=== PATIENT | male | born 1940 | race African-American/Black ===

== ENCOUNTER 2016-05-22 19:59 | Inpatient (IN) | payer BC, OTHER ==
[2016-05-22 20:40] VITALS: BMI 31.8
--- NOTE | 2016-05-22 20:48 | PDOC ---
History of Present Illness - General History Source: Patient <Beck Baum - Last Filed: 05/22/16 22:59> - General History Source: Patient Exam Limitations: No Limitations - History of Present Illness Initial Comments: 05/22/16 21:18 The patient is a 75 year old male with significant past medical history of COPD , hypertension, BPH, CKD/glomerulonephropathy previously requiring short term HD and now with stable renal function, s/p inguinal and umbilical hernia repairs who presents to the ED with copd exacerbation and bilateral lower extremities edema. Patient reports he was recently started on prednisone about 1 week ago and subsequently noted his legs to be swollen. He also reports SOB, but denies diaphoresis, lightheadedness, chest pain, jaw pain, shoulder pain, nausea, or vomiting. Patient states he is scheduled for a biopsy on his kidneys tomorrow morning, but is unsure of which kidney. The patient denies fever, chills, cough, abdominal pain, and diarrhea. The patient denies dysuria, hematuria, urgency, and frequency. Allergies: NKDA Social History: No alcohol, tobacco, or drug use reported. Past Surgical History: s/p inguinal and umbilical hernia repairs PCP: Dr. 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 Kg Bowman Urologist: Dr. Armen Hathaway <Jesus AlbertoJuwan fallTheresa - Last Filed: 05/22/16 23:45> - General Chief Complaint: Edema Stated Complaint: PCP SENT/KIDNEY PAIN Time Seen by Provider: 05/22/16 20:45 Past History - Past Medical History Anemia: No Asthma: No Cancer: No Cardiac Disorders: Yes (ENLARGED HEART) CVA: No COPD: Yes CHF: No Dementia: No Diabetes: No Dialysis: Yes (HX OF) GI Disorders: No Disorders: No HTN: Yes Hypercholesterolemia: No Kidney Stones: Yes Liver Disease: No Seizures: No Thyroid Disease: No Other medical history: englarged prostate, acute kidney failure - Surgical History Abdominal Surgery: Yes (HERNIA) Appendectomy: No Cardiac Surgery: No Cholecystectomy: No Lung Surgery: No Neurologic Surgery: No Orthopedic Surgery: Yes (SPINAL SX MANY YEARS AGO) - Psycho/Social/Smoking Cessation Hx Anxiety: No Suicidal Ideation: No Smoking History: Former smoker Have you smoked in the past 12 months: No If you are a former smoker, when did you quit?: 35 years ago Information on smoking cessation initiated: No Hx Alcohol Use: No Drug/Substance Use Hx: No Substance Use Type: None Hx Substance Use Treatment: No <Beck Baum - Last Filed: 05/22/16 22:59> <Jesus AlbertoJusto fallta - Last Filed: 05/22/16 23:45> - Past Medical History Allergies/Adverse Reactions: Allergies Allergy/AdvReac Type Severity Reaction Status Date / Time No Known Allergies Allergy Verified 05/22/16 20:40 Home Medications: Ambulatory Orders Budesonide/Formeterol Fumarate [SYMBICORT 160/4.5mcg -] 2 inh IH BID inhaler Tamsulosin HCl [Flomax -] 0.4 mg PO DAILY@0830 cap.er.24h 07/08/14 Albuterol 0.083% Nebulizer Dianne [Ventolin 0.083% Nebulizer Soln -] 1 neb NEB QID PRN 01/19/15 [place]-3 Fatty Acids [Fish Oil] 900 mg PO DAILY 01/19/15 Doxazosin Mesylate [Cardura -] 4 mg PO DAILY #60 tablet 12/26/15 Ranolazine [Ranexa -] 500 mg PO DAILY tab 12/26/15 Calcium Citrate/Vitamin D3 [Calcium Citrate - Vit D Caplet] 1 each PO DAILY Furosemide [Lasix] 20 mg PO BID 05/22/16 Metoprolol Succinate [Toprol Xl -] mg PO DAILY 05/22/16 Prednisone 20 mg PO DAILY 05/22/16 Silodosin [Rapaflo] 8 mg PO ASDIR 05/22/16 Review of Systems - Review of Systems Able to Perform ROS?: Yes Comments:: 05/22/16 21:18 CONSTITUTIONAL: Absent: fever, chills, diaphoresis, generalized weakness, malaise, loss of appetite HEENT: Absent: rhinorrhea, nasal congestion, throat pain, throat swelling, difficulty swallowing, mouth swelling, ear pain, eye pain, visual Changes CARDIOVASCULAR: +bilateral leg swelling Absent: chest pain, syncope, palpitations, irregular heart rate, lightheadedness RESPIRATORY: +SOB Absent: cough, dyspnea with exertion, orthopnea, wheezing, stridor, hemoptysis GASTROINTESTINAL: Absent: abdominal pain, abdominal distension, nausea, vomiting, diarrhea, constipation, melena, hematochezia GENITOURINARY: Absent: dysuria, frequency, urgency, hesitancy, hematuria, flank pain, genital pain MUSCULOSKELETAL: Absent: myalgia, arthralgia, joint swelling SKIN: Absent: rash, itching, pallor NEUROLOGIC: Absent: headache, focal weakness or paresthesias, dizziness, unsteady gait, seizure, mental status changes, bladder or bowel incontinence <IanTheresa - Last Filed: 05/22/16 23:45> *Physical Exam - Vital Signs Last Vital Signs Temp Pulse Resp BP Pulse Ox 98.6 F 82 18 143/83 98 05/22/16 20:36 05/22/16 20:36 05/22/16 20:36 05/22/16 20:36 05/22/16 20:36 <GregoryBeck coughlin - Last Filed: 05/22/16 22:59> - Vital Signs Last Vital Signs Temp Pulse Resp BP Pulse Ox 98.6 F 82 18 143/83 98 05/22/16 20:36 05/22/16 20:36 05/22/16 20:36 05/22/16 20:36 05/22/16 20:36 - Physical Exam Comments: 05/22/16 21:18 GENERAL: Well developed, well nourished. Awake and alert. No acute distress. HEENT: Normocephalic, atraumatic. PERRLA, EOMI. No conjunctival pallor. Sclera are non- icteric. Moist mucous membranes. Oropharynx is clear. NECK: Supple. Full ROM. No JVD. Carotid pulses 2+ and symmetric, without bruits. No thyromegaly. No lymphadenopathy. CARDIOVASCULAR: Regular rate and rhythm. No murmurs, rubs, or gallops. Distal pulses are 2+ and symmetric. PULMONARY: No evidence of respiratory distress. Mild conversational dyspnea. No retractions. Lungs clear to auscultation bilaterally. No wheezing, rales or rhonchi. ABDOMINAL: Soft. Non-tender. Non-distended. No rebound or guarding. No organomegaly. Normoactive bowel sounds. MUSCULOSKELETAL Normal range of motion at all joints. No bony deformities or tenderness. No CVA tenderness. EXTREMITIES: No cyanosis. No clubbing. 2+ pitting edema bilateral lower extremities. No calf tenderness. SKIN: Warm and dry. Normal capillary refill. No rashes. No jaundice. NEUROLOGICAL: Alert, awake, appropriate. Cranial nerves 2-12 intact. Moving all extremities. No gross focal neurological deficits. <Theresa Sosa - Last Filed: 05/22/16 23:45> Heart Score/ECG Review - ECG Impressions Comment:: 05/22/16 22:00 Sinus tachycardia with frequent premature ventricular complexes in pattern of bigeminy @147bpm Possible left atrial enlargement Nonspecific intraventricular block Abnormal ECG <Theresa Sosa - Last Filed: 05/22/16 23:45> ED Treatment Course - LABORATORY CBC & Chemistry Diagram: 05/22/16 21:40 05/22/16 21:50 <Beck Baum - Last Filed: 05/22/16 22:59> - LABORATORY CBC & Chemistry Diagram: 05/22/16 21:40 05/22/16 21:50 <Theresa Sosa - Last Filed: 05/22/16 23:45> Medical Decision Making - Medical Decision Making 05/22/16 22:59 Dr. Baum: The scribe's documentation has been prepared under my direction and personally reviewed by me in its entirery. I confirm that the note above accurately reflects all work, treatment, procedures, and medical decision making performed by me. Patient to be admitted for shortness of breath. patient presents with worsening renal function. 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 Patient will be admitted to [facility] for renal biopsy performed by interventional radiology in the morning. <Beck Baum - Last Filed: 05/22/16 22:59> - Medical Decision Making 05/22/16 20:[address] Alvaro Landry covering for Dr. Chidi Solis (via answering service) at 20:52 Awaiting call back 05/22/16 21:12 Patient's case discussed with Dr. Landry at 21:12 05/22/16 23:[address] Marie, pt was sent from his office because during examination patient was moderately short of breath and he noted his symptoms progressively gotten worse within the last several weeks. Renal function was within normal limits after being treated with oral steroids due to worsening renal functioning. However, pt renal function has returned to a abnormal level and pt also had lower extremity edema. Dr. Marie will make arrangements for renal biopsy with IR department. <Theresa Sosa - Last Filed: 05/22/16 23:45> *DC/Admit/Observation/Transfer - Discharge Dispostion Admit: Yes <Beck Baum - Last Filed: 05/22/16 22:59> - Attestations Scribe Attestion: 05/22/16 21:19 Documentation prepared by Theresa Sosa, acting as medical advisor for Beck Baum MD <Theresa Sosa - Last Filed: 05/22/16 23:45> Diagnosis at time of Disposition: COPD exacerbation CKD (chronic kidney disease) Qualifiers: Chronic kidney disease stage: unspecified stage Qualified Code(s): N18.9 - Chronic kidney disease, unspecified - Referrals Referrals: Chidi Solis MD [Primary Care Provider] -
[2016-05-22] MEDS ORDERED: ALBUTEROL SO4 2.5/IPRATROPIUM 0.5 INH SOL 3 ML VIAL.NEB. NEB STA (20:53)
[2016-05-22 21:54] LABS: BASOPHIL 0.1 % (0-2.0); MCH 22.9 pg (25.7-33.7); MCHC 32.7 g/dl (32.0-35.9); MEAN CELL VOLUME 70.1 fl (80-96); MEAN PLT VOLUME 9.1 fl (7.5-11.1); NEUTROPHILS 84.8 % (42.8-82.8); PLATELET COUNT 281 K/MM3 (134-434); RDW 16.9 % (11.9-15.9); WHITE BLOOD COUNT 8.5 K/mm3 (4.0-10.0)
[2016-05-22] MEDS ORDERED: FUROSEMIDE 40 MG/4 ML INJECTABLE VIAL IVPUSH ONE (22:28)
[2016-05-22] MEDS ORDERED: predniSONE 20 MG TABLET (UD) PO ONE (22:29)
[2016-05-22 22:36] LABS: INR 0.92 (0.82-1.09); PROTHROMBIN TIME (PATIENT) 10.1 SEC (9.98-11.88)
[2016-05-22] MEDS ORDERED: FUROSEMIDE 40 MG/4 ML INJECTABLE VIAL ONE (22:44)
[2016-05-22] MEDS ORDERED: predniSONE 20 MG TABLET (UD) ONE (22:44)
[2016-05-22 22:46] LABS: ALBUMIN 1.3 g/dl (3.4-5.0); BILIRUBIN,TOTAL 0.1 mg/dL (0.2-1.0); CALCIUM 8.6 mg/dL (8.5-10.1); CREATININE 1.8 mg/dL (0.7-1.3); TOT PROT 5.1 g/dl (6.4-8.2)
[2016-05-22] MEDS ORDERED: ALBUTEROL SO4 0.042% IH SOL 1.25 MG/3 ML VIAL.NEB NEB ONE (23:00)
[2016-05-22] MEDS ORDERED: ALBUTEROL SO4 0.083% IH SOL 2.5 MG/3 ML VIAL.NEB. NEB PRN (23:42)
[2016-05-22] MEDS ORDERED: ACETAMINOPHEN 325 MG TABLET (FP) PO PRN (23:44)
[2016-05-22] MEDS ORDERED: PATIENT'S OWN MEDICATION (NON-FORMULARY) (Silodosin [Rapaflo] 8 MG) PO SCH (23:45)
[2016-05-23] MEDS: BUDESONIDE/FORMETEROL FUMARATE 160/4.5 mcg INHALER IH SCH ×3 (00:27→21:24)
[2016-05-23 02:02] LABS: URINE APPEARANCE CLEAR; URINE BILIRUBIN NEGATIVE (NEGATIVE); URINE BLOOD NEGATIVE (NEGATIVE); URINE COLOR COLORLESS; URINE GLUCOSE (UA) 1+ (NEGATIVE); URINE KETONE NEGATIVE (NEGATIVE); URINE LEUK ESTERASE NEGATIVE (NEGATIVE); URINE NITRITE NEGATIVE (NEGATIVE); URINE UROBILINOGEN NEGATIVE E.U./dl (0.2-1.0)
[2016-05-23 02:13] LABS: URINE PROTEIN 1+ (NEGATIVE)
[2016-05-23 02:14] LABS: URINE BACTERIA RARE /hpf (NONE SEEN); URINE HYALINE CAST 1 /lpf; URINE MUCUS RARE; URINE RBC 1 /hpf (0-3); URINE WBC <1 /hpf (3-5)
[2016-05-23 07:56] LABS: BASOPHIL 0.1 % (0-2.0); MCH 22.5 pg (25.7-33.7); MCHC 31.5 g/dl (32.0-35.9); MEAN CELL VOLUME 71.4 fl (80-96); MEAN PLT VOLUME 9.3 fl (7.5-11.1); NEUTROPHILS 83.9 % (42.8-82.8); PLATELET COUNT 201 K/MM3 (134-434); RDW 16.9 % (11.9-15.9); WHITE BLOOD COUNT 8.5 K/mm3 (4.0-10.0)
[2016-05-23 08:07] LABS: PHOSPHOROUS 3.4 mg/dL (2.5-4.9)
[2016-05-23 08:09] LABS: TROPONIN I < 0.02 ng/ml (0.00-0.05)
[2016-05-23 08:29] LABS: MAGNESIUM 1.8 mg/dL (1.8-2.4)
[2016-05-23] MEDS: HEPARIN NA (PORCINE) 5,000 UNITS/ML 1ML VIAL SQ SCH ×2 (10:00→21:24)
[2016-05-23] MEDS ORDERED: predniSONE 20 MG TABLET (UD) PO SCH (10:00)
[2016-05-23] MEDS ORDERED: DOXAZOSIN MESYLATE 2 MG TABLET (FP) PO SCH (10:00)
[2016-05-23] MEDS ORDERED: FUROSEMIDE 40 MG/4 ML INJECTABLE VIAL IVPB SCH (10:00)
--- NOTE | 2016-05-23 10:52 | HP ---
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 esolved with steroids,) Heme/Onc: Yes: Other (intermittent eosinophilia) Psych: Yes: Addictions (previous smoker quit 35 years ago ) Musculoskeletal: Yes: Other (No active joints.) - Past Surgical History Past Surgical History: Yes: Hernia Repair - Smoking History Smoking history: Former smoker Have you smoked in the past 12 months: No If you are a former smoker, when did you quit?: 35 years ago - Alcohol/Substance Use Hx Alcohol Use: No History of Substance Use: reports: None - Social History ADL: Independent History of Recent Travel: No Home Medications - Allergies Allergies/Adverse Reactions: Allergies Allergy/AdvReac Type Severity Reaction Status Date / Time No Known Allergies Allergy Verified 05/22/16 20:40 - Home Medications Home Medications: Ambulatory Orders Budesonide/Formeterol Fumarate [SYMBICORT 160/4.5mcg -] 2 inh IH BID inhaler Tamsulosin HCl [Flomax -] 0.4 mg PO DAILY@0830 cap.er.24h 07/08/14 Albuterol 0.083% Nebulizer Dianne [Ventolin 0.083% Nebulizer Soln -] 1 neb NEB QID PRN 01/19/15 [place]-3 Fatty Acids [Fish Oil] 900 mg PO DAILY 01/19/15 Doxazosin Mesylate [Cardura -] 4 mg PO DAILY #60 tablet 12/26/15 Ranolazine [Ranexa -] 500 mg PO DAILY tab 12/26/15 Calcium Citrate/Vitamin D3 [Calcium Citrate - Vit D Caplet] 1 each PO DAILY Furosemide [Lasix] 20 mg PO BID 05/22/16 Metoprolol Succinate [Toprol Xl -] mg PO DAILY 05/22/16 Prednisone 20 mg PO DAILY 05/22/16 Silodosin [Rapaflo] 8 mg PO ASDIR 05/22/16 Family Disease History - Family Disease History Family Disease History: Diabetes: Sister ( in late 50s/early 60s), Heart Disease: Mother Review of Systems - Review of Systems Constitutional: reports: Weakness Eyes: reports: No Symptoms HENT: reports: No Symptoms Neck: reports: No Symptoms Cardiovascular: reports: Shortness of Breath Respiratory: reports: Exercise Intolerance, SOB, SOB on Exertion, Wheezing Gastrointestinal: reports: No Symptoms Genitourinary: reports: No Symptoms Musculoskeletal: reports: Back Pain, Muscle Weakness Integumentary: denies: No Symptoms Neurological: reports: No Symptoms Endocrine: reports: No Symptoms Physical Examination Vital Signs: Vital Signs Temperature 97.8 F 05/23/16 06:00 Pulse Rate 77 05/23/16 06:00 Respiratory Rate 18 05/23/16 06:00 Blood Pressure 137/97 05/23/16 06:00 O2 Sat by Pulse Oximetry (%) 100 05/23/16 03:40 Constitutional: Yes: Mild Distress, Moderate Distress Eyes: Yes: WNL HENT: Yes: WNL Neck: Yes: WNL Cardiovascular: Yes: WNL Respiratory: Yes: SOB, Wheezes Gastrointestinal: Yes: WNL Renal/: Yes: WNL Musculoskeletal: Yes: Back Pain, Muscle Weakness Extremities: Yes: WNL Edema: Yes Edema: LLE: 2+, RLE: 2+ Integumentary: Yes: WNL Wound/Incision: Yes: Clean/Dry Neurological: Yes: WNL ...Motor Strength: LLE, RLE Psychiatric: Yes: WNL Labs: CBC, BMP 05/23/16 06:20 05/23/16 06:20 Problem List - Problems (1) CKD (chronic kidney disease) Assessment/Plan: acute on chronic Code(s): N18.9 - CHRONIC KIDNEY DISEASE, UNSPECIFIED Qualifiers: Chronic kidney disease stage: unspecified stage Qualified Code(s): N18.9 - Chronic kidney disease, unspecified (2) Fluid overload Code(s): E87.70 - FLUID OVERLOAD, UNSPECIFIED (3) Acute renal failure (ARF) Code(s): N17.9 - ACUTE KIDNEY FAILURE, UNSPECIFIED Qualifiers: Acute renal failure type: unspecified acute renal failure Qualified Code(s): N17.9 - Acute kidney failure, unspecified (4) Edema Code(s): R60.9 - EDEMA, UNSPECIFIED Qualifiers: Edema type: localized Qualified Code(s): R60.0 - Localized edema (5) Hypertension Code(s): I10 - ESSENTIAL (PRIMARY) HYPERTENSION Qualifiers: Hypertension type: essential hypertension Qualified Code(s): I10 - Essential (primary) hypertension Assessment/Plan renal biopsy today tolerated well await results prednisone started renal and cardiac eval appreciated copd--pulm eval lasix iv monitor kidney function
[2016-05-23] MEDS ORDERED: LABETALOL HCL 5 MG/1 ML (200MG/40ML VIAL) IVPB ONE (10:56)
[2016-05-23 11:25] LABS: ALBUMIN 1.3 g/dl (3.4-5.0); ALK PHOS 146 U/L (45-117); ANION GAP 11 (8-16); BILIRUBIN,TOTAL 0.3 mg/dL (0.2-1.0); CALCIUM 9.1 mg/dL (8.5-10.1); CO2 22 mmol/L (21-32); CREATININE 1.7 mg/dL (0.7-1.3); GLUCOSE,RANDOM 108 mg/dL (74-106); SGPT/ALT 25 U/L (12-78); TOT PROT 5.5 g/dl (6.4-8.2)
--- NOTE | 2016-05-23 11:29 | CONSULT ---
Consult Consult Specialty:: Nephrology Reason for Consultation:: CATY - History of Present Illness Chief Complaint: sent in for nephrotic syndrome and fluid overload History of Present Illness: Pt is a 75 year old male with pmhx of COPD, CKD with JANNA, and HTN who I sent in to the hospital for fluid overload. 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 He did require a few weeks of dialysis in the past. He recently developed proteinuria and acute renal failure again. He came to the office yesterday and was found to be in fluid overload. I restarted the steroids about 1 week ago when I was called about his lab and urine findings. He is also on lasix at home. His lower extremity edema is only mildly improved and he has significant weight gain. His aspirin was stopped one week ago. 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 resolved with steroids,) Psych: Yes: Addictions (previous smoker quit 35 years ago ) Musculoskeletal: Yes: Other (No active joints.) - Past Surgical History Past Surgical History: Yes: Hernia Repair - Alcohol/Substance Use Hx Alcohol Use: No History of Substance Use: reports: None - Smoking History Smoking history: Former smoker Have you smoked in the past 12 months: No If you are a former smoker, when did you quit?: 35 years ago - Social History Usual Living Arrangement: With Spouse (2nd ) ADL: Independent History of Recent Travel: No Home Medications - Allergies Allergies/Adverse Reactions: Allergies Allergy/AdvReac Type Severity Reaction Status Date / Time No Known Allergies Allergy Verified 05/22/16 20:40 - Home Medications Home Medications: Ambulatory Orders Budesonide/Formeterol Fumarate [SYMBICORT 160/4.5mcg -] 2 inh IH BID inhaler Tamsulosin HCl [Flomax -] 0.4 mg PO DAILY@0830 cap.er.24h 07/08/14 Albuterol 0.083% Nebulizer Dianne [Ventolin 0.083% Nebulizer Soln -] 1 neb NEB QID PRN 01/19/15 [place]-3 Fatty Acids [Fish Oil] 900 mg PO DAILY 01/19/15 Doxazosin Mesylate [Cardura -] 4 mg PO DAILY #60 tablet 12/26/15 Ranolazine [Ranexa -] 500 mg PO DAILY tab 12/26/15 Calcium Citrate/Vitamin D3 [Calcium Citrate - Vit D Caplet] 1 each PO DAILY Furosemide [Lasix] 20 mg PO BID 05/22/16 Metoprolol Succinate [Toprol Xl -] mg PO DAILY 05/22/16 Prednisone 20 mg PO DAILY 05/22/16 Silodosin [Rapaflo] 8 mg PO ASDIR 05/22/16 Family Disease History - Family Disease History Family Disease History: Diabetes: Sister ( in late 50s/early 60s), Heart Disease: Mother Review of Systems - Review of Systems Constitutional: reports: Malaise Eyes: reports: No Symptoms HENT: reports: No Symptoms Neck: reports: No Symptoms Cardiovascular: reports: Edema, Shortness of Breath Respiratory: reports: SOB Gastrointestinal: reports: No Symptoms Genitourinary: reports: No Symptoms Musculoskeletal: reports: No Symptoms Integumentary: reports: No Symptoms Endocrine: reports: No Symptoms Hematology/Lymphatic: reports: No Symptoms Physical Exam Vital Signs: Vital Signs Temperature 98.1 F 05/23/16 10:00 Pulse Rate 75 05/23/16 10:00 Respiratory Rate 20 05/23/16 10:00 Blood Pressure 125/80 05/23/16 10:00 O2 Sat by Pulse Oximetry (%) 100 05/23/16 03:40 Constitutional: Yes: Calm Eyes: Yes: Conjunctiva Clear HENT: Yes: Atraumatic Neck: Yes: Supple Cardiovascular: Yes: S1, S2 Respiratory: Yes: CTA Bilaterally Gastrointestinal: Yes: Normal Bowel Sounds, Soft Breast(s): Yes: Gynecomastia Musculoskeletal: Yes: WNL Edema: Yes Edema: LLE: 3+, RLE: 3+ Neurological: Yes: Oriented Psychiatric: Yes: Oriented Labs: CBC, BMP 05/23/16 06:20 05/23/16 06:20 Laboratory Tests 05/22/16 05/23/16 05/23/16 21:50 01:50 06:20 WBC 8.5 Hgb 15.1 Plt Count 201 D Sodium 139 Potassium 5.8 H D Chloride 106 Carbon Dioxide 24 Anion Gap 9 BUN 36 H D Creatinine 1.8 H D Albumin 1.3 L D Urine Protein 1+ H Urine Glucose (UA) 1+ H Imaging - Results Chest X-ray: Report Reviewed Problem List - Problems (1) CKD (chronic kidney disease) Code(s): N18.9 - CHRONIC KIDNEY DISEASE, UNSPECIFIED Qualifiers: Chronic kidney disease stage: unspecified stage Qualified Code(s): N18.9 - Chronic kidney disease, unspecified (2) Acute renal failure (ARF) Code(s): N17.9 - ACUTE KIDNEY FAILURE, UNSPECIFIED Qualifiers: Acute renal failure type: unspecified acute renal failure Qualified Code(s): N17.9 - Acute kidney failure, unspecified (3) Edema Code(s): R60.9 - EDEMA, UNSPECIFIED Qualifiers: Edema type: localized Qualified Code(s): R60.0 - Localized edema (4) Hyperkalemia Code(s): E87.5 - HYPERKALEMIA (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 Assessment/Plan Current Medications Generic Name Dose Route Start Last Admin Trade Name Freq PRN Reason Stop Dose Admin Acetaminophen 650 mg 05/22/16 23:44 Tylenol - PO Q4H PRN FEVER OR PAIN Albuterol Sulfate 1 amp 05/22/16 23:42 Ventolin 0.083% Nebulizer Soln - NEB QID PRN ASTHMA Budesonide/Formoterol Fumarate 2 puff 05/22/16 23:45 05/23/16 00:27 Symbicort 160/4.5mcg - IH Not Given BID [facility] Doxazosin Mesylate 4 mg 05/23/16 10:00 Cardura - PO DAILY CHARLES Furosemide 40 mg 05/23/16 10:00 Lasix Injection - IVPB DAILY [facility] Heparin Sodium (Porcine) 5,000 unit 05/23/16 10:00 Heparin - SQ BID [facility] Metoprolol Succinate 25 mg 05/23/16 10:00 Toprol Xl - PO DAILY CHARLES Prednisone 20 mg 05/23/16 10:00 Deltasone - PO DAILY [facility]LES Ranolazine 500 mg 05/23/16 10:00 Ranexa - PO DAILY [facility] Tamsulosin HCl 0.4 mg 05/23/16 08:30 Flomax - PO DAILY@0830 CHARLES Impression 1. CATY 2. CKD with hx of JANNA 3. COPD 4. HTN 5. BPH 6. hyperkalemia 7. fluid overload Plan - cont steroids, prednisone 60 mg daily - cont IV lasix - repeat labs - renal diet - kidney biopsy today - discussed with PMD - will follow closely - will fax serology workup from office Dr Marie
[2016-05-23 11:50] LABS: SGOT/AST 39 U/L (15-37)
[2016-05-23] MEDS: TAMSULOSIN HCL 0.4 MG CAP.ER.24H (FP) PO SCH (13:15)
[2016-05-23] MEDS: METOPROLOL SUCCINATE 25 MG TAB.SR.24H (FP) PO SCH (13:16)
[2016-05-23] MEDS: RANOLAZINE E.R. 500 MG TABLET (FP) PO SCH (13:16)
[2016-05-23] MEDS: FUROSEMIDE 40 MG/4 ML INJECTABLE VIAL IVPB SCH ×2 (13:17→19:14)
[2016-05-23 13:20] LABS: CALCIUM 9.1 mg/dL (8.5-10.1); CREATININE 1.6 mg/dL (0.7-1.3)
[2016-05-23] MEDS: predniSONE 20 MG TABLET (UD) PO SCH (13:22)
--- NOTE | 2016-05-23 13:47 | PN ---
Progress Note (short form) - Note Progress Note: Renal Addendum Laboratory Tests 05/23/16 12:45 Sodium 140 Potassium 4.8 D Chloride 105 Carbon Dioxide 29 D Anion Gap 6 L BUN 33 H Creatinine 1.6 H Labs reviewed, potassium normal Dr Marie Problem List - Problems (1) CKD (chronic kidney disease) Code(s): N18.9 - CHRONIC KIDNEY DISEASE, UNSPECIFIED Qualifiers: Chronic kidney disease stage: unspecified stage Qualified Code(s): N18.9 - Chronic kidney disease, unspecified (2) Acute renal failure (ARF) Code(s): N17.9 - ACUTE KIDNEY FAILURE, UNSPECIFIED Qualifiers: Acute renal failure type: unspecified acute renal failure Qualified Code(s): N17.9 - Acute kidney failure, unspecified (3) Edema Code(s): R60.9 - EDEMA, UNSPECIFIED Qualifiers: Edema type: localized Qualified Code(s): R60.0 - Localized edema (4) Hyperkalemia Code(s): E87.5 - HYPERKALEMIA (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
--- NOTE | 2016-05-23 15:00 | CON.CARD ---
Consult Consult Specialty:: Cardiology Referred by:: Dr. Landry Reason for Consultation:: SOB - History of Present Illness Chief Complaint: Dyspnea, edema History of Present Illness: 75 yo male with COPD, interstitial lung disease, CKD/minimal change disease, and HTN who was admitted yesterday with dyspnea/edema/acute renal failure yesterday from [employer]. Cardiology was consulted for CHF evaluation given dyspnea. Patient underwent renal biopsy earlier today and currently reports improvement in dyspnea with IV furosemide. Denies chest pain. - History Source History Provided By: Patient Limitations to Obtaining History: No Limitations - Past Medical History Cardio/Vascular: Yes: HTN Pulmonary: Yes: COPD, Other (interstitial lung disease ) Renal/: Yes: Renal Failure ( related to minimal change disease), Renal Inusuff , Other (Epiaode of actute renal insufficiency and nephrotic syndrome sconadry to mimimal change disease -> resolved with steroids) Psych: Yes: Addictions (previous smoker quit 35 years ago ) Musculoskeletal: Yes: Other (No active joints.) - Past Surgical History Past Surgical History: Yes: Hernia Repair - Alcohol/Substance Use Hx Alcohol Use: No History of Substance Use: reports: None - Smoking History Smoking history: Former smoker Have you smoked in the past 12 months: No If you are a former smoker, when did you quit?: 35 years ago - Social History Usual Living Arrangement: With Spouse (2nd ) ADL: Independent History of Recent Travel: No Home Medications - Allergies Allergies/Adverse Reactions: Allergies Allergy/AdvReac Type Severity Reaction Status Date / Time No Known Allergies Allergy Verified 05/22/16 20:40 - Home Medications Home Medications: Ambulatory Orders Budesonide/Formeterol Fumarate [SYMBICORT 160/4.5mcg -] 2 inh IH BID inhaler Tamsulosin HCl [Flomax -] 0.4 mg PO DAILY@0830 cap.er.24h 07/08/14 Albuterol 0.083% Nebulizer Dianne [Ventolin 0.083% Nebulizer Soln -] 1 neb NEB QID PRN 01/19/15 [place]-3 Fatty Acids [Fish Oil] 900 mg PO DAILY 01/19/15 Doxazosin Mesylate [Cardura -] 4 mg PO DAILY #60 tablet 12/26/15 Ranolazine [Ranexa -] 500 mg PO DAILY tab 12/26/15 Calcium Citrate/Vitamin D3 [Calcium Citrate - Vit D Caplet] 1 each PO DAILY Furosemide [Lasix] 20 mg PO BID 05/22/16 Metoprolol Succinate [Toprol Xl -] mg PO DAILY 05/22/16 Prednisone 20 mg PO DAILY 05/22/16 Silodosin [Rapaflo] 8 mg PO ASDIR 05/22/16 Family Disease History - Family Disease History Family Disease History: Diabetes: Sister ( in late 50s/early 60s), Heart Disease: Mother Review of Systems - Review of Systems Constitutional: reports: No Symptoms Eyes: reports: No Symptoms HENT: reports: No Symptoms Cardiovascular: reports: Edema, Shortness of Breath Respiratory: reports: SOB, SOB on Exertion Gastrointestinal: reports: No Symptoms Musculoskeletal: reports: No Symptoms Neurological: reports: No Symptoms Endocrine: reports: No Symptoms Hematology/Lymphatic: reports: No Symptoms Psychiatric: reports: No Symptoms Vital Signs: Vital Signs Temperature 98.1 F 05/23/16 10:00 Pulse Rate 80 05/23/16 12:02 Respiratory Rate 15 05/23/16 12:02 Blood Pressure 138/87 05/23/16 12:02 O2 Sat by Pulse Oximetry (%) 99 05/23/16 12:02 Constitutional: Yes: Well Nourished, No Distress Eyes: Yes: Conjunctiva Clear, EOM Intact HENT: Yes: Atraumatic, Normocephalic Respiratory: Yes: Rales Gastrointestinal: Yes: Normal Bowel Sounds, Soft. No: Tenderness Cardiovascular: Yes: Regular Rate and Rhythm JVD: No Carotid Bruit: No Heart Sounds: Yes: S1, S2 Murmur: No: Systolic Murmur Edema: Yes Edema: LLE: 2+, RLE: 2+ Neurological: Yes: Alert, Oriented, Cran Nerves II-XII Intact ...Motor Strength: WNL Psychiatric: Yes: WNL - Other Data Labs, Other Data: CBC, BMP 05/23/16 06:20 05/23/16 12:45 INR, PTT INR 0.92 (0.82-1.09) 05/22/16 21:50 Troponin, BNP 05/23/16 06:20 Troponin I < 0.02 B-Natriuretic Peptide 106.06 Troponin, BNP 05/23/16 06:20 Troponin I < 0.02 B-Natriuretic Peptide 106.06 05/22/16 ECG: Sinus tachycardia, possible LAE, RSR' pattern in V1 Echo: Report Reviewed (12/25/15: Normal LV size and systoli function. Mod TR. RVSP 40-50 mHg. Mod pulm HTN. Mild to mod AV sclerosis) Imaging - Results Chest X-ray: Report Reviewed (05/22/16: Interstitial changes), Image Reviewed Assessment/Plan 75 yo male with COPD, interstitial lung disease, CKD/minimal change disease, and HTN. 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 Cardiology was consulted for CHF evaluation given dyspnea/edema. Patient reports improvement in dyspnea with IV furosemide. 12/25/15 Echo: Normal LV size and systolic function. Mod TR. RVSP 40-50 mHg. Mod pulm HTN. Mild to mod AV sclerosis. BNP only 106. Patient's clinical presentation is likely due to his known underlying renal disease. Patient's physical exam, BNP 106, 12/2015 echo results, and CXR are not suggestive of CHF. RECS: No further cardiac work-up or intervention is needed at this time. Diuretics as per nephrology service. Further recs as per primary care team, nephrology, and pulmonary. Will see prn. Please call with specific questions.
--- NOTE | 2016-05-23 15:10 | CON.PULM ---
Consult Consult Specialty:: PULM/CCM Referred by:: WILBERTO Reason for Consultation:: ABNORMAL CXR - History of Present Illness Chief Complaint: SOB / LE SWELLING History of Present Illness: 75 M, known to our service from previous admissions. History of ILD that has been present on CT imaging since 2011. Additional history of COPD, hypertension , BPH, CKD/glomerulonephropathy (previously on short term HD). Admitted via the ER due to progressive SOB and bilateral LE edema. Patient reports the swelling seems to have started after he was given prednisone about 1 week ago. No travel history or sick contacts. No fever or chills. No hemoptysis or night sweats. - History Source History Provided By: Patient Limitations to Obtaining History: No Limitations - Past Medical History Cardio/Vascular: Yes: HTN Pulmonary: Yes: COPD, Other (interstitial lung disease ) Renal/: Yes: Renal Failure ( related to minimal change disease), Renal Inusuff , Other (Epiaode of actute renal insufficiency and nephrotic syndrome sconadry to mimimal change disease. resolved with steroids,) Psych: Yes: Addictions (previous smoker quit 35 years ago ) Musculoskeletal: Yes: Other (No active joints.) - Past Surgical History Past Surgical History: Yes: Hernia Repair - Alcohol/Substance Use Hx Alcohol Use: No History of Substance Use: reports: None - Smoking History Smoking history: Former smoker Have you smoked in the past 12 months: No If you are a former smoker, when did you quit?: 35 years ago - Social History Usual Living Arrangement: With Spouse (2nd ) ADL: Independent History of Recent Travel: No Home Medications - Allergies Allergies/Adverse Reactions: Allergies Allergy/AdvReac Type Severity Reaction Status Date / Time No Known Allergies Allergy Verified 05/22/16 20:40 - Home Medications Home Medications: Ambulatory Orders Budesonide/Formeterol Fumarate [SYMBICORT 160/4.5mcg -] 2 inh IH BID inhaler Tamsulosin HCl [Flomax -] 0.4 mg PO DAILY@0830 cap.er.24h 07/08/14 Albuterol 0.083% Nebulizer Dianne [Ventolin 0.083% Nebulizer Soln -] 1 neb NEB QID PRN 01/19/15 [place]-3 Fatty Acids [Fish Oil] 900 mg PO DAILY 01/19/15 Doxazosin Mesylate [Cardura -] 4 mg PO DAILY #60 tablet 12/26/15 Ranolazine [Ranexa -] 500 mg PO DAILY tab 12/26/15 Calcium Citrate/Vitamin D3 [Calcium Citrate - Vit D Caplet] 1 each PO DAILY Furosemide [Lasix] 20 mg PO BID 05/22/16 Metoprolol Succinate [Toprol Xl -] mg PO DAILY 05/22/16 Prednisone 20 mg PO DAILY 05/22/16 Silodosin [Rapaflo] 8 mg PO ASDIR 05/22/16 Family Disease History - Family Disease History Family Disease History: Diabetes: Sister ( in late 50s/early 60s), Heart Disease: Mother Review of Systems - Review of Systems Constitutional: denies: Chills, Fever, Night Sweats, Unintentional Wgt. Loss Eyes: reports: No Symptoms HENT: reports: No Symptoms Neck: reports: No Symptoms Cardiovascular: reports: Edema, Shortness of Breath. denies: Chest Pain Respiratory: reports: Cough, SOB, SOB on Exertion. denies: Hemoptysis, Wheezing Gastrointestinal: reports: No Symptoms Genitourinary: reports: No Symptoms Breasts: reports: No Symptoms Reported Musculoskeletal: reports: No Symptoms Integumentary: reports: No Symptoms Neurological: reports: No Symptoms Endocrine: reports: No Symptoms Hematology/Lymphatic: reports: No Symptoms Psychiatric: reports: No Symptoms Physical Exam Vital Sings: Vital Signs Temperature 98.1 F 05/23/16 10:00 Pulse Rate 80 05/23/16 12:02 Respiratory Rate 15 05/23/16 12:02 Blood Pressure 138/87 05/23/16 12:02 O2 Sat by Pulse Oximetry (%) 99 05/23/16 12:02 Constitutional: Yes: Well Nourished, No Distress Eyes: Yes: Conjunctiva Clear, EOM Intact HENT: Yes: Atraumatic, Normocephalic Neck: Yes: Supple, Trachea Midline Cardiovascular: Yes: Regular Rate and Rhythm Respiratory: Yes: Rales, Rhonchi. No: Stridor, Wheezes ...Inspection: Yes: WNL ...Clubbing: No Gastrointestinal: Yes: Normal Bowel Sounds, Soft Musculoskeletal: Yes: WNL Extremities: Yes: WNL Edema: Yes Peripheral Pulses WNL: Yes Integumentary: Yes: WNL Neurological: Yes: WNL, Alert, Oriented ...Motor Strength: WNL Psychiatric: Yes: Alert, Oriented Labs: CBC, BMP 05/23/16 06:20 05/23/16 12:45 Imaging - Results Chest X-ray: Report Reviewed, Image Reviewed Problem List - Problems (1) CKD (chronic kidney disease) Code(s): N18.9 - CHRONIC KIDNEY DISEASE, UNSPECIFIED Qualifiers: Chronic kidney disease stage: unspecified stage Qualified Code(s): N18.9 - Chronic kidney disease, unspecified (2) Cardiomegaly Code(s): I51.7 - CARDIOMEGALY (3) Edema Code(s): R60.9 - EDEMA, UNSPECIFIED Qualifiers: Edema type: localized Qualified Code(s): R60.0 - Localized edema (4) Hypertension Code(s): I10 - ESSENTIAL (PRIMARY) HYPERTENSION Qualifiers: Hypertension type: essential hypertension Qualified Code(s): I10 - Essential (primary) hypertension (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 (6) Fluid overload Code(s): E87.70 - FLUID OVERLOAD, UNSPECIFIED Assessment/Plan PLAN: Prednisone 60mg OD per Renal O2 as needed BD TX PRN IV Lasix BID Monitor daily weight Monitor off ABX Will follow Thank you. Dr Russ
--- NOTE | 2016-05-23 17:09 | EKG ---
Test Reason : Blood Pressure : / mmHG Vent. Rate : 147 BPM Atrial Rate : 147 BPM P-R Int : 174 ms QRS Dur : 174 ms QT Int : 170 ms P-R-T Axes : 065 -10 000 degrees QTc Int : 266 ms SINUS TACHYCARDIA POSSIBLE LEFT ATRIAL ENLARGEMENT ABNORMAL ECG Confirmed by SANDEE CEJA MD ([id number]) on 05/23/2016 5:09:22 PM Referred By: Confirmed By:SANDEE CEJA MD
[2016-05-23] MEDS ORDERED: PT OWN MED DRAWER 7, Y5N ONE (21:23)
[2016-05-23 23:25] LABS: URINE CREATININE 25.6 mg/dL
[2016-05-24] MEDS: FUROSEMIDE 40 MG/4 ML INJECTABLE VIAL IVPB SCH (06:37)
[2016-05-24 08:36] LABS: BASOPHIL 0.3 % (0-2.0); EOSINOPHIL 0.1 % (0-4.5); MCH 22.8 pg (25.7-33.7); MCHC 32.3 g/dl (32.0-35.9); MEAN CELL VOLUME 70.6 fl (80-96); MEAN PLT VOLUME 9.2 fl (7.5-11.1); NEUTROPHILS 74.8 % (42.8-82.8); PLATELET COUNT 216 K/MM3 (134-434); RDW 16.8 % (11.9-15.9); WHITE BLOOD COUNT 10.1 K/mm3 (4.0-10.0)
--- NOTE | 2016-05-24 09:11 | PN ---
Progress Note, Physician History of Present Illness: Pt seen and examined at bedside. He is awake and alert. He feels that his lower extremity edema is improving. He feels that his breathing has improved as well. He denies back pain and he denies hematuria. - Current Medication List Current Medications: Active Medications Acetaminophen (Tylenol -) 650 mg PO Q4H PRN PRN Reason: FEVER OR PAIN Albuterol Sulfate (Ventolin 0.083% Nebulizer Soln -) 1 amp NEB QID PRN PRN Reason: ASTHMA Budesonide/Formoterol Fumarate (Symbicort 160/4.5mcg -) 2 puff IH BID [facility] Last Admin: 05/23/16 21:24 Dose: 2 puff Doxazosin Mesylate (Cardura -) 4 mg PO DAILY [facility] Furosemide (Lasix Injection -) 40 mg IVPB BID@0600,1400 [facility] Last Admin: 05/24/16 06:37 Dose: 40 mg Heparin Sodium (Porcine) (Heparin -) 5,000 unit SQ BID [facility] Last Admin: 05/23/16 21:24 Dose: 5,000 unit Metoprolol Succinate (Toprol Xl -) 25 mg PO DAILY [facility] Last Admin: 05/23/16 13:16 Dose: 25 mg Prednisone (Deltasone -) 60 mg PO DAILY [facility] Last Admin: 05/23/16 13:22 Dose: 60 mg Ranolazine (Ranexa -) 500 mg PO DAILY [facility] Last Admin: 05/23/16 13:16 Dose: 500 mg Tamsulosin HCl (Flomax -) 0.4 mg PO DAILY@0830 [facility] Last Admin: 05/23/16 13:15 Dose: 0.4 mg - Objective Vital Signs: Vital Signs Temperature 98 F 05/24/16 06:53 Pulse Rate 72 05/24/16 06:53 Respiratory Rate 18 05/24/16 06:53 Blood Pressure 135/85 05/24/16 06:53 O2 Sat by Pulse Oximetry (%) 95 05/23/16 21:00 Constitutional: Yes: Calm Eyes: Yes: Conjunctiva Clear HENT: Yes: Atraumatic Cardiovascular: Yes: S1, S2 Respiratory: Yes: Wheezes Gastrointestinal: Yes: Soft Genitourinary: Yes: WNL. No: CVA Tenderness - Left, CVA Tenderness - Right, Hematuria Musculoskeletal: Yes: WNL Edema: Yes Edema: LLE: 1+, RLE: 1+ Neurological: Yes: Oriented Psychiatric: Yes: Oriented Labs: CBC, BMP 05/24/16 06:30 INR, PTT INR 0.92 (0.82-1.09) 05/22/16 21:50 Problem List - Problems (1) CKD (chronic kidney disease) Code(s): N18.9 - CHRONIC KIDNEY DISEASE, UNSPECIFIED Qualifiers: Chronic kidney disease stage: unspecified stage Qualified Code(s): N18.9 - Chronic kidney disease, unspecified (2) Acute renal failure (ARF) Code(s): N17.9 - ACUTE KIDNEY FAILURE, UNSPECIFIED Qualifiers: Acute renal failure type: unspecified acute renal failure Qualified Code(s): N17.9 - Acute kidney failure, unspecified (3) Edema Code(s): R60.9 - EDEMA, UNSPECIFIED Qualifiers: Edema type: localized Qualified Code(s): R60.0 - Localized edema (4) Hyperkalemia Code(s): E87.5 - HYPERKALEMIA (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 Assessment/Plan Current Medications Generic Name Dose Route Start Last Admin Trade Name Freq PRN Reason Stop Dose Admin Acetaminophen 650 mg 05/22/16 23:44 Tylenol - PO Q4H PRN FEVER OR PAIN Albuterol Sulfate 1 amp 05/22/16 23:42 Ventolin 0.083% Nebulizer Soln - NEB QID PRN ASTHMA Budesonide/Formoterol Fumarate 2 puff 05/22/16 23:45 05/23/16 21:24 Symbicort 160/4.5mcg - IH 2 puff BID [facility] Administration Doxazosin Mesylate 4 mg 05/24/16 10:00 Cardura - PO DAILY [facility] Furosemide 40 mg 05/23/16 14:00 05/24/16 06:37 Lasix Injection - IVPB 40 mg BID@0600,1400 [facility] Administration Heparin Sodium (Porcine) 5,000 unit 05/23/16 10:00 05/23/16 21:24 Heparin - SQ 5,000 unit BID [facility] Administration Metoprolol Succinate 25 mg 05/23/16 10:00 05/23/16 13:16 Toprol Xl - PO 25 mg DAILY [facility] Administration Prednisone 60 mg 05/23/16 12:30 05/23/16 13:22 Deltasone - PO 60 mg DAILY [facility] Administration Ranolazine 500 mg 05/23/16 10:00 05/23/16 13:16 Ranexa - PO 500 mg DAILY [facility] Administration Tamsulosin HCl 0.4 mg 05/23/16 08:30 05/23/16 13:15 Flomax - PO 0.4 mg DAILY@0830 [facility] Administration Laboratory Tests 05/23/16 18:00 Protein/Creatinin Ratio 1.95 Impression 1. CATY 2. CKD with hx of JANNA 3. COPD 4. HTN 5. BPH 6. hyperkalemia 7. fluid overload Plan - hg is stable, pt has not had any hematuria - cont with prednisone at 60 mg daily - cont with lasix at 40 mg po twice per day, can discharge at that dose - follow bmp - restart his statin - pt is on calcium supplements - should see me in office next week on Friday - biopsy results are not back yet Dr Marie
[2016-05-24 09:47] LABS: ALBUMIN 1.5 g/dl (3.4-5.0); BILIRUBIN,TOTAL 0.3 mg/dL (0.2-1.0); CALCIUM 9.3 mg/dL (8.5-10.1); CREATININE 1.7 mg/dL (0.7-1.3); TOT PROT 5.8 g/dl (6.4-8.2)
[2016-05-24] MEDS: predniSONE 20 MG TABLET (UD) PO SCH (09:51)
[2016-05-24] MEDS: TAMSULOSIN HCL 0.4 MG CAP.ER.24H (FP) PO SCH (09:51)
[2016-05-24] MEDS: HEPARIN NA (PORCINE) 5,000 UNITS/ML 1ML VIAL SQ SCH (09:52)
[2016-05-24] MEDS: METOPROLOL SUCCINATE 25 MG TAB.SR.24H (FP) PO SCH (09:53)
[2016-05-24] MEDS: RANOLAZINE E.R. 500 MG TABLET (FP) PO SCH (09:53)
[2016-05-24] MEDS: BUDESONIDE/FORMETEROL FUMARATE 160/4.5 mcg INHALER IH SCH (09:53)
[2016-05-24] MEDS ORDERED: RANITIDINE HCL 150 MG TABLET (FP) PO SCH (10:00)
[2016-05-24] MEDS ORDERED: CALCIUM 500MG/VIT-D 200 UNITS COMBO TABLET (FP) PO SCH (10:00)
[2016-05-24] MEDS ORDERED: DOXAZOSIN MESYLATE 4 MG TABLET PO SCH (10:00)
--- NOTE | 2016-05-24 12:54 | PN ---
Progress Note, Physician History of Present Illness: PULMONARY ALERT,FEELING BETTER,OOB-CHAIR ,SOB IMPROVING,LESS LOWER EXT EDEMA - Current Medication List Current Medications: Active Medications Acetaminophen (Tylenol -) 650 mg PO Q4H PRN PRN Reason: FEVER OR PAIN Albuterol Sulfate (Ventolin 0.083% Nebulizer Soln -) 1 amp NEB QID PRN PRN Reason: ASTHMA Budesonide/Formoterol Fumarate (Symbicort 160/4.5mcg -) 2 puff IH BID [facility] Last Admin: 05/24/16 09:53 Dose: 2 puff Calcium Carbonate/Cholecalciferol (Os-Kory 500+D -) 1 tab PO DAILY [facility] Last Admin: 05/24/16 09:52 Dose: 1 tab Doxazosin Mesylate (Cardura -) 4 mg PO DAILY [facility] Last Admin: 05/24/16 09:51 Dose: 4 mg Furosemide (Lasix -) 40 mg PO BID@0600,1400 [facility] Heparin Sodium (Porcine) (Heparin -) 5,000 unit SQ BID [facility] Last Admin: 05/24/16 09:52 Dose: 5,000 unit Metoprolol Succinate (Toprol Xl -) 25 mg PO DAILY [facility] Last Admin: 05/24/16 09:53 Dose: 25 mg Prednisone (Deltasone -) 60 mg PO DAILY [facility] Last Admin: 05/24/16 09:51 Dose: 60 mg Ranitidine HCl (Zantac -) 150 mg PO DAILY [facility] Last Admin: 05/24/16 09:52 Dose: 150 mg Ranolazine (Ranexa -) 500 mg PO DAILY [facility] Last Admin: 05/24/16 09:53 Dose: 500 mg Tamsulosin HCl (Flomax -) 0.4 mg PO DAILY@0830 [facility] Last Admin: 05/24/16 09:51 Dose: 0.4 mg - Objective Vital Signs: Vital Signs Temperature 97.6 F 05/24/16 10:00 Pulse Rate 85 05/24/16 10:00 Respiratory Rate 20 05/24/16 10:00 Blood Pressure 125/71 05/24/16 10:00 O2 Sat by Pulse Oximetry (%) 95 05/23/16 21:00 Constitutional: Yes: Well Nourished, Calm Eyes: Yes: WNL HENT: Yes: WNL Neck: Yes: WNL Cardiovascular: Yes: Regular Rate and Rhythm, S1, S2 Respiratory: Yes: Diminished Gastrointestinal: Yes: WNL Extremities: Yes: WNL Edema: Yes Labs: CBC, BMP 05/24/16 06:30 05/24/16 06:30 INR, PTT INR 0.92 (0.82-1.09) 05/22/16 21:50 Assessment/Plan Problem List - Problems (1) CKD (chronic kidney disease) Code(s): N18.9 - CHRONIC KIDNEY DISEASE, UNSPECIFIED Qualifiers: Chronic kidney disease stage: unspecified stage Qualified Code(s): N18.9 - Chronic kidney disease, unspecified (2) Cardiomegaly Code(s): I51.7 - CARDIOMEGALY (3) Edema Code(s): R60.9 - EDEMA, UNSPECIFIED Qualifiers: Edema type: localized Qualified Code(s): R60.0 - Localized edema (4) Hypertension Code(s): I10 - ESSENTIAL (PRIMARY) HYPERTENSION Qualifiers: Hypertension type: essential hypertension Qualified Code(s): I10 - Essential (primary) hypertension (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 (6) Fluid overload Code(s): E87.70 - FLUID OVERLOAD, UNSPECIFIED Assessment/Plan PLAN: Prednisone 60mg OD per Renal O2 as needed BD TX PRN Continue IV Lasix BID daily weights DR NELSON
[2016-05-24] MEDS ORDERED: FUROSEMIDE 40 MG TABLET (FP) PO SCH (14:00)
[2016-05-24 14:32] VITALS: BP 136/79; PULSE 79; TEMP 98.4
--- NOTE | 2016-05-24 15:01 | DS ---
Physical Examination Vital Signs: Vital Signs Temperature 98.4 F 05/24/16 14:31 Pulse Rate 79 05/24/16 14:31 Respiratory Rate 16 05/24/16 14:31 Blood Pressure 136/79 05/24/16 14:31 O2 Sat by Pulse Oximetry (%) 95 05/23/16 21:00 Constitutional: Yes: No Distress Eyes: Yes: WNL HENT: Yes: WNL Neck: Yes: WNL Cardiovascular: Yes: WNL Respiratory: Yes: WNL Gastrointestinal: Yes: WNL Renal/: Yes: WNL Musculoskeletal: Yes: Muscle Weakness Extremities: Yes: Erythema Edema: Yes Edema: LLE: 2+, RLE: 2+ Peripheral Pulses WNL: Yes Integumentary: Yes: Venous Stasis Changes Wound/Incision: Yes: Clean/Dry Neurological: Yes: WNL ...Motor Strength: WNL Psychiatric: Yes: WNL Labs: CBC, BMP 05/24/16 06:30 05/24/16 06:30 Discharge Summary Reason For Visit: ACUTE RENAL FAILURE Current Active Problems Bronchospasm (Acute) CKD (chronic kidney disease) (Acute) COPD exacerbation (Acute) Eosinophilia (Acute) Fluid overload (Acute) Procedures: Principal: RENAL BIOPSY Other Procedures: LABS/TELEMETRY Hospital Course: ADMITTED [facility] ACUTE ON CHRONIC RENAL FAILURE, RENAL BIOPSY DONE STARTED ON IV LASIX, PREDNISONE, DC HOME F/U WITH NEPHROLOGY IN [address] SOLIS IN 2 WEEKS Condition: Fair - Instructions Diet, Activity, Other Instructions: LOW SODIUM Referrals: Chidi Solis MD [Primary Care Provider] - Disposition: HOME - Home Medications Comprehensive Discharge Medication List: Ambulatory Orders Budesonide/Formeterol Fumarate [SYMBICORT 160/4.5mcg -] 2 inh IH BID inhaler Tamsulosin HCl [Flomax -] 0.4 mg PO DAILY@0830 cap.er.24h 07/08/14 Albuterol 0.083% Nebulizer Dianne [Ventolin 0.083% Nebulizer Soln -] 1 neb NEB QID PRN 01/19/15 [place]-3 Fatty Acids [Fish Oil] 900 mg PO DAILY 01/19/15 Doxazosin Mesylate [Cardura -] 4 mg PO DAILY #60 tablet 12/26/15 Ranolazine [Ranexa -] 500 mg PO DAILY tab 12/26/15 Calcium Citrate/Vitamin D3 [Calcium Citrate - Vit D Caplet] 1 each PO DAILY Metoprolol Succinate [Toprol XL -] mg PO DAILY 05/22/16 Silodosin [Rapaflo] 8 mg PO ASDIR 05/22/16 Calcium 500Mg/Vit-D 200 Units [Os-Kory 500+D -] 1 tab PO DAILY #30 tab 05/24/16 Furosemide [Lasix -] 40 mg PO BID@0600,1400 #60 tablet 05/24/16 Prednisone [Deltasone -] 60 mg PO DAILY #30 tablet 05/24/16 Ranitidine [Zantac -] 150 mg PO DAILY #30 tablet 05/24/16
--- NOTE | 2016-06-12 16:59 | PATH ---
Surgical Pathology Report Patient Name: SILVANA RICE [facility]. Rec. #: [id number] /Age/Gender: 1940 (Age: 75) / M Account: [id number] Location: 4 SO PEDS/ADOL Taken: 05/23/2016 Received: 05/23/2016 Reported: 06/12/2016 Physicians: Klaus Romero Mark Ammir Rabadi, M.D. Specimen(s) Received RENAL BIOPSY Clinical History 75-year-old with worsening CKD and proteinuria Intraoperative Consult Diagnosis Renal biopsy: Few possible glomeruli seen. Dr. Negrete on 05/23/16. Final Diagnosis RENAL BIOPSY ([facility] [id number]): 1. CONSISTENT WITH MINIMAL CHANGE DISEASE. 2. TUBULAR ATROPHY & INTERSTITIAL FIBROSIS. 3. ARTERIOSCLEROSIS, MODERATE. Comments The immunofluorescence findings provide evidence against glomerular disease of the immune complex type or a dysproteinemic form of renal disease. Sampling for light microscopy is limited to scant cortex containing 6 glomeruli, 5 of which appear unremarkable and 1 of which exhibits ischemic changes. In light of the previous biopsy findings, previous response to steroids, and the recent, abrupt recurrence of nephrotic syndrome, the findings present are consistent with minimal change disease (or, less likely, unsampled focal segmental glomerulosclerosis). LIGHT MICROSCOPY: Sections are stained with H&E, PAS, trichrome, & JMS. Sections reveal a single core of medulla with a small portion of renal cortex and a fragment of fibroadipose tissue. There are 6 glomeruli present, none of which are segmentally or globally sclerotic. Five (5) of the 6 glomeruli appear normal in size & cellularity with patent capillary lumina, glomerular basement membranes of normal thickness, and mild swelling of visceral epithelial cells. The 6th glomerulus appears shrunken with ischemic-type wrinkling of the GBM and pericapsular fibrosis. Within the scant cortex provided there is only focal, mild tubular atrophy and interstitial fibrosis, accompanied by interstitial lymphocytic inflammation. Proximal tubules display protein droplets. A blood vessel exhibits moderate arteriosclerosis. ELECTRON MICROSCOPY (PROCEDURE) Two (2) small cores of tissue are received in glutaraldehyde for electron microscopy. One (1) micron thick survey sections stained with toluidine blue reveal cortical tubules with no glomeruli. Despite deeper sectioning, no glomeruli are found. As a result, the paraffin block is deparaffinized and reprocessed for electron microscopy, but no glomeruli remain. As a result, electron microscopy is not performed. Electronically Signed Sergio Negrete M.D. Microscopic Description Sections are stained with H&E, PAS, trichrome, & JMS. Sections reveal a single core of medulla with a small portion of renal cortex and a fragment of fibroadipose tissue. There are 6 glomeruli present, none of which are segmentally or globally sclerotic. Five (5) of the 6 glomeruli appear normal in size & cellularity with patent capillary lumina, glomerular basement membranes of normal thickness, and mild swelling of visceral epithelial cells. The 6th glomerulus appears shrunken with ischemic-type wrinkling of the GBM and pericapsular fibrosis. Within the scant cortex provided there is only focal, mild tubular atrophy and interstitial fibrosis, accompanied by interstitial lymphocytic inflammation. Proximal tubules display protein droplets. A blood vessel exhibits moderate arteriosclerosis. Gross Description Received in saline labeled "right renal biopsy" are 4 chao, cylindrical portions of soft tissue ranging from 0.3-0.7 cm in length and averaging 0.1 cm in diameter. The specimen is divided, placed into 10% buffered formalin, Ralph fixative and glutaraldehyde. The specimen is sent to [facility] for further studies. 05/23/2016 alessandra05/23/2016
== END 2016-05-24 16:20 | disposition home or self-care (01) | DRG 683 ==
LOC: SUPCPDRO 19:59 → JER 19:59 → JERBED 22:57 → UNDOADMIN 23:49 → JERBED 23:49 → J4S 05-23 01:56
PROVIDERS: ADMIT Family Medicine; ATTEND Family Medicine
PROC: 0TB03ZX Excision of Right Kidney, Percutaneous Approach, Diagnostic (ICD-10-PCS; principal; 2016-05-23)
DX: N17.9 Acute kidney failure, unspecified (principal); J44.1 Chronic obstructive pulmonary disease with (acute) exacerbation; N04.0 Nephrotic syndrome with minor glomerular abnormality; I10 Essential (primary) hypertension; N40.0 Benign prostatic hyperplasia without lower urinary tract symptoms; J84.89 Other specified interstitial pulmonary diseases; E87.79 Other fluid overload; I51.7 Cardiomegaly; E87.5 Hyperkalemia; I12.9 Hypertensive chronic kidney disease with stage 1 through stage 4 chronic kidney disease, or unspecified chronic kidney disease; N18.9 Chronic kidney disease, unspecified; Z87.891 Personal history of nicotine dependence
CPT/HCPCS: 36415; 50200; 71010-TC; 76942-TC; 80048; 80053; 81003; 81015; 82570; 83735; 83880; 84100; 84156; 84484; 85025; 85610; 93005; 93010; 99285-25; J1644

== ENCOUNTER 2016-08-30 16:20 | Inpatient (IN) | payer BC, OTHER ==
[2016-08-30 16:27] VITALS: BMI 29.1
[2016-08-30] MEDS ORDERED: ONDANSETRON 4 MG/2 ML VIAL IVPB ONE (18:01)
--- NOTE | 2016-08-30 18:01 | PDOC ---
History of Present Illness - General History Source: Patient Exam Limitations: No Limitations - History of Present Illness Initial Comments: 08/30/16 18:34 The patient is a 75 year old male, with a significant past medical history of CKD/glomerulonephropathy(previously on short term HD), kidney stones, cardiomegaly, COPD, hypertension, hyperlipidemia, CAD, BPH, who presents to the emergency department sent by PCP for evaluation of abnormal labs. Patient reports visiting Dr. Marie last week, where he had bloodwork done, and his Creatinine was 1. However, after visiting Dr. Mei office approximately 4 days ago, patient reports his Creatinine was 5.4. He reports he received a call from Dr. Solis yesterday, suggesting the patient present to the ED for abnormal labs. Patient reports he noted his urine has been white and foamy. Patient has a history of dialysis treatment in 2013, but has not had a treatment since. He denies any dysuria, hematuria, frequency, urgency, or flank pain. Patient report his abdomen is enlarged, but states this is part of his baseline. He reports increased tiredness during the past year. He also reports lower extremity edema, which he noticed at Dr. Mei office 4 days ago. Patient denies any nausea, vomiting, diarrhea, or constipation. He denies any fever or chills. Allergies: None reported Past Surgical History: Hernia repair(X2), Spinal stenosis Social History: Former smoker. 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 <Abby Mcbride - Last Filed: 08/30/16 19:14> <Rl Noble - Last Filed: 08/30/16 19:51> - General Chief Complaint: Revisit, Lab Variance Stated Complaint: KIDNEY FAILURE Time Seen by Provider: 08/30/16 17:23 Past History <Abby Mcbride - Last Filed: 08/30/16 19:14> - Past Medical History Anemia: No Asthma: No Cancer: No Cardiac Disorders: Yes (ENLARGED HEART) CVA: No COPD: Yes CHF: No Dementia: No Diabetes: No Dialysis: Yes (HX OF , NOT ON DIALYSIS NOW) GI Disorders: No Disorders: No HTN: Yes Hypercholesterolemia: No Kidney Stones: Yes Liver Disease: No Seizures: No Thyroid Disease: No Other medical history: BACK PAIN,BPH - Surgical History Abdominal Surgery: Yes (HERNIA X2) Appendectomy: No Cardiac Surgery: No Cholecystectomy: No Lung Surgery: No Neurologic Surgery: No Orthopedic Surgery: Yes (SPINAL SX MANY YEARS AGO) - Psycho/Social/Smoking Cessation Hx Anxiety: No Suicidal Ideation: No Smoking History: Former smoker Have you smoked in the past 12 months: No If you are a former smoker, when did you quit?: 35 years ago Information on smoking cessation initiated: No Hx Alcohol Use: No Drug/Substance Use Hx: No Substance Use Type: None Hx Substance Use Treatment: No <Rl Noble - Last Filed: 08/30/16 19:51> - Past Medical History Allergies/Adverse Reactions: Allergies Allergy/AdvReac Type Severity Reaction Status Date / Time No Known Allergies Allergy Verified 08/30/16 16:22 Home Medications: Ambulatory Orders Budesonide/Formeterol Fumarate [SYMBICORT 160/4.5mcg -] 2 inh IH BID inhaler Tamsulosin HCl [Flomax -] 0.4 mg PO DAILY@0830 cap.er.24h 07/08/14 [place]-3 Fatty Acids [Fish Oil] 900 mg PO DAILY 01/19/15 Calcium Citrate/Vitamin D3 [Calcium Citrate - Vit D Caplet] 1 each PO DAILY Calcium 500Mg/Vit-D 200 Units [Os-Kory 500+D -] 1 tab PO DAILY #30 tab 05/24/16 Budesonide/Formeterol Fumarate [SYMBICORT 160/4.5mcg -] 1 inh PO BID 08/30/16 Doxazosin Mesylate [Cardura -] 2 mg PO DAILY 08/30/16 Fluticasone/Vilanterol [Breo Ellipta 100-25 Mcg INH] 1 each IH PRN 08/30/16 Levomefolate/B6/B12/Algal Oil [Metanx Capsule] 4 mg PO BID 08/30/16 Pantoprazole Sodium 40 mg PO DAILY 08/30/16 Ranolazine [Ranexa -] 500 mg PO BID 08/30/16 Review of Systems - Review of Systems Able to Perform ROS?: Yes Comments:: 08/30/16 18:35 CONSTITUTIONAL: Present: +fatigue No reported: Fever, Chills, Diaphoresis, Malaise, Loss of Appetite HEENT: No reported: Rhinorrhea, Nasal Congestion, Throat Pain, Throat Swelling, Difficulty Swallowing, Mouth Swelling, Ear Pain, Eye Pain, Visual Changes CARDIOVASCULAR: No reported: Chest Pain, Syncope, Palpitations, Irregular Heart Rate, Lightheadedness, Peripheral Edema RESPIRATORY: No reported: Cough, Shortness of Breath, SOB with Exertion, Orthopnea, Wheezing , Stridor, Hemoptysis GASTROINTESTINAL: No reported: Abdominal pain, Nausea, Vomiting, Diarrhea, Constipation, Melena, Hematochezia GENITOURINARY: Present: +white/foamy urine No reported: Dysuria, Frequency, Urgency, Hesitancy, Flank Pain, Genital Pain MUSCULOSKELETAL: Present: +lower extremity edema No reported: Myalgia, Arthralgia, Joint Swelling, Back pain, Neck Pain SKIN: No reported: Rash, Itching, Pallor HEMEATOLOGIC/IMMUNOLOGIC: No reported: Easy Bleeding, Easy Bruising, Lymphadenopathy, Frequent infections ENDOCRINE: No reported: Unexplained Weight Gain, Unexplained Weight Loss, Heat Intolerance , Cold Intolerance NEUROLOGIC: No reported: Headache, Focal Weakness, Paresthesias, Vertigo, Lightheadedness, Unsteady Gait, Seizure, Mental Status Changes, Incontinence PSYCHIATRIC: No reported: Anxiety, Depression <Mcbride,Giomilsy - Last Filed: 08/30/16 19:14> *Physical Exam - Vital Signs Last Vital Signs Temp Pulse Resp BP Pulse Ox 97.8 F 90 18 159/92 100 08/30/16 16:24 08/30/16 16:24 08/30/16 16:24 08/30/16 16:24 08/30/16 16:24 - Physical Exam Comments: 08/30/16 18:35 GENERAL: The patient is awake, alert, and fully oriented, Nontoxic - in no acute distress. HEAD: Normocephalic, atraumatic. EYES: extraocular movements intact, sclera anicteric, conjunctiva clear. ENT: Normal voice, Moist mucous membranes. NECK: Normal range of motion, supple LUNGS: Breath sounds equal, clear to auscultation bilaterally. No wheezes, no rhonchi, no rales. HEART: Regular rate and rhythm, normal S1 and S2 without murmur, rub or gallop. ABDOMEN: Soft, nontender, normoactive bowel sounds. No guarding, no rebound. . No CVA tenderness EXTREMITIES: Normal range of motion, +2 pitting edema b/l, no calf tenderness, NEUROLOGICAL: No facial asymmetry, Normal speech. PSYCH: Normal mood, normal affect. SKIN: Warm, Dry, normal turgor. <Abby Mcbride - Last Filed: 08/30/16 19:14> - Vital Signs Last Vital Signs Temp Pulse Resp BP Pulse Ox 97.8 F 90 18 159/92 100 08/30/16 16:24 08/30/16 16:24 08/30/16 16:24 08/30/16 16:24 08/30/16 16:24 <Rl Noble - Last Filed: 08/30/16 19:51> Heart Score/ECG Review - ECG Impressions Comment:: 08/30/16 19:26 Twelve-lead EKG was performed and reviewed by me. There is normal sinus rhythm with a normal rate. rate of 94 no T wave changes no interval prolongation <Rl Noble - Last Filed: 08/30/16 19:51> ED Treatment Course - LABORATORY CBC & Chemistry Diagram: 08/30/16 17:58 08/30/16 17:58 - Medications Given in the ED: ED Medications Discontinued Medications Generic Name Dose Route Start Last Admin Trade Name Freq PRN Reason Stop Dose Admin Ondansetron HCl 4 mg 08/30/16 18:01 08/30/16 18:06 Zofran Injection IVPB 08/30/16 18:02 4 mg ONCE ONE Administration <Abby Mcbride - Last Filed: 08/30/16 19:14> - LABORATORY CBC & Chemistry Diagram: 08/30/16 17:58 08/30/16 17:58 - RADIOLOGY Radiology Studies Ordered: Category Date Time Status CHEST PA & LAT [RAD] Stat Radiology 08/30/16 17:26 Ordered KIDNEY / RENAL US [US] Stat Ultrasound 08/30/16 17:54 Ordered <Rl Noble - Last Filed: 08/30/16 19:51> Medical Decision Making - Medical Decision Making 08/30/16 19:14 First call placed to Dr. Solis at 19:12. Awaiting call back. <Abby Mcbride - Last Filed: 08/30/16 19:14> - Medical Decision Making 08/30/16 18:01 75y M hx of ckd hx of glomerulopnephropathy (not on dialysis), copd, bph, sent to the ED by PMD for evalution abnormal blood work. The pt had blood work last week by dr. Marie that showed cr. of 1, repeat blood work by PMD showed cr of 5.4. pt has few complaints, notes he feels weak but this is chronic from last few years, also endorses increased leg edema that was noticed by dr. Solis at his visit on friday. on exam pt in no distress, +2 pitting edema in LE b/l. will recheck labs ekg to screen for hyperkalemia will obtain renal US to r/o obstruction d/w dr. Marie, if cr is elevated, and no obstruction, will give 80mg solumedrol and will need admission A portion of this note was documented by scribe services under my direction. I have reviewed the details of the note, within reason, and agree with the documentation with the following case summary and management plan written by me 08/30/16 19:50 labs reviewed noted for K of 5.6 Cr of 6.0 awaiting renal US if renal US +hydro will need solumedrol case dw dr. maynor dai with admisison will place in telemetry due to renal failure and hyperkalemia <Rl Noble - Last Filed: 08/30/16 19:51> *DC/Admit/Observation/Transfer - Attestations Scribe Attestion: 08/30/16 18:18 Documentation prepared by Abby Mcbride, acting as medical management specialist for Rl Noble MD. <Abby Mcbride - Last Filed: 08/30/16 19:14> - Discharge Dispostion Admit: Yes <Rl Noble - Last Filed: 08/30/16 19:51> Diagnosis at time of Disposition: Hyperkalemia Acute renal failure (ARF) Qualifiers: Acute renal failure type: unspecified Qualified Code(s): N17.9 - Acute kidney failure, unspecified - Discharge Dispostion Condition at time of disposition: Guarded - Referrals Referrals: Chidi Solis MD [Primary Care Provider] -
[2016-08-30 18:25] LABS: BASOPHIL 1.1 % (0-2.0); EOSINOPHIL 13.9 % (0-4.5); MCH 23.2 pg (25.7-33.7); MCHC 31.2 g/dl (32.0-35.9); MEAN CELL VOLUME 74.4 fl (80-96); MEAN PLT VOLUME 9.8 fl (7.5-11.1); NEUTROPHILS 51.2 % (42.8-82.8); PLATELET COUNT 180 K/MM3 (134-434); RDW 18.3 % (11.9-15.9); WHITE BLOOD COUNT 7.2 K/mm3 (4.0-10.0)
[2016-08-30 18:48] LABS: ALBUMIN 1.4 g/dl (3.4-5.0); ANION GAP 9 (8-16); BILIRUBIN,TOTAL 0.2 mg/dL (0.2-1.0); CALCIUM 9.1 mg/dL (8.5-10.1); CO2 26 mmol/L (21-32); GLUCOSE,RANDOM 85 mg/dL (74-106); MAGNESIUM 2.3 mg/dL (1.8-2.4); PHOSPHOROUS 4.7 mg/dL (2.5-4.9); SGOT/AST 21 U/L (15-37); SGPT/ALT 19 U/L (12-78); TOT PROT 5.7 g/dl (6.4-8.2)
[2016-08-30 18:49] LABS: ALK PHOS 149 U/L (45-117)
[2016-08-30] MEDS ORDERED: SODIUM POLYSTYRENE SULFONATE 15 GM/60 ML BOTTLE PO ONE (19:25)
[2016-08-30] MEDS ORDERED: SODIUM POLYSTYRENE SULFONATE 15 GM/60 ML BOTTLE ONE (20:03)
[2016-08-30] MEDS ORDERED: methylPREDNISolone NA SUCC 125 MG/2 ML VIAL IVPB ONE (21:15)
[2016-08-30] MEDS ORDERED: methylPREDNISolone NA SUCC 40 MG/1 ML VIAL ONE (21:25)
[2016-08-30] MEDS: HEPARIN NA (PORCINE) 5,000 UNITS/ML 1ML VIAL SQ SCH (23:00)
[2016-08-31] MEDS: RANOLAZINE E.R. 500 MG TABLET (FP) PO SCH ×3 (01:55→21:29)
[2016-08-31] MEDS: BUDESONIDE/FORMETEROL FUMARATE 160/4.5 mcg INHALER IH SCH ×3 (01:55→21:36)
[2016-08-31 06:42] LABS: EOSINOPHIL 0.6 % (0-4.5); MCH 23.4 pg (25.7-33.7); MCHC 31.5 g/dl (32.0-35.9); MEAN CELL VOLUME 74.2 fl (80-96); MEAN PLT VOLUME 9.7 fl (7.5-11.1); NEUTROPHILS 75.8 % (42.8-82.8); PLATELET COUNT 179 K/MM3 (134-434); RDW 17.9 % (11.9-15.9); WHITE BLOOD COUNT 4.1 K/mm3 (4.0-10.0)
[2016-08-31 07:00] LABS: ALBUMIN 1.2 g/dl (3.4-5.0); ALK PHOS 144 U/L (45-117); ANION GAP 10 (8-16); BILIRUBIN,TOTAL 0.1 mg/dL (0.2-1.0); CALCIUM 8.3 mg/dL (8.5-10.1); CHOLESTEROL 282 mg/dL (50-200); CO2 22 mmol/L (21-32); GLUCOSE,RANDOM 183 mg/dL (74-106); LDL CHOLESTEROL (ONLY SJRH) 205 mg/dL (5-100); PHOSPHOROUS 4.3 mg/dL (2.5-4.9); SGOT/AST 13 U/L (15-37); SGPT/ALT 18 U/L (12-78); TOT PROT 5.4 g/dl (6.4-8.2); TROPONIN I < 0.02 ng/ml (0.00-0.05)
[2016-08-31 09:37] LABS: TROPONIN I < 0.02 ng/ml (0.00-0.05)
[2016-08-31] MEDS: PANTOPRAZOLE 40 MG TABLET (FP) PO SCH (10:37)
[2016-08-31] MEDS: DOXAZOSIN MESYLATE 2 MG TABLET (FP) PO SCH (10:38)
[2016-08-31] MEDS: HEPARIN NA (PORCINE) 5,000 UNITS/ML 1ML VIAL SQ SCH ×2 (10:38→21:29)
[2016-08-31] MEDS: TAMSULOSIN HCL 0.4 MG CAP.ER.24H (FP) PO SCH (10:38)
--- NOTE | 2016-08-31 11:17 | EKG ---
Test Reason : Blood Pressure : / mmHG Vent. Rate : 093 BPM Atrial Rate : 093 BPM P-R Int : 200 ms QRS Dur : 090 ms QT Int : 344 ms P-R-T Axes : 051 -23 044 degrees QTc Int : 427 ms NORMAL SINUS RHYTHM POSSIBLE LEFT ATRIAL ENLARGEMENT CANNOT RULE OUT INFERIOR INFARCT (CITED ON OR BEFORE 30-AUG-2016) ABNORMAL ECG WHEN COMPARED WITH ECG OF 30-AUG-2016 18:49, NO SIGNIFICANT CHANGE WAS FOUND Confirmed by TERRIE CANCINO MD ([id number]) on 08/31/2016 11:17:17 AM Referred By: Confirmed By:TERRIE CANCINO MD
--- NOTE | 2016-08-31 11:17 | EKG ---
Test Reason : Blood Pressure : / mmHG Vent. Rate : 094 BPM Atrial Rate : 094 BPM P-R Int : 192 ms QRS Dur : 094 ms QT Int : 342 ms P-R-T Axes : 046 -31 049 degrees QTc Int : 427 ms NORMAL SINUS RHYTHM POSSIBLE LEFT ATRIAL ENLARGEMENT LEFT AXIS DEVIATION LOW VOLTAGE QRS CANNOT RULE OUT INFERIOR INFARCT , AGE UNDETERMINED ABNORMAL ECG WHEN COMPARED WITH ECG OF 22-MAY-2016 21:52, SIGNIFICANT CHANGES HAVE OCCURRED Confirmed by JULITA JEFFERS, TERRIE ([id number]) on 08/31/2016 11:17:04 AM Referred By: Confirmed By:TERRIE CANCINO MD
--- NOTE | 2016-08-31 11:36 | HP ---
Admitting History and Physical - Admission History of Present Illness: 75 year old male, with a significant past medical history of CKD/ glomerulonephropathy(previously on short term HD), kidney stones, cardiomegaly, COPD, hypertension, hyperlipidemia, CAD, BPH, who presents to the emergency department sent by PCP for evaluation of abnormal labs. Patient reports visiting Dr. Marie last week, where he had bloodwork done, and his Creatinine was 1. However, after visiting Dr. Mei office approximately 4 days ago, patient reports his Creatinine was 5.4. He reports he received a call from Dr. Solis yesterday, suggesting the patient present to the ED for abnormal labs. Patient reports he noted his urine has been white and foamy. Patient has a history of dialysis treatment in 2013, but has not had a treatment since. He denies any dysuria, hematuria, frequency, urgency, or flank pain. Patient report his abdomen is enlarged, but states this is part of his baseline. He reports increased tiredness during the past year. He also reports lower extremity edema, which he noticed at Dr. Mei office 4 days ago. Patient denies any nausea, vomiting, diarrhea, or constipation. He denies any fever or chills. 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 esolved with steroids,) Heme/Onc: Yes: Other (intermittent eosinophilia) Psych: Yes: Addictions (previous smoker quit 35 years ago ) Musculoskeletal: Yes: Other (No active joints.) - Past Surgical History Past Surgical History: Yes: Hernia Repair - Smoking History Smoking history: Former smoker Have you smoked in the past 12 months: No If you are a former smoker, when did you quit?: 35 years ago - Alcohol/Substance Use Hx Alcohol Use: No History of Substance Use: reports: None - Social History ADL: Independent History of Recent Travel: No Home Medications - Allergies Allergies/Adverse Reactions: Allergies Allergy/AdvReac Type Severity Reaction Status Date / Time No Known Allergies Allergy Verified 08/30/16 16:22 - Home Medications Home Medications: Ambulatory Orders Budesonide/Formeterol Fumarate [SYMBICORT 160/4.5mcg -] 2 inh IH BID inhaler Tamsulosin HCl [Flomax -] 0.4 mg PO DAILY@0830 cap.er.24h 07/08/14 [place]-3 Fatty Acids [Fish Oil] 900 mg PO DAILY 01/19/15 Calcium Citrate/Vitamin D3 [Calcium Citrate - Vit D Caplet] 1 each PO DAILY Budesonide/Formeterol Fumarate [SYMBICORT 160/4.5mcg -] 1 inh PO BID 08/30/16 Doxazosin Mesylate [Cardura -] 2 mg PO DAILY 08/30/16 Fluticasone/Vilanterol [Breo Ellipta 100-25 Mcg INH] 1 each IH PRN 08/30/16 Levomefolate/B6/B12/Algal Oil [Metanx Capsule] 4 mg PO BID 08/30/16 Pantoprazole Sodium 40 mg PO DAILY 08/30/16 Ranolazine [Ranexa -] 500 mg PO BID 08/30/16 Family Disease History - Family Disease History Family Disease History: Diabetes: Sister ( in late 50s/early 60s), Heart Disease: Mother Physical Examination Vital Signs: Vital Signs Temperature 97.8 F 08/31/16 07:30 Pulse Rate 80 08/31/16 10:39 Respiratory Rate 18 08/31/16 10:39 Blood Pressure 148/70 08/31/16 10:39 O2 Sat by Pulse Oximetry (%) 99 08/31/16 10:39 Cardiovascular: Yes: Regular Rate and Rhythm Respiratory: Yes: Regular, CTA Bilaterally Gastrointestinal: Yes: Normal Bowel Sounds, Soft Labs: CBC, BMP 08/31/16 06:00 08/31/16 06:00 Problem List - Problems (1) Acute renal failure (ARF) Assessment/Plan: R/O AUTOIMMUNE DS W/U ORDERED MONITOR RENAL CONSULT CT OF CHEST Code(s): N17.9 - ACUTE KIDNEY FAILURE, UNSPECIFIED Qualifiers: Acute renal failure type: unspecified Qualified Code(s): N17.9 - Acute kidney failure, unspecified (2) Hyperkalemia Assessment/Plan: FOLLOW LABS Code(s): E87.5 - HYPERKALEMIA (3) Hypertension Assessment/Plan: MONITOR ON MEDS Orders 08/31/16 10:00 Doxazosin Mesylate [Cardura -] 2 mg PO DAILY Code(s): I10 - ESSENTIAL (PRIMARY) HYPERTENSION Qualifiers: Hypertension type: essential hypertension Qualified Code(s): I10 - Essential (primary) hypertension (4) COPD (chronic obstructive pulmonary disease) Assessment/Plan: NEBS CT OF CHEST Code(s): J44.9 - CHRONIC OBSTRUCTIVE PULMONARY DISEASE, UNSPECIFIED (5) BPH (benign prostatic hyperplasia) Assessment/Plan: ON FLOMAX AND CARDURA Code(s): N40.0 - BENIGN PROSTATIC HYPERPLASIA WITHOUT LOWER URINRY TRACT SYMP
[2016-08-31] MEDS: ALBUTEROL SO4 2.5/IPRATROPIUM 0.5 INH SOL 3 ML VIAL.NEB. NEB SCH ×2 (12:04→17:08)
[2016-08-31] MEDS: guaiFENesin 600 MG TABLET.ER (FP) PO SCH ×2 (12:05→21:29)
--- NOTE | 2016-08-31 14:53 | EKG ---
Test Reason : Blood Pressure : / mmHG Vent. Rate : 088 BPM Atrial Rate : 088 BPM P-R Int : 200 ms QRS Dur : 094 ms QT Int : 364 ms P-R-T Axes : 052 -24 038 degrees QTc Int : 440 ms SINUS RHYTHM WITH PREMATURE ATRIAL COMPLEXES WITH ABERRANT CONDUCTION OTHERWISE NORMAL ECG WHEN COMPARED WITH ECG OF 30-AUG-2016 21:48, ABERRANT CONDUCTION IS NOW PRESENT Confirmed by JULITA JEFFERS, TERRIE ([id number]) on 08/31/2016 2:52:47 PM Referred By: Nuris MARSHALL Confirmed By:TERRIE CANCINO MD
--- NOTE | 2016-08-31 15:48 | CONSULT ---
Consult Consult Specialty:: Nephrology Reason for Consultation:: CATY - History of Present Illness Chief Complaint: I sent pt in for acute renal failure History of Present Illness: Pt is a 75 year old male with pmhx of CKD, minimal change disease, COPD, emphysema, hyperlipidemia, HTN. CAD and BPH who I sent in for renal failure. I saw pt in the office a few weeks ago when he had a normal creatinine and a ua that was negative for blood or protein. He went to see his PMD this week and was found to be in renal failure. We repeated the labs and the creatinine is worse. He now complains of lower extremity edema as well. He has been taking two tablets of Aleve twice per day for the last few weeks. He denies dysuria or hematuria. 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 esolved with steroids,) Psych: Yes: Addictions (previous smoker quit 35 years ago ) Musculoskeletal: Yes: Other (No active joints.) - Past Surgical History Past Surgical History: Yes: Hernia Repair - Alcohol/Substance Use Hx Alcohol Use: No History of Substance Use: reports: None - Smoking History Smoking history: Former smoker Have you smoked in the past 12 months: No If you are a former smoker, when did you quit?: 35 years ago - Social History Usual Living Arrangement: With Spouse (2nd ) ADL: Independent History of Recent Travel: No Home Medications - Allergies Allergies/Adverse Reactions: Allergies Allergy/AdvReac Type Severity Reaction Status Date / Time No Known Allergies Allergy Verified 08/30/16 16:22 - Home Medications Home Medications: Ambulatory Orders Budesonide/Formeterol Fumarate [SYMBICORT 160/4.5mcg -] 2 inh IH BID inhaler Tamsulosin HCl [Flomax -] 0.4 mg PO DAILY@0830 cap.er.24h 07/08/14 [place]-3 Fatty Acids [Fish Oil] 900 mg PO DAILY 01/19/15 Calcium Citrate/Vitamin D3 [Calcium Citrate - Vit D Caplet] 1 each PO DAILY Budesonide/Formeterol Fumarate [SYMBICORT 160/4.5mcg -] 1 inh PO BID 08/30/16 Doxazosin Mesylate [Cardura -] 2 mg PO DAILY 08/30/16 Fluticasone/Vilanterol [Breo Ellipta 100-25 Mcg INH] 1 each IH PRN 08/30/16 Levomefolate/B6/B12/Algal Oil [Metanx Capsule] 4 mg PO BID 08/30/16 Pantoprazole Sodium 40 mg PO DAILY 08/30/16 Ranolazine [Ranexa -] 500 mg PO BID 08/30/16 Family Disease History - Family Disease History Family Disease History: Diabetes: Sister ( in late 50s/early 60s), Heart Disease: Mother Review of Systems - Review of Systems Constitutional: reports: Malaise Eyes: reports: No Symptoms HENT: reports: No Symptoms Neck: reports: No Symptoms Cardiovascular: reports: Edema Respiratory: reports: Cough, SOB Genitourinary: reports: No Symptoms Musculoskeletal: reports: No Symptoms Integumentary: reports: No Symptoms Endocrine: reports: No Symptoms Hematology/Lymphatic: reports: No Symptoms Psychiatric: reports: No Symptoms Physical Exam Vital Signs: Vital Signs Temperature 98.2 F 08/31/16 13:21 Pulse Rate 94 H 08/31/16 13:21 Respiratory Rate 14 08/31/16 13:21 Blood Pressure 146/90 08/31/16 13:21 O2 Sat by Pulse Oximetry (%) 96 08/31/16 13:21 Constitutional: Yes: Calm Eyes: Yes: Conjunctiva Clear HENT: Yes: Atraumatic Neck: Yes: Supple Cardiovascular: Yes: S1, S2 Respiratory: Yes: On Nasal O2, Wheezes Gastrointestinal: Yes: Normal Bowel Sounds, Soft Renal/: Yes: WNL Musculoskeletal: Yes: WNL Edema: Yes Edema: LLE: 2+, RLE: 2+ Neurological: Yes: Oriented Psychiatric: Yes: Oriented Labs: CBC, BMP 08/31/16 06:00 08/31/16 06:00 Laboratory Tests 08/30/16 08/30/16 08/30/16 17:58 17:58 17:58 WBC 7.2 Hgb 13.6 D Plt Count 180 INR 1.00 Sodium 140 Potassium 5.6 H Chloride 105 Carbon Dioxide 26 Anion Gap 9 BUN 51 H D Creatinine 6.0 H D Random Glucose Hemoglobin A1c % B-Natriuretic Peptide 321.15 H Triglycerides Cholesterol Total LDL Cholesterol 08/31/16 08/31/16 08/31/16 06:00 06:00 06:00 WBC 4.1 D Hgb 12.7 Plt Count 179 INR Sodium 136 Potassium 5.5 H Chloride 104 Carbon Dioxide 22 Anion Gap 10 BUN 57 H Creatinine 6.0 H Random Glucose 183 H D Hemoglobin A1c % 6.3 H B-Natriuretic Peptide Triglycerides 140 D Cholesterol 282 H D Total LDL Cholesterol 205 H D Imaging - Results Chest X-ray: Report Reviewed Cat Scan: Report Reviewed Ultrasound: Report Reviewed (no hydro) Problem List - Problems (1) Acute renal failure (ARF) Code(s): N17.9 - ACUTE KIDNEY FAILURE, UNSPECIFIED Qualifiers: Acute renal failure type: unspecified Qualified Code(s): N17.9 - Acute kidney failure, unspecified (2) BPH (benign prostatic hyperplasia) Code(s): N40.0 - BENIGN PROSTATIC HYPERPLASIA WITHOUT LOWER URINRY TRACT SYMP (3) COPD (chronic obstructive pulmonary disease) Code(s): J44.9 - CHRONIC OBSTRUCTIVE PULMONARY DISEASE, UNSPECIFIED (4) Hyperkalemia Code(s): E87.5 - HYPERKALEMIA Assessment/Plan Current Medications Generic Name Dose Route Start Last Admin Trade Name Freq PRN Reason Stop Dose Admin Albuterol/Ipratropium 1 amp 08/31/16 12:00 08/31/16 12:04 Duoneb - NEB Not Given QIDR CAHRLES Budesonide/Formoterol Fumarate 2 puff 08/30/16 22:00 08/31/16 10:38 Symbicort 160/4.5mcg - IH 2 puff BID CHARLES Administration Doxazosin Mesylate 2 mg 08/31/16 10:00 08/31/16 10:38 Cardura - PO 2 mg DAILY CHARLES Administration Guaifenesin 600 mg 08/31/16 12:00 08/31/16 12:05 Mucinex - PO Not Given BID CHARLES Heparin Sodium (Porcine) 5,000 unit 08/30/16 22:00 08/31/16 10:38 Heparin - SQ 5,000 unit BID CHARLES Administration Pantoprazole Sodium 40 mg 08/31/16 10:00 08/31/16 10:37 Protonix - PO 40 mg DAILY CHARLES Administration Ranolazine 500 mg 08/30/16 22:00 08/31/16 10:38 Ranexa - PO 500 mg BID CHARLES Administration Tamsulosin HCl 0.4 mg 08/31/16 08:30 08/31/16 10:38 Flomax - PO 0.4 mg DAILY@0830 CHARLES Administration Impression 1. CATY 2. CKD with hx of JANNA 3. COPD 4. HTN 5. BPH 6. hyperkalemia 7. fluid overload Plan - will continue with trial of steroids - renal u/s is negative for hydro - will send renal workup out again - ordered stat UA and urine protein to [facility] recruiter ratio - will give dose of lasix as edema is worsening - repeat labs in am - renal diet - no indication for HD at this point - avoid nsaids, pt was taking nsaids (self prescribed) - will follow Dr Marie
[2016-08-31] MEDS ORDERED: FUROSEMIDE 40 MG/4 ML INJECTABLE VIAL IVPUSH ONE (16:01)
[2016-08-31] MEDS: methylPREDNISolone NA SUCC 125 MG/2 ML VIAL IVPB SCH (17:28)
[2016-08-31 20:38] LABS: URINE APPEARANCE CLOUDY; URINE BILIRUBIN NEGATIVE (NEGATIVE); URINE COLOR DKYELLOW; URINE GLUCOSE (UA) 1+ (NEGATIVE); URINE KETONE NEGATIVE (NEGATIVE); URINE NITRITE NEGATIVE (NEGATIVE); URINE UROBILINOGEN NEGATIVE E.U./dl (0.2-1.0)
[2016-08-31 20:39] LABS: URINE BLOOD 2+ (NEGATIVE); URINE LEUK ESTERASE TRACE (NEGATIVE); URINE PROTEIN 3+ (NEGATIVE)
[2016-08-31 20:43] LABS: GRANULAR CASTS 145 /lpf; URINE MUCUS RARE; URINE RBC 245 /hpf (0-3); URINE WBC 93 /hpf (3-5)
[2016-09-01] MEDS: ALBUTEROL SO4 2.5/IPRATROPIUM 0.5 INH SOL 3 ML VIAL.NEB. NEB SCH ×5 (00:03→23:27)
[2016-09-01] MEDS: guaiFENesin/CODEINE 5 ML UNIT-DOSE CUPS PO PRN ×3 (02:17→16:04)
[2016-09-01 07:52] LABS: BASOPHIL 0.2 % (0-2.0); MCH 23.5 pg (25.7-33.7); MCHC 31.7 g/dl (32.0-35.9); MEAN CELL VOLUME 74.1 fl (80-96); MEAN PLT VOLUME 9.6 fl (7.5-11.1); NEUTROPHILS 84.3 % (42.8-82.8); PLATELET COUNT 167 K/MM3 (134-434); RDW 17.9 % (11.9-15.9); WHITE BLOOD COUNT 8.1 K/mm3 (4.0-10.0)
[2016-09-01 08:13] LABS: ALBUMIN 1.4 g/dl (3.4-5.0); ALK PHOS 146 U/L (45-117); ANION GAP 12 (8-16); BILIRUBIN,TOTAL 0.2 mg/dL (0.2-1.0); C-REACTIVE PROTEIN 1.1 MG/DL (0.00-0.3); CALCIUM 8.3 mg/dL (8.5-10.1); CO2 23 mmol/L (21-32); CREATININE 6.2 mg/dL (0.7-1.3); GLUCOSE,RANDOM 123 mg/dL (74-106); SGOT/AST 13 U/L (15-37); SGPT/ALT 18 U/L (12-78); TOT PROT 5.6 g/dl (6.4-8.2)
--- NOTE | 2016-09-01 09:13 | PN ---
Progress Note, Physician History of Present Illness: C/O COUGH NO CP - Current Medication List Current Medications: Active Medications Albuterol/Ipratropium (Duoneb -) 1 amp NEB QIDR [facility] Last Admin: 09/01/16 06:51 Dose: 1 amp Budesonide/Formoterol Fumarate (Symbicort 160/4.5mcg -) 2 puff IH BID [facility] Last Admin: 08/31/16 21:36 Dose: 2 puff Doxazosin Mesylate (Cardura -) 2 mg PO DAILY [facility] Last Admin: 08/31/16 10:38 Dose: 2 mg Guaifenesin (Mucinex -) 600 mg PO BID [facility] Last Admin: 08/31/16 21:29 Dose: 600 mg Guaifenesin/Codeine Phosphate (Robitussin Ac -) 5 ml PO Q4H PRN PRN Reason: COUGH Last Admin: 09/01/16 02:17 Dose: 5 ml Heparin Sodium (Porcine) (Heparin -) 5,000 unit SQ BID [facility] Last Admin: 08/31/16 21:29 Dose: 5,000 unit Methylprednisolone Sodium Succinate (Solu-Medrol -) 80 mg IVPB DAILY [facility] Last Admin: 08/31/16 17:28 Dose: 80 mg Pantoprazole Sodium (Protonix -) 40 mg PO DAILY [facility] Last Admin: 08/31/16 10:37 Dose: 40 mg Ranolazine (Ranexa -) 500 mg PO BID [facility] Last Admin: 08/31/16 21:29 Dose: 500 mg Rosuvastatin Calcium (Crestor -) 20 mg PO [facility] Tamsulosin HCl (Flomax -) 0.4 mg PO DAILY@0830 [facility] Last Admin: 08/31/16 10:38 Dose: 0.4 mg - Objective Vital Signs: Vital Signs Temperature 98.6 F 09/01/16 06:00 Pulse Rate 81 09/01/16 06:00 Respiratory Rate 20 09/01/16 06:00 Blood Pressure 155/90 09/01/16 06:00 O2 Sat by Pulse Oximetry (%) 95 08/31/16 21:00 Cardiovascular: Yes: Regular Rate and Rhythm Respiratory: Yes: Regular, CTA Bilaterally Gastrointestinal: Yes: Normal Bowel Sounds, Soft. No: Tenderness Edema: Yes Labs: CBC, BMP 09/01/16 05:35 09/01/16 05:35 INR, PTT INR 1.00 (0.82-1.09) 08/30/16 17:58 Problem List - Problems (1) Acute renal failure (ARF) Assessment/Plan: R/O AUTOIMMUNE DS W/U ORDERED MONITOR RENAL CONSULT CT OF CHEST NOTED--CHRONIC DS Code(s): N17.9 - ACUTE KIDNEY FAILURE, UNSPECIFIED Qualifiers: Acute renal failure type: unspecified Qualified Code(s): N17.9 - Acute kidney failure, unspecified (2) Hyperkalemia Assessment/Plan: FOLLOW LABS Laboratory Tests 08/30/16 09/01/16 17:58 05:35 Potassium 5.6 H 5.0 Creatinine 6.0 H D 6.2 H Code(s): E87.5 - HYPERKALEMIA (3) Hypertension Assessment/Plan: MONITOR ON MEDS Orders 08/31/16 10:00 Doxazosin Mesylate [Cardura -] 2 mg PO DAILY Code(s): I10 - ESSENTIAL (PRIMARY) HYPERTENSION Qualifiers: Hypertension type: essential hypertension Qualified Code(s): I10 - Essential (primary) hypertension (4) COPD (chronic obstructive pulmonary disease) Assessment/Plan: NEBS CT OF CHEST NOTED--PULM CONSULT Code(s): J44.9 - CHRONIC OBSTRUCTIVE PULMONARY DISEASE, UNSPECIFIED (5) BPH (benign prostatic hyperplasia) Assessment/Plan: ON FLOMAX AND CARDURA Code(s): N40.0 - BENIGN PROSTATIC HYPERPLASIA WITHOUT LOWER URINRY TRACT SYMP (6) Abnormal EKG Assessment/Plan: ECHO CARDIO Code(s): R94.31 - ABNORMAL ELECTROCARDIOGRAM [ECG] [EKG]
[2016-09-01] MEDS: guaiFENesin 600 MG TABLET.ER (FP) PO SCH ×2 (10:12→22:57)
[2016-09-01] MEDS: PANTOPRAZOLE 40 MG TABLET (FP) PO SCH (10:12)
[2016-09-01] MEDS: TAMSULOSIN HCL 0.4 MG CAP.ER.24H (FP) PO SCH (10:13)
[2016-09-01] MEDS: RANOLAZINE E.R. 500 MG TABLET (FP) PO SCH ×2 (10:13→22:57)
[2016-09-01] MEDS: DOXAZOSIN MESYLATE 2 MG TABLET (FP) PO SCH (10:13)
[2016-09-01] MEDS: methylPREDNISolone NA SUCC 125 MG/2 ML VIAL IVPB SCH (10:14)
[2016-09-01] MEDS: HEPARIN NA (PORCINE) 5,000 UNITS/ML 1ML VIAL SQ SCH ×2 (10:14→22:57)
[2016-09-01] MEDS: BUDESONIDE/FORMETEROL FUMARATE 160/4.5 mcg INHALER IH SCH ×2 (10:14→22:58)
[2016-09-01 11:11] LABS: ERYTHROCYTE SEDIMENTATION RATE 90 mm/hr (0-20)
--- NOTE | 2016-09-01 12:50 | CON.PULM ---
Consult Consult Specialty:: PULMONARY Referred by:: WILBERTO Reason for Consultation:: COPD - History of Present Illness Chief Complaint: COUGH History of Present Illness: 75 BLACK MALE SENT BY RENAL DUE TO WORSENING RENAL FUNCTION. PATIENT HAS A H/O CHRONIC RENAL DISAESE AND WAS ON HD TEMPORARILY IN THE PAST. HIS CR WENT FROM 1 TO 6.2 IN ONE WEEK. PATIENT HAS H/O NSAIDS INGESTION. HIS COPD HAS REMAINED RELATIVELY STABLE EXCEPT FOR RECENT NONPRODUCTIVE COUGH. 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 esolved with steroids,) Psych: Yes: Addictions (previous smoker quit 35 years ago ) Musculoskeletal: Yes: Other (No active joints.) - Past Surgical History Past Surgical History: Yes: Hernia Repair - Alcohol/Substance Use Hx Alcohol Use: No History of Substance Use: reports: None - Smoking History Smoking history: Former smoker Have you smoked in the past 12 months: No If you are a former smoker, when did you quit?: 35 years ago - Social History Usual Living Arrangement: With Spouse (2nd ) ADL: Independent History of Recent Travel: No Home Medications - Allergies Allergies/Adverse Reactions: Allergies Allergy/AdvReac Type Severity Reaction Status Date / Time No Known Allergies Allergy Verified 08/30/16 16:22 - Home Medications Home Medications: Ambulatory Orders Budesonide/Formeterol Fumarate [SYMBICORT 160/4.5mcg -] 2 inh IH BID inhaler Tamsulosin HCl [Flomax -] 0.4 mg PO DAILY@0830 cap.er.24h 07/08/14 [place]-3 Fatty Acids [Fish Oil] 900 mg PO DAILY 01/19/15 Calcium Citrate/Vitamin D3 [Calcium Citrate - Vit D Caplet] 1 each PO DAILY Budesonide/Formeterol Fumarate [SYMBICORT 160/4.5mcg -] 1 inh PO BID 08/30/16 Doxazosin Mesylate [Cardura -] 2 mg PO DAILY 08/30/16 Fluticasone/Vilanterol [Breo Ellipta 100-25 Mcg INH] 1 each IH PRN 08/30/16 Levomefolate/B6/B12/Algal Oil [Metanx Capsule] 4 mg PO BID 08/30/16 Pantoprazole Sodium 40 mg PO DAILY 08/30/16 Ranolazine [Ranexa -] 500 mg PO BID 08/30/16 Family Disease History - Family Disease History Family Disease History: Diabetes: Sister ( in late 50s/early 60s), Heart Disease: Mother Review of Systems - Review of Systems Constitutional: denies: Fever Eyes: denies: Blurred Vision HENT: denies: Difficult Swallowing Neck: denies: Decreased ROM Cardiovascular: denies: Chest Pain Respiratory: reports: Cough, Exercise Intolerance, SOB on Exertion. denies: Hemoptysis, Wheezing Gastrointestinal: denies: Abdominal Pain Genitourinary: reports: Frequency. denies: Burning Breasts: reports: No Symptoms Reported Musculoskeletal: reports: No Symptoms Physical Exam Vital Sings: Vital Signs Temperature 98.6 F 09/01/16 06:00 Pulse Rate 81 09/01/16 06:00 Respiratory Rate 20 09/01/16 06:00 Blood Pressure 155/90 09/01/16 06:00 O2 Sat by Pulse Oximetry (%) 95 08/31/16 21:00 Constitutional: Yes: Calm Eyes: Yes: EOM Intact HENT: Yes: Normocephalic Neck: Yes: Trachea Midline Cardiovascular: Yes: Regular Rate and Rhythm Respiratory: Yes: Diminished, Rales Gastrointestinal: Yes: Normal Bowel Sounds, Soft, Abdomen, Obese Renal/: Yes: WNL Breast(s): Yes: WNL Musculoskeletal: Yes: WNL Extremities: Yes: WNL Edema: LLE: 1+, RLE: 1+ Neurological: Yes: Alert Labs: CBC, BMP 09/01/16 05:35 09/01/16 05:35 REST REVIEWED Imaging - Results Chest X-ray: Image Reviewed Cat Scan: Image Reviewed Problem List - Problems (1) Acute renal failure (ARF) Code(s): N17.9 - ACUTE KIDNEY FAILURE, UNSPECIFIED Qualifiers: Acute renal failure type: unspecified Qualified Code(s): N17.9 - Acute kidney failure, unspecified (2) BPH (benign prostatic hyperplasia) Code(s): N40.0 - BENIGN PROSTATIC HYPERPLASIA WITHOUT LOWER URINRY TRACT SYMP (3) COPD (chronic obstructive pulmonary disease) Code(s): J44.9 - CHRONIC OBSTRUCTIVE PULMONARY DISEASE, UNSPECIFIED (4) ILD (interstitial lung disease) Code(s): J84.9 - INTERSTITIAL PULMONARY DISEASE, UNSPECIFIED Assessment/Plan COPD/ILD RELATIVELY STABLE ACUTE ON H/O CHRONIC KIDNEY DISEASE MULTIPLE COMORBID FACTORS LISTED O2 SUPPLEMENTATION NEEDED/BRONCHODILATORS RENAL WORKUP UNDERWAY WILL FOLLOW Matias LOPEZ MD
--- NOTE | 2016-09-01 14:00 | CON.CARD ---
Consult Consult Specialty:: Cardiology Referred by:: Gris Reason for Consultation:: abnormal ekg - History of Present Illness Chief Complaint: Abnormal labs and renal function History of Present Illness: 75 year old male, with a significant past medical history of CKD/ glomerulonephropathy(previously on short term HD), kidney stones, cardiomegaly, COPD, hypertension, hyperlipidemia, BPH, who presents to the emergency department sent by PCP for evaluation of abnormal labs for renal failure. Patient reports that last year he required temporary dialysis but then kidney function normalized. Denies any chest pain or palpitations. +b/l LE edema worsening. No change in exercise tolerance but limited to less than 1 block due to copd/leg pain. - History Source History Provided By: Family Member, Medical Record - Past Medical History APPLICATIONS SCIENTIST: No: Alzheimer's Cardio/Vascular: Yes: HTN. 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 esolved with steroids,) Psych: Yes: Addictions (previous smoker quit 35 years ago ) Musculoskeletal: Yes: Other (No active joints.) - Past Surgical History Past Surgical History: Yes: Hernia Repair - Alcohol/Substance Use Hx Alcohol Use: No History of Substance Use: reports: None - Smoking History Smoking history: Former smoker Have you smoked in the past 12 months: No If you are a former smoker, when did you quit?: 35 years ago - Social History Usual Living Arrangement: With Spouse (2nd ) ADL: Independent History of Recent Travel: No Home Medications - Allergies Allergies/Adverse Reactions: Allergies Allergy/AdvReac Type Severity Reaction Status Date / Time No Known Allergies Allergy Verified 08/30/16 16:22 - Home Medications Home Medications: Ambulatory Orders Budesonide/Formeterol Fumarate [SYMBICORT 160/4.5mcg -] 2 inh IH BID inhaler Tamsulosin HCl [Flomax -] 0.4 mg PO DAILY@0830 cap.er.24h 07/08/14 [place]-3 Fatty Acids [Fish Oil] 900 mg PO DAILY 01/19/15 Calcium Citrate/Vitamin D3 [Calcium Citrate - Vit D Caplet] 1 each PO DAILY Budesonide/Formeterol Fumarate [SYMBICORT 160/4.5mcg -] 1 inh PO BID 08/30/16 Doxazosin Mesylate [Cardura -] 2 mg PO DAILY 08/30/16 Fluticasone/Vilanterol [Breo Ellipta 100-25 Mcg INH] 1 each IH PRN 08/30/16 Levomefolate/B6/B12/Algal Oil [Metanx Capsule] 4 mg PO BID 08/30/16 Pantoprazole Sodium 40 mg PO DAILY 08/30/16 Ranolazine [Ranexa -] 500 mg PO BID 08/30/16 Family Disease History - Family Disease History Family Disease History: Diabetes: Sister ( in late 50s/early 60s), Heart Disease: Mother Vital Signs: Vital Signs Temperature 99.1 F 09/01/16 13:54 Pulse Rate 84 09/01/16 13:54 Respiratory Rate 20 09/01/16 13:54 Blood Pressure 157/95 09/01/16 13:54 O2 Sat by Pulse Oximetry (%) 95 08/31/16 21:00 Constitutional: Yes: No Distress Respiratory: Yes: CTA Bilaterally Gastrointestinal: Yes: Normal Bowel Sounds, Soft Cardiovascular: Yes: Regular Rate and Rhythm JVD: No Carotid Bruit: No Heart Sounds: Yes: S1, S2 Murmur: No: Systolic Murmur Edema: LLE: 2+, RLE: 2+ - Other Data Labs, Other Data: CBC, BMP 09/01/16 05:35 09/01/16 05:35 INR, PTT INR 1.00 (0.82-1.09) 08/30/16 17:58 Imaging - Results Chest X-ray: Report Reviewed Cat Scan: Report Reviewed EKG: Image Reviewed Assessment/Plan 75 year old male, with a significant past medical history of CKD/ glomerulonephropathy(previously on short term HD), kidney stones, cardiomegaly, COPD, hypertension, hyperlipidemia, BPH, who presents to the emergency department sent by PCP for evaluation of abnormal labs for renal failure. Patient reports that last year he required temporary dialysis but then kidney function normalized. Denies any chest pain or palpitations. +b/l LE edema worsening. No change in exercise tolerance but limited to less than 1 block due to copd/leg pain. 1) Cardiac EKG: sinus rhythm with no significant st changes. (no pac's seen on ekg from today) Borderline low voltage on ekg on presentation but CT chest demonstrated on trace amount of pericardial effusion. LE edema likely due to renal failure. No chest pain or palpitations Would plan for echocardiogram -Would stop ranolazine in the patient with acute renal failure. Also his dyspnea seems to be related to his lung disease and has no known cardiac history as per patient so unclear benefit.
--- NOTE | 2016-09-01 15:10 | PN ---
Progress Note, Physician History of Present Illness: Pt seen and examined at bedside. He is awake and appears comfortable. He still complains of lower extremity edema. - Current Medication List Current Medications: Active Medications Albuterol/Ipratropium (Duoneb -) 1 amp NEB QIDR [facility] Last Admin: 09/01/16 11:10 Dose: 1 amp Budesonide/Formoterol Fumarate (Symbicort 160/4.5mcg -) 2 puff IH BID [facility] Last Admin: 09/01/16 10:14 Dose: 2 puff Doxazosin Mesylate (Cardura -) 2 mg PO DAILY [facility] Last Admin: 09/01/16 10:13 Dose: 2 mg Guaifenesin (Mucinex -) 600 mg PO BID [facility] Last Admin: 09/01/16 10:12 Dose: 600 mg Guaifenesin/Codeine Phosphate (Robitussin Ac -) 5 ml PO Q4H PRN PRN Reason: COUGH Last Admin: 09/01/16 02:17 Dose: 5 ml Heparin Sodium (Porcine) (Heparin -) 5,000 unit SQ BID [facility] Last Admin: 09/01/16 10:14 Dose: 5,000 unit Methylprednisolone Sodium Succinate (Solu-Medrol -) 80 mg IVPB DAILY [facility] Last Admin: 09/01/16 10:14 Dose: 80 mg Pantoprazole Sodium (Protonix -) 40 mg PO DAILY [facility] Last Admin: 09/01/16 10:12 Dose: 40 mg Ranolazine (Ranexa -) 500 mg PO BID [facility] Last Admin: 09/01/16 10:13 Dose: 500 mg Rosuvastatin Calcium (Crestor -) 20 mg PO [facility] Tamsulosin HCl (Flomax -) 0.4 mg PO DAILY@0830 [facility] Last Admin: 09/01/16 10:13 Dose: 0.4 mg - Objective Vital Signs: Vital Signs Temperature 99.1 F 09/01/16 13:54 Pulse Rate 84 09/01/16 13:54 Respiratory Rate 20 09/01/16 13:54 Blood Pressure 157/95 09/01/16 13:54 O2 Sat by Pulse Oximetry (%) 95 08/31/16 21:00 Constitutional: Yes: Calm Eyes: Yes: Conjunctiva Clear HENT: Yes: Atraumatic Neck: Yes: Supple Cardiovascular: Yes: S1, S2 Respiratory: Yes: Wheezes Gastrointestinal: Yes: Soft Genitourinary: Yes: WNL Edema: Yes Edema: LLE: 2+, RLE: 2+ Neurological: Yes: Oriented Psychiatric: Yes: Oriented Labs: CBC, BMP 09/01/16 05:35 09/01/16 05:35 INR, PTT INR 1.00 (0.82-1.09) 08/30/16 17:58 Problem List - Problems (1) Acute renal failure (ARF) Code(s): N17.9 - ACUTE KIDNEY FAILURE, UNSPECIFIED Qualifiers: Acute renal failure type: unspecified Qualified Code(s): N17.9 - Acute kidney failure, unspecified (2) BPH (benign prostatic hyperplasia) Code(s): N40.0 - BENIGN PROSTATIC HYPERPLASIA WITHOUT LOWER URINRY TRACT SYMP (3) COPD (chronic obstructive pulmonary disease) Code(s): J44.9 - CHRONIC OBSTRUCTIVE PULMONARY DISEASE, UNSPECIFIED (4) Hyperkalemia Code(s): E87.5 - HYPERKALEMIA Assessment/Plan Current Medications Generic Name Dose Route Start Last Admin Trade Name Freq PRN Reason Stop Dose Admin Albuterol/Ipratropium 1 amp 08/31/16 12:00 09/01/16 11:10 Duoneb - NEB 1 amp QIDR CHARLES Administration Budesonide/Formoterol Fumarate 2 puff 08/30/16 22:00 09/01/16 10:14 Symbicort 160/4.5mcg - IH 2 puff BID CHARLES Administration Doxazosin Mesylate 2 mg 08/31/16 10:00 09/01/16 10:13 Cardura - PO 2 mg DAILY [facility]LES Administration Guaifenesin 600 mg 08/31/16 12:00 09/01/16 10:12 Mucinex - PO 600 mg BID CHARLES Administration Guaifenesin/Codeine Phosphate 5 ml 09/01/16 02:11 09/01/16 02:17 Robitussin Ac - PO 5 ml Q4H PRN Administration COUGH Heparin Sodium (Porcine) 5,000 unit 08/30/16 22:00 09/01/16 10:14 Heparin - SQ 5,000 unit BID CHARLES Administration Methylprednisolone Sodium Succinate 80 mg 08/31/16 16:00 09/01/16 10:14 Solu-Medrol - IVPB 80 mg DAILY [facility] Administration Pantoprazole Sodium 40 mg 08/31/16 10:00 09/01/16 10:12 Protonix - PO 40 mg DAILY [facility] Administration Ranolazine 500 mg 08/30/16 22:00 09/01/16 10:13 Ranexa - PO 500 mg BID CHARLES Administration Rosuvastatin Calcium 20 mg 09/01/16 22:00 Crestor - PO HS [facility] Tamsulosin HCl 0.4 mg 08/31/16 08:30 09/01/16 10:13 Flomax - PO 0.4 mg DAILY@0830 [facility] Administration Laboratory Tests 08/31/16 08/31/16 09/01/16 06:00 19:00 05:35 Sodium 134 L Potassium 5.0 BUN 70 H D Creatinine 6.2 H Prot Electrophoresis Serum Total Protein Albumin 1.4 L Globulin Albumin/Globulin Ratio [id number] [id number] Beta Globulins Gamma Globulins Cholesterol 282 H D Total LDL Cholesterol 205 H D Protein/Creatinin Ratio 11.025 RADU M-Jordan MELISSA Screen c-ANCA Proteinase 3 (PR3) p-ANCA Atypical p-ANCA Myeloperoxidase Ab Double Strand DNA Ab 09/01/16 09/01/16 05:35 05:35 Sodium Potassium BUN Creatinine Prot Electrophoresis Pending Serum Total Protein Pending Albumin Pending Globulin Pending Albumin/Globulin Ratio Pending [id number] Pending Bnapx-[id number] Pending Beta Globulins Pending Gamma Globulins Pending Cholesterol Total LDL Cholesterol Protein/Creatinin Ratio RADU M-Jordan Pending MELISSA Screen Pending c-ANCA Pending Proteinase 3 (PR3) Pending p-ANCA Pending Atypical p-ANCA Pending Myeloperoxidase Ab Pending Double Strand DNA Ab Pending Impression 1. CATY 2. CKD with hx of JANNA 3. COPD 4. HTN 5. BPH 6. hyperkalemia 7. fluid overload Plan - repeat labs in am - will give a dose of lasix - will switch to prednisone starting tomorrow - cont with statin - renal workup in progress - likely recurrence of JANNA - no indication for HD at this point - avoid nsaids, pt was taking nsaids (self prescribed) - will follow Dr Marie
[2016-09-01] MEDS ORDERED: FUROSEMIDE 40 MG/4 ML INJECTABLE VIAL IVPUSH ONE (15:12)
[2016-09-01] MEDS ORDERED: METOPROLOL TARTRATE 25 MG TABLET (FP) ONE (16:58)
[2016-09-01] MEDS: amLODIPine BESYLATE 5 MG TABLET (FP) PO SCH (17:00)
[2016-09-01] MEDS ORDERED: METOPROLOL TARTRATE 25 MG TABLET (FP) PO ONE (17:00)
[2016-09-01] MEDS ORDERED: ROSUVASTATIN CA 20 MG TABLET (FP) PO SCH (22:00)
[2016-09-01] MEDS: ROSUVASTATIN CA 10 MG TABLET (FP) PO SCH (22:57)
[2016-09-01] MEDS: METOPROLOL TARTRATE 25 MG TABLET (FP) PO SCH (22:57)
[2016-09-02] MEDS: ALBUTEROL SO4 2.5/IPRATROPIUM 0.5 INH SOL 3 ML VIAL.NEB. NEB SCH ×3 (06:35→17:29)
[2016-09-02 07:48] LABS: SGOT/AST 15 U/L (15-37); SGPT/ALT 21 U/L (12-78)
[2016-09-02 07:56] LABS: ALBUMIN 1.4 g/dl (3.4-5.0); ALK PHOS 137 U/L (45-117); ANION GAP 15 (8-16); BILIRUBIN,TOTAL 0.2 mg/dL (0.2-1.0); CO2 18 mmol/L (21-32); CREATININE 5.8 mg/dL (0.7-1.3); GLUCOSE,RANDOM 117 mg/dL (74-106); TOT PROT 5.4 g/dl (6.4-8.2)
[2016-09-02] MEDS: TAMSULOSIN HCL 0.4 MG CAP.ER.24H (FP) PO SCH (09:03)
[2016-09-02] MEDS: guaiFENesin 600 MG TABLET.ER (FP) PO SCH ×2 (09:03→21:41)
[2016-09-02] MEDS: DOXAZOSIN MESYLATE 2 MG TABLET (FP) PO SCH (09:03)
[2016-09-02] MEDS: METOPROLOL TARTRATE 25 MG TABLET (FP) PO SCH ×2 (09:03→21:41)
[2016-09-02] MEDS: RANOLAZINE E.R. 500 MG TABLET (FP) PO SCH ×2 (09:04→21:41)
[2016-09-02] MEDS: PANTOPRAZOLE 40 MG TABLET (FP) PO SCH (09:04)
[2016-09-02] MEDS: HEPARIN NA (PORCINE) 5,000 UNITS/ML 1ML VIAL SQ SCH ×2 (09:04→21:41)
[2016-09-02] MEDS: predniSONE 20 MG TABLET (UD) PO SCH (09:04)
[2016-09-02] MEDS: amLODIPine BESYLATE 5 MG TABLET (FP) PO SCH (09:04)
[2016-09-02] MEDS: BUDESONIDE/FORMETEROL FUMARATE 160/4.5 mcg INHALER IH SCH ×2 (09:06→21:42)
--- NOTE | 2016-09-02 11:06 | PN ---
Progress Note, Physician History of Present Illness: PULMONARY ALERT,FEELING BETTER,-RESP DISTRESS - Current Medication List Current Medications: Active Medications Albuterol/Ipratropium (Duoneb -) 1 amp NEB QIDR [facility] Last Admin: 09/02/16 06:35 Dose: 1 amp Amlodipine Besylate (Norvasc -) 5 mg PO DAILY [facility] Last Admin: 09/02/16 09:04 Dose: 5 mg Budesonide/Formoterol Fumarate (Symbicort 160/4.5mcg -) 2 puff IH BID [facility] Last Admin: 09/02/16 09:06 Dose: 2 puff Doxazosin Mesylate (Cardura -) 2 mg PO DAILY [facility] Last Admin: 09/02/16 09:03 Dose: 2 mg Guaifenesin (Mucinex -) 600 mg PO BID [facility] Last Admin: 09/02/16 09:03 Dose: 600 mg Guaifenesin/Codeine Phosphate (Robitussin Ac -) 5 ml PO Q4H PRN PRN Reason: COUGH Last Admin: 09/01/16 16:04 Dose: 5 ml Heparin Sodium (Porcine) (Heparin -) 5,000 unit SQ BID [facility] Last Admin: 09/02/16 09:04 Dose: 5,000 unit Metoprolol Tartrate (Lopressor -) 25 mg PO BID [facility] Last Admin: 09/02/16 09:03 Dose: 25 mg Pantoprazole Sodium (Protonix -) 40 mg PO DAILY [facility] Last Admin: 09/02/16 09:04 Dose: 40 mg Prednisone (Deltasone -) 80 mg PO DAILY [facility] Last Admin: 09/02/16 09:04 Dose: 80 mg Ranolazine (Ranexa -) 500 mg PO BID [facility] Last Admin: 09/02/16 09:04 Dose: 500 mg Rosuvastatin Calcium (Crestor -) 10 mg PO HS [facility] Last Admin: 09/01/16 22:57 Dose: 10 mg Tamsulosin HCl (Flomax -) 0.4 mg PO DAILY@0830 [facility] Last Admin: 09/02/16 09:03 Dose: 0.4 mg - Objective Vital Signs: Vital Signs Temperature 97.9 F 09/02/16 08:40 Pulse Rate 78 09/02/16 08:40 Respiratory Rate 18 09/02/16 08:40 Blood Pressure 163/100 09/02/16 08:40 O2 Sat by Pulse Oximetry (%) 97 09/01/16 21:00 Constitutional: Yes: Well Nourished, Calm Eyes: Yes: WNL HENT: Yes: WNL Neck: Yes: WNL Cardiovascular: Yes: Regular Rate and Rhythm, S1, S2 Respiratory: Yes: Diminished Gastrointestinal: Yes: Normal Bowel Sounds, Soft Extremities: Yes: WNL Edema: Yes Labs: CBC, BMP 09/01/16 05:35 09/02/16 05:35 INR, PTT INR 1.00 (0.82-1.09) 08/30/16 17:58 Assessment/Plan Problem List - Problems (1) Acute renal failure (ARF) Code(s): N17.9 - ACUTE KIDNEY FAILURE, UNSPECIFIED Qualifiers: Acute renal failure type: unspecified Qualified Code(s): N17.9 - Acute kidney failure, unspecified (2) BPH (benign prostatic hyperplasia) Code(s): N40.0 - BENIGN PROSTATIC HYPERPLASIA WITHOUT LOWER URINRY TRACT SYMP (3) COPD (chronic obstructive pulmonary disease) Code(s): J44.9 - CHRONIC OBSTRUCTIVE PULMONARY DISEASE, UNSPECIFIED (4) ILD (interstitial lung disease) Code(s): J84.9 - INTERSTITIAL PULMONARY DISEASE, UNSPECIFIED Assessment/Plan COPD ILD RELATIVELY STABLE ACUTE ON H/O CHRONIC KIDNEY DISEASE HTN HLD PLAN O2 PRN INHALED BRONCHODILATORS PREDNISONE RENAL WORKUP UNDERWAY PFTS OUTPATIENT DR NELSON
--- NOTE | 2016-09-02 14:51 | PN ---
Progress Note, Physician Chief Complaint: no complaints tele neg History of Present Illness: 75 year old male, with a significant past medical history of CKD/ glomerulonephropathy(previously on short term HD), kidney stones, cardiomegaly, COPD, hypertension, hyperlipidemia, BPH, who presents to the emergency department sent by PCP for evaluation of abnormal labs for renal failure. Patient reports that last year he required temporary dialysis but then kidney function normalized. Denies any chest pain or palpitations. +b/l LE edema worsening. No change in exercise tolerance but limited to less than 1 block due to copd/leg pain. echo 09/02/16 normal EF min MR/TR - Current Medication List Current Medications: Active Medications Albuterol/Ipratropium (Duoneb -) 1 amp NEB QIDR [facility] Last Admin: 09/02/16 11:04 Dose: 1 amp Amlodipine Besylate (Norvasc -) 5 mg PO DAILY [facility] Last Admin: 09/02/16 09:04 Dose: 5 mg Budesonide/Formoterol Fumarate (Symbicort 160/4.5mcg -) 2 puff IH BID [facility] Last Admin: 09/02/16 09:06 Dose: 2 puff Doxazosin Mesylate (Cardura -) 2 mg PO DAILY [facility] Last Admin: 09/02/16 09:03 Dose: 2 mg Guaifenesin (Mucinex -) 600 mg PO BID [facility] Last Admin: 09/02/16 09:03 Dose: 600 mg Guaifenesin/Codeine Phosphate (Robitussin Ac -) 5 ml PO Q4H PRN PRN Reason: COUGH Last Admin: 09/01/16 16:04 Dose: 5 ml Heparin Sodium (Porcine) (Heparin -) 5,000 unit SQ BID [facility] Last Admin: 09/02/16 09:04 Dose: 5,000 unit Metoprolol Tartrate (Lopressor -) 25 mg PO BID [facility] Last Admin: 09/02/16 09:03 Dose: 25 mg Pantoprazole Sodium (Protonix -) 40 mg PO DAILY [facility] Last Admin: 09/02/16 09:04 Dose: 40 mg Prednisone (Deltasone -) 80 mg PO DAILY [facility] Last Admin: 09/02/16 09:04 Dose: 80 mg Ranolazine (Ranexa -) 500 mg PO BID [facility] Last Admin: 09/02/16 09:04 Dose: 500 mg Rosuvastatin Calcium (Crestor -) 10 mg PO HS [facility] Last Admin: 09/01/16 22:57 Dose: 10 mg Tamsulosin HCl (Flomax -) 0.4 mg PO DAILY@0830 [facility] Last Admin: 09/02/16 09:03 Dose: 0.4 mg - Objective Vital Signs: Vital Signs Temperature 97.9 F 09/02/16 08:40 Pulse Rate 78 09/02/16 08:40 Respiratory Rate 18 09/02/16 08:40 Blood Pressure 163/100 09/02/16 08:40 O2 Sat by Pulse Oximetry (%) 96 09/02/16 08:00 Constitutional: Yes: Well Nourished, No Distress Eyes: Yes: Conjunctiva Clear, EOM Intact HENT: Yes: Atraumatic, Normocephalic Neck: Yes: Supple, Trachea Midline Cardiovascular: Yes: Regular Rate and Rhythm Respiratory: Yes: Regular, CTA Bilaterally Gastrointestinal: Yes: Normal Bowel Sounds, Soft Musculoskeletal: Yes: WNL Extremities: Yes: WNL Edema: No Peripheral Pulses WNL: Yes Labs: CBC, BMP 09/01/16 05:35 09/02/16 05:35 INR, PTT INR 1.00 (0.82-1.09) 08/30/16 17:58 Problem List - Problems (1) Abnormal EKG Assessment/Plan: EKG: sinus rhythm with no significant st changes. (no pac's seen on ekg from today) Borderline low voltage on ekg on presentation but CT chest demonstrated on trace amount of pericardial effusion. LE edema likely due to renal failure. No chest pain or palpitations Echo is unremarkable. -Would stop ranolazine in the patient with acute renal failure. Also his dyspnea seems to be related to his lung disease and has no known cardiac history as per patient so unclear benefit. will see as needed. Code(s): R94.31 - ABNORMAL ELECTROCARDIOGRAM [ECG] [EKG]
--- NOTE | 2016-09-02 15:00 | PN ---
Progress Note, Physician History of Present Illness: Pt seen and examined at bedside. He is awake and alert. He denies shortness of breath. - Current Medication List Current Medications: Active Medications Albuterol/Ipratropium (Duoneb -) 1 amp NEB QIDR [facility] Last Admin: 09/02/16 11:04 Dose: 1 amp Amlodipine Besylate (Norvasc -) 5 mg PO DAILY [facility] Last Admin: 09/02/16 09:04 Dose: 5 mg Budesonide/Formoterol Fumarate (Symbicort 160/4.5mcg -) 2 puff IH BID [facility] Last Admin: 09/02/16 09:06 Dose: 2 puff Doxazosin Mesylate (Cardura -) 2 mg PO DAILY [facility] Last Admin: 09/02/16 09:03 Dose: 2 mg Guaifenesin (Mucinex -) 600 mg PO BID [facility] Last Admin: 09/02/16 09:03 Dose: 600 mg Guaifenesin/Codeine Phosphate (Robitussin Ac -) 5 ml PO Q4H PRN PRN Reason: COUGH Last Admin: 09/01/16 16:04 Dose: 5 ml Heparin Sodium (Porcine) (Heparin -) 5,000 unit SQ BID [facility] Last Admin: 09/02/16 09:04 Dose: 5,000 unit Metoprolol Tartrate (Lopressor -) 25 mg PO BID [facility] Last Admin: 09/02/16 09:03 Dose: 25 mg Pantoprazole Sodium (Protonix -) 40 mg PO DAILY [facility] Last Admin: 09/02/16 09:04 Dose: 40 mg Prednisone (Deltasone -) 80 mg PO DAILY [facility] Last Admin: 09/02/16 09:04 Dose: 80 mg Ranolazine (Ranexa -) 500 mg PO BID [facility] Last Admin: 09/02/16 09:04 Dose: 500 mg Rosuvastatin Calcium (Crestor -) 10 mg PO HS [facility] Last Admin: 09/01/16 22:57 Dose: 10 mg Tamsulosin HCl (Flomax -) 0.4 mg PO DAILY@0830 [facility] Last Admin: 09/02/16 09:03 Dose: 0.4 mg - Objective Vital Signs: Vital Signs Temperature 97.9 F 09/02/16 08:40 Pulse Rate 78 09/02/16 08:40 Respiratory Rate 18 09/02/16 08:40 Blood Pressure 163/100 09/02/16 08:40 O2 Sat by Pulse Oximetry (%) 96 09/02/16 08:00 Constitutional: Yes: Calm Eyes: Yes: Conjunctiva Clear HENT: Yes: Atraumatic Neck: Yes: Supple Cardiovascular: Yes: S1, S2 Respiratory: Yes: Regular Gastrointestinal: Yes: Normal Bowel Sounds, Soft Genitourinary: Yes: WNL Musculoskeletal: Yes: WNL Edema: Yes Edema: LLE: 2+, RLE: 2+ Neurological: Yes: Oriented Psychiatric: Yes: Oriented Labs: CBC, BMP 09/01/16 05:35 09/02/16 05:35 INR, PTT INR 1.00 (0.82-1.09) 08/30/16 17:58 Problem List - Problems (1) Acute renal failure (ARF) Code(s): N17.9 - ACUTE KIDNEY FAILURE, UNSPECIFIED Qualifiers: Acute renal failure type: unspecified Qualified Code(s): N17.9 - Acute kidney failure, unspecified (2) BPH (benign prostatic hyperplasia) Code(s): N40.0 - BENIGN PROSTATIC HYPERPLASIA WITHOUT LOWER URINRY TRACT SYMP (3) COPD (chronic obstructive pulmonary disease) Code(s): J44.9 - CHRONIC OBSTRUCTIVE PULMONARY DISEASE, UNSPECIFIED (4) Hyperkalemia Code(s): E87.5 - HYPERKALEMIA Assessment/Plan Current Medications Generic Name Dose Route Start Last Admin Trade Name Freq PRN Reason Stop Dose Admin Albuterol/Ipratropium 1 amp 08/31/16 12:00 09/02/16 11:04 Duoneb - NEB 1 amp QIDR [facility] Administration Amlodipine Besylate 5 mg 09/01/16 17:00 09/02/16 09:04 Norvasc - PO 5 mg DAILY [facility] Administration Budesonide/Formoterol Fumarate 2 puff 08/30/16 22:00 09/02/16 09:06 Symbicort 160/4.5mcg - IH 2 puff BID [facility] Administration Doxazosin Mesylate 2 mg 08/31/16 10:00 09/02/16 09:03 Cardura - PO 2 mg DAILY [facility] Administration Guaifenesin 600 mg 08/31/16 12:00 09/02/16 09:03 Mucinex - PO 600 mg BID [facility] Administration Guaifenesin/Codeine Phosphate 5 ml 09/01/16 02:11 09/01/16 16:04 Robitussin Ac - PO 5 ml Q4H PRN Administration COUGH Heparin Sodium (Porcine) 5,000 unit 08/30/16 22:00 09/02/16 09:04 Heparin - SQ 5,000 unit BID [facility] Administration Metoprolol Tartrate 25 mg 09/01/16 22:00 09/02/16 09:03 Lopressor - PO 25 mg BID [facility] Administration Pantoprazole Sodium 40 mg 08/31/16 10:00 09/02/16 09:04 Protonix - PO 40 mg DAILY [facility] Administration Prednisone 80 mg 09/02/16 10:00 09/02/16 09:04 Deltasone - PO 80 mg DAILY [facility] Administration Ranolazine 500 mg 08/30/16 22:00 09/02/16 09:04 Ranexa - PO 500 mg BID [facility] Administration Rosuvastatin Calcium 10 mg 09/01/16 22:00 09/01/16 22:57 Crestor - PO 10 mg HS [facility] Administration Tamsulosin HCl 0.4 mg 08/31/16 08:30 09/02/16 09:03 Flomax - PO 0.4 mg DAILY@0830 [facility] Administration Impression 1. CATY 2. CKD with hx of JANNA 3. COPD 4. HTN 5. BPH 6. hyperkalemia 7. fluid overload Plan - creatinine is starting to improve - repeat labs in am - will give lasix today - cont with steroids - cont with statin - renal workup in progress - likely recurrence of JANNA - no indication for HD at this point - avoid nsaids, pt was taking nsaids (self prescribed) - will follow Dr Marie
[2016-09-02] MEDS ORDERED: FUROSEMIDE 40 MG/4 ML INJECTABLE VIAL IVPUSH ONE (15:01)
--- NOTE | 2016-09-02 17:50 | PN ---
Progress Note, Physician Chief Complaint: AWAKE ALERT C/O LEG EDEMA NO CHEST PAIN - Current Medication List Current Medications: Active Medications Albuterol/Ipratropium (Duoneb -) 1 amp NEB QIDR [facility] Last Admin: 09/02/16 17:29 Dose: 1 amp Amlodipine Besylate (Norvasc -) 5 mg PO DAILY [facility] Last Admin: 09/02/16 09:04 Dose: 5 mg Budesonide/Formoterol Fumarate (Symbicort 160/4.5mcg -) 2 puff IH BID [facility] Last Admin: 09/02/16 09:06 Dose: 2 puff Doxazosin Mesylate (Cardura -) 2 mg PO DAILY [facility] Last Admin: 09/02/16 09:03 Dose: 2 mg Furosemide (Lasix Injection -) 40 mg IVPUSH BID@0600,1400 [facility] Guaifenesin (Mucinex -) 600 mg PO BID [facility] Last Admin: 09/02/16 09:03 Dose: 600 mg Guaifenesin/Codeine Phosphate (Robitussin Ac -) 5 ml PO Q4H PRN PRN Reason: COUGH Last Admin: 09/01/16 16:04 Dose: 5 ml Heparin Sodium (Porcine) (Heparin -) 5,000 unit SQ BID [facility] Last Admin: 09/02/16 09:04 Dose: 5,000 unit Metoprolol Tartrate (Lopressor -) 25 mg PO BID [facility] Last Admin: 09/02/16 09:03 Dose: 25 mg Pantoprazole Sodium (Protonix -) 40 mg PO DAILY [facility] Last Admin: 09/02/16 09:04 Dose: 40 mg Prednisone (Deltasone -) 80 mg PO DAILY [facility] Last Admin: 09/02/16 09:04 Dose: 80 mg Ranolazine (Ranexa -) 500 mg PO BID [facility] Last Admin: 09/02/16 09:04 Dose: 500 mg Rosuvastatin Calcium (Crestor -) 10 mg PO HS [facility] Last Admin: 09/01/16 22:57 Dose: 10 mg Tamsulosin HCl (Flomax -) 0.4 mg PO DAILY@0830 [facility] Last Admin: 09/02/16 09:03 Dose: 0.4 mg - Objective Vital Signs: Vital Signs Temperature 97.7 F 09/02/16 17:00 Pulse Rate 83 09/02/16 17:00 Respiratory Rate 20 09/02/16 17:00 Blood Pressure 135/84 09/02/16 17:00 O2 Sat by Pulse Oximetry (%) 96 09/02/16 08:00 Constitutional: Yes: Mild Distress Eyes: Yes: WNL HENT: Yes: WNL Neck: Yes: WNL Cardiovascular: Yes: WNL Respiratory: Yes: WNL Gastrointestinal: Yes: WNL Genitourinary: Yes: WNL Musculoskeletal: Yes: Joint Stiffness Extremities: Yes: WNL Edema: Yes Edema: LLE: 2+, RLE: 2+ Peripheral Pulses WNL: Yes Integumentary: Yes: WNL Wound/Incision: Yes: Clean/Dry Neurological: Yes: WNL ...Motor Strength: WNL Psychiatric: Yes: WNL Labs: CBC, BMP 09/01/16 05:35 09/02/16 05:35 INR, PTT INR 1.00 (0.82-1.09) 08/30/16 17:58 Problem List - Problems (1) Acute renal failure (ARF) Code(s): N17.9 - ACUTE KIDNEY FAILURE, UNSPECIFIED Qualifiers: Acute renal failure type: unspecified Qualified Code(s): N17.9 - Acute kidney failure, unspecified (2) COPD (chronic obstructive pulmonary disease) Code(s): J44.9 - CHRONIC OBSTRUCTIVE PULMONARY DISEASE, UNSPECIFIED (3) Hyperkalemia Code(s): E87.5 - HYPERKALEMIA (4) Edema Code(s): R60.9 - EDEMA, UNSPECIFIED Qualifiers: Edema type: localized Qualified Code(s): R60.0 - Localized edema (5) Hypertension Code(s): I10 - ESSENTIAL (PRIMARY) HYPERTENSION Qualifiers: Hypertension type: essential hypertension Qualified Code(s): I10 - Essential (primary) hypertension Assessment/Plan NEPHROLOGY EVAL APPRECIATED DEVELOPING HYPONATREMIA LIKELY FLUID OVERLOAD WITH LASIX AVOID ALL NSAIDS AND NEPHROTOXIC MEDICATIONS LASIX IV 02 SUPPORT FOR COPD AND NEBS
[2016-09-02] MEDS: ROSUVASTATIN CA 10 MG TABLET (FP) PO SCH (21:41)
[2016-09-03 00:06] LABS: A/G RATIO 0.5 (0.7-1.7); ALBUMIN 1.7 g/dL (2.9-4.4); GLOBULIN, TOTAL 3.7 g/dL (2.2-3.9); M-SPIKE Not Observed g/dL (Not Observed); TOTAL PROTEIN 5.4 g/dL (6.0-8.5)
[2016-09-03] MEDS: ALBUTEROL SO4 2.5/IPRATROPIUM 0.5 INH SOL 3 ML VIAL.NEB. NEB SCH ×4 (00:07→18:00)
[2016-09-03] MEDS: FUROSEMIDE 40 MG/4 ML INJECTABLE VIAL IVPUSH SCH ×2 (06:08→14:23)
[2016-09-03 08:24] LABS: ALBUMIN 1.4 g/dl (3.4-5.0); ANION GAP 14 (8-16); CALCIUM 8.1 mg/dL (8.5-10.1); CO2 22 mmol/L (21-32); GLUCOSE,RANDOM 81 mg/dL (74-106)
[2016-09-03 08:28] LABS: ALK PHOS 136 U/L (45-117); BILIRUBIN,TOTAL 0.4 mg/dL (0.2-1.0); CREATININE 5.5 mg/dL (0.7-1.3); SGOT/AST 13 U/L (15-37); SGPT/ALT 21 U/L (12-78); TOT PROT 5.5 g/dl (6.4-8.2)
[2016-09-03] MEDS ORDERED: PT OWN MED DRAWER 7, Y5N ONE (09:24)
[2016-09-03] MEDS: guaiFENesin 600 MG TABLET.ER (FP) PO SCH ×2 (09:31→21:13)
[2016-09-03] MEDS: DOXAZOSIN MESYLATE 2 MG TABLET (FP) PO SCH (09:31)
[2016-09-03] MEDS: METOPROLOL TARTRATE 25 MG TABLET (FP) PO SCH ×2 (09:31→21:13)
[2016-09-03] MEDS: PANTOPRAZOLE 40 MG TABLET (FP) PO SCH (09:31)
[2016-09-03] MEDS: RANOLAZINE E.R. 500 MG TABLET (FP) PO SCH ×2 (09:31→21:13)
[2016-09-03] MEDS: BUDESONIDE/FORMETEROL FUMARATE 160/4.5 mcg INHALER IH SCH ×2 (09:32→21:14)
[2016-09-03] MEDS: HEPARIN NA (PORCINE) 5,000 UNITS/ML 1ML VIAL SQ SCH ×2 (09:32→21:13)
[2016-09-03] MEDS: predniSONE 20 MG TABLET (UD) PO SCH (09:32)
[2016-09-03] MEDS: TAMSULOSIN HCL 0.4 MG CAP.ER.24H (FP) PO SCH (09:32)
[2016-09-03] MEDS: amLODIPine BESYLATE 5 MG TABLET (FP) PO SCH (09:32)
--- NOTE | 2016-09-03 09:45 | PN ---
Progress Note, Physician History of Present Illness: PULMONARY ALERT,NAD,-CP,-SOB - Current Medication List Current Medications: Active Medications Albuterol/Ipratropium (Duoneb -) 1 amp NEB QIDR [facility] Last Admin: 09/03/16 06:34 Dose: 1 amp Amlodipine Besylate (Norvasc -) 5 mg PO DAILY [facility] Last Admin: 09/03/16 09:32 Dose: 5 mg Budesonide/Formoterol Fumarate (Symbicort 160/4.5mcg -) 2 puff IH BID [facility] Last Admin: 09/03/16 09:32 Dose: 2 puff Doxazosin Mesylate (Cardura -) 2 mg PO DAILY [facility] Last Admin: 09/03/16 09:31 Dose: 2 mg Furosemide (Lasix Injection -) 40 mg IVPUSH BID@0600,1400 [facility] Last Admin: 09/03/16 06:08 Dose: 40 mg Guaifenesin (Mucinex -) 600 mg PO BID [facility] Last Admin: 09/03/16 09:31 Dose: 600 mg Guaifenesin/Codeine Phosphate (Robitussin Ac -) 5 ml PO Q4H PRN PRN Reason: COUGH Last Admin: 09/01/16 16:04 Dose: 5 ml Heparin Sodium (Porcine) (Heparin -) 5,000 unit SQ BID [facility] Last Admin: 09/03/16 09:32 Dose: 5,000 unit Metoprolol Tartrate (Lopressor -) 25 mg PO BID [facility] Last Admin: 09/03/16 09:31 Dose: 25 mg Pantoprazole Sodium (Protonix -) 40 mg PO DAILY [facility] Last Admin: 09/03/16 09:31 Dose: 40 mg Prednisone (Deltasone -) 80 mg PO DAILY [facility] Last Admin: 09/03/16 09:32 Dose: 80 mg Ranolazine (Ranexa -) 500 mg PO BID [facility] Last Admin: 09/03/16 09:31 Dose: 500 mg Rosuvastatin Calcium (Crestor -) 10 mg PO HS [facility] Last Admin: 09/02/16 21:41 Dose: 10 mg Tamsulosin HCl (Flomax -) 0.4 mg PO DAILY@0830 [facility] Last Admin: 09/03/16 09:32 Dose: 0.4 mg - Objective Vital Signs: Vital Signs Temperature 97.9 F 09/03/16 01:00 Pulse Rate 85 07/04/17 05:00 Respiratory Rate 20 09/03/16 05:00 Blood Pressure 149/94 09/03/16 05:00 O2 Sat by Pulse Oximetry (%) 98 09/02/16 20:19 Constitutional: Yes: Well Nourished, Calm Eyes: Yes: WNL HENT: Yes: WNL Neck: Yes: WNL Cardiovascular: Yes: Regular Rate and Rhythm, S1, S2 Respiratory: Yes: CTA Bilaterally Gastrointestinal: Yes: Normal Bowel Sounds, Soft ...Rectal Exam: Yes: Erythema Extremities: Yes: WNL Edema: Yes Labs: CBC, BMP 09/01/16 05:35 09/03/16 05:48 INR, PTT INR 1.00 (0.82-1.09) 08/30/16 17:58 Assessment/Plan Problem List - Problems (1) Acute renal failure (ARF) Code(s): N17.9 - ACUTE KIDNEY FAILURE, UNSPECIFIED Qualifiers: Acute renal failure type: unspecified Qualified Code(s): N17.9 - Acute kidney failure, unspecified (2) BPH (benign prostatic hyperplasia) Code(s): N40.0 - BENIGN PROSTATIC HYPERPLASIA WITHOUT LOWER URINRY TRACT SYMP (3) COPD (chronic obstructive pulmonary disease) Code(s): J44.9 - CHRONIC OBSTRUCTIVE PULMONARY DISEASE, UNSPECIFIED (4) ILD (interstitial lung disease) Code(s): J84.9 - INTERSTITIAL PULMONARY DISEASE, UNSPECIFIED Assessment/Plan COPD ILD STABLE ACUTE ON H/O CHRONIC KIDNEY DISEASE HTN HLD PLAN O2 PRN INHALED BRONCHODILATORS PREDNISONE CONT RENAL WORKUP PFTS OUTPATIENT DR NELSON
--- NOTE | 2016-09-03 11:06 | PN ---
Progress Note, Physician History of Present Illness: C/O COUGH NO CP C/O CONSTIPATION - Current Medication List Current Medications: Active Medications Albuterol/Ipratropium (Duoneb -) 1 amp NEB QIDR [facility] Last Admin: 09/03/16 06:34 Dose: 1 amp Amlodipine Besylate (Norvasc -) 5 mg PO DAILY [facility] Last Admin: 09/03/16 09:32 Dose: 5 mg Budesonide/Formoterol Fumarate (Symbicort 160/4.5mcg -) 2 puff IH BID [facility] Last Admin: 09/03/16 09:32 Dose: 2 puff Doxazosin Mesylate (Cardura -) 2 mg PO DAILY [facility] Last Admin: 09/03/16 09:31 Dose: 2 mg Furosemide (Lasix Injection -) 40 mg IVPUSH BID@0600,1400 [facility] Last Admin: 09/03/16 06:08 Dose: 40 mg Guaifenesin (Mucinex -) 600 mg PO BID [facility] Last Admin: 09/03/16 09:31 Dose: 600 mg Guaifenesin/Codeine Phosphate (Robitussin Ac -) 5 ml PO Q4H PRN PRN Reason: COUGH Last Admin: 09/01/16 16:04 Dose: 5 ml Heparin Sodium (Porcine) (Heparin -) 5,000 unit SQ BID [facility] Last Admin: 09/03/16 09:32 Dose: 5,000 unit Metoprolol Tartrate (Lopressor -) 25 mg PO BID [facility] Last Admin: 09/03/16 09:31 Dose: 25 mg Pantoprazole Sodium (Protonix -) 40 mg PO DAILY [facility] Last Admin: 09/03/16 09:31 Dose: 40 mg Prednisone (Deltasone -) 80 mg PO DAILY [facility] Last Admin: 09/03/16 09:32 Dose: 80 mg Ranolazine (Ranexa -) 500 mg PO BID [facility] Last Admin: 09/03/16 09:31 Dose: 500 mg Rosuvastatin Calcium (Crestor -) 10 mg PO HS [facility] Last Admin: 09/02/16 21:41 Dose: 10 mg Tamsulosin HCl (Flomax -) 0.4 mg PO DAILY@0830 [facility] Last Admin: 09/03/16 09:32 Dose: 0.4 mg - Objective Vital Signs: Vital Signs Temperature 97.9 F 09/03/16 01:00 Pulse Rate 85 07/04/17 05:00 Respiratory Rate 20 09/03/16 05:00 Blood Pressure 149/94 09/03/16 05:00 O2 Sat by Pulse Oximetry (%) 98 09/02/16 20:19 Neck: Yes: Supple Cardiovascular: Yes: Regular Rate and Rhythm Respiratory: Yes: Regular, CTA Bilaterally Gastrointestinal: Yes: Normal Bowel Sounds, Soft. No: Tenderness Edema: Yes Labs: CBC, BMP 09/01/16 05:35 09/03/16 05:48 INR, PTT INR 1.00 (0.82-1.09) 08/30/16 17:58 Problem List - Problems (1) Acute renal failure (ARF) Assessment/Plan: R/O AUTOIMMUNE DS W/U ORDERED MONITOR RENAL CONSULT CT OF CHEST NOTED--CHRONIC DS ON PREDNISONE ON LASIX Code(s): N17.9 - ACUTE KIDNEY FAILURE, UNSPECIFIED Qualifiers: Acute renal failure type: unspecified Qualified Code(s): N17.9 - Acute kidney failure, unspecified (2) Hyperkalemia Assessment/Plan: FOLLOW LABS [facility] Code(s): E87.5 - HYPERKALEMIA (3) Hypertension Assessment/Plan: MONITOR ON MEDS Orders 08/31/16 10:00 Doxazosin Mesylate [Cardura -] 2 mg PO DAILY Code(s): I10 - ESSENTIAL (PRIMARY) HYPERTENSION Qualifiers: Hypertension type: essential hypertension Qualified Code(s): I10 - Essential (primary) hypertension (4) COPD (chronic obstructive pulmonary disease) Assessment/Plan: NEBS CT OF CHEST NOTED--PULM CONSULT Code(s): J44.9 - CHRONIC OBSTRUCTIVE PULMONARY DISEASE, UNSPECIFIED (5) BPH (benign prostatic hyperplasia) Assessment/Plan: ON FLOMAX AND CARDURA Code(s): N40.0 - BENIGN PROSTATIC HYPERPLASIA WITHOUT LOWER URINRY TRACT SYMP (6) Abnormal EKG Assessment/Plan: ECHO--MILD-MOD CARDIO NOTED Code(s): R94.31 - ABNORMAL ELECTROCARDIOGRAM [ECG] [EKG] (7) Edema Assessment/Plan: LOW ALBUMIN\CONSIDER ALBUMIN WITH LASIX Code(s): R60.9 - EDEMA, UNSPECIFIED Qualifiers: Edema type: localized Qualified Code(s): R60.0 - Localized edema (8) Constipation Assessment/Plan: DULCOLOX Code(s): K59.00 - CONSTIPATION, UNSPECIFIED
[2016-09-03] MEDS ORDERED: SODIUM POLYSTYRENE SULFONATE 15 GM/60 ML BOTTLE PO ONE (11:40)
[2016-09-03] MEDS ORDERED: BISACODYL 5 MG TABLET.DR (FP) PO ONE (11:45)
--- NOTE | 2016-09-03 14:45 | PN ---
Progress Note, Physician History of Present Illness: Pt seen and examined at bedside. He is awake and alert. He complains of lower extremity edema. - Current Medication List Current Medications: Active Medications Albuterol/Ipratropium (Duoneb -) 1 amp NEB QIDR [facility] Last Admin: 09/03/16 11:10 Dose: 1 amp Amlodipine Besylate (Norvasc -) 5 mg PO DAILY [facility] Last Admin: 09/03/16 09:32 Dose: 5 mg Budesonide/Formoterol Fumarate (Symbicort 160/4.5mcg -) 2 puff IH BID [facility] Last Admin: 09/03/16 09:32 Dose: 2 puff Doxazosin Mesylate (Cardura -) 2 mg PO DAILY [facility] Last Admin: 09/03/16 09:31 Dose: 2 mg Furosemide (Lasix Injection -) 40 mg IVPUSH BID@0600,1400 [facility] Last Admin: 09/03/16 14:23 Dose: 40 mg Guaifenesin (Mucinex -) 600 mg PO BID [facility] Last Admin: 09/03/16 09:31 Dose: 600 mg Guaifenesin/Codeine Phosphate (Robitussin Ac -) 5 ml PO Q4H PRN PRN Reason: COUGH Last Admin: 09/01/16 16:04 Dose: 5 ml Heparin Sodium (Porcine) (Heparin -) 5,000 unit SQ BID [facility] Last Admin: 09/03/16 09:32 Dose: 5,000 unit Metoprolol Tartrate (Lopressor -) 25 mg PO BID [facility] Last Admin: 09/03/16 09:31 Dose: 25 mg Pantoprazole Sodium (Protonix -) 40 mg PO DAILY [facility] Last Admin: 09/03/16 09:31 Dose: 40 mg Prednisone (Deltasone -) 80 mg PO DAILY [facility] Last Admin: 09/03/16 09:32 Dose: 80 mg Ranolazine (Ranexa -) 500 mg PO BID [facility] Last Admin: 09/03/16 09:31 Dose: 500 mg Rosuvastatin Calcium (Crestor -) 10 mg PO HS [facility] Last Admin: 09/02/16 21:41 Dose: 10 mg Senna (Senna -) 2 tab PO [facility] Tamsulosin HCl (Flomax -) 0.4 mg PO DAILY@0830 [facility] Last Admin: 09/03/16 09:32 Dose: 0.4 mg - Objective Vital Signs: Vital Signs Temperature 98.4 F 09/03/16 14:17 Pulse Rate 85 09/03/16 14:17 Respiratory Rate 20 09/03/16 14:17 Blood Pressure 141/79 09/03/16 14:17 O2 Sat by Pulse Oximetry (%) 98 09/03/16 09:00 Constitutional: Yes: Calm Eyes: Yes: Conjunctiva Clear HENT: Yes: Atraumatic Neck: Yes: Supple Cardiovascular: Yes: S1, S2 Respiratory: Yes: CTA Bilaterally Gastrointestinal: Yes: Soft Genitourinary: Yes: WNL Edema: Yes Edema: LLE: 2+, RLE: 2+ Neurological: Yes: Oriented Psychiatric: Yes: Oriented Labs: CBC, BMP 09/01/16 05:35 09/03/16 05:48 INR, PTT INR 1.00 (0.82-1.09) 08/30/16 17:58 Problem List - Problems (1) Acute renal failure (ARF) Code(s): N17.9 - ACUTE KIDNEY FAILURE, UNSPECIFIED Qualifiers: Acute renal failure type: unspecified Qualified Code(s): N17.9 - Acute kidney failure, unspecified (2) BPH (benign prostatic hyperplasia) Code(s): N40.0 - BENIGN PROSTATIC HYPERPLASIA WITHOUT LOWER URINRY TRACT SYMP (3) COPD (chronic obstructive pulmonary disease) Code(s): J44.9 - CHRONIC OBSTRUCTIVE PULMONARY DISEASE, UNSPECIFIED (4) Hyperkalemia Code(s): E87.5 - HYPERKALEMIA Assessment/Plan Current Medications Generic Name Dose Route Start Last Admin Trade Name Eulalioq PRN Reason Stop Dose Admin Albuterol/Ipratropium 1 amp 08/31/16 12:00 09/03/16 11:10 Duoneb - NEB 1 amp QIDR [facility] Administration Amlodipine Besylate 5 mg 09/01/16 17:00 09/03/16 09:32 Norvasc - PO 5 mg DAILY [facility] Administration Budesonide/Formoterol Fumarate 2 puff 08/30/16 22:00 09/03/16 09:32 Symbicort 160/4.5mcg - IH 2 puff BID [facility] Administration Doxazosin Mesylate 2 mg 08/31/16 10:00 09/03/16 09:31 Cardura - PO 2 mg DAILY [facility] Administration Furosemide 40 mg 09/03/16 06:00 09/03/16 14:23 Lasix Injection - IVPUSH 40 mg BID@0600,1400 [facility] Administration Guaifenesin 600 mg 08/31/16 12:00 09/03/16 09:31 Mucinex - PO 600 mg BID [facility] Administration Guaifenesin/Codeine Phosphate 5 ml 09/01/16 02:11 09/01/16 16:04 Robitussin Ac - PO 5 ml Q4H PRN Administration COUGH Heparin Sodium (Porcine) 5,000 unit 08/30/16 22:00 09/03/16 09:32 Heparin - SQ 5,000 unit BID [facility] Administration Metoprolol Tartrate 25 mg 09/01/16 22:00 09/03/16 09:31 Lopressor - PO 25 mg BID [facility] Administration Pantoprazole Sodium 40 mg 08/31/16 10:00 09/03/16 09:31 Protonix - PO 40 mg DAILY [facility] Administration Prednisone 80 mg 09/02/16 10:00 09/03/16 09:32 Deltasone - PO 80 mg DAILY [facility] Administration Ranolazine 500 mg 08/30/16 22:00 09/03/16 09:31 Ranexa - PO 500 mg BID [facility] Administration Rosuvastatin Calcium 10 mg 09/01/16 22:00 09/02/16 21:41 Crestor - PO 10 mg HS [facility] Administration Senna 2 tab 09/03/16 22:00 Senna - PO HS [facility] Tamsulosin HCl 0.4 mg 08/31/16 08:30 09/03/16 09:32 Flomax - PO 0.4 mg DAILY@0830 [facility] Administration Laboratory Tests 09/01/16 09/01/16 05:35 05:35 RADU M-Jordan Not observed MELISSA Screen Negative c-ANCA Pending Proteinase 3 (PR3) Pending p-ANCA Pending Atypical p-ANCA Pending Myeloperoxidase Ab Pending Double Strand DNA Ab <1 Impression 1. CATY 2. CKD with hx of JANNA 3. COPD 4. HTN 5. BPH 6. hyperkalemia 7. fluid overload Plan - creatinine continues to improve - cont lasix - cont steroids - will repeat urine studies tomorrow - renal workup in progress - likely recurrence of JANNA - no indication for HD at this point - avoid nsaids, pt was taking nsaids (self prescribed) - will follow Dr Marie
[2016-09-03 17:27] LABS: URINE CREATININE 64.3 mg/dL (20-370)
[2016-09-03] MEDS: SENNOSIDES 8.6MG TABLET (FP) PO SCH (21:12)
[2016-09-03] MEDS: ROSUVASTATIN CA 10 MG TABLET (FP) PO SCH (21:13)
[2016-09-04 00:06] LABS: C-ANCA <1:20 titer (Neg:<1:20); MYELOPEROXIDASE ANTIBODY <9.0 U/mL (0.0-9.0); P-ANCA <1:20 titer (Neg:<1:20); PROTEINASE-3 ANTIBODY <3.5 U/mL (0.0-3.5)
[2016-09-04] MEDS: ALBUTEROL SO4 2.5/IPRATROPIUM 0.5 INH SOL 3 ML VIAL.NEB. NEB SCH ×4 (00:24→17:15)
[2016-09-04] MEDS: FUROSEMIDE 40 MG/4 ML INJECTABLE VIAL IVPUSH SCH ×3 (06:38→15:21)
[2016-09-04 06:52] LABS: BASOPHIL 0.1 % (0-2.0); MCH 23.6 pg (25.7-33.7); MEAN CELL VOLUME 73.6 fl (80-96); MEAN PLT VOLUME 9.4 fl (7.5-11.1); NEUTROPHILS 78.6 % (42.8-82.8); PLATELET COUNT 176 K/MM3 (134-434); RDW 16.7 % (11.9-15.9); WHITE BLOOD COUNT 6.9 K/mm3 (4.0-10.0)
[2016-09-04 07:18] LABS: ALBUMIN 1.4 g/dl (3.4-5.0); ANION GAP 13 (8-16); CALCIUM 8.1 mg/dL (8.5-10.1); CO2 23 mmol/L (21-32); GLUCOSE,RANDOM 88 mg/dL (74-106); SGPT/ALT 19 U/L (12-78)
[2016-09-04 07:19] LABS: ALK PHOS 146 U/L (45-117); BILIRUBIN,TOTAL 0.2 mg/dL (0.2-1.0); TOT PROT 5.4 g/dl (6.4-8.2)
[2016-09-04 07:23] LABS: SGOT/AST 21 U/L (15-37)
[2016-09-04] MEDS: RANOLAZINE E.R. 500 MG TABLET (FP) PO SCH ×2 (09:17→21:56)
[2016-09-04] MEDS: PANTOPRAZOLE 40 MG TABLET (FP) PO SCH (09:17)
[2016-09-04] MEDS: guaiFENesin 600 MG TABLET.ER (FP) PO SCH ×2 (09:17→21:56)
[2016-09-04] MEDS: TAMSULOSIN HCL 0.4 MG CAP.ER.24H (FP) PO SCH (09:18)
[2016-09-04] MEDS: predniSONE 20 MG TABLET (UD) PO SCH (09:19)
[2016-09-04] MEDS: BUDESONIDE/FORMETEROL FUMARATE 160/4.5 mcg INHALER IH SCH ×2 (09:20→21:56)
[2016-09-04] MEDS: HEPARIN NA (PORCINE) 5,000 UNITS/ML 1ML VIAL SQ SCH ×2 (09:20→21:55)
[2016-09-04] MEDS: amLODIPine BESYLATE 5 MG TABLET (FP) PO SCH (09:21)
[2016-09-04] MEDS: METOPROLOL TARTRATE 25 MG TABLET (FP) PO SCH (09:21)
[2016-09-04] MEDS ORDERED: PT OWN MED DRAWER 7, Y5N ONE (09:35)
[2016-09-04] MEDS: DOXAZOSIN MESYLATE 2 MG TABLET (FP) PO SCH (09:37)
--- NOTE | 2016-09-04 11:32 | PN ---
Progress Note, Physician History of Present Illness: PULMONARY ALERT,NAD,-CP,-SOB - Current Medication List Current Medications: Active Medications Albuterol/Ipratropium (Duoneb -) 1 amp NEB QIDR [facility] Last Admin: 09/04/16 06:30 Dose: 1 amp Amlodipine Besylate (Norvasc -) 5 mg PO DAILY [facility] Last Admin: 09/04/16 09:21 Dose: Not Given Budesonide/Formoterol Fumarate (Symbicort 160/4.5mcg -) 2 puff IH BID [facility] Last Admin: 09/04/16 09:20 Dose: 2 puff Doxazosin Mesylate (Cardura -) 2 mg PO DAILY [facility] Last Admin: 09/04/16 09:37 Dose: 2 mg Furosemide (Lasix Injection -) 40 mg IVPUSH BID@0600,1400 [facility] Last Admin: 09/04/16 09:16 Dose: 40 mg Guaifenesin (Mucinex -) 600 mg PO BID [facility] Last Admin: 09/04/16 09:17 Dose: 600 mg Heparin Sodium (Porcine) (Heparin -) 5,000 unit SQ BID [facility] Last Admin: 09/04/16 09:20 Dose: Not Given Metoprolol Tartrate (Lopressor -) 25 mg PO BID [facility] Last Admin: 09/04/16 09:21 Dose: Not Given Pantoprazole Sodium (Protonix -) 40 mg PO DAILY [facility] Last Admin: 09/04/16 09:17 Dose: 40 mg Prednisone (Deltasone -) 80 mg PO DAILY [facility] Last Admin: 09/04/16 09:19 Dose: 80 mg Ranolazine (Ranexa -) 500 mg PO BID [facility] Last Admin: 09/04/16 09:17 Dose: 500 mg Rosuvastatin Calcium (Crestor -) 10 mg PO HS [facility] Last Admin: 09/03/16 21:13 Dose: 10 mg Senna (Senna -) 2 tab PO HS [facility] Last Admin: 09/03/16 21:12 Dose: 2 tab Tamsulosin HCl (Flomax -) 0.4 mg PO DAILY@0830 [facility] Last Admin: 09/04/16 09:18 Dose: 0.4 mg - Objective Vital Signs: Vital Signs Temperature 97.7 F 09/04/16 08:23 Pulse Rate 80 09/04/16 08:23 Respiratory Rate 20 09/04/16 08:23 Blood Pressure 134/80 09/04/16 08:23 O2 Sat by Pulse Oximetry (%) 97 09/03/16 20:14 Constitutional: Yes: Well Nourished, Calm Eyes: Yes: WNL HENT: Yes: WNL Neck: Yes: WNL Cardiovascular: Yes: Regular Rate and Rhythm, S1, S2 Respiratory: Yes: CTA Bilaterally Gastrointestinal: Yes: Normal Bowel Sounds, Soft Extremities: Yes: WNL Edema: Yes Edema: LLE: 2+, RLE: 2+ Labs: CBC, BMP 09/04/16 05:35 09/04/16 05:35 INR, PTT INR 1.00 (0.82-1.09) 08/30/16 17:58 Assessment/Plan Problem List - Problems (1) Acute renal failure (ARF) Code(s): N17.9 - ACUTE KIDNEY FAILURE, UNSPECIFIED Qualifiers: Acute renal failure type: unspecified Qualified Code(s): N17.9 - Acute kidney failure, unspecified (2) BPH (benign prostatic hyperplasia) Code(s): N40.0 - BENIGN PROSTATIC HYPERPLASIA WITHOUT LOWER URINRY TRACT SYMP (3) COPD (chronic obstructive pulmonary disease) Code(s): J44.9 - CHRONIC OBSTRUCTIVE PULMONARY DISEASE, UNSPECIFIED (4) ILD (interstitial lung disease) Code(s): J84.9 - INTERSTITIAL PULMONARY DISEASE, UNSPECIFIED Assessment/Plan COPD ILD STABLE ACUTE ON H/O CHRONIC KIDNEY DISEASE HTN HLD PLAN O2 PRN INHALED BRONCHODILATORS PREDNISONE PER RENAL LASIX CONTINUE RENAL WORKUP PFTS OUTPATIENT MONITOR LYTES,RENAL FUNCTION DR NELSON
--- NOTE | 2016-09-04 12:48 | PN ---
Progress Note, Physician History of Present Illness: Pt seen and examined at bedside. He is awake and alert. He complains of lower extremity edema. - Current Medication List Current Medications: Active Medications Albuterol/Ipratropium (Duoneb -) 1 amp NEB QIDR [facility] Last Admin: 09/04/16 11:15 Dose: 1 amp Amlodipine Besylate (Norvasc -) 5 mg PO DAILY [facility] Last Admin: 09/04/16 09:21 Dose: Not Given Budesonide/Formoterol Fumarate (Symbicort 160/4.5mcg -) 2 puff IH BID [facility] Last Admin: 09/04/16 09:20 Dose: 2 puff Doxazosin Mesylate (Cardura -) 2 mg PO DAILY [facility] Last Admin: 09/04/16 09:37 Dose: 2 mg Furosemide (Lasix Injection -) 40 mg IVPUSH BID@0600,1400 [facility] Last Admin: 09/04/16 09:16 Dose: 40 mg Guaifenesin (Mucinex -) 600 mg PO BID [facility] Last Admin: 09/04/16 09:17 Dose: 600 mg Heparin Sodium (Porcine) (Heparin -) 5,000 unit SQ BID [facility] Last Admin: 09/04/16 09:20 Dose: Not Given Metoprolol Tartrate (Lopressor -) 25 mg PO BID [facility] Last Admin: 09/04/16 09:21 Dose: Not Given Pantoprazole Sodium (Protonix -) 40 mg PO DAILY [facility] Last Admin: 09/04/16 09:17 Dose: 40 mg Prednisone (Deltasone -) 80 mg PO DAILY [facility] Last Admin: 09/04/16 09:19 Dose: 80 mg Ranolazine (Ranexa -) 500 mg PO BID [facility] Last Admin: 09/04/16 09:17 Dose: 500 mg Rosuvastatin Calcium (Crestor -) 10 mg PO HS [facility] Last Admin: 09/03/16 21:13 Dose: 10 mg Senna (Senna -) 2 tab PO HS [facility] Last Admin: 09/03/16 21:12 Dose: 2 tab Tamsulosin HCl (Flomax -) 0.4 mg PO DAILY@0830 [facility] Last Admin: 09/04/16 09:18 Dose: 0.4 mg - Objective Vital Signs: Vital Signs Temperature 97.7 F 09/04/16 08:23 Pulse Rate 80 09/04/16 08:23 Respiratory Rate 20 09/04/16 08:23 Blood Pressure 134/80 09/04/16 08:23 O2 Sat by Pulse Oximetry (%) 98 09/04/16 09:00 Constitutional: Yes: Calm Eyes: Yes: Conjunctiva Clear HENT: Yes: Atraumatic Cardiovascular: Yes: S1, S2 Respiratory: Yes: Wheezes Gastrointestinal: Yes: Soft Genitourinary: Yes: WNL Musculoskeletal: Yes: WNL Edema: Yes Edema: LLE: 2+, RLE: 2+ Neurological: Yes: Oriented Psychiatric: Yes: Oriented Labs: CBC, BMP 09/04/16 05:35 09/04/16 05:35 INR, PTT INR 1.00 (0.82-1.09) 08/30/16 17:58 Problem List - Problems (1) Acute renal failure (ARF) Code(s): N17.9 - ACUTE KIDNEY FAILURE, UNSPECIFIED Qualifiers: Acute renal failure type: unspecified Qualified Code(s): N17.9 - Acute kidney failure, unspecified (2) BPH (benign prostatic hyperplasia) Code(s): N40.0 - BENIGN PROSTATIC HYPERPLASIA WITHOUT LOWER URINRY TRACT SYMP (3) COPD (chronic obstructive pulmonary disease) Code(s): J44.9 - CHRONIC OBSTRUCTIVE PULMONARY DISEASE, UNSPECIFIED (4) Hyperkalemia Code(s): E87.5 - HYPERKALEMIA Assessment/Plan Current Medications Generic Name Dose Route Start Last Admin Trade Name Freq PRN Reason Stop Dose Admin Albuterol/Ipratropium 1 amp 08/31/16 12:00 09/04/16 11:15 Duoneb - NEB 1 amp QIDR [facility] Administration Amlodipine Besylate 5 mg 09/01/16 17:00 09/04/16 09:21 Norvasc - PO Not Given DAILY [facility] Budesonide/Formoterol Fumarate 2 puff 08/30/16 22:00 09/04/16 09:20 Symbicort 160/4.5mcg - IH 2 puff BID [facility] Administration Doxazosin Mesylate 2 mg 08/31/16 10:00 09/04/16 09:37 Cardura - PO 2 mg DAILY [facility] Administration Furosemide 40 mg 09/03/16 06:00 09/04/16 09:16 Lasix Injection - IVPUSH 40 mg BID@0600,1400 [facility] Administration Guaifenesin 600 mg 08/31/16 12:00 09/04/16 09:17 Mucinex - PO 600 mg BID [facility] Administration Heparin Sodium (Porcine) 5,000 unit 08/30/16 22:00 09/04/16 09:20 Heparin - SQ Not Given BID [facility] Metoprolol Tartrate 25 mg 09/01/16 22:00 09/04/16 09:21 Lopressor - PO Not Given BID [facility] Pantoprazole Sodium 40 mg 08/31/16 10:00 09/04/16 09:17 Protonix - PO 40 mg DAILY [facility] Administration Prednisone 80 mg 09/02/16 10:00 09/04/16 09:19 Deltasone - PO 80 mg DAILY [facility] Administration Ranolazine 500 mg 08/30/16 22:00 09/04/16 09:17 Ranexa - PO 500 mg BID [facility] Administration Rosuvastatin Calcium 10 mg 09/01/16 22:00 09/03/16 21:13 Crestor - PO 10 mg HS [facility] Administration Senna 2 tab 09/03/16 22:00 09/03/16 21:12 Senna - PO 2 tab HS [facility] Administration Tamsulosin HCl 0.4 mg 08/31/16 08:30 09/04/16 09:18 Flomax - PO 0.4 mg DAILY@0830 [facility] Administration Laboratory Tests 08/31/16 09/01/16 09/01/16 19:00 05:35 05:35 U Random Total Protein 2205 H Urine Creatinine 200.0 Protein/Creatinin Ratio 11.025 RADU M-Jordan Not observed MELISSA Screen Negative c-ANCA <1:20 Proteinase 3 (PR3) <3.5 p-ANCA <1:20 Atypical p-ANCA <1:20 Myeloperoxidase Ab <9.0 Double Strand DNA Ab <1 09/03/16 16:15 U Random Total Protein 702 H Urine Creatinine 64.3 Protein/Creatinin Ratio 10.9 RADU M-Jordan MELISSA Screen c-ANCA Proteinase 3 (PR3) p-ANCA Atypical p-ANCA Myeloperoxidase Ab Double Strand DNA Ab Impression 1. CATY 2. CKD with hx of JANNA 3. COPD 4. HTN 5. BPH 6. hyperkalemia 7. fluid overload Plan - renal function is improving - proteinuria is starting to improve - will cont with lasix - low potassium diet - will follow closely - cont with steroids - likely recurrence of JANNA - no indication for HD at this point - avoid nsaids, pt was taking nsaids (self prescribed) - will follow Dr Marie
[2016-09-04] MEDS ORDERED: SODIUM POLYSTYRENE SULFONATE 15 GM/60 ML BOTTLE PO ONE (13:00)
--- NOTE | 2016-09-04 15:43 | PN ---
Progress Note, Physician Chief Complaint: PATIENT AWAKE ALERT RENAL FUNCTION STARTING TO IMPROVE - Current Medication List Current Medications: Active Medications Albuterol/Ipratropium (Duoneb -) 1 amp NEB QIDR [facility] Last Admin: 09/04/16 11:15 Dose: 1 amp Budesonide/Formoterol Fumarate (Symbicort 160/4.5mcg -) 2 puff IH BID [facility] Last Admin: 09/04/16 09:20 Dose: 2 puff Doxazosin Mesylate (Cardura -) 2 mg PO DAILY [facility] Last Admin: 09/04/16 09:37 Dose: 2 mg Furosemide (Lasix Injection -) 60 mg IVPUSH BID@0600,1400 [facility] Last Admin: 09/04/16 15:21 Dose: 60 mg Guaifenesin (Mucinex -) 600 mg PO BID [facility] Last Admin: 09/04/16 09:17 Dose: 600 mg Heparin Sodium (Porcine) (Heparin -) 5,000 unit SQ BID [facility] Last Admin: 09/04/16 09:20 Dose: Not Given Pantoprazole Sodium (Protonix -) 40 mg PO DAILY [facility] Last Admin: 09/04/16 09:17 Dose: 40 mg Prednisone (Deltasone -) 80 mg PO DAILY [facility] Last Admin: 09/04/16 09:19 Dose: 80 mg Ranolazine (Ranexa -) 500 mg PO BID [facility] Last Admin: 09/04/16 09:17 Dose: 500 mg Rosuvastatin Calcium (Crestor -) 10 mg PO [facility] Last Admin: 09/03/16 21:13 Dose: 10 mg Senna (Senna -) 2 tab PO [facility] Last Admin: 09/03/16 21:12 Dose: 2 tab Tamsulosin HCl (Flomax -) 0.4 mg PO DAILY@0830 [facility] Last Admin: 09/04/16 09:18 Dose: 0.4 mg - Objective Vital Signs: Vital Signs Temperature 97.9 F 09/04/16 14:25 Pulse Rate 90 09/04/16 14:25 Respiratory Rate 20 09/04/16 14:25 Blood Pressure 140/77 09/04/16 14:25 O2 Sat by Pulse Oximetry (%) 98 09/04/16 09:00 Constitutional: Yes: Mild Distress Eyes: Yes: WNL HENT: Yes: WNL Neck: Yes: WNL Cardiovascular: Yes: WNL Respiratory: Yes: WNL Gastrointestinal: Yes: WNL Genitourinary: Yes: WNL Musculoskeletal: Yes: Muscle Weakness Extremities: Yes: Other Edema: Yes Edema: LLE: 2+, RLE: 2+ Peripheral Pulses WNL: Yes Integumentary: Yes: WNL Wound/Incision: Yes: Clean/Dry Neurological: Yes: WNL ...Motor Strength: LLE, RLE Psychiatric: Yes: WNL Labs: CBC, BMP 09/04/16 05:35 09/04/16 05:35 INR, PTT INR 1.00 (0.82-1.09) 08/30/16 17:58 Problem List - Problems (1) Acute renal failure (ARF) Code(s): N17.9 - ACUTE KIDNEY FAILURE, UNSPECIFIED Qualifiers: Acute renal failure type: unspecified Qualified Code(s): N17.9 - Acute kidney failure, unspecified (2) COPD (chronic obstructive pulmonary disease) Code(s): J44.9 - CHRONIC OBSTRUCTIVE PULMONARY DISEASE, UNSPECIFIED (3) Hyperkalemia Code(s): E87.5 - HYPERKALEMIA (4) Edema Code(s): R60.9 - EDEMA, UNSPECIFIED Qualifiers: Edema type: localized Qualified Code(s): R60.0 - Localized edema (5) Hypertension Code(s): I10 - ESSENTIAL (PRIMARY) HYPERTENSION Qualifiers: Hypertension type: essential hypertension Qualified Code(s): I10 - Essential (primary) hypertension Assessment/Plan ACUTE ON CHRONIC RENAL FAILURE IMPROVING MONITOR LYTES WILL STOP LOPRESSOR AND AMLODIPINE, PATIENT WAS NOT ON THESE MEDICATIONS AT HOME. DC TELEMETRY
[2016-09-04] MEDS: ROSUVASTATIN CA 10 MG TABLET (FP) PO SCH (21:55)
[2016-09-04] MEDS: SENNOSIDES 8.6MG TABLET (FP) PO SCH (21:56)
[2016-09-05] MEDS: ALBUTEROL SO4 2.5/IPRATROPIUM 0.5 INH SOL 3 ML VIAL.NEB. NEB SCH ×3 (00:05→12:14)
[2016-09-05] MEDS: FUROSEMIDE 40 MG/4 ML INJECTABLE VIAL IVPUSH SCH ×2 (06:29→14:18)
[2016-09-05 08:15] LABS: ALBUMIN 1.3 g/dl (3.4-5.0); ALK PHOS 129 U/L (45-117); ANION GAP 13 (8-16); BILIRUBIN,TOTAL 0.3 mg/dL (0.2-1.0); CALCIUM 7.7 mg/dL (8.5-10.1); CO2 23 mmol/L (21-32); CREATININE 4.5 mg/dL (0.7-1.3); GLUCOSE,RANDOM 120 mg/dL (74-106); SGOT/AST 11 U/L (15-37); SGPT/ALT 17 U/L (12-78)
[2016-09-05] MEDS ORDERED: PT OWN MED DRAWER 7, Y5N ONE (09:07)
[2016-09-05] MEDS: DOXAZOSIN MESYLATE 2 MG TABLET (FP) PO SCH (09:11)
[2016-09-05] MEDS: predniSONE 20 MG TABLET (UD) PO SCH (09:11)
[2016-09-05] MEDS: HEPARIN NA (PORCINE) 5,000 UNITS/ML 1ML VIAL SQ SCH ×2 (09:11→21:44)
[2016-09-05] MEDS: TAMSULOSIN HCL 0.4 MG CAP.ER.24H (FP) PO SCH (09:11)
[2016-09-05] MEDS: RANOLAZINE E.R. 500 MG TABLET (FP) PO SCH ×2 (09:11→21:42)
[2016-09-05] MEDS: guaiFENesin 600 MG TABLET.ER (FP) PO SCH ×2 (09:11→21:42)
[2016-09-05] MEDS: BUDESONIDE/FORMETEROL FUMARATE 160/4.5 mcg INHALER IH SCH ×2 (09:12→21:44)
[2016-09-05] MEDS: PANTOPRAZOLE 40 MG TABLET (FP) PO SCH (09:12)
--- NOTE | 2016-09-05 11:19 | PN ---
Progress Note, Physician Chief Complaint: AWAKE ALERT C/O LOWER QUAD ABD PAIN MINIMAL URINE OUTPUT - Current Medication List Current Medications: Active Medications Albuterol/Ipratropium (Duoneb -) 1 amp NEB QIDR [facility] Last Admin: 09/05/16 06:26 Dose: 1 amp Budesonide/Formoterol Fumarate (Symbicort 160/4.5mcg -) 2 puff IH BID [facility] Last Admin: 09/05/16 09:12 Dose: 2 puff Doxazosin Mesylate (Cardura -) 2 mg PO DAILY [facility] Last Admin: 09/05/16 09:11 Dose: 2 mg Furosemide (Lasix Injection -) 60 mg IVPUSH BID@0600,1400 [facility] Last Admin: 09/05/16 06:29 Dose: 60 mg Guaifenesin (Mucinex -) 600 mg PO BID [facility] Last Admin: 09/05/16 09:11 Dose: 600 mg Heparin Sodium (Porcine) (Heparin -) 5,000 unit SQ BID [facility] Last Admin: 09/05/16 09:11 Dose: 5,000 unit Pantoprazole Sodium (Protonix -) 40 mg PO DAILY [facility] Last Admin: 09/05/16 09:12 Dose: 40 mg Prednisone (Deltasone -) 80 mg PO DAILY [facility] Last Admin: 09/05/16 09:11 Dose: 80 mg Ranolazine (Ranexa -) 500 mg PO BID [facility] Last Admin: 09/05/16 09:11 Dose: 500 mg Rosuvastatin Calcium (Crestor -) 10 mg PO [facility] Last Admin: 09/04/16 21:55 Dose: 10 mg Senna (Senna -) 2 tab PO [facility] Last Admin: 09/04/16 21:56 Dose: Not Given Tamsulosin HCl (Flomax -) 0.4 mg PO DAILY@0830 [facility] Last Admin: 09/05/16 09:11 Dose: 0.4 mg - Objective Vital Signs: Vital Signs Temperature 98.2 F 09/05/16 09:02 Pulse Rate 92 H 09/05/16 09:02 Respiratory Rate 16 09/05/16 09:02 Blood Pressure 140/86 09/05/16 09:02 O2 Sat by Pulse Oximetry (%) 96 09/05/16 09:00 Constitutional: Yes: Mild Distress Eyes: Yes: WNL HENT: Yes: WNL Neck: Yes: WNL Cardiovascular: Yes: WNL Respiratory: Yes: WNL Gastrointestinal: Yes: Tenderness Genitourinary: Yes: WNL Musculoskeletal: Yes: WNL Extremities: Yes: WNL Edema: Yes Edema: LLE: 2+, RLE: 2+ Peripheral Pulses WNL: Yes Integumentary: Yes: WNL Wound/Incision: Yes: Clean/Dry Neurological: Yes: WNL ...Motor Strength: WNL Psychiatric: Yes: WNL Labs: CBC, BMP 09/04/16 05:35 09/05/16 05:35 INR, PTT INR 1.00 (0.82-1.09) 08/30/16 17:58 Problem List - Problems (1) Acute renal failure (ARF) Code(s): N17.9 - ACUTE KIDNEY FAILURE, UNSPECIFIED Qualifiers: Acute renal failure type: unspecified Qualified Code(s): N17.9 - Acute kidney failure, unspecified (2) COPD (chronic obstructive pulmonary disease) Code(s): J44.9 - CHRONIC OBSTRUCTIVE PULMONARY DISEASE, UNSPECIFIED (3) Hyperkalemia Code(s): E87.5 - HYPERKALEMIA (4) Edema Code(s): R60.9 - EDEMA, UNSPECIFIED Qualifiers: Edema type: localized Qualified Code(s): R60.0 - Localized edema (5) Hypertension Code(s): I10 - ESSENTIAL (PRIMARY) HYPERTENSION Qualifiers: Hypertension type: essential hypertension Qualified Code(s): I10 - Essential (primary) hypertension Assessment/Plan BLADDER PELVIC SONO PSA CHECK LABS REVIEWED URINE OUTPUT POOR RENAL EVAL MAY NEED HD??
--- NOTE | 2016-09-05 12:48 | PN ---
Progress Note (short form) - Note Progress Note: PULMONARY Denies shortness of breath or chest pain. No cough or wheezing. Last Vital Signs Temp Pulse Resp BP Pulse Ox 98.2 F 88 16 140/86 99 09/05/16 09:02 09/05/16 12:16 09/05/16 09:02 09/05/16 09:02 09/05/16 12:16 Gen: NAD at rest Heart: RRR Lung: scattered wheeze Abd: soft, nontender Ext: no edema CBC, BMP 09/04/16 05:35 09/05/16 05:35 Active Medications Budesonide/Formoterol Fumarate (Symbicort 160/4.5mcg -) 2 puff IH BID [facility] Last Admin: 09/05/16 09:12 Dose: 2 puff Doxazosin Mesylate (Cardura -) 2 mg PO DAILY [facility] Last Admin: 09/05/16 09:11 Dose: 2 mg Furosemide (Lasix Injection -) 60 mg IVPUSH BID@0600,1400 [facility] Last Admin: 09/05/16 06:29 Dose: 60 mg Guaifenesin (Mucinex -) 600 mg PO BID [facility] Last Admin: 09/05/16 09:11 Dose: 600 mg Heparin Sodium (Porcine) (Heparin -) 5,000 unit SQ BID [facility] Last Admin: 09/05/16 09:11 Dose: 5,000 unit Pantoprazole Sodium (Protonix -) 40 mg PO DAILY [facility] Last Admin: 09/05/16 09:12 Dose: 40 mg Prednisone (Deltasone -) 80 mg PO DAILY [facility] Last Admin: 09/05/16 09:11 Dose: 80 mg Ranolazine (Ranexa -) 500 mg PO BID [facility] Last Admin: 09/05/16 09:11 Dose: 500 mg Rosuvastatin Calcium (Crestor -) 10 mg PO HS [facility] Last Admin: 09/04/16 21:55 Dose: 10 mg Senna (Senna -) 2 tab PO [facility] Last Admin: 09/04/16 21:56 Dose: Not Given Tamsulosin HCl (Flomax -) 0.4 mg PO DAILY@0830 [facility] Last Admin: 09/05/16 09:11 Dose: 0.4 mg A/P COPD Interstitial Lung Disease Acute on Chronic Renal Failure HTN Hyperlipidemia - inhaled bronchodilators as needed - renal work up in progress - on prednisone - O2 as needed - DVT prophylaxis
--- NOTE | 2016-09-05 14:26 | PN ---
Progress Note, Physician History of Present Illness: Pt seen and examined at bedside. He is awake and alert. He complains of lower extremity edema. - Current Medication List Current Medications: Active Medications Budesonide/Formoterol Fumarate (Symbicort 160/4.5mcg -) 2 puff IH BID [facility] Last Admin: 09/05/16 09:12 Dose: 2 puff Doxazosin Mesylate (Cardura -) 2 mg PO DAILY [facility] Last Admin: 09/05/16 09:11 Dose: 2 mg Furosemide (Lasix Injection -) 60 mg IVPUSH BID@0600,1400 [facility] Last Admin: 09/05/16 14:18 Dose: 60 mg Guaifenesin (Mucinex -) 600 mg PO BID [facility] Last Admin: 09/05/16 09:11 Dose: 600 mg Heparin Sodium (Porcine) (Heparin -) 5,000 unit SQ BID [facility] Last Admin: 09/05/16 09:11 Dose: 5,000 unit Pantoprazole Sodium (Protonix -) 40 mg PO DAILY [facility] Last Admin: 09/05/16 09:12 Dose: 40 mg Prednisone (Deltasone -) 80 mg PO DAILY [facility] Last Admin: 09/05/16 09:11 Dose: 80 mg Ranolazine (Ranexa -) 500 mg PO BID [facility] Last Admin: 09/05/16 09:11 Dose: 500 mg Rosuvastatin Calcium (Crestor -) 10 mg PO [facility] Last Admin: 09/04/16 21:55 Dose: 10 mg Senna (Senna -) 2 tab PO [facility] Last Admin: 09/04/16 21:56 Dose: Not Given Tamsulosin HCl (Flomax -) 0.4 mg PO DAILY@0830 [facility] Last Admin: 09/05/16 09:11 Dose: 0.4 mg - Objective Vital Signs: Vital Signs Temperature 98.2 F 09/05/16 09:02 Pulse Rate 88 09/05/16 12:16 Respiratory Rate 16 09/05/16 09:02 Blood Pressure 140/86 09/05/16 09:02 O2 Sat by Pulse Oximetry (%) 99 09/05/16 12:16 Constitutional: Yes: Calm Eyes: Yes: Conjunctiva Clear HENT: Yes: Atraumatic Cardiovascular: Yes: S1, S2 Respiratory: Yes: Wheezes Gastrointestinal: Yes: Soft Extremities: Yes: WNL Edema: Yes Edema: LLE: 2+, RLE: 2+ Neurological: Yes: Oriented Psychiatric: Yes: Oriented Labs: CBC, BMP 09/04/16 05:35 09/05/16 05:35 INR, PTT INR 1.00 (0.82-1.09) 08/30/16 17:58 Problem List - Problems (1) Acute renal failure (ARF) Code(s): N17.9 - ACUTE KIDNEY FAILURE, UNSPECIFIED Qualifiers: Acute renal failure type: unspecified Qualified Code(s): N17.9 - Acute kidney failure, unspecified (2) BPH (benign prostatic hyperplasia) Code(s): N40.0 - BENIGN PROSTATIC HYPERPLASIA WITHOUT LOWER URINRY TRACT SYMP (3) COPD (chronic obstructive pulmonary disease) Code(s): J44.9 - CHRONIC OBSTRUCTIVE PULMONARY DISEASE, UNSPECIFIED (4) Hyperkalemia Code(s): E87.5 - HYPERKALEMIA Assessment/Plan Current Medications Generic Name Dose Route Start Last Admin Trade Name Freq PRN Reason Stop Dose Admin Budesonide/Formoterol Fumarate 2 puff 08/30/16 22:00 09/05/16 09:12 Symbicort 160/4.5mcg - IH 2 puff BID [facility] Administration Doxazosin Mesylate 2 mg 08/31/16 10:00 09/05/16 09:11 Cardura - PO 2 mg DAILY [facility] Administration Furosemide 60 mg 09/04/16 14:00 09/05/16 14:18 Lasix Injection - IVPUSH 60 mg BID@0600,1400 [facility] Administration Guaifenesin 600 mg 08/31/16 12:00 09/05/16 09:11 Mucinex - PO 600 mg BID [facility] Administration Heparin Sodium (Porcine) 5,000 unit 08/30/16 22:00 09/05/16 09:11 Heparin - SQ 5,000 unit BID [facility] Administration Pantoprazole Sodium 40 mg 08/31/16 10:00 09/05/16 09:12 Protonix - PO 40 mg DAILY [facility] Administration Prednisone 80 mg 09/02/16 10:00 09/05/16 09:11 Deltasone - PO 80 mg DAILY [facility] Administration Ranolazine 500 mg 08/30/16 22:00 09/05/16 09:11 Ranexa - PO 500 mg BID [facility] Administration Rosuvastatin Calcium 10 mg 09/01/16 22:00 09/04/16 21:55 Crestor - PO 10 mg HS [facility] Administration Senna 2 tab 09/03/16 22:00 09/04/16 21:56 Senna - PO Not Given HS CHARLES Tamsulosin HCl 0.4 mg 08/31/16 08:30 09/05/16 09:11 Flomax - PO 0.4 mg DAILY@0830 [facility] Administration Impression 1. CATY 2. CKD with hx of JANNA 3. COPD 4. HTN 5. BPH 6. hyperkalemia 7. fluid overload Plan - creatinine is improving - bun is rising likely from steroids - repeat labs in am - cont with lasix - likely recurrence of JANNA - no indication for HD at this point - avoid nsaids, pt was taking nsaids (self prescribed) - will follow Dr Marie
[2016-09-05] MEDS: ROSUVASTATIN CA 10 MG TABLET (FP) PO SCH (21:43)
[2016-09-05] MEDS: SENNOSIDES 8.6MG TABLET (FP) PO SCH (21:44)
[2016-09-06] MEDS: FUROSEMIDE 40 MG/4 ML INJECTABLE VIAL IVPUSH SCH ×2 (06:17→13:54)
[2016-09-06 08:03] LABS: ANION GAP 16 (8-16); CO2 20 mmol/L (21-32); CREATININE 4.1 mg/dL (0.7-1.3); GLUCOSE,RANDOM 122 mg/dL (74-106)
[2016-09-06] MEDS ORDERED: PT OWN MED DRAWER 7, Y5N ONE (08:37)
[2016-09-06] MEDS: predniSONE 20 MG TABLET (UD) PO SCH (09:14)
[2016-09-06] MEDS: HEPARIN NA (PORCINE) 5,000 UNITS/ML 1ML VIAL SQ SCH ×2 (09:14→21:17)
[2016-09-06] MEDS: DOXAZOSIN MESYLATE 2 MG TABLET (FP) PO SCH (09:16)
[2016-09-06] MEDS: TAMSULOSIN HCL 0.4 MG CAP.ER.24H (FP) PO SCH (09:16)
[2016-09-06] MEDS: PANTOPRAZOLE 40 MG TABLET (FP) PO SCH (09:16)
[2016-09-06] MEDS: guaiFENesin 600 MG TABLET.ER (FP) PO SCH ×2 (09:16→21:17)
[2016-09-06] MEDS: RANOLAZINE E.R. 500 MG TABLET (FP) PO SCH ×2 (10:00→21:18)
--- NOTE | 2016-09-06 10:47 | PN ---
Progress Note, Physician History of Present Illness: pulmonary alert,nad,-sob,+ wt gain 2lbs - Current Medication List Current Medications: Active Medications Budesonide/Formoterol Fumarate (Symbicort 160/4.5mcg -) 2 puff IH BID [facility] Last Admin: 09/05/16 21:44 Dose: 2 puff Doxazosin Mesylate (Cardura -) 2 mg PO DAILY [facility] Last Admin: 09/06/16 09:16 Dose: 2 mg Furosemide (Lasix Injection -) 60 mg IVPUSH BID@0600,1400 [facility] Last Admin: 09/06/16 06:17 Dose: 60 mg Guaifenesin (Mucinex -) 600 mg PO BID [facility] Last Admin: 09/06/16 09:16 Dose: 600 mg Heparin Sodium (Porcine) (Heparin -) 5,000 unit SQ BID [facility] Last Admin: 09/06/16 09:14 Dose: 5,000 unit Pantoprazole Sodium (Protonix -) 40 mg PO DAILY [facility] Last Admin: 09/06/16 09:16 Dose: 40 mg Prednisone (Deltasone -) 80 mg PO DAILY [facility] Last Admin: 09/06/16 09:14 Dose: 80 mg Ranolazine (Ranexa -) 500 mg PO BID [facility] Last Admin: 09/05/16 21:42 Dose: 500 mg Rosuvastatin Calcium (Crestor -) 10 mg PO [facility] Last Admin: 09/05/16 21:43 Dose: 10 mg Senna (Senna -) 2 tab PO [facility] Last Admin: 09/05/16 21:44 Dose: Not Given Tamsulosin HCl (Flomax -) 0.4 mg PO DAILY@0830 [facility] Last Admin: 09/06/16 09:16 Dose: 0.4 mg - Objective Vital Signs: Vital Signs Temperature 98.2 F 09/06/16 08:00 Pulse Rate 84 09/06/16 08:00 Respiratory Rate 16 09/06/16 08:00 Blood Pressure 140/86 09/06/16 08:00 O2 Sat by Pulse Oximetry (%) 95 09/06/16 06:00 Constitutional: Yes: Calm, Obese Eyes: Yes: WNL HENT: Yes: WNL Neck: Yes: WNL Cardiovascular: Yes: Regular Rate and Rhythm, S1, S2 Respiratory: Yes: Diminished Gastrointestinal: Yes: Normal Bowel Sounds, Soft Extremities: Yes: WNL Edema: Yes Edema: LLE: 3+, RLE: 3+ Labs: CBC, BMP 09/04/16 05:35 09/06/16 06:07 INR, PTT INR 1.00 (0.82-1.09) 08/30/16 17:58 Assessment/Plan Problem List - Problems (1) Acute renal failure (ARF) Code(s): N17.9 - ACUTE KIDNEY FAILURE, UNSPECIFIED Qualifiers: Acute renal failure type: unspecified Qualified Code(s): N17.9 - Acute kidney failure, unspecified (2) BPH (benign prostatic hyperplasia) Code(s): N40.0 - BENIGN PROSTATIC HYPERPLASIA WITHOUT LOWER URINRY TRACT SYMP (3) COPD (chronic obstructive pulmonary disease) Code(s): J44.9 - CHRONIC OBSTRUCTIVE PULMONARY DISEASE, UNSPECIFIED (4) ILD (interstitial lung disease) Code(s): J84.9 - INTERSTITIAL PULMONARY DISEASE, UNSPECIFIED Assessment/Plan COPD ILD STABLE ACUTE ON H/O CHRONIC KIDNEY DISEASE CREATININE IMPROVING HTN HLD PLAN O2 PRN INHALED BRONCHODILATORS PREDNISONE PER RENAL LASIX PFTS OUTPATIENT MONITOR LYTES,RENAL FUNCTION DR NELSON
[2016-09-06] MEDS: BUDESONIDE/FORMETEROL FUMARATE 160/4.5 mcg INHALER IH SCH ×2 (11:56→21:18)
--- NOTE | 2016-09-06 14:56 | PN ---
Progress Note, Physician History of Present Illness: Pt seen and examined at bedside. He is awake and alert. He feels that his legs are starting to improve. - Current Medication List Current Medications: Active Medications Budesonide/Formoterol Fumarate (Symbicort 160/4.5mcg -) 2 puff IH BID [facility] Last Admin: 09/06/16 11:56 Dose: 2 puff Doxazosin Mesylate (Cardura -) 2 mg PO DAILY [facility] Last Admin: 09/06/16 09:16 Dose: 2 mg Furosemide (Lasix Injection -) 60 mg IVPUSH BID@0600,1400 [facility] Last Admin: 09/06/16 13:54 Dose: 60 mg Guaifenesin (Mucinex -) 600 mg PO BID [facility] Last Admin: 09/06/16 09:16 Dose: 600 mg Heparin Sodium (Porcine) (Heparin -) 5,000 unit SQ BID [facility] Last Admin: 09/06/16 09:14 Dose: 5,000 unit Pantoprazole Sodium (Protonix -) 40 mg PO DAILY [facility] Last Admin: 09/06/16 09:16 Dose: 40 mg Prednisone (Deltasone -) 80 mg PO DAILY [facility] Last Admin: 09/06/16 09:14 Dose: 80 mg Ranolazine (Ranexa -) 500 mg PO BID [facility] Last Admin: 09/06/16 10:00 Dose: Not Given Rosuvastatin Calcium (Crestor -) 10 mg PO HS [facility] Last Admin: 09/05/16 21:43 Dose: 10 mg Senna (Senna -) 2 tab PO [facility] Last Admin: 09/05/16 21:44 Dose: Not Given Tamsulosin HCl (Flomax -) 0.4 mg PO DAILY@0830 [facility] Last Admin: 09/06/16 09:16 Dose: 0.4 mg - Objective Vital Signs: Vital Signs Temperature 98.5 F 09/06/16 14:06 Pulse Rate 94 H 09/06/16 14:06 Respiratory Rate 19 09/06/16 14:06 Blood Pressure 130/69 09/06/16 14:06 O2 Sat by Pulse Oximetry (%) 96 09/06/16 09:00 Constitutional: Yes: Calm Eyes: Yes: Conjunctiva Clear HENT: Yes: Atraumatic Neck: Yes: Supple Cardiovascular: Yes: S1, S2 Respiratory: Yes: CTA Bilaterally Gastrointestinal: Yes: Soft Genitourinary: Yes: WNL Edema: Yes Edema: LLE: 2+, RLE: 2+ Labs: CBC, BMP 09/04/16 05:35 09/06/16 06:07 INR, PTT INR 1.00 (0.82-1.09) 08/30/16 17:58 Problem List - Problems (1) Acute renal failure (ARF) Code(s): N17.9 - ACUTE KIDNEY FAILURE, UNSPECIFIED Qualifiers: Acute renal failure type: unspecified Qualified Code(s): N17.9 - Acute kidney failure, unspecified (2) BPH (benign prostatic hyperplasia) Code(s): N40.0 - BENIGN PROSTATIC HYPERPLASIA WITHOUT LOWER URINRY TRACT SYMP (3) COPD (chronic obstructive pulmonary disease) Code(s): J44.9 - CHRONIC OBSTRUCTIVE PULMONARY DISEASE, UNSPECIFIED (4) Hyperkalemia Code(s): E87.5 - HYPERKALEMIA Assessment/Plan Current Medications Generic Name Dose Route Start Last Admin Trade Name Freq PRN Reason Stop Dose Admin Budesonide/Formoterol Fumarate 2 puff 08/30/16 22:00 09/06/16 11:56 Symbicort 160/4.5mcg - IH 2 puff BID [facility] Administration Doxazosin Mesylate 2 mg 08/31/16 10:00 09/06/16 09:16 Cardura - PO 2 mg DAILY [facility] Administration Furosemide 60 mg 09/04/16 14:00 09/06/16 13:54 Lasix Injection - IVPUSH 60 mg BID@0600,1400 [facility] Administration Guaifenesin 600 mg 08/31/16 12:00 09/06/16 09:16 Mucinex - PO 600 mg BID [facility] Administration Heparin Sodium (Porcine) 5,000 unit 08/30/16 22:00 09/06/16 09:14 Heparin - SQ 5,000 unit BID [facility] Administration Pantoprazole Sodium 40 mg 08/31/16 10:00 09/06/16 09:16 Protonix - PO 40 mg DAILY [facility] Administration Prednisone 80 mg 09/02/16 10:00 09/06/16 09:14 Deltasone - PO 80 mg DAILY [facility] Administration Ranolazine 500 mg 08/30/16 22:00 09/06/16 10:00 Ranexa - PO Not Given BID [facility] Rosuvastatin Calcium 10 mg 09/01/16 22:00 09/05/16 21:43 Crestor - PO 10 mg HS [facility] Administration Senna 2 tab 09/03/16 22:00 09/05/16 21:44 Senna - PO Not Given HS [facility]LES Tamsulosin HCl 0.4 mg 08/31/16 08:30 09/06/16 09:16 Flomax - PO 0.4 mg DAILY@0830 [facility] Administration Impression 1. CATY 2. CKD with hx of JANNA 3. COPD 4. HTN 5. BPH 6. hyperkalemia 7. fluid overload Plan - creatinine continues to improve - repeat labs in am - cont with steroids - cont with lasix - likely recurrence of JANNA - no indication for HD at this point - avoid nsaids, pt was taking nsaids (self prescribed) - will follow Dr Marie
--- NOTE | 2016-09-06 15:51 | CON.GU ---
Consult Consult Specialty:: urology Referred by:: griselda Reason for Consultation:: BPH, renal failure - History of Present Illness Chief Complaint: BPH, renal failure History of Present Illness: 75 year old male with a history of BPH on [place] who reports current bladder stones, who presents with acute renal failure. 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 esolved with steroids,) Psych: Yes: Addictions (previous smoker quit 35 years ago ) Musculoskeletal: Yes: Other (No active joints.) - Past Surgical History Past Surgical History: Yes: Hernia Repair - Alcohol/Substance Use Hx Alcohol Use: No History of Substance Use: reports: None - Smoking History Smoking history: Former smoker Have you smoked in the past 12 months: No If you are a former smoker, when did you quit?: 35 years ago - Social History Usual Living Arrangement: With Spouse (2nd ) ADL: Independent History of Recent Travel: No Home Medications - Allergies Allergies/Adverse Reactions: Allergies Allergy/AdvReac Type Severity Reaction Status Date / Time No Known Allergies Allergy Verified 08/30/16 16:22 - Home Medications Home Medications: Ambulatory Orders Budesonide/Formeterol Fumarate [SYMBICORT 160/4.5mcg -] 2 inh IH BID inhaler Tamsulosin HCl [Flomax -] 0.4 mg PO DAILY@0830 cap.er.24h 07/08/14 Mcdaniels-3 Fatty Acids [Fish Oil] 900 mg PO DAILY 01/19/15 Calcium Citrate/Vitamin D3 [Calcium Citrate - Vit D Caplet] 1 each PO DAILY Budesonide/Formeterol Fumarate [SYMBICORT 160/4.5mcg -] 1 inh PO BID 08/30/16 Doxazosin Mesylate [Cardura -] 2 mg PO DAILY 08/30/16 Fluticasone/Vilanterol [Breo Ellipta 100-25 Mcg INH] 1 each IH PRN 08/30/16 Levomefolate/B6/B12/Algal Oil [Metanx Capsule] 4 mg PO BID 08/30/16 Pantoprazole Sodium 40 mg PO DAILY 08/30/16 Ranolazine [Ranexa -] 500 mg PO BID 08/30/16 Family Disease History - Family Disease History Family Disease History: Diabetes: Sister ( in late 50s/early 60s), Heart Disease: Mother Review of Systems - Review of Systems Genitourinary: reports: Frequency. denies: Hematuria, Incontinence Physical Exam- Vital Signs: Vital Signs Temperature 98.5 F 09/06/16 14:06 Pulse Rate 94 H 09/06/16 14:06 Respiratory Rate 19 09/06/16 14:06 Blood Pressure 130/69 09/06/16 14:06 O2 Sat by Pulse Oximetry (%) 96 09/06/16 09:00 Constitutional: Yes: Well Nourished, No Distress, Calm Renal/: No: Bladder Distention, CVA Tenderness - Left, CVA Tenderness - Right , Oh Present Labs: CBC, BMP 09/04/16 05:35 09/06/16 06:07 Imaging - Results Ultrasound: Report Reviewed Problem List - Problems (1) Benign localized hyperplasia of prostate with urinary retention Assessment/Plan: restart alpha mani. Patient reports that he has bladder stones, he will need TURP and laser of bladder stones next week. Code(s): N40.1 - BENIGN PROSTATIC HYPERPLASIA WITH LOWER URINARY TRACT SYMP (2) Elevated prostate specific antigen (PSA) Assessment/Plan: PSA 10.86, needs a prostate biopsy as well. will plan for next week. Code(s): R97.20 - ELEVATED PROSTATE SPECIFIC ANTIGEN [PSA]
--- NOTE | 2016-09-06 16:30 | PN ---
Progress Note, Physician Chief Complaint: AWAKE ALERT MILD DISTRESS - Current Medication List Current Medications: Active Medications Budesonide/Formoterol Fumarate (Symbicort 160/4.5mcg -) 2 puff IH BID [facility] Last Admin: 09/06/16 11:56 Dose: 2 puff Doxazosin Mesylate (Cardura -) 2 mg PO DAILY [facility] Last Admin: 09/06/16 09:16 Dose: 2 mg Finasteride (Proscar -) 5 mg PO DAILY [facility] Furosemide (Lasix Injection -) 60 mg IVPUSH BID@0600,1400 [facility] Last Admin: 09/06/16 13:54 Dose: 60 mg Guaifenesin (Mucinex -) 600 mg PO BID [facility] Last Admin: 09/06/16 09:16 Dose: 600 mg Heparin Sodium (Porcine) (Heparin -) 5,000 unit SQ BID [facility] Last Admin: 09/06/16 09:14 Dose: 5,000 unit Pantoprazole Sodium (Protonix -) 40 mg PO DAILY [facility] Last Admin: 09/06/16 09:16 Dose: 40 mg Prednisone (Deltasone -) 60 mg PO DAILY [facility] Ranolazine (Ranexa -) 500 mg PO BID [facility] Last Admin: 09/06/16 10:00 Dose: Not Given Rosuvastatin Calcium (Crestor -) 10 mg PO [facility] Last Admin: 09/05/16 21:43 Dose: 10 mg Senna (Senna -) 2 tab PO [facility] Last Admin: 09/05/16 21:44 Dose: Not Given Tamsulosin HCl (Flomax -) 0.4 mg PO DAILY@0830 [facility] Last Admin: 09/06/16 09:16 Dose: 0.4 mg - Objective Vital Signs: Vital Signs Temperature 98.5 F 09/06/16 14:06 Pulse Rate 94 H 09/06/16 14:06 Respiratory Rate 19 09/06/16 14:06 Blood Pressure 130/69 09/06/16 14:06 O2 Sat by Pulse Oximetry (%) 96 09/06/16 09:00 Constitutional: Yes: Mild Distress Eyes: Yes: WNL HENT: Yes: WNL Neck: Yes: WNL Cardiovascular: Yes: WNL Respiratory: Yes: WNL Gastrointestinal: Yes: WNL Genitourinary: Yes: Other Musculoskeletal: Yes: Muscle Weakness Extremities: Yes: Other Edema: Yes Edema: LLE: 2+, RLE: 2+ Peripheral Pulses WNL: Yes Integumentary: Yes: WNL Wound/Incision: Yes: Clean/Dry Neurological: Yes: WNL ...Motor Strength: WNL, LLE, RLE Psychiatric: Yes: WNL Labs: CBC, BMP 09/04/16 05:35 09/06/16 06:07 INR, PTT INR 1.00 (0.82-1.09) 08/30/16 17:58 Problem List - Problems (1) Acute renal failure (ARF) Code(s): N17.9 - ACUTE KIDNEY FAILURE, UNSPECIFIED Qualifiers: Acute renal failure type: unspecified Qualified Code(s): N17.9 - Acute kidney failure, unspecified (2) COPD (chronic obstructive pulmonary disease) Code(s): J44.9 - CHRONIC OBSTRUCTIVE PULMONARY DISEASE, UNSPECIFIED (3) Hyperkalemia Code(s): E87.5 - HYPERKALEMIA (4) Edema Code(s): R60.9 - EDEMA, UNSPECIFIED Qualifiers: Edema type: localized Qualified Code(s): R60.0 - Localized edema (5) Hypertension Code(s): I10 - ESSENTIAL (PRIMARY) HYPERTENSION Qualifiers: Hypertension type: essential hypertension Qualified Code(s): I10 - Essential (primary) hypertension (6) BPH loc w urin obs/LUTS Code(s): N40.1 - BENIGN PROSTATIC HYPERPLASIA WITH LOWER URINARY TRACT SYMP Assessment/Plan CONSULT APPRECIATED TURP NEXT WEEK MINIMAL URINARY VOIDING RENAL FUNCTION IMPROVED SLOWLY RENAL EVAL APPRECIATED
[2016-09-06] MEDS: FINASTERIDE 5 MG TABLET (FP) PO SCH (17:02)
[2016-09-06] MEDS: ROSUVASTATIN CA 10 MG TABLET (FP) PO SCH (21:16)
[2016-09-06] MEDS: SENNOSIDES 8.6MG TABLET (FP) PO SCH (22:00)
[2016-09-07] MEDS: FUROSEMIDE 40 MG/4 ML INJECTABLE VIAL IVPUSH SCH ×2 (06:28→14:17)
[2016-09-07 08:20] LABS: ALBUMIN 1.2 g/dl (3.4-5.0); ANION GAP 14 (8-16); BILIRUBIN,TOTAL 0.4 mg/dL (0.2-1.0); CO2 23 mmol/L (21-32); GLUCOSE,RANDOM 151 mg/dL (74-106); SGOT/AST 19 U/L (15-37); SGPT/ALT 19 U/L (12-78); TOT PROT 4.8 g/dl (6.4-8.2)
[2016-09-07 08:21] LABS: ALK PHOS 133 U/L (45-117)
[2016-09-07] MEDS: TAMSULOSIN HCL 0.4 MG CAP.ER.24H (FP) PO SCH (08:30)
[2016-09-07] MEDS: predniSONE 20 MG TABLET (UD) PO SCH (09:45)
[2016-09-07] MEDS: PANTOPRAZOLE 40 MG TABLET (FP) PO SCH (09:45)
[2016-09-07] MEDS: guaiFENesin 600 MG TABLET.ER (FP) PO SCH ×2 (09:45→21:25)
[2016-09-07] MEDS: RANOLAZINE E.R. 500 MG TABLET (FP) PO SCH ×2 (09:45→09:50)
[2016-09-07] MEDS: DOXAZOSIN MESYLATE 2 MG TABLET (FP) PO SCH (09:45)
[2016-09-07] MEDS: FINASTERIDE 5 MG TABLET (FP) PO SCH (09:45)
[2016-09-07] MEDS: BUDESONIDE/FORMETEROL FUMARATE 160/4.5 mcg INHALER IH SCH ×2 (09:46→21:24)
[2016-09-07] MEDS ORDERED: ALBUTEROL SO4 0.083% IH SOL 2.5 MG/3 ML VIAL.NEB. NEB PRN (12:00)
--- NOTE | 2016-09-07 12:00 | PN ---
Progress Note (short form) - Note Progress Note: PULMONARY Denies shortness of breath or chest pain but reports a cough productive of green sputum today. No fevers or chills. Last Vital Signs Temp Pulse Resp BP Pulse Ox 98.1 F 89 18 142/87 97 09/07/16 07:55 09/07/16 07:55 09/07/16 08:00 09/07/16 07:55 09/07/16 08:00 Gen: NAD at rest Heart: RRR Lung: scattered wheeze Abd: soft, nontender Ext: no edema CBC, BMP 09/04/16 05:35 09/07/16 06:00 Active Medications Budesonide/Formoterol Fumarate (Symbicort 160/4.5mcg -) 2 puff IH BID [facility] Last Admin: 09/07/16 09:46 Dose: 2 puff Doxazosin Mesylate (Cardura -) 2 mg PO DAILY [facility] Last Admin: 09/07/16 09:45 Dose: 2 mg Finasteride (Proscar -) 5 mg PO DAILY [facility] Last Admin: 09/07/16 09:45 Dose: 5 mg Furosemide (Lasix Injection -) 60 mg IVPUSH BID@0600,1400 [facility] Last Admin: 09/07/16 06:28 Dose: 60 mg Guaifenesin (Mucinex -) 600 mg PO BID [facility] Last Admin: 09/07/16 09:45 Dose: 600 mg Pantoprazole Sodium (Protonix -) 40 mg PO DAILY [facility] Last Admin: 09/07/16 09:45 Dose: 40 mg Prednisone (Deltasone -) 60 mg PO DAILY [facility] Last Admin: 09/07/16 09:45 Dose: 60 mg Ranolazine (Ranexa -) 500 mg PO BID [facility] Last Admin: 09/07/16 09:50 Dose: Not Given Rosuvastatin Calcium (Crestor -) 10 mg PO [facility] Last Admin: 09/06/16 21:16 Dose: 10 mg Senna (Senna -) 2 tab PO [facility] Last Admin: 09/06/16 22:00 Dose: Not Given Tamsulosin HCl (Flomax -) 0.4 mg PO DAILY@0830 [facility] Last Admin: 09/07/16 08:30 Dose: 0.4 mg A/P COPD Interstitial Lung Disease Acute on Chronic Renal Failure HTN Hyperlipidemia - inhaled bronchodilators standing and PRN - renal work up in progress - on prednisone - O2 as needed - DVT prophylaxis
--- NOTE | 2016-09-07 13:08 | PN ---
Progress Note (short form) - Note Progress Note: RENAL Pt is awake and alert says he has become very edematous recently. Has been taking aleve for neuropathic pain and generalized soreness which his had suggested. no problems urinating Last Vital Signs Temp Pulse Resp BP Pulse Ox 98.1 F 89 18 142/87 97 09/07/16 07:55 09/07/16 07:55 09/07/16 08:00 09/07/16 07:55 09/07/16 08:00 lungs clear cvs s1s2 rr tachycardic abd soft ext +edema neuro a+o x3 Current Medications Generic Name Dose Route Start Last Admin Trade Name Freq PRN Reason Stop Dose Admin Albuterol Sulfate 1 amp 09/07/16 12:00 Ventolin 0.083% Nebulizer Soln - NEB Q4H PRN SHORT OF BREATH/WHEEZING Albuterol/Ipratropium 1 amp 09/07/16 14:00 Duoneb - NEB TIDR CHARLES Budesonide/Formoterol Fumarate 2 puff 08/30/16 22:00 09/07/16 09:46 Symbicort 160/4.5mcg - IH 2 puff BID [facility] Administration Doxazosin Mesylate 2 mg 08/31/16 10:00 09/07/16 09:45 Cardura - PO 2 mg DAILY [facility] Administration Finasteride 5 mg 09/06/16 16:00 09/07/16 09:45 Proscar - PO 5 mg DAILY [facility] Administration Furosemide 60 mg 09/04/16 14:00 09/07/16 06:28 Lasix Injection - IVPUSH 60 mg BID@0600,1400 [facility] Administration Guaifenesin 600 mg 08/31/16 12:00 09/07/16 09:45 Mucinex - PO 600 mg BID [facility] Administration Pantoprazole Sodium 40 mg 08/31/16 10:00 09/07/16 09:45 Protonix - PO 40 mg DAILY [facility] Administration Prednisone 60 mg 09/06/16 14:57 09/07/16 09:45 Deltasone - PO 60 mg DAILY [facility] Administration Ranolazine 500 mg 08/30/16 22:00 09/07/16 09:50 Ranexa - PO Not Given BID [facility] Rosuvastatin Calcium 10 mg 09/01/16 22:00 09/06/16 21:16 Crestor - PO 10 mg HS [facility] Administration Senna 2 tab 09/03/16 22:00 09/06/16 22:00 Senna - PO Not Given HS [facility] Tamsulosin HCl 0.4 mg 08/31/16 08:30 09/07/16 08:30 Flomax - PO 0.4 mg DAILY@0830 [facility] Administration CBC, BMP 09/04/16 05:35 09/07/16 06:00 Impression 1. 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 CKD with hx of JANNA 3. COPD 4. HTN 5. BPH 6. hyperkalemia 7. fluid overload Plan - would rule out lymphoma given its association with minimal change disease - repeat labs in am - cont with steroids - cont with lasix - likely recurrence of JANNA - no indication for HD at this point - avoid nsaids MV
[2016-09-07] MEDS ORDERED: ALBUTEROL SO4 2.5/IPRATROPIUM 0.5 INH SOL 3 ML VIAL.NEB. NEB SCH (14:00)
--- NOTE | 2016-09-07 14:10 | PN ---
Progress Note, Physician Chief Complaint: AWAKE ALERT NAD - Current Medication List Current Medications: Active Medications Albuterol Sulfate (Ventolin 0.083% Nebulizer Soln -) 1 amp NEB Q4H PRN PRN Reason: SHORT OF BREATH/WHEEZING Albuterol/Ipratropium (Duoneb -) 1 amp NEB TIDR [facility] Budesonide/Formoterol Fumarate (Symbicort 160/4.5mcg -) 2 puff IH BID [facility] Last Admin: 09/07/16 09:46 Dose: 2 puff Doxazosin Mesylate (Cardura -) 2 mg PO DAILY [facility] Last Admin: 09/07/16 09:45 Dose: 2 mg Finasteride (Proscar -) 5 mg PO DAILY [facility] Last Admin: 09/07/16 09:45 Dose: 5 mg Furosemide (Lasix Injection -) 60 mg IVPUSH BID@0600,1400 [facility] Last Admin: 09/07/16 06:28 Dose: 60 mg Guaifenesin (Mucinex -) 600 mg PO BID [facility] Last Admin: 09/07/16 09:45 Dose: 600 mg Pantoprazole Sodium (Protonix -) 40 mg PO DAILY [facility] Last Admin: 09/07/16 09:45 Dose: 40 mg Prednisone (Deltasone -) 60 mg PO DAILY [facility] Last Admin: 09/07/16 09:45 Dose: 60 mg Ranolazine (Ranexa -) 500 mg PO BID [facility] Last Admin: 09/07/16 09:50 Dose: Not Given Rosuvastatin Calcium (Crestor -) 10 mg PO [facility] Last Admin: 09/06/16 21:16 Dose: 10 mg Senna (Senna -) 2 tab PO [facility] Last Admin: 09/06/16 22:00 Dose: Not Given Tamsulosin HCl (Flomax -) 0.4 mg PO DAILY@0830 [facility] Last Admin: 09/07/16 08:30 Dose: 0.4 mg - Objective Vital Signs: Vital Signs Temperature 98.2 F 09/07/16 14:00 Pulse Rate 92 H 09/07/16 14:00 Respiratory Rate 18 09/07/16 14:00 Blood Pressure 141/81 09/07/16 14:00 O2 Sat by Pulse Oximetry (%) 97 09/07/16 08:00 Constitutional: Yes: No Distress Eyes: Yes: WNL HENT: Yes: WNL Neck: Yes: WNL Cardiovascular: Yes: WNL Respiratory: Yes: Cough, SOB on Exertion Gastrointestinal: Yes: WNL Genitourinary: Yes: Other Musculoskeletal: No: Muscle Weakness Extremities: No: WNL Edema: Yes Edema: LLE: 2+, RLE: 2+ Peripheral Pulses WNL: Yes Integumentary: Yes: WNL Wound/Incision: Yes: Clean/Dry Neurological: Yes: WNL ...Motor Strength: LLE, RLE Psychiatric: Yes: WNL Labs: CBC, BMP 09/04/16 05:35 09/07/16 06:00 INR, PTT INR 1.00 (0.82-1.09) 08/30/16 17:58 Problem List - Problems (1) Acute renal failure (ARF) Code(s): N17.9 - ACUTE KIDNEY FAILURE, UNSPECIFIED Qualifiers: Acute renal failure type: unspecified Qualified Code(s): N17.9 - Acute kidney failure, unspecified (2) COPD (chronic obstructive pulmonary disease) Code(s): J44.9 - CHRONIC OBSTRUCTIVE PULMONARY DISEASE, UNSPECIFIED (3) Hyperkalemia Code(s): E87.5 - HYPERKALEMIA (4) Edema Code(s): R60.9 - EDEMA, UNSPECIFIED Qualifiers: Edema type: localized Qualified Code(s): R60.0 - Localized edema (5) Hypertension Code(s): I10 - ESSENTIAL (PRIMARY) HYPERTENSION Qualifiers: Hypertension type: essential hypertension Qualified Code(s): I10 - Essential (primary) hypertension (6) BPH loc w urin obs/LUTS Code(s): N40.1 - BENIGN PROSTATIC HYPERPLASIA WITH LOWER URINARY TRACT SYMP Assessment/Plan RESTART DUONEB FOR COUGH AND COPD TURP NEXT WEEK AGREE WITH NEPHROLOGY WILL NEED TO R/O LYMPHOMA WITH REOCCURANCE OF LYMPHOMA
[2016-09-07] MEDS ORDERED: PT OWN MED DRAWER 7, Y5N ONE (20:58)
[2016-09-07] MEDS: ROSUVASTATIN CA 10 MG TABLET (FP) PO SCH (21:24)
[2016-09-07] MEDS: SENNOSIDES 8.6MG TABLET (FP) PO SCH (21:25)
[2016-09-07] MEDS: ALBUTEROL SO4 2.5/IPRATROPIUM 0.5 INH SOL 3 ML VIAL.NEB. NEB SCH (22:05)
[2016-09-08] MEDS: FUROSEMIDE 40 MG/4 ML INJECTABLE VIAL IVPUSH SCH ×2 (05:42→14:34)
[2016-09-08] MEDS: ALBUTEROL SO4 2.5/IPRATROPIUM 0.5 INH SOL 3 ML VIAL.NEB. NEB SCH ×3 (06:54→22:20)
[2016-09-08] MEDS: TAMSULOSIN HCL 0.4 MG CAP.ER.24H (FP) PO SCH (08:23)
[2016-09-08] MEDS: DOXAZOSIN MESYLATE 2 MG TABLET (FP) PO SCH (09:14)
[2016-09-08] MEDS: guaiFENesin 600 MG TABLET.ER (FP) PO SCH ×2 (09:15→21:54)
[2016-09-08] MEDS: predniSONE 20 MG TABLET (UD) PO SCH (09:15)
[2016-09-08] MEDS: FINASTERIDE 5 MG TABLET (FP) PO SCH (09:15)
[2016-09-08] MEDS: BUDESONIDE/FORMETEROL FUMARATE 160/4.5 mcg INHALER IH SCH ×2 (09:15→21:55)
[2016-09-08] MEDS: PANTOPRAZOLE 40 MG TABLET (FP) PO SCH (09:15)
[2016-09-08 11:19] LABS: URINE CREATININE 67.5 mg/dL (20-370)
--- NOTE | 2016-09-08 11:25 | PN ---
Progress Note (short form) - Note Progress Note: PULMONARY Denies shortness of breath or chest pain but still with cough productive of green sputum today. No fevers or chills. Last Vital Signs Temp Pulse Resp BP Pulse Ox 97.9 F 89 20 142/82 99 09/08/16 07:53 09/08/16 07:53 09/08/16 08:00 09/08/16 07:53 09/08/16 08:00 Intake & Output 09/05/16 09/06/16 09/07/16 09/08/16 23:59 23:59 23:59 23:59 Intake Total 860 550 810 Output Total 900 1480 1100 400 Balance -40 -930 -290 -400 Weight 239 lb 9 oz 241 lb 6.4 oz 240 lb 4 oz Gen: NAD at rest Heart: RRR Lung: decreased breath sounds at the bases Abd: soft, nontender Ext: + edema CBC, BMP 09/04/16 05:35 09/07/16 06:00 Active Medications Albuterol Sulfate (Ventolin 0.083% Nebulizer Soln -) 1 amp NEB Q4H PRN PRN Reason: SHORT OF BREATH/WHEEZING Albuterol/Ipratropium (Duoneb -) 1 amp NEB TIDR [facility] Last Admin: 09/08/16 06:54 Dose: 1 amp Budesonide/Formoterol Fumarate (Symbicort 160/4.5mcg -) 2 puff IH BID [facility] Last Admin: 09/08/16 09:15 Dose: 2 puff Doxazosin Mesylate (Cardura -) 2 mg PO DAILY [facility] Last Admin: 09/08/16 09:14 Dose: 2 mg Finasteride (Proscar -) 5 mg PO DAILY [facility] Last Admin: 09/08/16 09:15 Dose: 5 mg Furosemide (Lasix Injection -) 60 mg IVPUSH BID@0600,1400 [facility] Last Admin: 09/08/16 05:42 Dose: 60 mg Guaifenesin (Mucinex -) 600 mg PO BID [facility] Last Admin: 09/08/16 09:15 Dose: 600 mg Pantoprazole Sodium (Protonix -) 40 mg PO DAILY [facility] Last Admin: 09/08/16 09:15 Dose: 40 mg Prednisone (Deltasone -) 60 mg PO DAILY [facility] Last Admin: 09/08/16 09:15 Dose: 60 mg Rosuvastatin Calcium (Crestor -) 10 mg PO HS [facility] Last Admin: 09/07/16 21:24 Dose: 10 mg Senna (Senna -) 2 tab PO [facility] Last Admin: 09/07/16 21:25 Dose: 2 tab Tamsulosin HCl (Flomax -) 0.4 mg PO DAILY@0830 [facility] Last Admin: 09/08/16 08:23 Dose: 0.4 mg A/P COPD Interstitial Lung Disease Acute on Chronic Renal Failure HTN Hyperlipidemia - inhaled bronchodilators standing and PRN - renal work up in progress - on prednisone - O2 as needed - DVT prophylaxis
--- NOTE | 2016-09-08 12:49 | PN ---
Progress Note (short form) - Note Progress Note: RENAL Pt is awake and alert no problems urinating slept well Last Vital Signs Temp Pulse Resp BP Pulse Ox 97.9 F 89 20 142/82 99 09/08/16 07:53 09/08/16 07:53 09/08/16 08:00 09/08/16 07:53 09/08/16 08:00 lungs clear cvs s1s2 rr tachycardic abd soft ext +edema neuro a+o x3s CBC, BMP 09/04/16 05:35 09/07/16 06:00 Current Medications Generic Name Dose Route Start Last Admin Trade Name Freq PRN Reason Stop Dose Admin Albuterol Sulfate 1 amp 09/07/16 12:00 Ventolin 0.083% Nebulizer Soln - NEB Q4H PRN SHORT OF BREATH/WHEEZING Albuterol/Ipratropium 1 amp 09/07/16 22:00 09/08/16 06:54 Duoneb - NEB 1 amp TIDR [facility] Administration Budesonide/Formoterol Fumarate 2 puff 08/30/16 22:00 09/08/16 09:15 Symbicort 160/4.5mcg - IH 2 puff BID [facility] Administration Doxazosin Mesylate 2 mg 08/31/16 10:00 09/08/16 09:14 Cardura - PO 2 mg DAILY [facility] Administration Finasteride 5 mg 09/06/16 16:00 09/08/16 09:15 Proscar - PO 5 mg DAILY [facility] Administration Furosemide 60 mg 09/04/16 14:00 09/08/16 05:42 Lasix Injection - IVPUSH 60 mg BID@0600,1400 [facility] Administration Guaifenesin 600 mg 08/31/16 12:00 09/08/16 09:15 Mucinex - PO 600 mg BID [facility] Administration Pantoprazole Sodium 40 mg 08/31/16 10:00 09/08/16 09:15 Protonix - PO 40 mg DAILY [facility] Administration Prednisone 60 mg 09/06/16 14:57 09/08/16 09:15 Deltasone - PO 60 mg DAILY [facility] Administration Rosuvastatin Calcium 10 mg 09/01/16 22:00 09/07/16 21:24 Crestor - PO 10 mg HS [facility] Administration Senna 2 tab 09/03/16 22:00 09/07/16 21:25 Senna - PO 2 tab HS [facility] Administration Tamsulosin HCl 0.4 mg 08/31/16 08:30 09/08/16 08:23 Flomax - PO 0.4 mg DAILY@0830 [facility] Administration Impression 1. 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 CKD with hx of JANNA 3. COPD 4. HTN 5. BPH 6. hyperkalemia 7. fluid overload Plan - would rule out lymphoma given its association with minimal change disease - repeat labs in am - cont with steroids - cont with lasix - likely recurrence of JANNA - no indication for HD at this point - avoid nsaids [facility]
--- NOTE | 2016-09-08 13:56 | PN ---
Progress Note, Physician Chief Complaint: AWAKE ALERT FEELING BETTER AWAITING WORKUP - Current Medication List Current Medications: Active Medications Albuterol Sulfate (Ventolin 0.083% Nebulizer Soln -) 1 amp NEB Q4H PRN PRN Reason: SHORT OF BREATH/WHEEZING Albuterol/Ipratropium (Duoneb -) 1 amp NEB TIDR [facility] Last Admin: 09/08/16 06:54 Dose: 1 amp Budesonide/Formoterol Fumarate (Symbicort 160/4.5mcg -) 2 puff IH BID [facility] Last Admin: 09/08/16 09:15 Dose: 2 puff Doxazosin Mesylate (Cardura -) 2 mg PO DAILY [facility] Last Admin: 09/08/16 09:14 Dose: 2 mg Finasteride (Proscar -) 5 mg PO DAILY [facility] Last Admin: 09/08/16 09:15 Dose: 5 mg Furosemide (Lasix Injection -) 60 mg IVPUSH BID@0600,1400 [facility] Last Admin: 09/08/16 05:42 Dose: 60 mg Guaifenesin (Mucinex -) 600 mg PO BID [facility] Last Admin: 09/08/16 09:15 Dose: 600 mg Pantoprazole Sodium (Protonix -) 40 mg PO DAILY [facility] Last Admin: 09/08/16 09:15 Dose: 40 mg Prednisone (Deltasone -) 60 mg PO DAILY [facility] Last Admin: 09/08/16 09:15 Dose: 60 mg Rosuvastatin Calcium (Crestor -) 10 mg PO HS [facility] Last Admin: 09/07/16 21:24 Dose: 10 mg Senna (Senna -) 2 tab PO [facility] Last Admin: 09/07/16 21:25 Dose: 2 tab Tamsulosin HCl (Flomax -) 0.4 mg PO DAILY@0830 [facility] Last Admin: 09/08/16 08:23 Dose: 0.4 mg - Objective Vital Signs: Vital Signs Temperature 97.9 F 09/08/16 07:53 Pulse Rate 89 09/08/16 07:53 Respiratory Rate 20 09/08/16 08:00 Blood Pressure 142/82 09/08/16 07:53 O2 Sat by Pulse Oximetry (%) 99 09/08/16 08:00 Constitutional: Yes: No Distress Eyes: Yes: WNL HENT: Yes: WNL Neck: Yes: WNL Cardiovascular: Yes: WNL Respiratory: Yes: WNL Gastrointestinal: Yes: WNL Genitourinary: Yes: WNL Musculoskeletal: Yes: Muscle Weakness Extremities: Yes: Other Edema: Yes Peripheral Pulses WNL: Yes Integumentary: Yes: Skin Tear Wound/Incision: Yes: Open to air Neurological: Yes: WNL ...Motor Strength: WNL Psychiatric: Yes: WNL Labs: CBC, BMP 09/04/16 05:35 09/07/16 06:00 INR, PTT INR 1.00 (0.82-1.09) 08/30/16 17:58 Problem List - Problems (1) Acute renal failure (ARF) Code(s): N17.9 - ACUTE KIDNEY FAILURE, UNSPECIFIED Qualifiers: Acute renal failure type: unspecified Qualified Code(s): N17.9 - Acute kidney failure, unspecified (2) COPD (chronic obstructive pulmonary disease) Code(s): J44.9 - CHRONIC OBSTRUCTIVE PULMONARY DISEASE, UNSPECIFIED (3) Hyperkalemia Code(s): E87.5 - HYPERKALEMIA (4) Edema Code(s): R60.9 - EDEMA, UNSPECIFIED Qualifiers: Edema type: localized Qualified Code(s): R60.0 - Localized edema (5) Hypertension Code(s): I10 - ESSENTIAL (PRIMARY) HYPERTENSION Qualifiers: Hypertension type: essential hypertension Qualified Code(s): I10 - Essential (primary) hypertension (6) BPH loc w urin obs/LUTS Code(s): N40.1 - BENIGN PROSTATIC HYPERPLASIA WITH LOWER URINARY TRACT SYMP Assessment/Plan RESTART DUONEB FOR COUGH AND COPD TURP NEXT WEEK AGREE WITH NEPHROLOGY WILL NEED TO R/O LYMPHOMA WITH REOCCURANCE OF LYMPHOMA SKIN TER FOOT, ADD BACITRACIN
[2016-09-08] MEDS: BACITRACIN 15 GM TUBE TOPICAL OINTMENT TP SCH (14:33)
[2016-09-08] MEDS: SENNOSIDES 8.6MG TABLET (FP) PO SCH (21:54)
[2016-09-08] MEDS: ROSUVASTATIN CA 10 MG TABLET (FP) PO SCH (21:54)
[2016-09-09] MEDS: FUROSEMIDE 40 MG/4 ML INJECTABLE VIAL IVPUSH SCH ×2 (05:53→14:02)
[2016-09-09] MEDS: ALBUTEROL SO4 2.5/IPRATROPIUM 0.5 INH SOL 3 ML VIAL.NEB. NEB SCH ×3 (06:51→22:18)
[2016-09-09] MEDS ORDERED: PT OWN MED DRAWER 7, Y5N ONE (08:30)
[2016-09-09] MEDS: TAMSULOSIN HCL 0.4 MG CAP.ER.24H (FP) PO SCH (08:34)
[2016-09-09] MEDS: predniSONE 20 MG TABLET (UD) PO SCH (09:56)
[2016-09-09] MEDS: PANTOPRAZOLE 40 MG TABLET (FP) PO SCH (09:56)
[2016-09-09] MEDS: guaiFENesin 600 MG TABLET.ER (FP) PO SCH ×2 (09:56→21:41)
[2016-09-09] MEDS: FINASTERIDE 5 MG TABLET (FP) PO SCH (09:56)
[2016-09-09] MEDS: DOXAZOSIN MESYLATE 2 MG TABLET (FP) PO SCH (09:56)
[2016-09-09] MEDS: BUDESONIDE/FORMETEROL FUMARATE 160/4.5 mcg INHALER IH SCH ×2 (09:57→21:41)
[2016-09-09] MEDS: BACITRACIN 15 GM TUBE TOPICAL OINTMENT TP SCH (10:05)
--- NOTE | 2016-09-09 11:21 | PN ---
Progress Note, Physician History of Present Illness: PULMONARY ALERT,NAD,-CP,-SOB,+COUGH + SPUTUM - Current Medication List Current Medications: Active Medications Albuterol Sulfate (Ventolin 0.083% Nebulizer Soln -) 1 amp NEB Q4H PRN PRN Reason: SHORT OF BREATH/WHEEZING Albuterol/Ipratropium (Duoneb -) 1 amp NEB TIDR [facility] Last Admin: 09/09/16 06:51 Dose: 1 amp Bacitracin (Bacitracin -) 1 applic TP DAILY [facility] Last Admin: 09/09/16 10:05 Dose: 1 applic Budesonide/Formoterol Fumarate (Symbicort 160/4.5mcg -) 2 puff IH BID [facility] Last Admin: 09/09/16 09:57 Dose: 2 puff Doxazosin Mesylate (Cardura -) 2 mg PO DAILY [facility] Last Admin: 09/09/16 09:56 Dose: 2 mg Finasteride (Proscar -) 5 mg PO DAILY [facility] Last Admin: 09/09/16 09:56 Dose: 5 mg Furosemide (Lasix Injection -) 60 mg IVPUSH BID@0600,1400 [facility] Last Admin: 09/09/16 05:53 Dose: 60 mg Guaifenesin (Mucinex -) 600 mg PO BID [facility] Last Admin: 09/09/16 09:56 Dose: 600 mg Pantoprazole Sodium (Protonix -) 40 mg PO DAILY [facility] Last Admin: 09/09/16 09:56 Dose: 40 mg Prednisone (Deltasone -) 60 mg PO DAILY [facility] Last Admin: 09/09/16 09:56 Dose: 60 mg Rosuvastatin Calcium (Crestor -) 10 mg PO HS [facility] Last Admin: 09/08/16 21:54 Dose: 10 mg Senna (Senna -) 2 tab PO HS [facility] Last Admin: 09/08/16 21:54 Dose: 2 tab Tamsulosin HCl (Flomax -) 0.4 mg PO DAILY@0830 [facility] Last Admin: 09/09/16 08:34 Dose: 0.4 mg - Objective Vital Signs: Vital Signs Temperature 97.8 F 09/09/16 07:40 Pulse Rate 87 09/09/16 07:40 Respiratory Rate 18 09/09/16 07:48 Blood Pressure 137/85 09/09/16 07:40 O2 Sat by Pulse Oximetry (%) 98 07/10/17 07:48 Constitutional: Yes: Calm, Obese Eyes: Yes: WNL HENT: Yes: WNL Neck: Yes: WNL Cardiovascular: Yes: Regular Rate and Rhythm, S1, S2 Respiratory: Yes: Diminished Gastrointestinal: Yes: Normal Bowel Sounds, Soft Extremities: Yes: WNL Edema: Yes Labs: CBC, BMP 09/04/16 05:35 09/07/16 06:00 INR, PTT INR 1.00 (0.82-1.09) 08/30/16 17:58 Assessment/Plan Problem List - Problems (1) Acute renal failure (ARF) Code(s): N17.9 - ACUTE KIDNEY FAILURE, UNSPECIFIED Qualifiers: Acute renal failure type: unspecified Qualified Code(s): N17.9 - Acute kidney failure, unspecified (2) BPH (benign prostatic hyperplasia) Code(s): N40.0 - BENIGN PROSTATIC HYPERPLASIA WITHOUT LOWER URINRY TRACT SYMP (3) COPD (chronic obstructive pulmonary disease) Code(s): J44.9 - CHRONIC OBSTRUCTIVE PULMONARY DISEASE, UNSPECIFIED (4) ILD (interstitial lung disease) Code(s): J84.9 - INTERSTITIAL PULMONARY DISEASE, UNSPECIFIED Assessment/Plan COPD ILD STABLE ACUTE ON H/O CHRONIC KIDNEY DISEASE CREATININE IMPROVING HTN HLD PLAN O2 PRN INHALED BRONCHODILATORS PREDNISONE LASIX PFTS OUTPATIENT MONITOR LYTES,RENAL FUNCTION DR NELSON
[2016-09-09 13:22] LABS: ALBUMIN 1.4 g/dl (3.4-5.0); ALK PHOS 133 U/L (45-117); ANION GAP 12 (8-16); BILIRUBIN,TOTAL 0.3 mg/dL (0.2-1.0); CALCIUM 8.6 mg/dL (8.5-10.1); CO2 24 mmol/L (21-32); CREATININE 2.5 mg/dL (0.7-1.3); GLUCOSE,RANDOM 105 mg/dL (74-106); SGOT/AST 16 U/L (15-37); SGPT/ALT 23 U/L (12-78); TOT PROT 5.1 g/dl (6.4-8.2)
--- NOTE | 2016-09-09 13:45 | PN ---
Progress Note, Physician History of Present Illness: Pt seen and examined at bedside. He is awake and alert. He denies any worsening of his shortness of breath. He still has edema but feels that it is starting to improve. - Current Medication List Current Medications: Active Medications Albuterol Sulfate (Ventolin 0.083% Nebulizer Soln -) 1 amp NEB Q4H PRN PRN Reason: SHORT OF BREATH/WHEEZING Albuterol/Ipratropium (Duoneb -) 1 amp NEB TIDR [facility] Last Admin: 09/09/16 06:51 Dose: 1 amp Bacitracin (Bacitracin -) 1 applic TP DAILY [facility] Last Admin: 09/09/16 10:05 Dose: 1 applic Budesonide/Formoterol Fumarate (Symbicort 160/4.5mcg -) 2 puff IH BID [facility] Last Admin: 09/09/16 09:57 Dose: 2 puff Doxazosin Mesylate (Cardura -) 2 mg PO DAILY [facility] Last Admin: 09/09/16 09:56 Dose: 2 mg Finasteride (Proscar -) 5 mg PO DAILY [facility] Last Admin: 09/09/16 09:56 Dose: 5 mg Furosemide (Lasix Injection -) 60 mg IVPUSH BID@0600,1400 [facility] Last Admin: 09/09/16 05:53 Dose: 60 mg Guaifenesin (Mucinex -) 600 mg PO BID [facility] Last Admin: 09/09/16 09:56 Dose: 600 mg Pantoprazole Sodium (Protonix -) 40 mg PO DAILY [facility] Last Admin: 09/09/16 09:56 Dose: 40 mg Prednisone (Deltasone -) 60 mg PO DAILY [facility] Last Admin: 09/09/16 09:56 Dose: 60 mg Rosuvastatin Calcium (Crestor -) 10 mg PO HS [facility] Last Admin: 09/08/16 21:54 Dose: 10 mg Senna (Senna -) 2 tab PO HS [facility] Last Admin: 09/08/16 21:54 Dose: 2 tab Tamsulosin HCl (Flomax -) 0.4 mg PO DAILY@0830 [facility] Last Admin: 09/09/16 08:34 Dose: 0.4 mg - Objective Vital Signs: Vital Signs Temperature 97.8 F 09/09/16 07:40 Pulse Rate 87 09/09/16 07:40 Respiratory Rate 18 09/09/16 07:48 Blood Pressure 137/85 09/09/16 07:40 O2 Sat by Pulse Oximetry (%) 98 09/09/16 07:48 Constitutional: Yes: Calm Eyes: Yes: Conjunctiva Clear HENT: Yes: Atraumatic Neck: Yes: Supple Cardiovascular: Yes: S1, S2 Respiratory: Yes: CTA Bilaterally Gastrointestinal: Yes: Soft Genitourinary: Yes: WNL Edema: Yes Edema: LLE: 2+, RLE: 2+ Neurological: Yes: Oriented Psychiatric: Yes: Oriented Labs: CBC, BMP 09/04/16 05:35 09/09/16 12:10 INR, PTT INR 1.00 (0.82-1.09) 08/30/16 17:58 Problem List - Problems (1) Acute renal failure (ARF) Code(s): N17.9 - ACUTE KIDNEY FAILURE, UNSPECIFIED Qualifiers: Acute renal failure type: unspecified Qualified Code(s): N17.9 - Acute kidney failure, unspecified (2) BPH (benign prostatic hyperplasia) Code(s): N40.0 - BENIGN PROSTATIC HYPERPLASIA WITHOUT LOWER URINRY TRACT SYMP (3) COPD (chronic obstructive pulmonary disease) Code(s): J44.9 - CHRONIC OBSTRUCTIVE PULMONARY DISEASE, UNSPECIFIED (4) Hyperkalemia Code(s): E87.5 - HYPERKALEMIA Assessment/Plan Current Medications Generic Name Dose Route Start Last Admin Trade Name Freq PRN Reason Stop Dose Admin Albuterol Sulfate 1 amp 09/07/16 12:00 Ventolin 0.083% Nebulizer Soln - NEB Q4H PRN SHORT OF BREATH/WHEEZING Albuterol/Ipratropium 1 amp 09/07/16 22:00 09/09/16 06:51 Duoneb - NEB 1 amp TIDR [facility] Administration Bacitracin 1 applic 09/08/16 14:00 09/09/16 10:05 Bacitracin - TP 1 applic DAILY [facility] Administration Budesonide/Formoterol Fumarate 2 puff 08/30/16 22:00 09/09/16 09:57 Symbicort 160/4.5mcg - IH 2 puff BID [facility] Administration Doxazosin Mesylate 2 mg 08/31/16 10:00 09/09/16 09:56 Cardura - PO 2 mg DAILY [facility] Administration Finasteride 5 mg 09/06/16 16:00 09/09/16 09:56 Proscar - PO 5 mg DAILY [facility] Administration Furosemide 60 mg 09/04/16 14:00 09/09/16 05:53 Lasix Injection - IVPUSH 60 mg BID@0600,1400 [facility] Administration Guaifenesin 600 mg 08/31/16 12:00 09/09/16 09:56 Mucinex - PO 600 mg BID [facility] Administration Pantoprazole Sodium 40 mg 08/31/16 10:00 09/09/16 09:56 Protonix - PO 40 mg DAILY [facility] Administration Prednisone 60 mg 09/06/16 14:57 09/09/16 09:56 Deltasone - PO 60 mg DAILY [facility] Administration Rosuvastatin Calcium 10 mg 09/01/16 22:00 09/08/16 21:54 Crestor - PO 10 mg HS [facility] Administration Senna 2 tab 09/03/16 22:00 09/08/16 21:54 Senna - PO 2 tab HS [facility] Administration Tamsulosin HCl 0.4 mg 08/31/16 08:30 09/09/16 08:34 Flomax - PO 0.4 mg DAILY@0830 [facility] Administration Laboratory Tests 09/09/16 12:10 Sodium 137 Potassium 4.3 Chloride 101 Carbon Dioxide 24 Anion Gap 12 Creatinine 2.5 H D Creat Clearance w eGFR 25.44 Albumin 1.4 L Impression 1. CATY 2. CKD with hx of JANNA 3. COPD 4. HTN 5. BPH 6. hyperkalemia 7. fluid overload Plan - creatinine is improved - cont with steroids - cont with lasix - repeat labs in am - mediastinal lymphadenopathy should be evaluated, see on ct scan - likely recurrence of JANNA - avoid nsaids, pt was taking nsaids (self prescribed) - will follow Dr Marie
--- NOTE | 2016-09-09 17:42 | PN ---
Progress Note, Physician Chief Complaint: AWAKE ALERT FAMILY BEDSIDE LEGS STILL EDEMATOUS - Current Medication List Current Medications: Active Medications Albuterol Sulfate (Ventolin 0.083% Nebulizer Soln -) 1 amp NEB Q4H PRN PRN Reason: SHORT OF BREATH/WHEEZING Albuterol/Ipratropium (Duoneb -) 1 amp NEB TIDR [facility] Last Admin: 09/09/16 14:01 Dose: 1 amp Bacitracin (Bacitracin -) 1 applic TP DAILY [facility] Last Admin: 09/09/16 10:05 Dose: 1 applic Budesonide/Formoterol Fumarate (Symbicort 160/4.5mcg -) 2 puff IH BID [facility] Last Admin: 09/09/16 09:57 Dose: 2 puff Doxazosin Mesylate (Cardura -) 2 mg PO DAILY [facility] Last Admin: 09/09/16 09:56 Dose: 2 mg Finasteride (Proscar -) 5 mg PO DAILY [facility] Last Admin: 09/09/16 09:56 Dose: 5 mg Furosemide (Lasix Injection -) 60 mg IVPUSH BID@0600,1400 [facility] Last Admin: 09/09/16 14:02 Dose: 60 mg Guaifenesin (Mucinex -) 600 mg PO BID [facility] Last Admin: 09/09/16 09:56 Dose: 600 mg Pantoprazole Sodium (Protonix -) 40 mg PO DAILY [facility] Last Admin: 09/09/16 09:56 Dose: 40 mg Prednisone (Deltasone -) 60 mg PO DAILY [facility] Last Admin: 09/09/16 09:56 Dose: 60 mg Rosuvastatin Calcium (Crestor -) 10 mg PO HS [facility] Last Admin: 09/08/16 21:54 Dose: 10 mg Senna (Senna -) 2 tab PO HS [facility] Last Admin: 09/08/16 21:54 Dose: 2 tab Tamsulosin HCl (Flomax -) 0.4 mg PO DAILY@0830 [facility] Last Admin: 09/09/16 08:34 Dose: 0.4 mg - Objective Vital Signs: Vital Signs Temperature 97.8 F 09/09/16 14:07 Pulse Rate 101 H 09/09/16 14:07 Respiratory Rate 20 09/09/16 14:07 Blood Pressure 143/73 09/09/16 14:07 O2 Sat by Pulse Oximetry (%) 98 09/09/16 07:48 Constitutional: Yes: Mild Distress Eyes: Yes: WNL HENT: Yes: WNL Neck: Yes: WNL Cardiovascular: Yes: WNL Respiratory: Yes: WNL Gastrointestinal: Yes: WNL Genitourinary: Yes: WNL Musculoskeletal: Yes: Back Pain, Muscle Weakness Extremities: Yes: Other Edema: Yes Edema: LLE: 2+, RLE: 2+ Peripheral Pulses WNL: Yes Integumentary: Yes: Pressure Ulcer Wound/Incision: Yes: Other (BLISTER FOOT) Neurological: Yes: Pre-Existing Deficit ...Motor Strength: LLE, RLE Psychiatric: Yes: WNL Labs: CBC, BMP 09/04/16 05:35 09/09/16 12:10 INR, PTT INR 1.00 (0.82-1.09) 08/30/16 17:58 Problem List - Problems (1) Acute renal failure (ARF) Code(s): N17.9 - ACUTE KIDNEY FAILURE, UNSPECIFIED Qualifiers: Acute renal failure type: unspecified Qualified Code(s): N17.9 - Acute kidney failure, unspecified (2) COPD (chronic obstructive pulmonary disease) Code(s): J44.9 - CHRONIC OBSTRUCTIVE PULMONARY DISEASE, UNSPECIFIED (3) Hyperkalemia Code(s): E87.5 - HYPERKALEMIA (4) Edema Code(s): R60.9 - EDEMA, UNSPECIFIED Qualifiers: Edema type: localized Qualified Code(s): R60.0 - Localized edema (5) Hypertension Code(s): I10 - ESSENTIAL (PRIMARY) HYPERTENSION Qualifiers: Hypertension type: essential hypertension Qualified Code(s): I10 - Essential (primary) hypertension (6) BPH loc w urin obs/LUTS Code(s): N40.1 - BENIGN PROSTATIC HYPERPLASIA WITH LOWER URINARY TRACT SYMP Assessment/Plan RESTART DUONEB FOR COUGH AND COPD TURP THIS WEEK AGREE WITH NEPHROLOGY WILL NEED TO R/O LYMPHOMA WITH REOCCURANCE OF LYMPHOMA SKIN TER FOOT, ADD BACITRACIN
--- NOTE | 2016-09-09 17:54 | CONSULT ---
Consult - text type - Consultation Consultation Note: 75 year old male, with a significant past medical history of CKD/ glomerulonephropathy(previously on short term HD), kidney stones, cardiomegaly, COPD, hypertension, hyperlipidemia, CAD, BPH, who presents to the emergency department sent for evaluation of abnormal labs. Patient has a history of dialysis treatment in 2013, but has not had a treatment since. He denies any dysuria, hematuria, frequency, urgency, or flank pain. He also reports lower extremity edema, which he noticed at Dr. Mei office 4 days ago. Patient denies any nausea, vomiting, diarrhea, or constipation. He denies any fever or chills. 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 esolved with steroids,) Heme/Onc: Yes: Other (intermittent eosinophilia) Psych: Yes: Addictions (previous smoker quit 35 years ago ) Musculoskeletal: Yes: Other (No active joints.) - Past Surgical History Past Surgical History: Yes: Hernia Repair - Smoking History Smoking history: Former smoker - Social History ADL: Independent - Allergies Allergies/Adverse Reactions: Allergies Allergy/AdvReac Type Severity Reaction Status Date / Time No Known Allergies Allergy Verified 08/30/16 16:22 - Home Medications Home Medications: Ambulatory Orders Budesonide/Formeterol Fumarate [SYMBICORT 160/4.5mcg -] 2 inh IH BID inhaler Tamsulosin HCl [Flomax -] 0.4 mg PO DAILY@0830 cap.er.24h 07/08/14 [place]-3 Fatty Acids [Fish Oil] 900 mg PO DAILY 01/19/15 Calcium Citrate/Vitamin D3 [Calcium Citrate - Vit D Caplet] 1 each PO DAILY Budesonide/Formeterol Fumarate [SYMBICORT 160/4.5mcg -] 1 inh PO BID 08/30/16 Doxazosin Mesylate [Cardura -] 2 mg PO DAILY 08/30/16 Fluticasone/Vilanterol [Breo Ellipta 100-25 Mcg INH] 1 each IH PRN 08/30/16 Levomefolate/B6/B12/Algal Oil [Metanx Capsule] 4 mg PO BID 08/30/16 Pantoprazole Sodium 40 mg PO DAILY 08/30/16 Ranolazine [Ranexa -] 500 mg PO BID 08/30/16 Active Medications Albuterol Sulfate (Ventolin 0.083% Nebulizer Soln -) 1 amp NEB Q4H PRN PRN Reason: SHORT OF BREATH/WHEEZING Albuterol/Ipratropium (Duoneb -) 1 amp NEB TIDR [facility] Last Admin: 09/09/16 14:01 Dose: 1 amp Bacitracin (Bacitracin -) 1 applic TP DAILY [facility] Last Admin: 09/09/16 10:05 Dose: 1 applic Budesonide/Formoterol Fumarate (Symbicort 160/4.5mcg -) 2 puff IH BID [facility] Last Admin: 09/09/16 09:57 Dose: 2 puff Doxazosin Mesylate (Cardura -) 2 mg PO DAILY [facility] Last Admin: 09/09/16 09:56 Dose: 2 mg Finasteride (Proscar -) 5 mg PO DAILY [facility] Last Admin: 09/09/16 09:56 Dose: 5 mg Furosemide (Lasix Injection -) 60 mg IVPUSH BID@0600,1400 [facility] Last Admin: 09/09/16 14:02 Dose: 60 mg Guaifenesin (Mucinex -) 600 mg PO BID [facility] Last Admin: 09/09/16 09:56 Dose: 600 mg Pantoprazole Sodium (Protonix -) 40 mg PO DAILY [facility] Last Admin: 09/09/16 09:56 Dose: 40 mg Prednisone (Deltasone -) 60 mg PO DAILY [facility] Last Admin: 09/09/16 09:56 Dose: 60 mg Rosuvastatin Calcium (Crestor -) 10 mg PO HS [facility] Last Admin: 09/08/16 21:54 Dose: 10 mg Senna (Senna -) 2 tab PO HS [facility] Last Admin: 09/08/16 21:54 Dose: 2 tab Tamsulosin HCl (Flomax -) 0.4 mg PO DAILY@0830 [facility] Last Admin: 09/09/16 08:34 Dose: 0.4 mg - Family Disease History Family Disease History: Diabetes: Sister ( in late 50s/early 60s), Heart Disease: Mother Physical Examination Vital Signs: Last Vital Signs Temp Pulse Resp BP Pulse Ox 97.8 F 101 H 20 143/73 98 09/09/16 14:07 09/09/16 14:07 09/09/16 14:07 09/09/16 14:07 09/09/16 07:48 Cardiovascular: Yes: Regular Rate and Rhythm Respiratory: Yes: Regular, CTA Bilaterally Gastrointestinal: Yes: Normal Bowel Sounds, Soft P/A--soft, NT, BS+ ext. --3+ edema b/l Abnormal Lab Results 09/09/16 12:10 BUN 127 H* Creatinine 2.5 H D Alkaline Phosphatase 133 H Total Protein 5.1 L Albumin 1.4 L A/P 75 y/o patient with multiple comorbidities , COPD, CAD, CKD, BPH, comes in with worsening renal function and lower extremity edema. Also reports soareness RLE. 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 will need to be followed and may need further w/u like biopsy based on clinical course/ follow up Needs endocrine f/u regarding thyroid nodules check duplex lower ext. f/u TURP results. microcytosis: ? anemia of chronic disease. check iron studies will get info on prior gi w/u
[2016-09-09] MEDS: SENNOSIDES 8.6MG TABLET (FP) PO SCH (21:40)
[2016-09-09] MEDS: ROSUVASTATIN CA 10 MG TABLET (FP) PO SCH (21:40)
[2016-09-10] MEDS: FUROSEMIDE 40 MG/4 ML INJECTABLE VIAL IVPUSH SCH ×3 (06:01→23:32)
[2016-09-10] MEDS: ALBUTEROL SO4 2.5/IPRATROPIUM 0.5 INH SOL 3 ML VIAL.NEB. NEB SCH ×3 (06:46→22:45)
[2016-09-10 08:13] LABS: ALBUMIN 1.1 g/dl (3.4-5.0); ANION GAP 13 (8-16); CO2 21 mmol/L (21-32); GLUCOSE,RANDOM 106 mg/dL (74-106)
[2016-09-10 08:18] LABS: ALK PHOS 113 U/L (45-117); BILIRUBIN,TOTAL 0.5 mg/dL (0.2-1.0); CALCIUM 8.3 mg/dL (8.5-10.1); CREATININE 2.3 mg/dL (0.7-1.3); SGOT/AST 14 U/L (15-37); SGPT/ALT 20 U/L (12-78); TOT PROT 4.4 g/dl (6.4-8.2)
[2016-09-10] MEDS: PANTOPRAZOLE 40 MG TABLET (FP) PO SCH (09:12)
[2016-09-10] MEDS: TAMSULOSIN HCL 0.4 MG CAP.ER.24H (FP) PO SCH (09:12)
[2016-09-10] MEDS: predniSONE 20 MG TABLET (UD) PO SCH (09:12)
[2016-09-10] MEDS: guaiFENesin 600 MG TABLET.ER (FP) PO SCH ×2 (09:13→23:32)
[2016-09-10] MEDS: FINASTERIDE 5 MG TABLET (FP) PO SCH (09:13)
[2016-09-10] MEDS: DOXAZOSIN MESYLATE 2 MG TABLET (FP) PO SCH (09:17)
[2016-09-10] MEDS: BACITRACIN 15 GM TUBE TOPICAL OINTMENT TP SCH (09:18)
[2016-09-10] MEDS: BUDESONIDE/FORMETEROL FUMARATE 160/4.5 mcg INHALER IH SCH ×2 (09:19→23:32)
--- NOTE | 2016-09-10 10:30 | PN ---
Progress Note, Physician History of Present Illness: PULMONARY NO DISTRESS ,-CP,-SOB FOR TORP TODAY - Current Medication List Current Medications: Active Medications Albuterol Sulfate (Ventolin 0.083% Nebulizer Soln -) 1 amp NEB Q4H PRN PRN Reason: SHORT OF BREATH/WHEEZING Albuterol/Ipratropium (Duoneb -) 1 amp NEB TIDR [facility] Last Admin: 09/10/16 06:46 Dose: 1 amp Bacitracin (Bacitracin -) 1 applic TP DAILY [facility] Last Admin: 09/10/16 09:18 Dose: 1 applic Budesonide/Formoterol Fumarate (Symbicort 160/4.5mcg -) 2 puff IH BID [facility] Last Admin: 09/10/16 09:19 Dose: 2 puff Doxazosin Mesylate (Cardura -) 2 mg PO DAILY [facility] Last Admin: 09/10/16 09:17 Dose: 2 mg Finasteride (Proscar -) 5 mg PO DAILY [facility] Last Admin: 09/10/16 09:13 Dose: 5 mg Furosemide (Lasix Injection -) 60 mg IVPUSH BID@0600,1400 [facility] Last Admin: 09/10/16 06:01 Dose: 60 mg Guaifenesin (Mucinex -) 600 mg PO BID [facility] Last Admin: 09/10/16 09:13 Dose: 600 mg Pantoprazole Sodium (Protonix -) 40 mg PO DAILY [facility] Last Admin: 09/10/16 09:12 Dose: 40 mg Prednisone (Deltasone -) 60 mg PO DAILY [facility] Last Admin: 09/10/16 09:12 Dose: 60 mg Rosuvastatin Calcium (Crestor -) 10 mg PO HS [facility] Last Admin: 09/09/16 21:40 Dose: 10 mg Senna (Senna -) 2 tab PO HS [facility] Last Admin: 09/09/16 21:40 Dose: 2 tab Tamsulosin HCl (Flomax -) 0.4 mg PO DAILY@0830 [facility] Last Admin: 09/10/16 09:12 Dose: 0.4 mg - Objective Vital Signs: Vital Signs Temperature 97.5 F L 09/10/16 05:48 Pulse Rate 87 09/10/16 05:48 Respiratory Rate 20 09/10/16 05:48 Blood Pressure 147/87 09/10/16 05:48 O2 Sat by Pulse Oximetry (%) 95 09/09/16 22:00 Constitutional: Yes: Well Nourished, Calm Eyes: Yes: WNL HENT: Yes: WNL Neck: Yes: WNL Cardiovascular: Yes: Regular Rate and Rhythm, S1, S2 Respiratory: Yes: CTA Bilaterally Gastrointestinal: Yes: Normal Bowel Sounds, Soft Extremities: Yes: WNL Edema: LLE: 3+, RLE: 3+ Labs: CBC, BMP 09/04/16 05:35 09/10/16 05:35 INR, PTT INR 1.00 (0.82-1.09) 08/30/16 17:58 Assessment/Plan Problem List - Problems (1) Acute renal failure (ARF) Code(s): N17.9 - ACUTE KIDNEY FAILURE, UNSPECIFIED Qualifiers: Acute renal failure type: unspecified Qualified Code(s): N17.9 - Acute kidney failure, unspecified (2) BPH (benign prostatic hyperplasia) Code(s): N40.0 - BENIGN PROSTATIC HYPERPLASIA WITHOUT LOWER URINRY TRACT SYMP (3) COPD (chronic obstructive pulmonary disease) Code(s): J44.9 - CHRONIC OBSTRUCTIVE PULMONARY DISEASE, UNSPECIFIED (4) ILD (interstitial lung disease) Code(s): J84.9 - INTERSTITIAL PULMONARY DISEASE, UNSPECIFIED Assessment/Plan COPD ILD STABLE MEDIASTINAL ADENOPATHY STABLE SLIGHTLY IMPROVED FROM PRIOR CT ACUTE ON H/O CHRONIC KIDNEY DISEASE CREATININE IMPROVING HTN HLD PLAN O2 PRN INHALED BRONCHODILATORS PREDNISONE LASIX PFTS OUTPATIENT MONITOR LYTES,RENAL FUNCTION YOLANDE LEVEL PFTS OUTPATIENT TURP TODAY DR NELSON
--- NOTE | 2016-09-10 13:04 | PN ---
Progress Note, Physician History of Present Illness: Pt seen and examined at bedside. He is awake and alert. He denies shortness of breath. - Current Medication List Current Medications: Active Medications Albuterol Sulfate (Ventolin 0.083% Nebulizer Soln -) 1 amp NEB Q4H PRN PRN Reason: SHORT OF BREATH/WHEEZING Albuterol/Ipratropium (Duoneb -) 1 amp NEB TIDR [facility] Last Admin: 09/10/16 06:46 Dose: 1 amp Bacitracin (Bacitracin -) 1 applic TP DAILY [facility] Last Admin: 09/10/16 09:18 Dose: 1 applic Budesonide/Formoterol Fumarate (Symbicort 160/4.5mcg -) 2 puff IH BID [facility] Last Admin: 09/10/16 09:19 Dose: 2 puff Doxazosin Mesylate (Cardura -) 2 mg PO DAILY [facility] Last Admin: 09/10/16 09:17 Dose: 2 mg Finasteride (Proscar -) 5 mg PO DAILY [facility] Last Admin: 09/10/16 09:13 Dose: 5 mg Furosemide (Lasix Injection -) 60 mg IVPUSH BID@0600,1400 [facility] Last Admin: 09/10/16 06:01 Dose: 60 mg Guaifenesin (Mucinex -) 600 mg PO BID [facility] Last Admin: 09/10/16 09:13 Dose: 600 mg Pantoprazole Sodium (Protonix -) 40 mg PO DAILY [facility] Last Admin: 09/10/16 09:12 Dose: 40 mg Prednisone (Deltasone -) 60 mg PO DAILY [facility] Last Admin: 09/10/16 09:12 Dose: 60 mg Rosuvastatin Calcium (Crestor -) 10 mg PO HS [facility] Last Admin: 09/09/16 21:40 Dose: 10 mg Senna (Senna -) 2 tab PO HS [facility] Last Admin: 09/09/16 21:40 Dose: 2 tab Tamsulosin HCl (Flomax -) 0.4 mg PO DAILY@0830 [facility] Last Admin: 09/10/16 09:12 Dose: 0.4 mg - Objective Vital Signs: Vital Signs Temperature 98.7 F 09/10/16 09:00 Pulse Rate 100 H 09/10/16 09:00 Respiratory Rate 20 09/10/16 09:00 Blood Pressure 142/86 09/10/16 09:00 O2 Sat by Pulse Oximetry (%) 96 09/10/16 09:00 Constitutional: Yes: Calm Eyes: Yes: Conjunctiva Clear HENT: Yes: Atraumatic Cardiovascular: Yes: S1, S2 Respiratory: Yes: CTA Bilaterally Gastrointestinal: Yes: Soft Genitourinary: Yes: WNL Musculoskeletal: Yes: WNL Edema: Yes Edema: LLE: 2+, RLE: 2+ Neurological: Yes: Oriented Psychiatric: Yes: Oriented Labs: CBC, BMP 09/04/16 05:35 09/10/16 05:35 INR, PTT INR 1.00 (0.82-1.09) 08/30/16 17:58 Problem List - Problems (1) Acute renal failure (ARF) Code(s): N17.9 - ACUTE KIDNEY FAILURE, UNSPECIFIED Qualifiers: Acute renal failure type: unspecified Qualified Code(s): N17.9 - Acute kidney failure, unspecified (2) BPH (benign prostatic hyperplasia) Code(s): N40.0 - BENIGN PROSTATIC HYPERPLASIA WITHOUT LOWER URINRY TRACT SYMP (3) COPD (chronic obstructive pulmonary disease) Code(s): J44.9 - CHRONIC OBSTRUCTIVE PULMONARY DISEASE, UNSPECIFIED (4) Hyperkalemia Code(s): E87.5 - HYPERKALEMIA Assessment/Plan Current Medications Generic Name Dose Route Start Last Admin Trade Name Freq PRN Reason Stop Dose Admin Albuterol Sulfate 1 amp 09/07/16 12:00 Ventolin 0.083% Nebulizer Soln - NEB Q4H PRN SHORT OF BREATH/WHEEZING Albuterol/Ipratropium 1 amp 09/07/16 22:00 09/10/16 06:46 Duoneb - NEB 1 amp TIDR [facility] Administration Bacitracin 1 applic 09/08/16 14:00 09/10/16 09:18 Bacitracin - TP 1 applic DAILY [facility] Administration Budesonide/Formoterol Fumarate 2 puff 08/30/16 22:00 09/10/16 09:19 Symbicort 160/4.5mcg - IH 2 puff BID [facility] Administration Doxazosin Mesylate 2 mg 08/31/16 10:00 09/10/16 09:17 Cardura - PO 2 mg DAILY [facility] Administration Finasteride 5 mg 09/06/16 16:00 09/10/16 09:13 Proscar - PO 5 mg DAILY [facility] Administration Furosemide 60 mg 09/04/16 14:00 09/10/16 06:01 Lasix Injection - IVPUSH 60 mg BID@0600,1400 [facility] Administration Guaifenesin 600 mg 08/31/16 12:00 09/10/16 09:13 Mucinex - PO 600 mg BID [facility] Administration Pantoprazole Sodium 40 mg 08/31/16 10:00 09/10/16 09:12 Protonix - PO 40 mg DAILY [facility] Administration Prednisone 60 mg 09/06/16 14:57 09/10/16 09:12 Deltasone - PO 60 mg DAILY [facility] Administration Rosuvastatin Calcium 10 mg 09/01/16 22:00 09/09/16 21:40 Crestor - PO 10 mg HS [facility] Administration Senna 2 tab 09/03/16 22:00 09/09/16 21:40 Senna - PO 2 tab HS [facility] Administration Tamsulosin HCl 0.4 mg 08/31/16 08:30 09/10/16 09:12 Flomax - PO 0.4 mg DAILY@0830 [facility] Administration Laboratory Tests 09/08/16 10:45 Protein/Creatinin Ratio 7.1 Impression 1. CATY 2. CKD with hx of JANNA 3. COPD 4. HTN 5. BPH 6. hyperkalemia 7. fluid overload 8. mediastinal lymphadenopathy Plan - renal function is improving - proteinuria is improving - start ranitidine - start calcium supplements - cont with prednisone - cont with lasix - oncology input appreciated, pt will need a pet scan - likely recurrence of JANNA - avoid nsaids, pt was taking nsaids (self prescribed) - will follow Dr Marie
[2016-09-10] MEDS ORDERED: CALCIUM 500MG/VIT-D 200 UNITS COMBO TABLET (FP) PO SCH (13:15)
[2016-09-10] MEDS ORDERED: RANITIDINE HCL 150 MG TABLET (FP) PO SCH (13:15)
--- NOTE | 2016-09-10 19:50 | PN ---
Progress Note, Physician Chief Complaint: AWAKE ALERT AWAITING TURP - Current Medication List Current Medications: Active Medications Albuterol Sulfate (Ventolin 0.083% Nebulizer Soln -) 1 amp NEB Q4H PRN PRN Reason: SHORT OF BREATH/WHEEZING Albuterol/Ipratropium (Duoneb -) 1 amp NEB TIDR [facility] Last Admin: 09/10/16 13:32 Dose: 1 amp Bacitracin (Bacitracin -) 1 applic TP DAILY [facility] Last Admin: 09/10/16 09:18 Dose: 1 applic Budesonide/Formoterol Fumarate (Symbicort 160/4.5mcg -) 2 puff IH BID [facility] Last Admin: 09/10/16 09:19 Dose: 2 puff Calcium Carbonate/Cholecalciferol (Os-Kory 500+D -) 1 tab PO DAILY [facility] Last Admin: 09/10/16 14:00 Dose: Not Given Doxazosin Mesylate (Cardura -) 2 mg PO DAILY [facility] Last Admin: 09/10/16 09:17 Dose: 2 mg Finasteride (Proscar -) 5 mg PO DAILY [facility] Last Admin: 09/10/16 09:13 Dose: 5 mg Furosemide (Lasix Injection -) 60 mg IVPUSH BID@0600,1400 [facility] Last Admin: 09/10/16 06:01 Dose: 60 mg Guaifenesin (Mucinex -) 600 mg PO BID [facility] Last Admin: 09/10/16 09:13 Dose: 600 mg Pantoprazole Sodium (Protonix -) 40 mg PO DAILY [facility] Last Admin: 09/10/16 09:12 Dose: 40 mg Prednisone (Deltasone -) 60 mg PO DAILY [facility] Last Admin: 09/10/16 09:12 Dose: 60 mg Ranitidine HCl (Zantac -) 150 mg PO DAILY [facility] Last Admin: 09/10/16 14:00 Dose: Not Given Rosuvastatin Calcium (Crestor -) 10 mg PO HS [facility] Last Admin: 09/09/16 21:40 Dose: 10 mg Senna (Senna -) 2 tab PO HS [facility] Last Admin: 09/09/16 21:40 Dose: 2 tab Tamsulosin HCl (Flomax -) 0.4 mg PO DAILY@0830 [facility] Last Admin: 09/10/16 09:12 Dose: 0.4 mg - Objective Vital Signs: Vital Signs Temperature 98.0 F 09/10/16 17:00 Pulse Rate 102 H 09/10/16 17:00 Respiratory Rate 18 09/10/16 17:00 Blood Pressure 126/74 09/10/16 17:00 O2 Sat by Pulse Oximetry (%) 96 09/10/16 09:00 Constitutional: Yes: Mild Distress Eyes: Yes: WNL HENT: Yes: WNL Neck: Yes: WNL Cardiovascular: Yes: WNL Respiratory: Yes: WNL Gastrointestinal: Yes: WNL Genitourinary: Yes: WNL Musculoskeletal: Yes: Muscle Weakness Extremities: Yes: Other Edema: Yes Edema: LLE: 2+, RLE: 2+ Peripheral Pulses WNL: Yes Integumentary: Yes: Skin Tear (FEET) Wound/Incision: Yes: Open to air Neurological: Yes: Pre-Existing Deficit ...Motor Strength: LLE, RLE Psychiatric: Yes: WNL Labs: CBC, BMP 09/04/16 05:35 09/10/16 05:35 INR, PTT INR 1.00 (0.82-1.09) 08/30/16 17:58 Problem List - Problems (1) Acute renal failure (ARF) Code(s): N17.9 - ACUTE KIDNEY FAILURE, UNSPECIFIED Qualifiers: Acute renal failure type: unspecified Qualified Code(s): N17.9 - Acute kidney failure, unspecified (2) COPD (chronic obstructive pulmonary disease) Code(s): J44.9 - CHRONIC OBSTRUCTIVE PULMONARY DISEASE, UNSPECIFIED (3) Hyperkalemia Code(s): E87.5 - HYPERKALEMIA (4) Edema Code(s): R60.9 - EDEMA, UNSPECIFIED Qualifiers: Edema type: localized Qualified Code(s): R60.0 - Localized edema (5) Hypertension Code(s): I10 - ESSENTIAL (PRIMARY) HYPERTENSION Qualifiers: Hypertension type: essential hypertension Qualified Code(s): I10 - Essential (primary) hypertension (6) BPH loc w urin obs/LUTS Code(s): N40.1 - BENIGN PROSTATIC HYPERPLASIA WITH LOWER URINARY TRACT SYMP Assessment/Plan RENAL FUNCTION IMPROVING ONCOLOGY F/U APPRECIATED RESTART DUONEB FOR COUGH AND COPD TURP TO BE SCHEDULE BY AGREE WITH NEPHROLOGY WILL NEED TO R/O LYMPHOMA WITH REOCCURANCE OF LYMPHOMA SKIN TEAR FOOT, ADD BACITRACIN OINTMENT
[2016-09-10] MEDS ORDERED: PROPOFOL 20 ML ONE (20:00)
[2016-09-10] MEDS ORDERED: ceFAZolin SODIUM 1 GM VIAL IVPB ONE (20:13)
[2016-09-10] MEDS ORDERED: DESFLURANE GAS 240 ML BOTTLE IH ONE (20:25)
[2016-09-10] MEDS ORDERED: DEXAMETHASONE SOD PHOSPHATE 4 MG/1 ML VIAL ONE (20:34)
[2016-09-10] MEDS ORDERED: ACETAMINOPHEN 1000 MG/100 ML VIAL (NON FORMULARY) IVPB ONE (20:39)
[2016-09-10] MEDS ORDERED: ALBUTEROL SO4 0.083% IH SOL 2.5 MG/3 ML VIAL.NEB. NEB PRN (20:59)
[2016-09-10] MEDS ORDERED: oxyCODONE HCL 5 MG TABLET PO PRN (21:07)
[2016-09-10] MEDS ORDERED: ONDANSETRON 4 MG/2 ML VIAL IVPUSH PRN (21:07)
[2016-09-10] MEDS ORDERED: ACETAMINOPHEN INJECTION 100 ML IVPB ONE (21:14)
[2016-09-10] MEDS ORDERED: LACTATED RINGERS SOLUTION 1,000 ML IV SCH (21:15)
[2016-09-10 21:52] LABS: BASOPHIL 0.1 % (0-2.0); MCH 23.3 pg (25.7-33.7); MCHC 31.8 g/dl (32.0-35.9); MEAN CELL VOLUME 73.2 fl (80-96); MEAN PLT VOLUME 9.4 fl (7.5-11.1); NEUTROPHILS 90.4 % (42.8-82.8); PLATELET COUNT 189 K/MM3 (134-434); RDW 15.7 % (11.9-15.9); WHITE BLOOD COUNT 9.7 K/mm3 (4.0-10.0)
[2016-09-10 22:28] LABS: ANION GAP 11 (8-16); CALCIUM 8.7 mg/dL (8.5-10.1); CO2 23 mmol/L (21-32); CREATININE 2.3 mg/dL (0.7-1.3); GLUCOSE,RANDOM 137 mg/dL (74-106)
[2016-09-10] MEDS ORDERED: FUROSEMIDE 40 MG/4 ML INJECTABLE VIAL ONE (23:31)
[2016-09-10] MEDS: ROSUVASTATIN CA 10 MG TABLET (FP) PO SCH (23:31)
[2016-09-10] MEDS: SENNOSIDES 8.6MG TABLET (FP) PO SCH (23:32)
[2016-09-11 03:31] LABS: URINE CREATININE 68.5 mg/dL (20-370)
[2016-09-11] MEDS: ALBUTEROL SO4 2.5/IPRATROPIUM 0.5 INH SOL 3 ML VIAL.NEB. NEB SCH ×3 (06:00→21:54)
[2016-09-11] MEDS: FUROSEMIDE 40 MG/4 ML INJECTABLE VIAL IVPUSH SCH ×2 (06:37→13:32)
[2016-09-11 08:04] LABS: MCH 24.1 pg (25.7-33.7); MCHC 33.1 g/dl (32.0-35.9); MEAN CELL VOLUME 72.9 fl (80-96); MEAN PLT VOLUME 9.5 fl (7.5-11.1); NEUTROPHILS 81.2 % (42.8-82.8); PLATELET COUNT 165 K/MM3 (134-434); RDW 15.7 % (11.9-15.9); WHITE BLOOD COUNT 11.9 K/mm3 (4.0-10.0)
[2016-09-11] MEDS ORDERED: PT OWN MED DRAWER 7, Y5N ONE (09:08)
[2016-09-11 09:18] LABS: ALBUMIN 1.2 g/dl (3.4-5.0); ALK PHOS 113 U/L (45-117); ANION GAP 13 (8-16); BILIRUBIN,TOTAL 0.3 mg/dL (0.2-1.0); CALCIUM 8.5 mg/dL (8.5-10.1); CO2 23 mmol/L (21-32); CREATININE 2.3 mg/dL (0.7-1.3); GLUCOSE,RANDOM 106 mg/dL (74-106); SGOT/AST 18 U/L (15-37); SGPT/ALT 19 U/L (12-78); TOT PROT 4.8 g/dl (6.4-8.2)
[2016-09-11] MEDS: FINASTERIDE 5 MG TABLET (FP) PO SCH (09:38)
[2016-09-11] MEDS: TAMSULOSIN HCL 0.4 MG CAP.ER.24H (FP) PO SCH (09:38)
[2016-09-11] MEDS: RANITIDINE HCL 150 MG TABLET (FP) PO SCH (09:38)
[2016-09-11] MEDS: BACITRACIN 15 GM TUBE TOPICAL OINTMENT TP SCH (09:39)
[2016-09-11] MEDS: DOXAZOSIN MESYLATE 2 MG TABLET (FP) PO SCH (09:39)
[2016-09-11] MEDS: CALCIUM 500MG/VIT-D 200 UNITS COMBO TABLET (FP) PO SCH (09:39)
[2016-09-11] MEDS: predniSONE 20 MG TABLET (UD) PO SCH (09:39)
[2016-09-11] MEDS: guaiFENesin 600 MG TABLET.ER (FP) PO SCH ×2 (09:39→21:17)
[2016-09-11] MEDS: PANTOPRAZOLE 40 MG TABLET (FP) PO SCH (09:39)
[2016-09-11] MEDS: BUDESONIDE/FORMETEROL FUMARATE 160/4.5 mcg INHALER IH SCH ×2 (09:40→21:18)
--- NOTE | 2016-09-11 10:02 | PN ---
Progress Note (short form) - Note Progress Note: S/p TURP POD 1 patient without complaints. abdomen is soft Hct is stable and creatinine is stable at 2.3 Imp- S/P TURP continue CBI trial of void and discharge 09/12/16 Problem List - Problems (1) Benign localized hyperplasia of prostate with urinary retention Code(s): N40.1 - BENIGN PROSTATIC HYPERPLASIA WITH LOWER URINARY TRACT SYMP (2) Elevated prostate specific antigen (PSA) Code(s): R97.20 - ELEVATED PROSTATE SPECIFIC ANTIGEN [PSA]
--- NOTE | 2016-09-11 10:17 | OP ---
DATE OF OPERATION: 09/10/2016 PREOPERATIVE DIAGNOSIS: Benign prostatic hypertrophy with urinary retention. POSTOPERATIVE DIAGNOSIS: Benign prostatic hypertrophy with urinary retention. PROCEDURE: Cystoscopy, transurethral resection of the prostate. SURGEON: Chaparro Cha MD ANESTHESIA: , general anesthesia. FINDINGS: Obstructive prostate tissue. SPECIMEN: Prostate tissue. ESTIMATED BLOOD LOSS: Minimal. PREOPERATIVE INDICATIONS: The patient is a 75-year-old male with a history of BPH. He has residual and acute renal failure. He comes to the OR for a cystoscopy, TURP. DESCRIPTION OF OPERATION: The patient was brought to the OR, placed on the table in supine position, given general anesthesia and IV antibiotics and placed in the modified lithotomy position. The groins were draped sterilely. Cystoscopy was performed. The urethra appeared to be normal up to the sphincter. The sphincter was normal. The prostate had obstructive tissue. The right lobe was crossing over the midline to the left lobe. The bladder itself had trabeculations throughout, but no tumors or stones were seen. Both UOs were visualized. Using the bipolar unit, the prostate tissue that was obstructing was resected from the bladder neck to the area just proximal to the verumontanum. Good open cardinal view was noted at the end of the case. Hemostasis was maintained, and prostate chips were evacuated with evacuator. A 24-Swedish 3-way Oh catheter was placed for postoperative irrigation. Patient was woken up. Klaus [id number]
--- NOTE | 2016-09-11 10:40 | PN ---
Progress Note, Physician History of Present Illness: pulmonary alert,feeling bettter,-resp distress,less cough - Current Medication List Current Medications: Active Medications Albuterol Sulfate (Ventolin 0.083% Nebulizer Soln -) 1 amp NEB Q4H PRN PRN Reason: SHORT OF BREATH/WHEEZING Albuterol/Ipratropium (Duoneb -) 1 amp NEB TIDR [facility] Last Admin: 09/11/16 06:00 Dose: 1 amp Bacitracin (Bacitracin -) 1 applic TP DAILY [facility] Last Admin: 09/11/16 09:39 Dose: 1 applic Budesonide/Formoterol Fumarate (Symbicort 160/4.5mcg -) 2 puff IH BID [facility] Last Admin: 09/11/16 09:40 Dose: 2 puff Calcium Carbonate/Cholecalciferol (Os-Kory 500+D -) 1 tab PO DAILY [facility] Last Admin: 09/11/16 09:39 Dose: 1 tab Doxazosin Mesylate (Cardura -) 2 mg PO DAILY [facility] Last Admin: 09/11/16 09:39 Dose: 2 mg Finasteride (Proscar -) 5 mg PO DAILY [facility] Last Admin: 09/11/16 09:38 Dose: 5 mg Furosemide (Lasix Injection -) 60 mg IVPUSH BID@0600,1400 [facility] Last Admin: 09/11/16 06:37 Dose: 60 mg Guaifenesin (Mucinex -) 600 mg PO BID [facility] Last Admin: 09/11/16 09:39 Dose: 600 mg Oxycodone HCl (Roxicodone -) 5 mg PO Q4H PRN PRN Reason: MILD PAIN Stop: 09/11/16 21:06 Last Admin: 09/11/16 06:36 Dose: 5 mg Pantoprazole Sodium (Protonix -) 40 mg PO DAILY [facility] Last Admin: 09/11/16 09:39 Dose: 40 mg Prednisone (Deltasone -) 60 mg PO DAILY [facility] Last Admin: 09/11/16 09:39 Dose: 60 mg Ranitidine HCl (Zantac -) 150 mg PO DAILY [facility] Last Admin: 09/11/16 09:38 Dose: 150 mg Rosuvastatin Calcium (Crestor -) 10 mg PO HS [facility] Last Admin: 09/10/16 23:31 Dose: 10 mg Senna (Senna -) 2 tab PO HS [facility] Last Admin: 09/10/16 23:32 Dose: 2 tab Tamsulosin HCl (Flomax -) 0.4 mg PO DAILY@0830 [facility] Last Admin: 09/11/16 09:38 Dose: 0.4 mg - Objective Vital Signs: Vital Signs Temperature 98.0 F 09/11/16 02:00 Pulse Rate 81 09/11/16 09:25 Respiratory Rate 20 09/11/16 02:00 Blood Pressure 121/67 09/11/16 02:00 O2 Sat by Pulse Oximetry (%) 98 09/11/16 09:25 Constitutional: Yes: Well Nourished, Calm Eyes: Yes: WNL HENT: Yes: WNL Neck: Yes: WNL Cardiovascular: Yes: Regular Rate and Rhythm, S1, S2 Respiratory: Yes: Diminished Gastrointestinal: Yes: Normal Bowel Sounds, Soft Extremities: Yes: WNL Edema: Yes Labs: CBC, BMP 09/11/16 05:48 09/11/16 05:48 INR, PTT INR 1.00 (0.82-1.09) 08/30/16 17:58 Assessment/Plan Problem List - Problems (1) Acute renal failure (ARF) Code(s): N17.9 - ACUTE KIDNEY FAILURE, UNSPECIFIED Qualifiers: Acute renal failure type: unspecified Qualified Code(s): N17.9 - Acute kidney failure, unspecified (2) BPH (benign prostatic hyperplasia) Code(s): N40.0 - BENIGN PROSTATIC HYPERPLASIA WITHOUT LOWER URINRY TRACT SYMP (3) COPD (chronic obstructive pulmonary disease) Code(s): J44.9 - CHRONIC OBSTRUCTIVE PULMONARY DISEASE, UNSPECIFIED (4) ILD (interstitial lung disease) Code(s): J84.9 - INTERSTITIAL PULMONARY DISEASE, UNSPECIFIED Assessment/Plan COPD ILD STABLE MEDIASTINAL ADENOPATHY STABLE SLIGHTLY IMPROVED FROM PRIOR CT ACUTE ON H/O CHRONIC KIDNEY DISEASE CREATININE IMPROVING HTN HLD PLAN O2 PRN INHALED BRONCHODILATORS PREDNISONE LASIX PFTS OUTPATIENT MONITOR LYTES,RENAL FUNCTION YOLANDE LEVEL PFTS OUTPATIENT DR NELSON
--- NOTE | 2016-09-11 13:06 | PN ---
Progress Note, Physician History of Present Illness: Pt seen and examined at bedside. He is awake and alert. He denies shortness of breath. - Current Medication List Current Medications: Active Medications Albuterol Sulfate (Ventolin 0.083% Nebulizer Soln -) 1 amp NEB Q4H PRN PRN Reason: SHORT OF BREATH/WHEEZING Albuterol/Ipratropium (Duoneb -) 1 amp NEB TIDR [facility] Last Admin: 09/11/16 06:00 Dose: 1 amp Bacitracin (Bacitracin -) 1 applic TP DAILY [facility] Last Admin: 09/11/16 09:39 Dose: 1 applic Budesonide/Formoterol Fumarate (Symbicort 160/4.5mcg -) 2 puff IH BID [facility] Last Admin: 09/11/16 09:40 Dose: 2 puff Calcium Carbonate/Cholecalciferol (Os-Kory 500+D -) 1 tab PO DAILY [facility] Last Admin: 09/11/16 09:39 Dose: 1 tab Doxazosin Mesylate (Cardura -) 2 mg PO DAILY [facility] Last Admin: 09/11/16 09:39 Dose: 2 mg Finasteride (Proscar -) 5 mg PO DAILY [facility] Last Admin: 09/11/16 09:38 Dose: 5 mg Furosemide (Lasix Injection -) 60 mg IVPUSH BID@0600,1400 [facility] Last Admin: 09/11/16 06:37 Dose: 60 mg Guaifenesin (Mucinex -) 600 mg PO BID [facility] Last Admin: 09/11/16 09:39 Dose: 600 mg Oxycodone HCl (Roxicodone -) 5 mg PO Q4H PRN PRN Reason: MILD PAIN Stop: 09/11/16 21:06 Last Admin: 09/11/16 06:36 Dose: 5 mg Pantoprazole Sodium (Protonix -) 40 mg PO DAILY [facility] Last Admin: 09/11/16 09:39 Dose: 40 mg Prednisone (Deltasone -) 60 mg PO DAILY [facility] Last Admin: 09/11/16 09:39 Dose: 60 mg Ranitidine HCl (Zantac -) 150 mg PO DAILY [facility] Last Admin: 09/11/16 09:38 Dose: 150 mg Rosuvastatin Calcium (Crestor -) 10 mg PO HS [facility] Last Admin: 09/10/16 23:31 Dose: 10 mg Senna (Senna -) 2 tab PO HS [facility] Last Admin: 09/10/16 23:32 Dose: 2 tab Tamsulosin HCl (Flomax -) 0.4 mg PO DAILY@0830 [facility] Last Admin: 09/11/16 09:38 Dose: 0.4 mg - Objective Vital Signs: Vital Signs Temperature 98.5 F 09/11/16 10:00 Pulse Rate 94 H 09/11/16 10:00 Respiratory Rate 20 09/11/16 10:00 Blood Pressure 132/77 09/11/16 10:00 O2 Sat by Pulse Oximetry (%) 98 09/11/16 10:00 Constitutional: Yes: Calm Eyes: Yes: Conjunctiva Clear HENT: Yes: Atraumatic Cardiovascular: Yes: S1, S2 Respiratory: Yes: CTA Bilaterally Gastrointestinal: Yes: Normal Bowel Sounds, Soft Genitourinary: Yes: Other (cbi) Edema: Yes Edema: LLE: 2+, RLE: 2+ Neurological: Yes: Oriented Psychiatric: Yes: Oriented Labs: CBC, BMP 09/11/16 05:48 09/11/16 05:48 INR, PTT INR 1.00 (0.82-1.09) 08/30/16 17:58 Problem List - Problems (1) Acute renal failure (ARF) Code(s): N17.9 - ACUTE KIDNEY FAILURE, UNSPECIFIED Qualifiers: Acute renal failure type: unspecified Qualified Code(s): N17.9 - Acute kidney failure, unspecified (2) BPH (benign prostatic hyperplasia) Code(s): N40.0 - BENIGN PROSTATIC HYPERPLASIA WITHOUT LOWER URINRY TRACT SYMP (3) COPD (chronic obstructive pulmonary disease) Code(s): J44.9 - CHRONIC OBSTRUCTIVE PULMONARY DISEASE, UNSPECIFIED (4) Hyperkalemia Code(s): E87.5 - HYPERKALEMIA Assessment/Plan Current Medications Generic Name Dose Route Start Last Admin Trade Name Freq PRN Reason Stop Dose Admin Albuterol Sulfate 1 amp 09/10/16 20:59 Ventolin 0.083% Nebulizer Soln - NEB Q4H PRN SHORT OF BREATH/WHEEZING Albuterol/Ipratropium 1 amp 09/10/16 22:00 09/11/16 06:00 Duoneb - NEB 1 amp TIDR [facility] Administration Bacitracin 1 applic 09/11/16 10:00 07/12/17 09:39 Bacitracin - TP 1 applic DAILY [facility] Administration Budesonide/Formoterol Fumarate 2 puff 09/10/16 22:00 09/11/16 09:40 Symbicort 160/4.5mcg - IH 2 puff BID [facility] Administration Calcium Carbonate/Cholecalciferol 1 tab 09/11/16 10:00 09/11/16 09:39 Os-Kory 500+D - PO 1 tab DAILY [facility] Administration Doxazosin Mesylate 2 mg 09/11/16 10:00 09/11/16 09:39 Cardura - PO 2 mg DAILY [facility] Administration Finasteride 5 mg 09/11/16 10:00 09/11/16 09:38 Proscar - PO 5 mg DAILY [facility] Administration Furosemide 60 mg 09/11/16 06:00 09/11/16 06:37 Lasix Injection - IVPUSH 60 mg BID@0600,1400 [facility] Administration Guaifenesin 600 mg 09/10/16 22:00 09/11/16 09:39 Mucinex - PO 600 mg BID [facility] Administration Oxycodone HCl 5 mg 09/10/16 21:07 09/11/16 06:36 Roxicodone - PO 09/11/16 21:06 5 mg Q4H PRN Administration MILD PAIN Pantoprazole Sodium 40 mg 09/11/16 10:00 09/11/16 09:39 Protonix - PO 40 mg DAILY [facility] Administration Prednisone 60 mg 09/11/16 10:00 09/11/16 09:39 Deltasone - PO 60 mg DAILY [facility] Administration Ranitidine HCl 150 mg 09/11/16 10:00 09/11/16 09:38 Zantac - PO 150 mg DAILY [facility] Administration Rosuvastatin Calcium 10 mg 09/10/16 22:00 09/10/16 23:31 Crestor - PO 10 mg HS [facility] Administration Senna 2 tab 09/10/16 22:00 09/10/16 23:32 Senna - PO 2 tab HS [facility] Administration Tamsulosin HCl 0.4 mg 09/11/16 08:30 09/11/16 09:38 Flomax - PO 0.4 mg DAILY@0830 [facility] Administration Impression 1. CATY 2. CKD with hx of JANNA 3. COPD 4. HTN 5. BPH 6. hyperkalemia 7. fluid overload 8. mediastinal lymphadenopathy Plan - renal function is stable - cont current meds - cont with prednisone - cont with lasix - will need pet scan - likely recurrence of JANNA - will follow Dr Marie
--- NOTE | 2016-09-11 15:21 | PN ---
Progress Note (short form) - Note Progress Note: Anesthesia POD#1 S/P TURP under GA Patient is doing well. No N/V.Pain is under control.Eating well. VSS No complications to anesthesia seen. Briana Diaz.
--- NOTE | 2016-09-11 15:41 | PN ---
Progress Note, Physician Chief Complaint: AWAKE ALERT S/P TURP - Current Medication List Current Medications: Active Medications Albuterol Sulfate (Ventolin 0.083% Nebulizer Soln -) 1 amp NEB Q4H PRN PRN Reason: SHORT OF BREATH/WHEEZING Albuterol/Ipratropium (Duoneb -) 1 amp NEB TIDR [facility] Last Admin: 09/11/16 06:00 Dose: 1 amp Bacitracin (Bacitracin -) 1 applic TP DAILY [facility] Last Admin: 09/11/16 09:39 Dose: 1 applic Budesonide/Formoterol Fumarate (Symbicort 160/4.5mcg -) 2 puff IH BID [facility] Last Admin: 09/11/16 09:40 Dose: 2 puff Calcium Carbonate/Cholecalciferol (Os-Kory 500+D -) 1 tab PO DAILY [facility] Last Admin: 09/11/16 09:39 Dose: 1 tab Doxazosin Mesylate (Cardura -) 2 mg PO DAILY [facility] Last Admin: 09/11/16 09:39 Dose: 2 mg Finasteride (Proscar -) 5 mg PO DAILY [facility] Last Admin: 09/11/16 09:38 Dose: 5 mg Furosemide (Lasix Injection -) 60 mg IVPUSH BID@0600,1400 [facility] Last Admin: 09/11/16 13:32 Dose: 60 mg Guaifenesin (Mucinex -) 600 mg PO BID [facility] Last Admin: 09/11/16 09:39 Dose: 600 mg Oxycodone HCl (Roxicodone -) 5 mg PO Q4H PRN PRN Reason: MILD PAIN Stop: 09/11/16 21:06 Last Admin: 09/11/16 06:36 Dose: 5 mg Pantoprazole Sodium (Protonix -) 40 mg PO DAILY [facility] Last Admin: 09/11/16 09:39 Dose: 40 mg Prednisone (Deltasone -) 60 mg PO DAILY [facility] Last Admin: 09/11/16 09:39 Dose: 60 mg Ranitidine HCl (Zantac -) 150 mg PO DAILY [facility] Last Admin: 09/11/16 09:38 Dose: 150 mg Rosuvastatin Calcium (Crestor -) 10 mg PO HS [facility] Last Admin: 09/10/16 23:31 Dose: 10 mg Senna (Senna -) 2 tab PO HS [facility] Last Admin: 09/10/16 23:32 Dose: 2 tab Tamsulosin HCl (Flomax -) 0.4 mg PO DAILY@0830 [facility] Last Admin: 09/11/16 09:38 Dose: 0.4 mg - Objective Vital Signs: Vital Signs Temperature 98.7 F 09/11/16 14:26 Pulse Rate 89 09/11/16 14:26 Respiratory Rate 20 09/11/16 14:26 Blood Pressure 135/81 09/11/16 14:26 O2 Sat by Pulse Oximetry (%) 98 09/11/16 10:00 Constitutional: Yes: No Distress Eyes: Yes: WNL HENT: Yes: WNL Neck: Yes: WNL Cardiovascular: Yes: WNL Respiratory: Yes: WNL Gastrointestinal: Yes: WNL Genitourinary: Yes: Oh Present Musculoskeletal: Yes: Muscle Weakness Extremities: Yes: WNL Edema: Yes Edema: LLE: 2+, RLE: 2+ Peripheral Pulses WNL: Yes Integumentary: Yes: WNL, Skin Tear Wound/Incision: Yes: Clean/Dry Neurological: Yes: WNL ...Motor Strength: WNL Psychiatric: Yes: WNL Labs: CBC, BMP 09/11/16 05:48 09/11/16 05:48 INR, PTT INR 1.00 (0.82-1.09) 08/30/16 17:58 Problem List - Problems (1) Acute renal failure (ARF) Code(s): N17.9 - ACUTE KIDNEY FAILURE, UNSPECIFIED Qualifiers: Acute renal failure type: unspecified Qualified Code(s): N17.9 - Acute kidney failure, unspecified (2) COPD (chronic obstructive pulmonary disease) Code(s): J44.9 - CHRONIC OBSTRUCTIVE PULMONARY DISEASE, UNSPECIFIED (3) Hyperkalemia Code(s): E87.5 - HYPERKALEMIA (4) Edema Code(s): R60.9 - EDEMA, UNSPECIFIED Qualifiers: Edema type: localized Qualified Code(s): R60.0 - Localized edema (5) Hypertension Code(s): I10 - ESSENTIAL (PRIMARY) HYPERTENSION Qualifiers: Hypertension type: essential hypertension Qualified Code(s): I10 - Essential (primary) hypertension (6) BPH loc w urin obs/LUTS Code(s): N40.1 - BENIGN PROSTATIC HYPERPLASIA WITH LOWER URINARY TRACT SYMP Assessment/Plan S/P TURP CHECK LABS RENAL AND ONCOLOGY F/U APPRECIATED DUONEB DAILY OOB TO CHAIR CBI CONT
--- NOTE | 2016-09-11 17:30 | PN ---
Progress Note (short form) - Note Progress Note: Patient seen and examined s/p TURP denies any specific complaints Last Vital Signs Temp Pulse Resp BP Pulse Ox 98.7 F 89 20 135/81 98 09/11/16 14:26 09/11/16 14:26 09/11/16 14:26 09/11/16 14:26 09/11/16 10:00 Cor: RSR, No murmurs, No gallops Lungs: Clear to P&A Abd: Soft, Normal bowel sounds, No organomegaly Ext:No significant edema Skin: No rashes, Integument intact Abnormal Lab Results 09/10/16 09/10/16 09/11/16 21:00 21:00 02:00 WBC RBC 5.80 H MCV 73.2 L MCH 23.3 L MCHC 31.8 L Neutrophils % 90.4 H Lymphocytes % 5.3 L D BUN 107 H* Creatinine 2.3 H Random Glucose 137 H D Total Protein Albumin U Random Total Protein 703 H 09/11/16 09/11/16 05:48 05:48 WBC 11.9 H RBC 5.69 H MCV 72.9 L MCH 24.1 L MCHC Neutrophils % Lymphocytes % BUN 103 H Creatinine 2.3 H Random Glucose Total Protein 4.8 L Albumin 1.2 L U Random Total Protein Active Medications Generic Name Dose Route Start Last Admin Trade Name Freq PRN Reason Stop Dose Admin Albuterol Sulfate 1 amp 09/10/16 20:59 Ventolin 0.083% Nebulizer Soln - NEB Q4H PRN SHORT OF BREATH/WHEEZING Albuterol/Ipratropium 1 amp 09/10/16 22:00 09/11/16 14:05 Duoneb - NEB 1 amp TIDR [facility] Administration Bacitracin 1 applic 09/11/16 10:00 09/11/16 09:39 Bacitracin - TP 1 applic DAILY [facility] Administration Budesonide/Formoterol Fumarate 2 puff 09/10/16 22:00 09/11/16 09:40 Symbicort 160/4.5mcg - IH 2 puff BID [facility] Administration Calcium Carbonate/Cholecalciferol 1 tab 09/11/16 10:00 09/11/16 09:39 Os-Kory 500+D - PO 1 tab DAILY [facility] Administration Doxazosin Mesylate 2 mg 09/11/16 10:00 09/11/16 09:39 Cardura - PO 2 mg DAILY [facility] Administration Finasteride 5 mg 09/11/16 10:00 09/11/16 09:38 Proscar - PO 5 mg DAILY [facility] Administration Furosemide 60 mg 09/11/16 06:00 09/11/16 13:32 Lasix Injection - IVPUSH 60 mg BID@0600,1400 [facility] Administration Guaifenesin 600 mg 09/10/16 22:00 09/11/16 09:39 Mucinex - PO 600 mg BID [facility] Administration Oxycodone HCl 5 mg 09/10/16 21:07 09/11/16 06:36 Roxicodone - PO 09/11/16 21:06 5 mg Q4H PRN Administration MILD PAIN Pantoprazole Sodium 40 mg 09/11/16 10:00 09/11/16 09:39 Protonix - PO 40 mg DAILY [facility] Administration Prednisone 60 mg 09/11/16 10:00 09/11/16 09:39 Deltasone - PO 60 mg DAILY [facility] Administration Ranitidine HCl 150 mg 09/11/16 10:00 09/11/16 09:38 Zantac - PO 150 mg DAILY [facility] Administration Rosuvastatin Calcium 10 mg 09/10/16 22:00 09/10/16 23:31 Crestor - PO 10 mg HS [facility] Administration Senna 2 tab 09/10/16 22:00 09/10/16 23:32 Senna - PO 2 tab HS [facility] Administration Tamsulosin HCl 0.4 mg 09/11/16 08:30 09/11/16 09:38 Flomax - PO 0.4 mg DAILY@0830 [facility] Administration A?P 75 y/o patient with multiple comorbidities , COPD, CAD, CKD, BPH, comes in with worsening renal function and lower extremity edema. Also reports soareness RLE. 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 will need to be followed and may need further w/u like biopsy based on clinical course/ follow up Needs endocrine f/u regarding thyroid nodules check duplex lower ext. f/u TURP results. microcytosis: ? anemia of chronic disease. check iron studies will get info on prior gi w/u
[2016-09-11] MEDS: SENNOSIDES 8.6MG TABLET (FP) PO SCH (21:17)
[2016-09-11] MEDS: ROSUVASTATIN CA 10 MG TABLET (FP) PO SCH (21:17)
[2016-09-12] MEDS: FUROSEMIDE 40 MG/4 ML INJECTABLE VIAL IVPUSH SCH ×2 (06:18→12:59)
[2016-09-12] MEDS: ALBUTEROL SO4 2.5/IPRATROPIUM 0.5 INH SOL 3 ML VIAL.NEB. NEB SCH ×2 (06:20→14:30)
[2016-09-12] MEDS ORDERED: PT OWN MED DRAWER 7, Y5N ONE (08:36)
[2016-09-12] MEDS: TAMSULOSIN HCL 0.4 MG CAP.ER.24H (FP) PO SCH (09:02)
[2016-09-12] MEDS: BACITRACIN 15 GM TUBE TOPICAL OINTMENT TP SCH (09:05)
[2016-09-12] MEDS: predniSONE 20 MG TABLET (UD) PO SCH (09:05)
[2016-09-12] MEDS: CALCIUM 500MG/VIT-D 200 UNITS COMBO TABLET (FP) PO SCH (09:05)
[2016-09-12] MEDS: FINASTERIDE 5 MG TABLET (FP) PO SCH (09:05)
[2016-09-12] MEDS: guaiFENesin 600 MG TABLET.ER (FP) PO SCH (09:05)
[2016-09-12] MEDS: BUDESONIDE/FORMETEROL FUMARATE 160/4.5 mcg INHALER IH SCH (09:06)
[2016-09-12] MEDS: PANTOPRAZOLE 40 MG TABLET (FP) PO SCH (09:06)
[2016-09-12] MEDS: RANITIDINE HCL 150 MG TABLET (FP) PO SCH (09:06)
[2016-09-12] MEDS: DOXAZOSIN MESYLATE 2 MG TABLET (FP) PO SCH (09:44)
--- NOTE | 2016-09-12 15:03 | PN ---
Progress Note (short form) - Note Progress Note: Resting in NAD. No CP or SOB. Some cough. No acute events overnight. Intake & Output 09/09/16 09/10/16 09/11/16 09/12/16 23:59 23:59 23:59 23:59 Intake Total 410 6320 82554 8120 Output Total 4250 3700 56885 18319 Balance -3840 7030 -5367 -7450 Weight 238 lb 236 lb 3.2 oz 234 lb 6.4 oz 234 lb Last Vital Signs Temp Pulse Resp BP Pulse Ox 98.5 F 90 18 131/79 97 09/12/16 07:52 09/12/16 07:52 09/12/16 07:52 09/12/16 07:52 09/12/16 07:52 Active Medications Albuterol Sulfate (Ventolin 0.083% Nebulizer Soln -) 1 amp NEB Q4H PRN PRN Reason: SHORT OF BREATH/WHEEZING Albuterol/Ipratropium (Duoneb -) 1 amp NEB TIDR [facility] Last Admin: 09/12/16 06:20 Dose: 1 amp Bacitracin (Bacitracin -) 1 applic TP DAILY [facility] Last Admin: 09/12/16 09:05 Dose: 1 applic Budesonide/Formoterol Fumarate (Symbicort 160/4.5mcg -) 2 puff IH BID [facility] Last Admin: 09/12/16 09:06 Dose: 2 puff Calcium Carbonate/Cholecalciferol (Os-Kory 500+D -) 1 tab PO DAILY [facility] Last Admin: 09/12/16 09:05 Dose: 1 tab Doxazosin Mesylate (Cardura -) 2 mg PO DAILY [facility] Last Admin: 09/12/16 09:44 Dose: 2 mg Finasteride (Proscar -) 5 mg PO DAILY [facility] Last Admin: 09/12/16 09:05 Dose: 5 mg Furosemide (Lasix Injection -) 60 mg IVPUSH BID@0600,1400 [facility] Last Admin: 09/12/16 12:59 Dose: 60 mg Guaifenesin (Mucinex -) 600 mg PO BID [facility] Last Admin: 09/12/16 09:05 Dose: 600 mg Pantoprazole Sodium (Protonix -) 40 mg PO DAILY [facility] Last Admin: 09/12/16 09:06 Dose: 40 mg Prednisone (Deltasone -) 60 mg PO DAILY [facility] Last Admin: 09/12/16 09:05 Dose: 60 mg Ranitidine HCl (Zantac -) 150 mg PO DAILY [facility] Last Admin: 09/12/16 09:06 Dose: 150 mg Rosuvastatin Calcium (Crestor -) 10 mg PO HS [facility] Last Admin: 09/11/16 21:17 Dose: 10 mg Senna (Senna -) 2 tab PO [facility] Last Admin: 09/11/16 21:17 Dose: 2 tab Tamsulosin HCl (Flomax -) 0.4 mg PO DAILY@0830 [facility] Last Admin: 09/12/16 09:02 Dose: 0.4 mg Constitutional: Yes: NAD Eyes: Yes: WNL HENT: Yes: WNL Neck: Yes: WNL Cardiovascular: Yes: Regular Rate and Rhythm, S1, S2 Respiratory: Yes: Diminished at the bases Gastrointestinal: Yes: Normal Bowel Sounds, Soft Extremities: Yes: WNL Edema: Yes Labs: Assessment/Plan Problem List - Problems (1) Acute renal failure (ARF) Code(s): N17.9 - ACUTE KIDNEY FAILURE, UNSPECIFIED Qualifiers: Acute renal failure type: unspecified Qualified Code(s): N17.9 - Acute kidney failure, unspecified (2) BPH (benign prostatic hyperplasia) Code(s): N40.0 - BENIGN PROSTATIC HYPERPLASIA WITHOUT LOWER URINRY TRACT SYMP (3) COPD (chronic obstructive pulmonary disease) Code(s): J44.9 - CHRONIC OBSTRUCTIVE PULMONARY DISEASE, UNSPECIFIED (4) ILD (interstitial lung disease) Code(s): J84.9 - INTERSTITIAL PULMONARY DISEASE, UNSPECIFIED Assessment/Plan COPD ILD STABLE MEDIASTINAL ADENOPATHY STABLE SLIGHTLY IMPROVED FROM PRIOR CT ACUTE ON H/O CHRONIC KIDNEY DISEASE CREATININE IMPROVING HTN HLD PLAN O2 NEEDED INHALED BRONCHODILATORS PREDNISONE LASIX PFTS OUTPATIENT MONITOR LYTES,RENAL FUNCTION CAN MONITOR YOLANDE LEVEL OUTPATIENT DR MIRANDA
--- NOTE | 2016-09-12 15:19 | PN ---
Progress Note, Physician History of Present Illness: Pt seen and examined at bedside. He is awake and alert. He feels that his lower extremity edema is improving. - Current Medication List Current Medications: Active Medications Albuterol Sulfate (Ventolin 0.083% Nebulizer Soln -) 1 amp NEB Q4H PRN PRN Reason: SHORT OF BREATH/WHEEZING Albuterol/Ipratropium (Duoneb -) 1 amp NEB TIDR [facility] Last Admin: 09/12/16 06:20 Dose: 1 amp Bacitracin (Bacitracin -) 1 applic TP DAILY [facility] Last Admin: 09/12/16 09:05 Dose: 1 applic Budesonide/Formoterol Fumarate (Symbicort 160/4.5mcg -) 2 puff IH BID [facility] Last Admin: 09/12/16 09:06 Dose: 2 puff Calcium Carbonate/Cholecalciferol (Os-Kory 500+D -) 1 tab PO DAILY [facility] Last Admin: 09/12/16 09:05 Dose: 1 tab Doxazosin Mesylate (Cardura -) 2 mg PO DAILY [facility] Last Admin: 09/12/16 09:44 Dose: 2 mg Finasteride (Proscar -) 5 mg PO DAILY [facility] Last Admin: 09/12/16 09:05 Dose: 5 mg Furosemide (Lasix Injection -) 60 mg IVPUSH BID@0600,1400 [facility] Last Admin: 09/12/16 12:59 Dose: 60 mg Guaifenesin (Mucinex -) 600 mg PO BID [facility] Last Admin: 09/12/16 09:05 Dose: 600 mg Pantoprazole Sodium (Protonix -) 40 mg PO DAILY [facility] Last Admin: 09/12/16 09:06 Dose: 40 mg Prednisone (Deltasone -) 60 mg PO DAILY [facility] Last Admin: 09/12/16 09:05 Dose: 60 mg Ranitidine HCl (Zantac -) 150 mg PO DAILY [facility] Last Admin: 09/12/16 09:06 Dose: 150 mg Rosuvastatin Calcium (Crestor -) 10 mg PO HS [facility] Last Admin: 09/11/16 21:17 Dose: 10 mg Senna (Senna -) 2 tab PO HS [facility] Last Admin: 09/11/16 21:17 Dose: 2 tab Tamsulosin HCl (Flomax -) 0.4 mg PO DAILY@0830 [facility] Last Admin: 09/12/16 09:02 Dose: 0.4 mg - Objective Vital Signs: Vital Signs Temperature 98.5 F 09/12/16 07:52 Pulse Rate 90 09/12/16 07:52 Respiratory Rate 18 09/12/16 07:52 Blood Pressure 131/79 09/12/16 07:52 O2 Sat by Pulse Oximetry (%) 97 09/12/16 07:52 Constitutional: Yes: Calm Eyes: Yes: Conjunctiva Clear HENT: Yes: Atraumatic Neck: Yes: Supple Cardiovascular: Yes: S1, S2 Respiratory: Yes: CTA Bilaterally Gastrointestinal: Yes: Normal Bowel Sounds, Soft Genitourinary: Yes: WNL Musculoskeletal: Yes: WNL Edema: Yes Edema: LLE: 2+, RLE: 2+ Neurological: Yes: Oriented Psychiatric: Yes: Oriented Labs: CBC, BMP 09/11/16 05:48 09/11/16 05:48 INR, PTT INR 1.00 (0.82-1.09) 08/30/16 17:58 Problem List - Problems (1) Acute renal failure (ARF) Code(s): N17.9 - ACUTE KIDNEY FAILURE, UNSPECIFIED Qualifiers: Acute renal failure type: unspecified Qualified Code(s): N17.9 - Acute kidney failure, unspecified (2) BPH (benign prostatic hyperplasia) Code(s): N40.0 - BENIGN PROSTATIC HYPERPLASIA WITHOUT LOWER URINRY TRACT SYMP (3) COPD (chronic obstructive pulmonary disease) Code(s): J44.9 - CHRONIC OBSTRUCTIVE PULMONARY DISEASE, UNSPECIFIED (4) Hyperkalemia Code(s): E87.5 - HYPERKALEMIA Assessment/Plan Current Medications Generic Name Dose Route Start Last Admin Trade Name Freq PRN Reason Stop Dose Admin Albuterol Sulfate 1 amp 09/10/16 20:59 Ventolin 0.083% Nebulizer Soln - NEB Q4H PRN SHORT OF BREATH/WHEEZING Albuterol/Ipratropium 1 amp 09/10/16 22:00 09/12/16 06:20 Duoneb - NEB 1 amp TIDR [facility] Administration Bacitracin 1 applic 09/11/16 10:00 09/12/16 09:05 Bacitracin - TP 1 applic DAILY [facility] Administration Budesonide/Formoterol Fumarate 2 puff 09/10/16 22:00 09/12/16 09:06 Symbicort 160/4.5mcg - IH 2 puff BID [facility] Administration Calcium Carbonate/Cholecalciferol 1 tab 09/11/16 10:00 09/12/16 09:05 Os-Kory 500+D - PO 1 tab DAILY [facility] Administration Doxazosin Mesylate 2 mg 09/11/16 10:00 09/12/16 09:44 Cardura - PO 2 mg DAILY [facility] Administration Finasteride 5 mg 09/11/16 10:00 09/12/16 09:05 Proscar - PO 5 mg DAILY [facility] Administration Furosemide 60 mg 09/11/16 06:00 09/12/16 12:59 Lasix Injection - IVPUSH 60 mg BID@0600,1400 [facility] Administration Guaifenesin 600 mg 09/10/16 22:00 09/12/16 09:05 Mucinex - PO 600 mg BID [facility] Administration Pantoprazole Sodium 40 mg 09/11/16 10:00 09/12/16 09:06 Protonix - PO 40 mg DAILY [facility] Administration Prednisone 60 mg 09/11/16 10:00 09/12/16 09:05 Deltasone - PO 60 mg DAILY [facility] Administration Ranitidine HCl 150 mg 09/11/16 10:00 09/12/16 09:06 Zantac - PO 150 mg DAILY [facility] Administration Rosuvastatin Calcium 10 mg 09/10/16 22:00 09/11/16 21:17 Crestor - PO 10 mg HS [facility] Administration Senna 2 tab 09/10/16 22:00 09/11/16 21:17 Senna - PO 2 tab HS [facility] Administration Tamsulosin HCl 0.4 mg 09/11/16 08:30 09/12/16 09:02 Flomax - PO 0.4 mg DAILY@0830 [facility] Administration Impression 1. CATY 2. CKD with hx of JANNA 3. COPD 4. HTN 5. BPH 6. hyperkalemia 7. fluid overload 8. mediastinal lymphadenopathy Plan - no new labs - can follow up as outpt - prednisone 60 mg daily on discharge - discharge on calcium plus D supplements along with ranitidine - cont lasix on discharge - will need pet scan - likely recurrence of JANNA - will follow Dr Marie
--- NOTE | 2016-09-12 15:52 | PATH ---
Surgical Pathology Report Patient Name: SIVLANA RICE [facility]. Rec. #: [id number] /Age/Gender: 1940 (Age: 75) / M Account: [id number] Location: 4 W TELEMETRY U Taken: 09/10/2016 Received: 09/11/2016 Reported: 09/12/2016 Physicians: Chaparro Cha M.D. Specimen(s) Received SHAVINGS OF PROSTATE CHIPS Clinical History BPH Final Diagnosis PROSTATE, TUR: BENIGN PROSTATE TISSUE WITH GLANDULAR AND STROMAL HYPERPLASIA AND FOCI OF ACTIVE INFLAMMATION. Electronically Signed Sergio Negrete M.D. Gross Description Received in formalin labeled "prostate tissue" is an 11 g, 7.5 x 7.0 x 0.5 cm aggregate of chao-pink, irregular, firm to rubbery portions of tissue, consistent with prostate chips. The specimen is entirely submitted in 9 cassettes. /09/11/2016 saudi/09/11/2016
[2016-09-12 19:15] VITALS: BP 122/77; PULSE 97; TEMP 98
--- NOTE | 2016-09-12 19:46 | DS ---
Physical Examination Vital Signs: Vital Signs Temperature 98.0 F 09/12/16 17:00 Pulse Rate 97 H 09/12/16 17:00 Respiratory Rate 18 09/12/16 17:00 Blood Pressure 122/77 09/12/16 17:00 O2 Sat by Pulse Oximetry (%) 97 09/12/16 07:52 Constitutional: Yes: No Distress Eyes: Yes: WNL HENT: Yes: WNL Neck: Yes: WNL Cardiovascular: Yes: WNL Respiratory: Yes: WNL Gastrointestinal: Yes: WNL Renal/: Yes: WNL Musculoskeletal: Yes: Joint Swelling Extremities: Yes: WNL Edema: Yes Edema: LLE: 2+, RLE: 2+ Peripheral Pulses WNL: Yes Integumentary: Yes: Rash Wound/Incision: Yes: Clean/Dry Neurological: Yes: WNL ...Motor Strength: WNL Psychiatric: Yes: WNL Labs: CBC, BMP 09/11/16 05:48 09/11/16 05:48 Discharge Summary Reason For Visit: ACUTE RENAL FAILURE, HYPERKALEMIA Current Active Problems Abnormal EKG (Acute) Acute renal failure (ARF) (Acute) BPH loc w urin obs/LUTS (Acute) Benign localized hyperplasia of prostate with urinary retention (Acute) Bronchospasm (Acute) COPD (chronic obstructive pulmonary disease) (Acute) Constipation (Acute) Elevated prostate specific antigen (PSA) (Acute) Eosinophilia (Acute) Hyperkalemia (Acute) ILD (interstitial lung disease) (Acute) Procedures: Principal: turp Other Procedures: CT CHEST/ABD Hospital Course: ADMITTED WITH ACUTE ON CHRONIC RENAL FAILURE , TREATED WITH STEROIDS IV, LASIX IV, NEPHROLOGY AND WORKUP DETERMINED TURP TOLERATED WELL, F/U OUTPATIENT LABS AND RENAL F/U. Condition: Guarded - Instructions Diet, Activity, Other Instructions: RENAL LOW SODIUM DIET SEE DR SOLIS AND KIMBER NEXT WEEK Referrals: Chidi Solis MD [Primary Care Provider] - Disposition: VNS/HOME HEALTH CARE - Home Medications Comprehensive Discharge Medication List: Ambulatory Orders Budesonide/Formeterol Fumarate [SYMBICORT 160/4.5mcg -] 2 inh IH BID inhaler Tamsulosin HCl [Flomax -] 0.4 mg PO DAILY@0830 cap.er.24h 07/08/14 [place]-3 Fatty Acids [Fish Oil] 900 mg PO DAILY 01/19/15 Calcium Citrate/Vitamin D3 [Calcium Citrate - Vit D Caplet] 1 each PO DAILY Budesonide/Formeterol Fumarate [SYMBICORT 160/4.5mcg -] 1 inh PO BID 08/30/16 Doxazosin Mesylate [Cardura -] 2 mg PO DAILY 08/30/16 Fluticasone/Vilanterol [Breo Ellipta 100-25 Mcg INH] 1 each IH PRN 08/30/16 Levomefolate/B6/B12/Algal Oil [Metanx Capsule] 4 mg PO BID 08/30/16 Pantoprazole Sodium 40 mg PO DAILY 08/30/16 Ranolazine [Ranexa -] 500 mg PO BID 08/30/16
[2016-09-13] MEDS ORDERED: FUROSEMIDE 40 MG TABLET (FP) PO SCH (10:00)
== END 2016-09-12 21:51 | disposition home health service (06) | DRG 666 ==
LOC: JER 16:20 → JERBED 19:25 → J8W 08-31 03:29 → JERBED 08-31 03:29 → J4W 08-31 12:40
PROVIDERS: ADMIT Family Medicine; ATTEND Family Medicine
PROC: 0TJB8ZZ Inspection of Bladder, Via Natural or Artificial Opening Endoscopic (ICD-10-PCS; 2016-09-10)
PROC: 0VT08ZZ Resection of Prostate, Via Natural or Artificial Opening Endoscopic (ICD-10-PCS; principal; 2016-09-10 17:00)
DX: N17.9 Acute kidney failure, unspecified (principal); J84.9 Interstitial pulmonary disease, unspecified; E87.5 Hyperkalemia; E78.5 Hyperlipidemia, unspecified; I25.10 Atherosclerotic heart disease of native coronary artery without angina pectoris; I12.9 Hypertensive chronic kidney disease with stage 1 through stage 4 chronic kidney disease, or unspecified chronic kidney disease; N18.9 Chronic kidney disease, unspecified; Z87.891 Personal history of nicotine dependence; J43.9 Emphysema, unspecified; E87.70 Fluid overload, unspecified; R94.31 Abnormal electrocardiogram [ECG] [EKG]; K59.00 Constipation, unspecified; E66.9 Obesity, unspecified; Z68.31 Body mass index [BMI] 31.0-31.9, adult; R59.0 Localized enlarged lymph nodes; N40.1 Benign prostatic hyperplasia with lower urinary tract symptoms; R33.8 Other retention of urine; E04.9 Nontoxic goiter, unspecified
CPT/HCPCS: 36415; 71010-TC; 71020-TC; 71250-TC; 76775-TC; 76856-TC; 80048; 80053; 80061; 81003; 81015; 82550; 82570; 83036; 83520; 83721; 83735; 83880; 84100; 84153; 84155; 84156; 84165; 84484; 85025; 85610; 85651; 86038; 86140; 86225; 86256; 86850; 86900; 86901; 88305-TC; 93005; 93010; 93306-TC; 93970-TC; 94010; 94640; 94760; 99285-25; J1644

== ENCOUNTER 2016-10-26 09:24 | Inpatient (IN) | payer BC, OTHER ==
--- NOTE | 2016-10-26 10:02 | PDOC ---
Attending Attestation - Medical Decision Making 10/26/16 13:04 Dr. Solis was pages at 12:55 requesting a call back for doctor to doctor consult. <Ariela Wing - Last Filed: 10/26/16 13:04> - Resident Resident Name: Bo Peng - ED Attending Attestation I have performed the following: I have examined & evaluated the patient, The case was reviewed & discussed with the resident, I agree w/resident's findings & plan, Exceptions are as noted - HPI HPI: 75 yo M recently admitted for ARF, now s/p TURP for BPH presents with black tarry stools yesterday. He denies any abdominal pain, N/V/D, cp, SOB. He also states that he was recently treated in [facility] for infection due to infected cyst to the L foot. He has improved with antibiotics. Denies fever, chills. - Physicial Exam PE: GENERAL: Awake, alert, and fully oriented, in no acute distress HEAD: No signs of trauma EYES: PERRLA, EOMI, sclera anicteric, conjunctiva clear ENT: Auricles normal inspection, hearing grossly normal, nares patent, oropharynx clear without exudates. Moist mucosa NECK: Normal ROM, supple, no lymphadenopathy, JVD, or masses LUNGS: Breath sounds equal, clear to auscultation bilaterally. No wheezes, and no crackles HEART: Tachycardic, normal S1 and S2, no murmurs, rubs or gallops ABDOMEN: Soft, nontender, normoactive bowel sounds. No guarding, no rebound. No masses EXTREMITIES: Normal range of motion, 3+ pitting edema to BLE. No clubbing or cyanosis. No cords, erythema, or tenderness NEUROLOGICAL: Cranial nerves II through XII grossly intact. Normal speech, normal gait SKIN: Warm, Dry, normal turgor, no rashes or lesions noted. - Medical Decision Making Pt presents with dark tarry stools yesterday, recent medical admission. On exam patient with tachycardia, sinus tach on EKG. UA shows UTI. Will place on obs. <Lilian Tripp - Last Filed: 10/26/16 14:16>
[2016-10-26 10:27] LABS: MCH 23.7 pg (25.7-33.7); MEAN CELL VOLUME 76.5 fl (80-96); MEAN PLT VOLUME 9.1 fl (7.5-11.1); PLATELET COUNT 124 K/MM3 (134-434); RDW 16.6 % (11.9-15.9); WHITE BLOOD COUNT 7.9 K/mm3 (4.0-10.0)
[2016-10-26 10:41] LABS: INR 0.97 (0.82-1.09); PROTHROMBIN TIME (PATIENT) 10.7 SEC (9.98-11.88)
--- NOTE | 2016-10-26 10:42 | PDOC ---
History of Present Illness - General Chief Complaint: Rectal Bleed Stated Complaint: LT LEG PAIN Time Seen by Provider: 10/26/16 09:59 History Source: Patient Exam Limitations: No Limitations - History of Present Illness Initial Comments: 10/26/16 10:29 The patient is a 75M with a PMH of COPD, HTN, HLD, CAD, BPH, CKD who presents to the ED after having a bout of black, tarry stool. The patient said he had the episode of black, tarry stool yesterday. He has not had a BM since. He recently had a TURP procedure, kidney injury requiring HD, and resultant b/l LE edema with subsequent infection. He is not on any home O2. He was seen at [facility] for cellulitis on 10/15 and is on his last day of antibiotics. He is also complaining of hand/finger numbness which is chronic. All: none Surg: TURP Soc: none Past History - Past Medical History Allergies/Adverse Reactions: Allergies Allergy/AdvReac Type Severity Reaction Status Date / Time No Known Allergies Allergy Verified 10/26/16 09:40 Home Medications: Ambulatory Orders Doxazosin Mesylate [Cardura -] 2 mg PO DAILY tablet 09/12/16 Furosemide [Lasix -] 20 mg PO DAILY 10/26/16 Levomefolate/B6/B12/Algal Oil [Metanx Capsule] 1 each PO DAILY 10/26/16 Pantoprazole Sodium [Protonix -] 20 mg PO DAILY 10/26/16 Silodosin [Rapaflo] 8 mg PO DAILY 10/26/16 Anemia: No Asthma: No Cancer: No Cardiac Disorders: Yes (ENLARGED HEART) CVA: No COPD: Yes CHF: No Dementia: No Diabetes: No Dialysis: Yes (HX OF , NOT ON DIALYSIS NOW) GI Disorders: No Disorders: Yes (RENAL FAILURE,) HTN: Yes Hypercholesterolemia: No Kidney Stones: Yes Liver Disease: No Seizures: No Thyroid Disease: No Other medical history: ENLARGED PROSTATE - Surgical History Abdominal Surgery: Yes (HERNIA X2) Appendectomy: No Cardiac Surgery: No Cholecystectomy: No Lung Surgery: No Neurologic Surgery: No Orthopedic Surgery: Yes (SPINAL SX MANY YEARS AGO) - Psycho/Social/Smoking Cessation Hx Anxiety: No Suicidal Ideation: No Smoking History: Never smoked Have you smoked in the past 12 months: No If you are a former smoker, when did you quit?: 35 years ago 'Breaking Loose' booklet given: 08/31/16 Hx Alcohol Use: Yes (SOCIAL) Drug/Substance Use Hx: No Substance Use Type: None Hx Substance Use Treatment: No Review of Systems - Review of Systems Able to Perform ROS?: Yes Is the patient limited Bangladeshi proficient: No Constitutional: Yes: Chills. No: Fever Respiratory: No: Shortness of Breath Cardiac (ROS): No: Chest Pain ABD/GI: Yes: Tarry Stools. No: Blood Streaked Bowels, Constipated, Diarrhea, Nausea, Rectal Bleeding, Vomiting, Other (abd pain) : No: Burning, Discharge Integumentary: No: Rash Neurological: Yes: Numbness (chronic in b/l hands) *Physical Exam - Vital Signs Last Vital Signs Temp Pulse Resp BP Pulse Ox 116 H 20 93/60 95 10/26/16 09:38 10/26/16 09:38 10/26/16 09:38 10/26/16 09:38 - Physical Exam General Appearance: Yes: Nourished, Appropriately Dressed. No: Apparent Distress HEENT: positive: Normal Voice, Hearing Grossly Normal Respiratory/Chest: positive: Lungs Clear, Normal Breath Sounds. negative: Chest Tender, Respiratory Distress, Paradoxal Breathing, Crackles, Rales, Rhonchi, Stridor, Wheezing Cardiovascular: positive: Regular Rhythm, S1, S2, Tachycardia. negative: Regular Rate, Bradycardia, Diastolic Murmur, Systolic Murmur Gastrointestinal/Abdominal: positive: Flat, Soft. negative: Tender, Protuberent , Distended, Guarding, Rebound Rectal Exam: positive: heme negative stool, normal exam, normal rectal tone. negative: heme positive stool, hemorrhoids Musculoskeletal: positive: CVA Tenderness (L) Extremity: positive: Normal Range of Motion, Swelling (3+ pitting edema in b/l LE). negative: Tender, Coldness Neurologic: positive: Fully Oriented, Alert, Normal Mood/Affect Heart Score/ECG Review - QRS Widened: RBBB (Progressing since previous EKG 08/31/16. Not a full RBBB.) - ECG Impressions Tachycardia: Sinus ED Treatment Course - LABORATORY CBC & Chemistry Diagram: 10/26/16 10:20 10/26/16 12:06 - ADDITIONAL ORDERS Additional order review: Laboratory Results 10/26/16 10:21 Stool Occult Blood Negative Medical Decision Making - Medical Decision Making 10/26/16 10:50 The patient is a 75 M with a PMH of CKD, COPD, HTN, HLD, CAD, BPH who presents to the ED after having an episode of tarry stool yesterday. Hemoccult negative. I have ordered labs and will reassess the patient when the labs return. 10/26/16 12:46 No WBC count. Hgb WNL. Glucose 711. Added serum acetones. 10/26/16 13:09 UA indicative of UTI. Will give 1g of rocephin. 10/26/16 14:[address] Solis. He is comfortable seeing the patient on an outpatient basis or admitting him for observation depending on his medical status. Patient remains tachycardic in the 95-110's. Will put him in for an obs bed. *DC/Admit/Observation/Transfer Diagnosis at time of Disposition: Tachycardia - Discharge Dispostion Condition at time of disposition: Stable Admit: Yes
[2016-10-26 12:33] LABS: PLATELET COMMENT2 NO CLOTTING DETECTED; PLATELET ESTIMATE SLT DECREASED (NORMAL); TOTAL CELLS COUNTED 100
[2016-10-26 12:41] LABS: ALBUMIN 2.8 g/dl (3.4-5.0); ANION GAP 11 (8-16); BILIRUBIN,TOTAL 0.4 mg/dL (0.2-1.0); CALCIUM 10.4 mg/dL (8.5-10.1); CO2 28 mmol/L (21-32); CREATININE 1.3 mg/dL (0.7-1.3); SGOT/AST 12 U/L (15-37); SGPT/ALT 45 U/L (12-78); TOT PROT 6.2 g/dl (6.4-8.2)
[2016-10-26 12:42] LABS: URINE APPEARANCE CLOUDY; URINE BILIRUBIN NEGATIVE (NEGATIVE); URINE BLOOD 2+ (NEGATIVE); URINE COLOR LTYELLOW; URINE GLUCOSE (UA) 3+ (NEGATIVE); URINE KETONE NEGATIVE (NEGATIVE); URINE NITRITE POSITIVE (NEGATIVE); URINE PROTEIN NEGATIVE (NEGATIVE); URINE UROBILINOGEN NEGATIVE mg/dL (0.2-1.0)
[2016-10-26 12:42] LABS: GLUCOSE,RANDOM 717 mg/dL (74-106)
[2016-10-26 12:43] LABS: ALK PHOS 119 U/L (45-117); CPK 52 IU/L (39-308); TROPONIN I < 0.02 ng/ml (0.00-0.05)
[2016-10-26 12:44] LABS: URINE LEUK ESTERASE 2+ (NEGATIVE)
[2016-10-26 12:46] LABS: URINE BACTERIA MANY /hpf (NONE SEEN); URINE MUCUS RARE; URINE RBC 31 /hpf (0-3); URINE WBC 176 /hpf (3-5)
[2016-10-26] MEDS ORDERED: CEFTRIAXONE 1 GM in DEXTROSE 5%-WATER - 50 ML IVPB ONE (12:56)
[2016-10-26] MEDS ORDERED: CEFTRIAXONE 50 ML ONE (13:02)
[2016-10-26] MEDS ORDERED: INSULIN REGULAR 100 UNITS in SODIUM CHLORIDE 99 ML IVPB ONE (15:06)
[2016-10-26] MEDS ORDERED: INSULIN REGULAR HUMAN 100 UNITS/ML *VIAL SQ ONE (15:08)
[2016-10-26] MEDS ORDERED: ACETAMINOPHEN 325 MG TABLET (FP) PO PRN (16:11)
[2016-10-26 16:17] VITALS: BMI 25.4
[2016-10-26] MEDS ORDERED: INSULIN SLIDING SCALE (NOVOLOG) 1 VIAL SQ SCH (16:30)
[2016-10-26] MEDS: INSULIN SLIDING SCALE (NOVOLOG) 1 VIAL SQ SCH ×2 (17:50→21:40)
[2016-10-26] MEDS: INSULIN DETEMIR 100 UNITS/ML MDV SQ SCH (18:09)
[2016-10-26] MEDS ORDERED: INSULIN DETEMIR 100 UNITS/ML MDV SQ SCH (22:00)
[2016-10-27] MEDS: FUROSEMIDE 20 MG TABLET (FP) PO SCH ×2 (06:33→14:30)
[2016-10-27] MEDS: INSULIN SLIDING SCALE (NOVOLOG) 1 VIAL SQ SCH ×4 (06:34→21:52)
[2016-10-27] MEDS: INSULIN DETEMIR 100 UNITS/ML MDV SQ SCH ×2 (06:34→17:52)
[2016-10-27 08:09] LABS: MCH 23.8 pg (25.7-33.7); MCHC 31.7 g/dl (32.0-35.9); MEAN CELL VOLUME 75.1 fl (80-96); MEAN PLT VOLUME 9.1 fl (7.5-11.1); PLATELET COUNT 114 K/MM3 (134-434); RDW 15.8 % (11.9-15.9); WHITE BLOOD COUNT 6.5 K/mm3 (4.0-10.0)
[2016-10-27 08:40] LABS: ALBUMIN 2.6 g/dl (3.4-5.0); ALK PHOS 88 U/L (45-117); ANION GAP 11 (8-16); BILIRUBIN,TOTAL 0.4 mg/dL (0.2-1.0); CALCIUM 9.7 mg/dL (8.5-10.1); CO2 27 mmol/L (21-32); CREATININE 0.8 mg/dL (0.7-1.3); GLUCOSE,RANDOM 58 mg/dL (74-106); SGOT/AST 15 U/L (15-37); SGPT/ALT 40 U/L (12-78); TOT PROT 5.9 g/dl (6.4-8.2)
[2016-10-27] MEDS ORDERED: PT OWN MED DRAWER 7, Y5N ONE (09:13)
[2016-10-27] MEDS: PANTOPRAZOLE 40 MG TABLET (FP) PO SCH (09:14)
[2016-10-27] MEDS: DOXAZOSIN MESYLATE 2 MG TABLET (FP) PO SCH (09:14)
--- NOTE | 2016-10-27 11:25 | HP ---
Admitting History and Physical - Primary Care Physician PCP: Chidi Solis - Admission Chief Complaint: NEW ONSET DIABETES, WITH BLOOD GLUCOSE 717....WEAKNESS History of Present Illness: 75 Y/O MALE HISTORY OF COPD,GLOMERULONEPHRITIS, HTN, BPH,PREDNISONE THERAPY FOR MANY MONTHS FOR RENAL DISEASE, DEVELOPED NEW ONSET OF DIABETES WITH GLUCOSE 717 ACETONE NEGATIVE. History Source: Patient, Medical Record - Past Medical History Cardiovascular: Yes: HTN. 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 esolved with steroids,) Heme/Onc: Yes: Other (intermittent eosinophilia) Psych: Yes: Addictions (previous smoker quit 35 years ago ) Musculoskeletal: Yes: Other (No active joints.) - Past Surgical History Past Surgical History: Yes: Hernia Repair - Smoking History Smoking history: Former smoker Have you smoked in the past 12 months: No If you are a former smoker, when did you quit?: 35 years ago - Alcohol/Substance Use Hx Alcohol Use: Yes (SOCIAL) History of Substance Use: reports: None - Social History ADL: Independent History of Recent Travel: No Home Medications - Allergies Allergies/Adverse Reactions: Allergies Allergy/AdvReac Type Severity Reaction Status Date / Time No Known Allergies Allergy Verified 10/26/16 09:40 - Home Medications Home Medications: Ambulatory Orders Doxazosin Mesylate [Cardura -] 2 mg PO BID 10/26/16 Furosemide [Lasix -] 20 mg PO BID 10/26/16 Levomefolate/B6/B12/Algal Oil [Metanx Capsule] 1 each PO DAILY 10/26/16 Pantoprazole Sodium [Protonix -] 20 mg PO DAILY 10/26/16 Prednisone PO DAILY 10/26/16 Silodosin [Rapaflo] 8 mg PO DAILY 10/26/16 Family Disease History - Family Disease History Family Disease History: Diabetes: Sister ( in late 50s/early 60s), Heart Disease: Mother Review of Systems - Review of Systems Constitutional: reports: Weakness Eyes: reports: No Symptoms HENT: reports: No Symptoms Neck: reports: No Symptoms Cardiovascular: reports: No Symptoms Respiratory: reports: No Symptoms Gastrointestinal: reports: No Symptoms Genitourinary: reports: No Symptoms Musculoskeletal: reports: Muscle Weakness Integumentary: reports: Wound Neurological: reports: No Symptoms Endocrine: reports: No Symptoms Hematology/Lymphatic: reports: No Symptoms Psychiatric: reports: No Symptoms Physical Examination Vital Signs: Vital Signs Temperature 97.6 F 10/27/16 06:01 Pulse Rate 91 H 10/27/16 06:01 Respiratory Rate 18 10/27/16 07:58 Blood Pressure 100/72 10/27/16 06:01 O2 Sat by Pulse Oximetry (%) 96 10/27/16 07:58 Findings/Remarks: AWAKE ALERT, FEELING BETTER Constitutional: Yes: Mild Distress Eyes: Yes: WNL HENT: Yes: WNL Neck: Yes: WNL Cardiovascular: Yes: WNL Respiratory: Yes: Diminished Gastrointestinal: Yes: WNL Renal/: Yes: WNL Musculoskeletal: Yes: Muscle Weakness Extremities: Yes: Erythema Edema: Yes Edema: LLE: 2+, RLE: 2+ Peripheral Pulses WNL: Yes Integumentary: Yes: Pressure Ulcer Wound/Incision: Yes: Dressing Dry and Intact Neurological: Yes: Pre-Existing Deficit ...Motor Strength: LLE, RLE Psychiatric: Yes: Other Labs: CBC, BMP 10/27/16 06:00 10/27/16 06:00 Problem List - Problems (1) Abnormal EKG Code(s): R94.31 - ABNORMAL ELECTROCARDIOGRAM [ECG] [EKG] (2) Edema Code(s): R60.9 - EDEMA, UNSPECIFIED Qualifiers: Edema type: localized Qualified Code(s): R60.0 - Localized edema (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
--- NOTE | 2016-10-27 11:47 | CON.PULM ---
Consult Consult Specialty:: PULMONARY Referred by:: WILBERTO Reason for Consultation:: COPD - History of Present Illness Chief Complaint: SOB History of Present Illness: The patient is a 75M with a PMH of COPD, HTN, HLD, CAD, BPH, CKD who presents to the ED after having a bout of black, tarry stool. The patient said he had the episode of black, tarry stool yesterday. He has not had a BM since. He recently had a TURP procedure, kidney injury requiring HD, and resultant b/l LE edema with subsequent infection in the past. He is not on any home O2. He was seen at [facility] for cellulitis on 10/15 and is on his last day of antibiotics. He is also complaining of hand/finger numbness which is chronic. - History Source History Provided By: Patient, Medical Record Limitations to Obtaining History: No Limitations - Past Medical History CLINIC SPECIALIST: No: Alzheimer's Cardio/Vascular: Yes: HTN. 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 esolved with steroids,) Psych: Yes: Addictions (previous smoker quit 35 years ago ) Musculoskeletal: Yes: Other (No active joints.) - Past Surgical History Past Surgical History: Yes: Hernia Repair - Alcohol/Substance Use Hx Alcohol Use: Yes (SOCIAL) History of Substance Use: reports: None - Smoking History Smoking history: Former smoker Have you smoked in the past 12 months: No If you are a former smoker, when did you quit?: 35 years ago - Social History Usual Living Arrangement: With Spouse (2nd ) ADL: Independent History of Recent Travel: No Home Medications - Allergies Allergies/Adverse Reactions: Allergies Allergy/AdvReac Type Severity Reaction Status Date / Time No Known Allergies Allergy Verified 10/26/16 09:40 - Home Medications Home Medications: Ambulatory Orders Doxazosin Mesylate [Cardura -] 2 mg PO BID 10/26/16 Furosemide [Lasix -] 20 mg PO BID 10/26/16 Levomefolate/B6/B12/Algal Oil [Metanx Capsule] 1 each PO DAILY 10/26/16 Pantoprazole Sodium [Protonix -] 20 mg PO DAILY 10/26/16 Prednisone PO DAILY 10/26/16 Silodosin [Rapaflo] 8 mg PO DAILY 10/26/16 Family Disease History - Family Disease History Family Disease History: Diabetes: Sister ( in late 50s/early 60s), Heart Disease: Mother Review of Systems - Review of Systems Constitutional: denies: Fever Eyes: denies: Blurred Vision HENT: denies: Difficult Swallowing Neck: denies: Decreased ROM Cardiovascular: reports: Edema, Shortness of Breath. denies: Chest Pain Respiratory: reports: Exercise Intolerance, SOB on Exertion. denies: Hemoptysis , Orthopnea, Wheezing Gastrointestinal: denies: Abdominal Pain Genitourinary: denies: Burning Breasts: reports: No Symptoms Reported Physical Exam Vital Sings: Vital Signs Temperature 97.6 F 10/27/16 06:01 Pulse Rate 91 H 10/27/16 06:01 Respiratory Rate 18 10/27/16 07:58 Blood Pressure 100/72 10/27/16 06:01 O2 Sat by Pulse Oximetry (%) 96 10/27/16 07:58 Constitutional: Yes: Calm Eyes: Yes: EOM Intact HENT: Yes: Normocephalic Neck: Yes: Trachea Midline Cardiovascular: Yes: Regular Rate and Rhythm Respiratory: Yes: Diminished Gastrointestinal: Yes: Normal Bowel Sounds Edema: LLE: 2+, RLE: 2+ Labs: CBC, BMP 10/27/16 06:00 10/27/16 06:00 Imaging - Results Chest X-ray: Report Reviewed, Image Reviewed Cat Scan: Image Reviewed Problem List - Problems (1) Benign localized hyperplasia of prostate with urinary retention Code(s): N40.1 - BENIGN PROSTATIC HYPERPLASIA WITH LOWER URINARY TRACT SYMP (2) Cardiomegaly Code(s): I51.7 - CARDIOMEGALY (3) Elevated prostate specific antigen (PSA) Code(s): R97.20 - ELEVATED PROSTATE SPECIFIC ANTIGEN [PSA] (4) Hypertension Code(s): I10 - ESSENTIAL (PRIMARY) HYPERTENSION Qualifiers: Hypertension type: essential hypertension Qualified Code(s): I10 - Essential (primary) hypertension (5) ILD (interstitial lung disease) Code(s): J84.9 - INTERSTITIAL PULMONARY DISEASE, UNSPECIFIED (6) Minimal change glomerular disease Code(s): N04.0 - NEPHROTIC SYNDROME WITH MINOR GLOMERULAR ABNORMALITY (7) COPD (chronic obstructive pulmonary disease) case management patient Code(s): XUA0530 - Assessment/Plan STABLE COPD MULTIPLE MEDICAL PROBLEMS LISTED O2 PRN BRONCHODILATORS NO NEED FOR STEROIDS WILL FOLLOW Matias LOPEZ MD
[2016-10-27] MEDS ORDERED: ALBUTEROL SO4 2.5/IPRATROPIUM 0.5 INH SOL 3 ML VIAL.NEB. NEB PRN (11:48)
[2016-10-27] MEDS ORDERED: DEXTROSE 5%-WATER 100 ML IVPB ONE (13:59)
[2016-10-27] MEDS: CEFTRIAXONE 2 GM in DEXTROSE 5%-WATER 100 ML IVPB SCH (14:28)
--- NOTE | 2016-10-27 14:59 | CONSULT ---
Consult Consult Specialty:: Nephrology Reason for Consultation:: CKD with minimal change disease - History of Present Illness Chief Complaint: malaise and lower extremity edema History of Present Illness: Pt is a 75 year old male with pmhx of COPD, HTN, chol, CAD, BPH and CKD who presents to the ER complaining of tarry stools. He also complains of lower extremity edema. He is awake and alert. He denies shortness of breath. He is on steroids for minimal change disease. He says he does not like the way the steroids make him feels. He does complain of weight loss. He denied dysuria or hematuria. He was also found to have a UTI. - History Source History Provided By: Patient, Medical Record - Past Medical History Cardio/Vascular: Yes: HTN Pulmonary: Yes: COPD, Other (interstitial lung disease ) Renal/: Yes: Renal Failure ( related to minimal change disease), Renal Inusuff , BPH, Other (Epiaode of actute renal insufficiency and nephrotic syndrome sconadry to mimimal change disease. esolved with steroids,) Psych: Yes: Addictions (previous smoker quit 35 years ago ) Musculoskeletal: Yes: Other (No active joints.) - Past Surgical History Past Surgical History: Yes: Hernia Repair - Alcohol/Substance Use Hx Alcohol Use: Yes (SOCIAL) History of Substance Use: reports: None - Smoking History Smoking history: Former smoker Have you smoked in the past 12 months: No If you are a former smoker, when did you quit?: 35 years ago - Social History Usual Living Arrangement: With Spouse (2nd ) ADL: Independent History of Recent Travel: No Home Medications - Allergies Allergies/Adverse Reactions: Allergies Allergy/AdvReac Type Severity Reaction Status Date / Time No Known Allergies Allergy Verified 10/26/16 09:40 - Home Medications Home Medications: Ambulatory Orders Doxazosin Mesylate [Cardura -] 2 mg PO BID 10/26/16 Furosemide [Lasix -] 20 mg PO BID 10/26/16 Levomefolate/B6/B12/Algal Oil [Metanx Capsule] 1 each PO DAILY 10/26/16 Pantoprazole Sodium [Protonix -] 20 mg PO DAILY 10/26/16 Prednisone PO DAILY 10/26/16 Silodosin [Rapaflo] 8 mg PO DAILY 10/26/16 Family Disease History - Family Disease History Family Disease History: Diabetes: Sister ( in late 50s/early 60s), Heart Disease: Mother Review of Systems - Review of Systems Constitutional: denies: Chills, Fever Eyes: reports: No Symptoms HENT: reports: No Symptoms Neck: reports: No Symptoms Cardiovascular: reports: Edema, Shortness of Breath Respiratory: reports: Cough, SOB, SOB on Exertion Gastrointestinal: reports: No Symptoms Genitourinary: reports: No Symptoms Musculoskeletal: reports: No Symptoms Neurological: reports: No Symptoms Psychiatric: reports: No Symptoms Physical Exam Vital Signs: Vital Signs Temperature 98.2 F 10/27/16 10:00 Pulse Rate 99 H 10/27/16 10:00 Respiratory Rate 18 10/27/16 10:00 Blood Pressure 117/74 10/27/16 10:00 O2 Sat by Pulse Oximetry (%) 96 10/27/16 07:58 Constitutional: Yes: Calm Eyes: Yes: Conjunctiva Clear HENT: Yes: Atraumatic Neck: Yes: Supple Cardiovascular: Yes: S1, S2 Respiratory: Yes: CTA Bilaterally Gastrointestinal: Yes: Soft Renal/: Yes: WNL Musculoskeletal: Yes: WNL Edema: Yes Edema: LLE: 1+, RLE: 1+ Neurological: Yes: Oriented Psychiatric: Yes: Oriented Labs: CBC, BMP 10/27/16 06:00 10/27/16 06:00 Laboratory Tests 10/26/16 10/26/16 10/27/16 11:03 12:06 06:00 WBC 6.5 Hgb 14.1 Sodium 131 L Potassium Chloride Carbon Dioxide Anion Gap BUN Creatinine 1.3 D Random Glucose 717 H* D Urine Glucose (UA) 3+ H Urine Ketones Negative Urine Blood 2+ H Urine Nitrite Positive Urine Bilirubin Negative Urine Urobilinogen Negative Ur Leukocyte Esterase 2+ H D Urine RBC 31 Urine WBC 176 10/27/16 06:00 WBC Hgb Sodium 138 Potassium 4.2 Chloride 100 Carbon Dioxide 27 Anion Gap 11 BUN 29 H D Creatinine 0.8 D Random Glucose Urine Glucose (UA) Urine Ketones Urine Blood Urine Nitrite Urine Bilirubin Urine Urobilinogen Ur Leukocyte Esterase Urine RBC Urine WBC Imaging - Results Chest X-ray: Report Reviewed Problem List - Problems (1) COPD (chronic obstructive pulmonary disease) case management patient Code(s): [id number] - (2) CKD (chronic kidney disease) Code(s): N18.9 - CHRONIC KIDNEY DISEASE, UNSPECIFIED Qualifiers: Chronic kidney disease stage: unspecified stage Qualified Code(s): N18.9 - Chronic kidney disease, unspecified (3) COPD (chronic obstructive pulmonary disease) Code(s): J44.9 - CHRONIC OBSTRUCTIVE PULMONARY DISEASE, UNSPECIFIED (4) Edema Code(s): R60.9 - EDEMA, UNSPECIFIED Qualifiers: Edema type: localized Qualified Code(s): R60.0 - Localized edema (5) Fluid overload Code(s): E87.70 - FLUID OVERLOAD, UNSPECIFIED (6) UTI (urinary tract infection) Code(s): N39.0 - URINARY TRACT INFECTION, SITE NOT SPECIFIED Assessment/Plan Current Medications Generic Name Dose Route Start Last Admin Trade Name Freq PRN Reason Stop Dose Admin Acetaminophen 650 mg 10/26/16 16:11 Tylenol - PO Q6H PRN FEVER OR PAIN Albuterol/Ipratropium 1 amp 10/27/16 11:48 Duoneb - NEB Q6H PRN SHORTNESS OF BREATH Bacitracin 1 applic 10/27/16 11:30 Bacitracin - TP DAILY CHARLES Doxazosin Mesylate 2 mg 10/27/16 10:00 10/27/16 09:14 Cardura - PO 2 mg DAILY CHARLES Administration Furosemide 20 mg 10/27/16 06:00 10/27/16 14:30 Lasix - PO Not Given BID@0600,1400 CHARLES Ceftriaxone Sodium 2 gm/ 100 mls @ 200 mls/hr 10/27/16 11:30 10/27/16 14:28 Dextrose IVPB 200 mls/hr DAILY CHARLES Administration Insulin Aspart 1 vial 10/26/16 22:00 10/27/16 12:00 Novolog Vial Sliding Scale - SQ 8 units ACHS CHARLES Administration Protocol Insulin Detemir 40 units 10/27/16 07:00 10/27/16 06:34 Levemir Vial SQ Not Given BIDAC CHARLES Pantoprazole Sodium 40 mg 10/27/16 10:00 10/27/16 09:14 Protonix - PO 40 mg DAILY CHARLES Administration Impression 1. UTI 2. CKD with hx of JANNA 3. COPD 4. HTN 5. BPH 6. DM 7. fluid overload 8. mediastinal lymphadenopathy Plan - pt has been on chronic steroids, will restart at 40 mg - monitor blood pressure - cont with lasix - cont abx for UTI and follow up cultures - monitor hg Dr Marie
--- NOTE | 2016-10-27 15:25 | CON.CARD ---
Consult Consult Specialty:: Cardiology Reason for Consultation:: Generalized weakness - History of Present Illness Chief Complaint: Generalized weakness, fatigue History of Present Illness: This is a 75 year old male with a PMH of COPD, HTN, HLD, CAD, BPH, and CKD. He presents now to the ED after having black, tarry stools and generalized weakness. He recently had a TURP procedure, kidney injury requiring HD, and resultant b/l LE edema with subsequent infection. He denies chest pain and is a baseline in terms of pulmonary status according to the patient. He was seen at [facility] for cellulitis on 10/15 and is on his last day of antibiotics. He has 2++ lower extremity edema and is wearing compression stockings. 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 esolved with steroids,) Psych: Yes: Addictions (previous smoker quit 35 years ago ) Musculoskeletal: Yes: Other (No active joints.) - Past Surgical History Past Surgical History: Yes: Hernia Repair - Alcohol/Substance Use Hx Alcohol Use: Yes (SOCIAL) History of Substance Use: reports: None - Smoking History Smoking history: Former smoker Have you smoked in the past 12 months: No If you are a former smoker, when did you quit?: 35 years ago - Social History Usual Living Arrangement: With Spouse (2nd ) ADL: Independent History of Recent Travel: No Home Medications - Allergies Allergies/Adverse Reactions: Allergies Allergy/AdvReac Type Severity Reaction Status Date / Time No Known Allergies Allergy Verified 10/26/16 09:40 - Home Medications Home Medications: Ambulatory Orders Doxazosin Mesylate [Cardura -] 2 mg PO BID 10/26/16 Furosemide [Lasix -] 20 mg PO BID 10/26/16 Levomefolate/B6/B12/Algal Oil [Metanx Capsule] 1 each PO DAILY 10/26/16 Pantoprazole Sodium [Protonix -] 20 mg PO DAILY 10/26/16 Prednisone PO DAILY 10/26/16 Silodosin [Rapaflo] 8 mg PO DAILY 10/26/16 Family Disease History - Family Disease History Family Disease History: Diabetes: Sister ( in late 50s/early 60s), Heart Disease: Mother Review of Systems Unable to obtain ROS, reason: As per HPI Vital Signs: Vital Signs Temperature 98.2 F 10/27/16 10:00 Pulse Rate 99 H 10/27/16 10:00 Respiratory Rate 18 10/27/16 10:00 Blood Pressure 117/74 10/27/16 10:00 O2 Sat by Pulse Oximetry (%) 96 10/27/16 07:58 Constitutional: Yes: No Distress Respiratory: Yes: CTA Bilaterally Gastrointestinal: Yes: Soft Cardiovascular: Yes: Regular Rate and Rhythm Heart Sounds: Yes: S1, S2 (No MRHG) Edema: Yes Edema: LLE: 2+, RLE: 2+ Neurological: Yes: Alert (Grossly non focal), Oriented Psychiatric: Yes: WNL - Other Data Labs, Other Data: CBC, BMP 10/27/16 06:00 10/27/16 06:00 INR, PTT INR 0.97 (0.82-1.09) 10/26/16 10:21 Assessment/Plan Peripheral Edema Diastolic CHF (HFpEF), ERF was normal on a echocardiogram 09/02/16 Last BP 91/61 mmHg Lasix held Cardura being given at 2 mg PO BID Would consider giving Lasix 40 mg PO QAM (BP seems better in the AM) Continue Silodosin [Rapaflo] 8 mg PO DAILY 10/26/16 Will follow with you
[2016-10-27] MEDS: BACITRACIN 15 GM TUBE TOPICAL OINTMENT TP SCH (15:38)
[2016-10-27] MEDS: predniSONE 20 MG TABLET (UD) PO SCH (15:38)
[2016-10-27] MEDS ORDERED: INSULIN DETEMIR 100 UNITS/ML MDV SQ ONE (17:48)
[2016-10-27 18:16] LABS: URINE APPEARANCE CLOUDY; URINE BILIRUBIN NEGATIVE (NEGATIVE); URINE BLOOD 2+ (NEGATIVE); URINE COLOR YELLOW; URINE GLUCOSE (UA) 3+ (NEGATIVE); URINE KETONE TRACE (NEGATIVE); URINE NITRITE POSITIVE (NEGATIVE); URINE UROBILINOGEN NEGATIVE mg/dL (0.2-1.0)
[2016-10-27 18:19] LABS: URINE LEUK ESTERASE 3+ (NEGATIVE); URINE PROTEIN 1+ (NEGATIVE)
--- NOTE | 2016-10-27 18:20 | CONSULT ---
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 esolved with steroids,) Psych: Yes: Addictions (previous smoker quit 35 years ago ) Musculoskeletal: Yes: Other (No active joints.) - Past Surgical History Past Surgical History: Yes: Hernia Repair - Alcohol/Substance Use Hx Alcohol Use: Yes (SOCIAL) History of Substance Use: reports: None - Smoking History Smoking history: Former smoker Have you smoked in the past 12 months: No If you are a former smoker, when did you quit?: 35 years ago - Social History Usual Living Arrangement: With Spouse (2nd ) ADL: Independent History of Recent Travel: No Home Medications - Allergies Allergies/Adverse Reactions: Allergies Allergy/AdvReac Type Severity Reaction Status Date / Time No Known Allergies Allergy Verified 10/26/16 09:40 - Home Medications Home Medications: Ambulatory Orders Doxazosin Mesylate [Cardura -] 2 mg PO BID 10/26/16 Furosemide [Lasix -] 20 mg PO BID 10/26/16 Levomefolate/B6/B12/Algal Oil [Metanx Capsule] 1 each PO DAILY 10/26/16 Pantoprazole Sodium [Protonix -] 20 mg PO DAILY 10/26/16 Prednisone PO DAILY 10/26/16 Silodosin [Rapaflo] 8 mg PO DAILY 10/26/16 Family Disease History - Family Disease History Family Disease History: Diabetes: Sister ( in late 50s/early 60s), Heart Disease: Mother Review of Systems - Review of Systems Constitutional: reports: Lethargy, Loss of Appetite, Weakness Eyes: reports: Blurred Vision HENT: reports: Gingival Bleeding Neck: reports: No Symptoms Cardiovascular: reports: Shortness of Breath Respiratory: reports: Exercise Intolerance, SOB on Exertion Gastrointestinal: reports: Bloating, Melena Genitourinary: reports: No Symptoms Breasts: reports: No Symptoms Reported Musculoskeletal: reports: Extremity Pain, Muscle Pain, Muscle Cramps, Muscle Weakness Integumentary: reports: Blister Neurological: reports: Unsteady Gait, Weakness Endocrine: reports: No Symptoms Physical Exam Vital Signs: Vital Signs Temperature 98.4 F 10/27/16 15:25 Pulse Rate 105 H 10/27/16 15:25 Respiratory Rate 18 10/27/16 15:25 Blood Pressure 91/60 10/27/16 15:25 O2 Sat by Pulse Oximetry (%) 96 10/27/16 07:58 Constitutional: Yes: Calm Eyes: Yes: EOM Intact HENT: Yes: Normocephalic Neck: Yes: Trachea Midline Cardiovascular: Yes: Regular Rate and Rhythm Respiratory: Yes: CTA Bilaterally Gastrointestinal: Yes: Normal Bowel Sounds ...Rectal Exam: Yes: Deferred Renal/: Yes: WNL Breast(s): Yes: WNL Musculoskeletal: Yes: Joint Swelling, Muscle Pain, Muscle Weakness Extremities: Yes: Delayed Capillary Refill, Erythema Edema: LLE: 2+, RLE: 2+ Integumentary: Yes: Skin Tear Wound/Incision: Yes: Well Approximated Neurological: Yes: Alert, Oriented Labs: CBC, BMP 10/27/16 06:00 10/27/16 06:00 Problem List - Problems (1) COPD (chronic obstructive pulmonary disease) case management patient Code(s): DCV8012 - (2) New onset type 2 diabetes mellitus Code(s): E11.9 - TYPE 2 DIABETES MELLITUS WITHOUT COMPLICATIONS (3) Skin tear Code(s): BYS6287 - (4) Tachycardia Code(s): R00.0 - TACHYCARDIA, UNSPECIFIED (5) UTI (urinary tract infection) Code(s): N39.0 - URINARY TRACT INFECTION, SITE NOT SPECIFIED Assessment/Plan Current Active Problems Bronchospasm (Acute) COPD (chronic obstructive pulmonary disease) case management patient (Acute) Eosinophilia (Acute) New onset type 2 diabetes mellitus (Acute) Skin tear (Acute) Tachycardia (Acute) UTI (urinary tract infection) (Acute) Abnormal Lab Results 10/26/16 10/26/16 10/27/16 10:20 11:03 06:00 RBC 5.92 H MCV 75.1 L MCH 23.8 L MCHC 31.7 L Plt Count 114 L BUN Random Glucose Hemoglobin A1c % 9.1 H D Total Protein Albumin Urine Protein Urine Glucose (UA) 3+ H Urine Ketones Urine Blood 2+ H Ur Leukocyte Esterase 2+ H D 10/27/16 10/27/16 06:00 17:00 RBC MCV MCH MCHC Plt Count BUN 29 H D Random Glucose 58 L D Hemoglobin A1c % Total Protein 5.9 L Albumin 2.6 L Urine Protein 1+ H Urine Glucose (UA) 3+ H Urine Ketones Trace H Urine Blood 2+ H Ur Leukocyte Esterase 3+ H Laboratory Results - last 24 hr 10/26/16 10/26/16 10/26/16 10:20 11:03 16:31 WBC RBC Hgb Hct MCV MCH MCHC RDW Plt Count MPV Sodium Potassium Chloride Carbon Dioxide Anion Gap BUN Creatinine Creat Clearance w eGFR POC Glucometer 592 Random Glucose Hemoglobin A1c % 9.1 H D Calcium Total Bilirubin AST ALT Alkaline Phosphatase Total Protein Albumin Urine Color Ltyellow Urine Appearance Cloudy Urine pH 6.0 Ur Specific [place] <= 1.005 Urine Protein Negative Urine Glucose (UA) 3+ H Urine Ketones Negative Urine Blood 2+ H Urine Nitrite Positive Urine Bilirubin Negative Urine Urobilinogen Negative Ur Leukocyte Esterase 2+ H D Urine RBC 31 Urine WBC 176 Ur Epithelial Cells Rare Urine Bacteria Many Urine Mucus Rare 10/26/16 10/26/16 10/27/16 19:45 21:30 01:40 WBC RBC Hgb Hct MCV MCH MCHC RDW Plt Count MPV Sodium Potassium Chloride Carbon Dioxide Anion Gap BUN Creatinine Creat Clearance w eGFR POC Glucometer 395 371 166 Random Glucose Hemoglobin A1c % Calcium Total Bilirubin AST ALT Alkaline Phosphatase Total Protein Albumin Urine Color Urine Appearance Urine pH Ur Specific [place] Urine Protein Urine Glucose (UA) Urine Ketones Urine Blood Urine Nitrite Urine Bilirubin Urine Urobilinogen Ur Leukocyte Esterase Urine RBC Urine WBC Ur Epithelial Cells Urine Bacteria Urine Mucus 10/27/16 10/27/16 10/27/16 06:00 06:00 06:08 WBC 6.5 RBC 5.92 H Hgb 14.1 Hct 44.5 MCV 75.1 L MCH 23.8 L MCHC 31.7 L RDW 15.8 Plt Count 114 L MPV 9.1 Sodium 138 Potassium 4.2 Chloride 100 Carbon Dioxide 27 Anion Gap 11 BUN 29 H D Creatinine 0.8 D Creat Clearance w eGFR > 60 POC Glucometer 119 Random Glucose 58 L D Hemoglobin A1c % Calcium 9.7 Total Bilirubin 0.4 AST 15 D ALT 40 Alkaline Phosphatase 88 D Total Protein 5.9 L Albumin 2.6 L Urine Color Urine Appearance Urine pH Ur Specific [place] Urine Protein Urine Glucose (UA) Urine Ketones Urine Blood Urine Nitrite Urine Bilirubin Urine Urobilinogen Ur Leukocyte Esterase Urine RBC Urine WBC Ur Epithelial Cells Urine Bacteria Urine Mucus 10/27/16 10/27/16 10/27/16 11:41 17:00 17:07 WBC RBC Hgb Hct MCV MCH MCHC RDW Plt Count MPV Sodium Potassium Chloride Carbon Dioxide Anion Gap BUN Creatinine Creat Clearance w eGFR POC Glucometer 258 152 Random Glucose Hemoglobin A1c % Calcium Total Bilirubin AST ALT Alkaline Phosphatase Total Protein Albumin Urine Color Yellow Urine Appearance Cloudy Urine pH 5.0 Ur Specific [place] Urine Protein 1+ H Urine Glucose (UA) 3+ H Urine Ketones Trace H Urine Blood 2+ H Urine Nitrite Positive Urine Bilirubin Negative Urine Urobilinogen Negative Ur Leukocyte Esterase 3+ H Urine RBC Urine WBC Ur Epithelial Cells Urine Bacteria Urine Mucus plan: dm diabetes education and teaching for bgm monitoring 1800cal ada levemir 40 bid then levemir 30 bid titrate dose for weight and appetite bgm achs ck hba1c
[2016-10-27 18:25] LABS: URINE BACTERIA MANY /hpf (NONE SEEN); URINE MUCUS MANY; URINE RBC 46 /hpf (0-3); URINE WBC 523 /hpf (3-5)
--- NOTE | 2016-10-27 21:01 | EKG ---
Test Reason : Blood Pressure : / mmHG Vent. Rate : 105 BPM Atrial Rate : 105 BPM P-R Int : 000 ms QRS Dur : 078 ms QT Int : 280 ms P-R-T Axes : 000 -61 048 degrees QTc Int : 370 ms SINUS TACHYCARDIA LEFT AXIS DEVIATION INFERIOR INFARCT , AGE UNDETERMINED ABNORMAL ECG WHEN COMPARED WITH ECG OF 31-AUG-2016 14:31, INFERIOR INFARCT IS NOW PRESENT Confirmed by GINA JEFFERS, VARINDER ([id number]) on 10/27/2016 9:01:25 PM Referred By: Confirmed By:VARINDER FUENTES MD
[2016-10-27] MEDS ORDERED: INSULIN (NOVOLOG) ASPART 100 UNITS/ML 10ML VIAL ONE (21:52)
[2016-10-28] MEDS: FUROSEMIDE 20 MG TABLET (FP) PO SCH ×2 (06:15→14:27)
[2016-10-28] MEDS: INSULIN DETEMIR 100 UNITS/ML MDV SQ SCH ×2 (06:15→17:21)
[2016-10-28] MEDS: INSULIN SLIDING SCALE (NOVOLOG) 1 VIAL SQ SCH ×4 (06:16→21:33)
[2016-10-28] MEDS ORDERED: DEXTROSE 5%-WATER 100 ML IVPB ONE (09:33)
[2016-10-28] MEDS: PANTOPRAZOLE 40 MG TABLET (FP) PO SCH (09:35)
[2016-10-28] MEDS: predniSONE 20 MG TABLET (UD) PO SCH (09:35)
[2016-10-28] MEDS: CEFTRIAXONE 2 GM in DEXTROSE 5%-WATER 100 ML IVPB SCH (09:40)
[2016-10-28] MEDS: BACITRACIN 15 GM TUBE TOPICAL OINTMENT TP SCH (09:50)
--- NOTE | 2016-10-28 12:19 | PN ---
Progress Note, Physician History of Present Illness: PULMONARY ALERT,NAD,OOB-CHAIR,-SOB,-CP - Current Medication List Current Medications: Active Medications Acetaminophen (Tylenol -) 650 mg PO Q6H PRN PRN Reason: FEVER OR PAIN Albuterol/Ipratropium (Duoneb -) 1 amp NEB Q6H PRN PRN Reason: SHORTNESS OF BREATH Bacitracin (Bacitracin -) 1 applic TP DAILY [facility] Last Admin: 10/28/16 09:50 Dose: 1 applic Doxazosin Mesylate (Cardura -) 2 mg PO DAILY [facility] Last Admin: 10/27/16 09:14 Dose: 2 mg Furosemide (Lasix -) 20 mg PO BID@0600,1400 [facility] Last Admin: 10/28/16 06:15 Dose: 20 mg Ceftriaxone Sodium 2 gm/ (Dextrose) 100 mls @ 200 mls/hr IVPB DAILY [facility] Last Admin: 10/28/16 09:40 Dose: 200 mls/hr Insulin Aspart (Novolog Vial Sliding Scale -) 1 vial SQ ACHS [facility] PRN Reason: Protocol Last Admin: 10/28/16 11:04 Dose: Not Given Insulin Detemir (Levemir Vial) 30 units SQ BIDAC [facility] Last Admin: 10/28/16 06:15 Dose: 30 units Pantoprazole Sodium (Protonix -) 40 mg PO DAILY [facility] Last Admin: 10/28/16 09:35 Dose: 40 mg Prednisone (Deltasone -) 40 mg PO DAILY [facility] Last Admin: 10/28/16 09:35 Dose: 40 mg - Objective Vital Signs: Vital Signs Temperature 97.7 F 10/28/16 09:00 Pulse Rate 99 H 10/28/16 09:00 Respiratory Rate 17 10/28/16 09:00 Blood Pressure 91/59 10/28/16 09:00 O2 Sat by Pulse Oximetry (%) 96 10/27/16 21:00 Constitutional: Yes: Well Nourished, Calm Eyes: Yes: WNL HENT: Yes: WNL Neck: Yes: WNL Cardiovascular: Yes: Regular Rate and Rhythm, S1, S2 Respiratory: Yes: CTA Bilaterally Gastrointestinal: Yes: Normal Bowel Sounds, Soft Extremities: Yes: WNL Edema: Yes Labs: CBC, BMP Assessment/Plan Problem List - Problems (1) Benign localized hyperplasia of prostate with urinary retention Code(s): N40.1 - BENIGN PROSTATIC HYPERPLASIA WITH LOWER URINARY TRACT SYMP (2) Cardiomegaly Code(s): I51.7 - CARDIOMEGALY (3) Elevated prostate specific antigen (PSA) Code(s): R97.20 - ELEVATED PROSTATE SPECIFIC ANTIGEN [PSA] (4) Hypertension Code(s): I10 - ESSENTIAL (PRIMARY) HYPERTENSION Qualifiers: Hypertension type: essential hypertension Qualified Code(s): I10 - Essential (primary) hypertension (5) ILD (interstitial lung disease) Code(s): J84.9 - INTERSTITIAL PULMONARY DISEASE, UNSPECIFIED (6) Minimal change glomerular disease Code(s): N04.0 - NEPHROTIC SYNDROME WITH MINOR GLOMERULAR ABNORMALITY (7) COPD (chronic obstructive pulmonary disease) case management patient Code(s): [id number] - Assessment/Plan STABLE COPD ILD HTN DM CKD O2 PRN BRONCHODILATORS STEROID TAPER MONITOR LYTES,ELHAM NELSON
[2016-10-28] MEDS ORDERED: PT OWN MED DRAWER 7, Y5N ONE (13:07)
[2016-10-28 13:08] LABS: ALBUMIN 2.4 g/dl (3.4-5.0); ANION GAP 8 (8-16); BILIRUBIN,TOTAL 0.3 mg/dL (0.2-1.0); CALCIUM 9.6 mg/dL (8.5-10.1); CO2 31 mmol/L (21-32); CREATININE 0.7 mg/dL (0.7-1.3); SGOT/AST 19 U/L (15-37); SGPT/ALT 39 U/L (12-78); TOT PROT 5.8 g/dl (6.4-8.2)
[2016-10-28] MEDS: DOXAZOSIN MESYLATE 2 MG TABLET (FP) PO SCH (13:08)
[2016-10-28 13:09] LABS: ALK PHOS 85 U/L (45-117)
[2016-10-28 13:27] LABS: GLUCOSE,RANDOM 95 mg/dL (74-106)
--- NOTE | 2016-10-28 14:40 | PN ---
Progress Note, Physician History of Present Illness: Pt seen and examined at bedside. He says he feels better than he did yesterday. He still complains of lower extremity edema. - Current Medication List Current Medications: Active Medications Acetaminophen (Tylenol -) 650 mg PO Q6H PRN PRN Reason: FEVER OR PAIN Albuterol/Ipratropium (Duoneb -) 1 amp NEB Q6H PRN PRN Reason: SHORTNESS OF BREATH Bacitracin (Bacitracin -) 1 applic TP DAILY [facility] Last Admin: 10/28/16 09:50 Dose: 1 applic Doxazosin Mesylate (Cardura -) 2 mg PO DAILY [facility] Last Admin: 10/28/16 13:08 Dose: 2 mg Furosemide (Lasix -) 20 mg PO BID@0600,1400 [facility] Last Admin: 10/28/16 14:27 Dose: 20 mg Ceftriaxone Sodium 2 gm/ (Dextrose) 100 mls @ 200 mls/hr IVPB DAILY [facility] Last Admin: 10/28/16 09:40 Dose: 200 mls/hr Insulin Aspart (Novolog Vial Sliding Scale -) 1 vial SQ ACHS [facility] PRN Reason: Protocol Last Admin: 10/28/16 11:04 Dose: Not Given Insulin Detemir (Levemir Vial) 30 units SQ BIDAC [facility] Last Admin: 10/28/16 06:15 Dose: 30 units Pantoprazole Sodium (Protonix -) 40 mg PO DAILY [facility] Last Admin: 10/28/16 09:35 Dose: 40 mg Prednisone (Deltasone -) 30 mg PO DAILY [facility] - Objective Vital Signs: Vital Signs Temperature 97.9 F 10/28/16 12:30 Pulse Rate 99 H 10/28/16 12:30 Respiratory Rate 16 10/28/16 12:30 Blood Pressure 109/68 10/28/16 12:30 O2 Sat by Pulse Oximetry (%) 96 10/27/16 21:00 Constitutional: Yes: Calm Eyes: Yes: Conjunctiva Clear HENT: Yes: Atraumatic Neck: Yes: Supple Cardiovascular: Yes: S1, S2 Respiratory: Yes: On Nasal O2, Wheezes Gastrointestinal: Yes: Soft Genitourinary: Yes: WNL Musculoskeletal: Yes: WNL Edema: Yes Edema: LLE: 1+, RLE: 1+ Neurological: Yes: Oriented Psychiatric: Yes: Oriented Labs: CBC, BMP 10/27/16 06:00 10/28/16 12:15 INR, PTT INR 0.97 (0.82-1.09) 10/26/16 10:21 Problem List - Problems (1) COPD (chronic obstructive pulmonary disease) case management patient Code(s): [id number] - (2) CKD (chronic kidney disease) Code(s): N18.9 - CHRONIC KIDNEY DISEASE, UNSPECIFIED Qualifiers: Chronic kidney disease stage: unspecified stage Qualified Code(s): N18.9 - Chronic kidney disease, unspecified (3) COPD (chronic obstructive pulmonary disease) Code(s): J44.9 - CHRONIC OBSTRUCTIVE PULMONARY DISEASE, UNSPECIFIED (4) Edema Code(s): R60.9 - EDEMA, UNSPECIFIED Qualifiers: Edema type: localized Qualified Code(s): R60.0 - Localized edema (5) Fluid overload Code(s): E87.70 - FLUID OVERLOAD, UNSPECIFIED (6) UTI (urinary tract infection) Code(s): N39.0 - URINARY TRACT INFECTION, SITE NOT SPECIFIED Assessment/Plan Current Medications Generic Name Dose Route Start Last Admin Trade Name Freq PRN Reason Stop Dose Admin Acetaminophen 650 mg 10/26/16 16:11 Tylenol - PO Q6H PRN FEVER OR PAIN Albuterol/Ipratropium 1 amp 10/27/16 11:48 Duoneb - NEB Q6H PRN SHORTNESS OF BREATH Bacitracin 1 applic 10/27/16 11:30 10/28/16 09:50 Bacitracin - TP 1 applic DAILY [facility] Administration Doxazosin Mesylate 2 mg 10/27/16 10:00 10/28/16 13:08 Cardura - PO 2 mg DAILY [facility] Administration Furosemide 20 mg 10/27/16 06:00 10/28/16 14:27 Lasix - PO 20 mg BID@0600,1400 [facility] Administration Ceftriaxone Sodium 2 gm/ 100 mls @ 200 mls/hr 10/27/16 11:30 10/28/16 09:40 Dextrose IVPB 200 mls/hr DAILY [facility] Administration Insulin Aspart 1 vial 10/26/16 22:00 10/28/16 11:04 Novolog Vial Sliding Scale - SQ Not Given ACHS [facility] Protocol Insulin Detemir 30 units 10/27/16 18:13 10/28/16 06:15 Levemir Vial SQ 30 units BIDAC [facility] Administration Pantoprazole Sodium 40 mg 10/27/16 10:00 10/28/16 09:35 Protonix - PO 40 mg DAILY [facility] Administration Prednisone 30 mg 10/29/16 10:00 Deltasone - PO DAILY [facility] Impression 1. UTI 2. CKD with hx of JANNA 3. COPD 4. HTN 5. BPH 6. DM 7. fluid overload 8. mediastinal lymphadenopathy Plan - cont steroids - cont lasix - abx for UTI - repeat UA once UTI is resolved - monitor hg Dr Marie
--- NOTE | 2016-10-28 15:21 | PN ---
Progress Note, Physician Chief Complaint: awake alert family bedside nad - Current Medication List Current Medications: Active Medications Acetaminophen (Tylenol -) 650 mg PO Q6H PRN PRN Reason: FEVER OR PAIN Albuterol/Ipratropium (Duoneb -) 1 amp NEB Q6H PRN PRN Reason: SHORTNESS OF BREATH Bacitracin (Bacitracin -) 1 applic TP DAILY [facility] Last Admin: 10/28/16 09:50 Dose: 1 applic Doxazosin Mesylate (Cardura -) 2 mg PO DAILY [facility] Last Admin: 10/28/16 13:08 Dose: 2 mg Furosemide (Lasix -) 40 mg PO BID@0600,1400 [facility] Ceftriaxone Sodium 2 gm/ (Dextrose) 100 mls @ 200 mls/hr IVPB DAILY [facility] Last Admin: 10/28/16 09:40 Dose: 200 mls/hr Insulin Aspart (Novolog Vial Sliding Scale -) 1 vial SQ ACHS [facility] PRN Reason: Protocol Last Admin: 10/28/16 11:04 Dose: Not Given Insulin Detemir (Levemir Vial) 30 units SQ BIDAC [facility] Last Admin: 10/28/16 06:15 Dose: 30 units Pantoprazole Sodium (Protonix -) 40 mg PO DAILY [facility] Last Admin: 10/28/16 09:35 Dose: 40 mg Prednisone (Deltasone -) 30 mg PO DAILY [facility] - Objective Vital Signs: Vital Signs Temperature 97.9 F 10/28/16 12:30 Pulse Rate 99 H 10/28/16 12:30 Respiratory Rate 16 10/28/16 12:30 Blood Pressure 109/68 10/28/16 12:30 O2 Sat by Pulse Oximetry (%) 96 10/27/16 21:00 Constitutional: Yes: No Distress Eyes: Yes: WNL HENT: Yes: WNL Neck: Yes: WNL Cardiovascular: Yes: WNL Respiratory: Yes: WNL Gastrointestinal: Yes: WNL Genitourinary: Yes: Other Musculoskeletal: Yes: Muscle Weakness Extremities: Yes: WNL Edema: Yes Edema: LLE: 2+, RLE: 2+ Peripheral Pulses WNL: Yes Integumentary: Yes: Rash, Skin Tear (foot) Wound/Incision: Yes: Dressing Dry and Intact Neurological: Yes: Tremors ...Motor Strength: LLE, RLE Psychiatric: Yes: WNL Labs: CBC, BMP 10/27/16 06:00 10/28/16 12:15 INR, PTT INR 0.97 (0.82-1.09) 10/26/16 10:21 Problem List - Problems (1) Abnormal EKG Code(s): R94.31 - ABNORMAL ELECTROCARDIOGRAM [ECG] [EKG] (2) Edema Code(s): R60.9 - EDEMA, UNSPECIFIED Qualifiers: Edema type: localized Qualified Code(s): R60.0 - Localized edema (3) Minimal change glomerular disease Code(s): N04.0 - NEPHROTIC SYNDROME WITH MINOR GLOMERULAR ABNORMALITY (4) New onset type 2 diabetes mellitus Code(s): E11.9 - TYPE 2 DIABETES MELLITUS WITHOUT COMPLICATIONS (5) Skin tear Code(s): [id number] - (6) Tremors of nervous system Assessment/Plan: neuo eval as outpatient likely tremor with medications Code(s): R25.1 - TREMOR, UNSPECIFIED Assessment/Plan iv rocephin for uti check cx cardio/renal eval edema improving oncology f/u as outpatient
--- NOTE | 2016-10-28 15:32 | PN ---
Progress Note, Physician Chief Complaint: No chest pain or dyspnea LE edema improved Tele: sinus with occasional pac's and pvc's History of Present Illness: This is a 75 year old male with a PMH of COPD, HTN, HLD, CAD, BPH, and CKD. He presents now to the ED after having black, tarry stools and generalized weakness. He recently had a TURP procedure, kidney injury requiring HD, and resultant b/l LE edema with subsequent infection. He denies chest pain and is a baseline in terms of pulmonary status according to the patient. He was seen at [facility] for cellulitis on 10/15 and is on his last day of antibiotics. He has 2++ lower extremity edema and is wearing compression stockings. - Current Medication List Current Medications: Active Medications Acetaminophen (Tylenol -) 650 mg PO Q6H PRN PRN Reason: FEVER OR PAIN Albuterol/Ipratropium (Duoneb -) 1 amp NEB Q6H PRN PRN Reason: SHORTNESS OF BREATH Bacitracin (Bacitracin -) 1 applic TP DAILY [facility] Last Admin: 10/28/16 09:50 Dose: 1 applic Doxazosin Mesylate (Cardura -) 2 mg PO DAILY [facility] Last Admin: 10/28/16 13:08 Dose: 2 mg Furosemide (Lasix -) 40 mg PO BID@0600,1400 [facility] Ceftriaxone Sodium 2 gm/ (Dextrose) 100 mls @ 200 mls/hr IVPB DAILY [facility] Last Admin: 10/28/16 09:40 Dose: 200 mls/hr Insulin Aspart (Novolog Vial Sliding Scale -) 1 vial SQ ACHS [facility] PRN Reason: Protocol Last Admin: 10/28/16 11:04 Dose: Not Given Insulin Detemir (Levemir Vial) 30 units SQ BIDAC [facility] Last Admin: 10/28/16 06:15 Dose: 30 units Pantoprazole Sodium (Protonix -) 40 mg PO DAILY [facility] Last Admin: 10/28/16 09:35 Dose: 40 mg Prednisone (Deltasone -) 30 mg PO DAILY [facility] - Objective Vital Signs: Vital Signs Temperature 97.9 F 10/28/16 12:30 Pulse Rate 99 H 10/28/16 12:30 Respiratory Rate 16 10/28/16 12:30 Blood Pressure 109/68 10/28/16 12:30 O2 Sat by Pulse Oximetry (%) 96 10/27/16 21:00 Constitutional: Yes: No Distress Neck: Yes: Supple Cardiovascular: Yes: Regular Rate and Rhythm, S1, S2. No: JVD, Murmur Respiratory: Yes: CTA Bilaterally Gastrointestinal: Yes: WNL Edema: LUE: 1+ (ankle), RUE: 1+ (ankle) Labs: CBC, BMP 10/27/16 06:00 10/28/16 12:15 INR, PTT INR 0.97 (0.82-1.09) 10/26/16 10:21 Assessment/Plan This is a 75 year old male with a PMH of COPD, HTN, HLD, CAD, BPH, and CKD. He presents now to the ED after having black, tarry stools and generalized weakness. He recently had a TURP procedure, kidney injury requiring HD, and resultant b/l LE edema with subsequent infection. He denies chest pain and is a baseline in terms of pulmonary status according to the patient. He was seen at [facility] for cellulitis on 10/15 and is on his last day of antibiotics. He has 2++ lower extremity edema and is wearing compression stockings. 1) Acute on chronic diastolic CHF -LE edema improved Continue compression stockings, leg elevation and PO furosemide. BP control with doxazosin. -Echo last month with normal LVEF -No events on telemetry -Cr normal -Abx as per primary team No further cardiac testing at this time. Follow up as outpatient with cardiology. Please call with any further questions or clinical changes.
[2016-10-28] MEDS ORDERED: INSULIN (NOVOLOG) ASPART 100 UNITS/ML 10ML VIAL ONE (21:30)
[2016-10-29] MEDS ORDERED: DEXTROSE 50%-WATER 50 ML DISP.SYRIN ONE (05:52)
[2016-10-29] MEDS: INSULIN DETEMIR 100 UNITS/ML MDV SQ SCH (06:02)
[2016-10-29] MEDS: INSULIN SLIDING SCALE (NOVOLOG) 1 VIAL SQ SCH ×4 (06:02→21:29)
[2016-10-29] MEDS: FUROSEMIDE 40 MG TABLET (FP) PO SCH ×2 (06:03→14:03)
[2016-10-29] MEDS ORDERED: DEXTROSE 50%-WATER 50 ML DISP.SYRIN IVPUSH ONE (06:30)
[2016-10-29 08:18] LABS: ANION GAP 12 (8-16); CALCIUM 9.6 mg/dL (8.5-10.1); CO2 24 mmol/L (21-32); CREATININE 0.9 mg/dL (0.7-1.3); GLUCOSE,RANDOM 134 mg/dL (74-106)
[2016-10-29] MEDS ORDERED: DEXTROSE 5%-WATER 100 ML IVPB ONE (09:51)
[2016-10-29] MEDS ORDERED: predniSONE 10 MG TABLET (UD) PO SCH (10:00)
[2016-10-29] MEDS ORDERED: PT OWN MED DRAWER 7, Y5N ONE (10:05)
[2016-10-29] MEDS: CEFTRIAXONE 2 GM in DEXTROSE 5%-WATER 100 ML IVPB SCH (10:14)
[2016-10-29] MEDS: PANTOPRAZOLE 40 MG TABLET (FP) PO SCH (10:14)
[2016-10-29] MEDS: DOXAZOSIN MESYLATE 2 MG TABLET (FP) PO SCH (10:14)
[2016-10-29] MEDS: BACITRACIN 15 GM TUBE TOPICAL OINTMENT TP SCH (10:24)
--- NOTE | 2016-10-29 10:47 | PN ---
Progress Note, Physician History of Present Illness: pulmonary alert,weak,-resp distress - Current Medication List Current Medications: Active Medications Acetaminophen (Tylenol -) 650 mg PO Q6H PRN PRN Reason: FEVER OR PAIN Albuterol/Ipratropium (Duoneb -) 1 amp NEB Q6H PRN PRN Reason: SHORTNESS OF BREATH Bacitracin (Bacitracin -) 1 applic TP DAILY [facility] Last Admin: 10/29/16 10:24 Dose: 1 applic Doxazosin Mesylate (Cardura -) 2 mg PO DAILY [facility] Last Admin: 10/29/16 10:14 Dose: 2 mg Furosemide (Lasix -) 40 mg PO BID@0600,1400 [facility] Last Admin: 10/29/16 06:03 Dose: 40 mg Ceftriaxone Sodium 2 gm/ (Dextrose) 100 mls @ 200 mls/hr IVPB DAILY [facility] Last Admin: 10/29/16 10:14 Dose: 200 mls/hr Insulin Aspart (Novolog Vial Sliding Scale -) 1 vial SQ ACHS [facility] PRN Reason: Protocol Last Admin: 10/29/16 06:02 Dose: Not Given Insulin Detemir (Levemir Vial) 30 units SQ BIDAC [facility] Last Admin: 10/29/16 06:02 Dose: Not Given Pantoprazole Sodium (Protonix -) 40 mg PO DAILY [facility] Last Admin: 10/29/16 10:14 Dose: 40 mg Prednisone (Deltasone -) 30 mg PO DAILY [facility] Last Admin: 10/29/16 10:14 Dose: 30 mg - Objective Vital Signs: Vital Signs Temperature 97.2 F L 10/29/16 06:00 Pulse Rate 81 10/29/16 06:00 Respiratory Rate 20 10/29/16 06:00 Blood Pressure 110/65 10/29/16 06:00 O2 Sat by Pulse Oximetry (%) 96 10/28/16 21:00 Constitutional: Yes: Well Nourished, Calm Eyes: Yes: WNL HENT: Yes: WNL Neck: Yes: WNL Cardiovascular: Yes: Regular Rate and Rhythm, S1, S2 Respiratory: Yes: Rales (bibasilar rales) Gastrointestinal: Yes: Normal Bowel Sounds, Soft Extremities: Yes: WNL Edema: Yes Labs: 10/29/16 06:30 INR, PTT Assessment/Plan Problem List - Problems (1) Benign localized hyperplasia of prostate with urinary retention Code(s): N40.1 - BENIGN PROSTATIC HYPERPLASIA WITH LOWER URINARY TRACT SYMP (2) Cardiomegaly Code(s): I51.7 - CARDIOMEGALY (3) Elevated prostate specific antigen (PSA) Code(s): R97.20 - ELEVATED PROSTATE SPECIFIC ANTIGEN [PSA] (4) Hypertension Code(s): I10 - ESSENTIAL (PRIMARY) HYPERTENSION Qualifiers: Hypertension type: essential hypertension Qualified Code(s): I10 - Essential (primary) hypertension (5) ILD (interstitial lung disease) Code(s): J84.9 - INTERSTITIAL PULMONARY DISEASE, UNSPECIFIED (6) Minimal change glomerular disease Code(s): N04.0 - NEPHROTIC SYNDROME WITH MINOR GLOMERULAR ABNORMALITY (7) COPD (chronic obstructive pulmonary disease) case management patient Code(s): [id number] - Assessment/Plan STABLE COPD ILD HTN DM CKD O2 PRN BRONCHODILATORS CONTINUE STEROID TAPER MONITOR LYTES,CBC DR NELSON
--- NOTE | 2016-10-29 12:12 | PN ---
Progress Note, Physician History of Present Illness: Pt seen and examined at bedside. He was hypoglycemic last night. - Current Medication List Current Medications: Active Medications Acetaminophen (Tylenol -) 650 mg PO Q6H PRN PRN Reason: FEVER OR PAIN Albuterol/Ipratropium (Duoneb -) 1 amp NEB Q6H PRN PRN Reason: SHORTNESS OF BREATH Bacitracin (Bacitracin -) 1 applic TP DAILY [facility] Last Admin: 10/29/16 10:24 Dose: 1 applic Doxazosin Mesylate (Cardura -) 2 mg PO DAILY [facility] Last Admin: 10/29/16 10:14 Dose: 2 mg Furosemide (Lasix -) 40 mg PO BID@0600,1400 [facility] Last Admin: 10/29/16 06:03 Dose: 40 mg Insulin Aspart (Novolog Vial Sliding Scale -) 1 vial SQ ACHS [facility] PRN Reason: Protocol Last Admin: 10/29/16 12:05 Dose: 5 units Insulin Detemir (Levemir Vial) 30 units SQ BIDAC [facility] Last Admin: 10/29/16 06:02 Dose: Not Given Pantoprazole Sodium (Protonix -) 40 mg PO DAILY [facility] Last Admin: 10/29/16 10:14 Dose: 40 mg Prednisone (Deltasone -) 20 mg PO DAILY [facility] - Objective Vital Signs: Vital Signs Temperature 97.2 F L 10/29/16 06:00 Pulse Rate 81 10/29/16 06:00 Respiratory Rate 20 10/29/16 06:00 Blood Pressure 110/65 10/29/16 06:00 O2 Sat by Pulse Oximetry (%) 96 10/28/16 21:00 Constitutional: Yes: Calm Eyes: Yes: Conjunctiva Clear HENT: Yes: Atraumatic Neck: Yes: Supple Cardiovascular: Yes: S1, S2 Respiratory: Yes: CTA Bilaterally Gastrointestinal: Yes: Soft Genitourinary: Yes: WNL Edema: Yes Edema: LLE: 1+, RLE: 1+ Neurological: Yes: Oriented Psychiatric: Yes: Oriented Labs: CBC, BMP 10/27/16 06:00 10/29/16 06:30 INR, PTT INR 0.97 (0.82-1.09) 10/26/16 10:21 Problem List - Problems (1) COPD (chronic obstructive pulmonary disease) case management patient Code(s): [id number] - (2) CKD (chronic kidney disease) Code(s): N18.9 - CHRONIC KIDNEY DISEASE, UNSPECIFIED Qualifiers: Chronic kidney disease stage: unspecified stage Qualified Code(s): N18.9 - Chronic kidney disease, unspecified (3) COPD (chronic obstructive pulmonary disease) Code(s): J44.9 - CHRONIC OBSTRUCTIVE PULMONARY DISEASE, UNSPECIFIED (4) Edema Code(s): R60.9 - EDEMA, UNSPECIFIED Qualifiers: Edema type: localized Qualified Code(s): R60.0 - Localized edema (5) Fluid overload Code(s): E87.70 - FLUID OVERLOAD, UNSPECIFIED (6) UTI (urinary tract infection) Code(s): N39.0 - URINARY TRACT INFECTION, SITE NOT SPECIFIED Assessment/Plan Current Medications Generic Name Dose Route Start Last Admin Trade Name Freq PRN Reason Stop Dose Admin Acetaminophen 650 mg 10/26/16 16:11 Tylenol - PO Q6H PRN FEVER OR PAIN Albuterol/Ipratropium 1 amp 10/27/16 11:48 Duoneb - NEB Q6H PRN SHORTNESS OF BREATH Bacitracin 1 applic 10/27/16 11:30 10/29/16 10:24 Bacitracin - TP 1 applic DAILY [facility] Administration Doxazosin Mesylate 2 mg 10/27/16 10:00 10/29/16 10:14 Cardura - PO 2 mg DAILY [facility] Administration Furosemide 40 mg 10/28/16 14:40 10/29/16 06:03 Lasix - PO 40 mg BID@0600,1400 [facility] Administration Insulin Aspart 1 vial 10/26/16 22:00 10/29/16 12:05 Novolog Vial Sliding Scale - SQ 5 units ACHS [facility] Administration Protocol Insulin Detemir 30 units 10/27/16 18:13 10/29/16 06:02 Levemir Vial SQ Not Given BIDAC [facility] Pantoprazole Sodium 40 mg 10/27/16 10:00 10/29/16 10:14 Protonix - PO 40 mg DAILY [facility] Administration Prednisone 20 mg 10/30/16 10:00 Deltasone - PO DAILY [facility] Impression 1. UTI 2. CKD with hx of JANNA 3. COPD 4. HTN 5. BPH 6. DM 7. fluid overload 8. mediastinal lymphadenopathy Plan - cont with steroids, will need a very slow taper. Pt is on it for minimal change disease - ID eval for UTI - cont with lasix - monitor blood pressure closely - discussed with medical attending - discussed with nursing staff - repeat UA once UTI is resolved - monitor hg Dr Marie
[2016-10-29] MEDS ORDERED: predniSONE 10 MG TABLET (UD) PO ONE (12:45)
--- NOTE | 2016-10-29 14:30 | PN ---
Progress Note (short form) - Note Progress Note: ID Consult dictated UTI CKD on steroids COPD Augmentin 500mg po bid x 7d
--- NOTE | 2016-10-29 14:46 | PN ---
Progress Note, Physician Chief Complaint: AWAKE ALERT HYPOGLYCEMIA OVER NIGHT - Current Medication List Current Medications: Active Medications Acetaminophen (Tylenol -) 650 mg PO Q6H PRN PRN Reason: FEVER OR PAIN Albuterol/Ipratropium (Duoneb -) 1 amp NEB Q6H PRN PRN Reason: SHORTNESS OF BREATH Amoxicillin/Clavulanate Potassium (Augmentin - 500mg Tablet) 1 tab PO BID@0800, 1730 [facility] Bacitracin (Bacitracin -) 1 applic TP DAILY [facility] Last Admin: 10/29/16 10:24 Dose: 1 applic Doxazosin Mesylate (Cardura -) 2 mg PO DAILY [facility] Last Admin: 10/29/16 10:14 Dose: 2 mg Furosemide (Lasix -) 40 mg PO BID@0600,1400 [facility] Last Admin: 10/29/16 14:03 Dose: 40 mg Insulin Aspart (Novolog Vial Sliding Scale -) 1 vial SQ ACHS [facility] PRN Reason: Protocol Last Admin: 10/29/16 12:05 Dose: 5 units Insulin Detemir (Levemir Vial) 15 units SQ HS [facility] Insulin Detemir (Levemir Vial) 30 units SQ AM [facility] Pantoprazole Sodium (Protonix -) 40 mg PO DAILY [facility] Last Admin: 10/29/16 10:14 Dose: 40 mg Prednisone (Deltasone -) 40 mg PO DAILY [facility] - Objective Vital Signs: Vital Signs Temperature 98.7 F 10/29/16 09:00 Pulse Rate 92 H 10/29/16 09:00 Respiratory Rate 18 10/29/16 09:00 Blood Pressure 121/68 10/29/16 09:00 O2 Sat by Pulse Oximetry (%) 99 10/29/16 09:00 Constitutional: Yes: Mild Distress Eyes: Yes: WNL HENT: Yes: WNL Neck: Yes: WNL Cardiovascular: Yes: WNL Respiratory: Yes: WNL Gastrointestinal: Yes: WNL Genitourinary: Yes: WNL Musculoskeletal: Yes: Muscle Weakness Extremities: Yes: WNL Edema: Yes Edema: LLE: 2+, RLE: 2+ Peripheral Pulses WNL: Yes Integumentary: Yes: Pressure Ulcer Wound/Incision: Yes: Dressing Dry and Intact Neurological: Yes: Weakness ...Motor Strength: LLE, RLE Psychiatric: Yes: WNL, Other Labs: CBC, BMP 10/27/16 06:00 10/29/16 06:30 INR, PTT INR 0.97 (0.82-1.09) 10/26/16 10:21 Problem List - Problems (1) Abnormal EKG Code(s): R94.31 - ABNORMAL ELECTROCARDIOGRAM [ECG] [EKG] (2) Edema Code(s): R60.9 - EDEMA, UNSPECIFIED Qualifiers: Edema type: localized Qualified Code(s): R60.0 - Localized edema (3) Minimal change glomerular disease Code(s): N04.0 - NEPHROTIC SYNDROME WITH MINOR GLOMERULAR ABNORMALITY (4) New onset type 2 diabetes mellitus Code(s): E11.9 - TYPE 2 DIABETES MELLITUS WITHOUT COMPLICATIONS (5) Skin tear Code(s): [id number] - (6) Tremors of nervous system Code(s): R25.1 - TREMOR, UNSPECIFIED Assessment/Plan LEVEMIR ADJUSTED FOR PM HYPOGLYCEMIA 30 UNITS AM 15UNITS HS AUGMENTIN FOR UTI PREDNISONE FOR JANNA LASIX DECREASE PER RENAL
--- NOTE | 2016-10-29 15:26 | CONS ---
INFECTIOUS DISEASE CONSULTATION DATE OF CONSULTATION: DATE OF DICTATION: 10/29/2016 HISTORY OF PRESENT ILLNESS: The patient is a 75-year-old male with multiple comorbidities, evaluated for urinary tract infection. He has a history of BPH status post TURP as well as chronic kidney disease secondary to minimal change. He is on chronic steroids. He was recently seen in the emergency room at ____ [facility] with exacerbation of his COPD. He reports being prescribed an antibiotic. He is now admitted with worsening shortness of breath. He was admitted to the hospital on October 26, 2016. He had been increasingly short of breath with increasing lower extremity edema. In addition, he developed episodes of melena and was noted to have a blood sugar of 717. He has been complaining of some mild dysuria. Urinalysis showed many white cells. Urine culture grew a citrobacter species. He denies any suprapubic or flank pain. He has been afebrile with a normal white blood cell count. PAST MEDICAL HISTORY: Positive for COPD, history of BPH, hypertension, hyperlipidemia, coronary artery disease, chronic kidney disease on maintenance steroids. PAST SURGICAL HISTORY: Status post spinal surgery, umbilical and inguinal hernia repairs. ALLERGIES: No known allergies. MEDICATIONS: Cardura, Lasix, Protonix, Rapaflo. SOCIAL HISTORY: Lives at home with significant other. A former smoker. SYSTEMS REVIEW: Neurologic: No loss of consciousness, seizure activity, focal weakness. Cardiac: Negative chest pain or palpitations. Respiratory: As per HPI. Gastrointestinal: Negative vomiting or diarrhea. Positive melena. Genitourinary: As per HPI. LABORATORY DATA: White count 6.5, hematocrit 44.5, platelet count 114. BUN 24, creatinine 0.4. Urinalysis: White cells 523. Urine culture positive for citrobacter species. Chest x-ray negative for acute infiltrate. PHYSICAL EXAMINATION: General: He is in no acute distress. He is chronically ill appearing. Vital Signs: Temperature 98.7; blood pressure 121/68; pulse 92, regular; respirations 18 per minute. HEENT: Sclerae are anicteric. Heart: Sounds S1, S2. Lungs: Clear. Diminished breath sounds bilaterally. Abdomen: Soft, obese. No suprapubic or flank tenderness. Extremities: Positive for edema. IMPRESSION: 1. Urinary tract infection. 2. Chronic kidney disease on maintenance steroids. 3. Exacerbation of chronic obstructive pulmonary disease. We will treat symptomatic UTI with Augmentin 500 mg p.o. b.i.d. for 7 days. Continue treatment of COPD. Thank you for the kind referral. CAITLIN BOATENG M.D. [id number]
[2016-10-29] MEDS: AMOX TR/POT CLAV 500MG/125MG TABLETS (FP) PO SCH (17:32)
[2016-10-29] MEDS ORDERED: INSULIN (NOVOLOG) ASPART 100 UNITS/ML 10ML VIAL ONE (21:23)
[2016-10-29] MEDS ORDERED: INSULIN DETEMIR 100 UNITS/ML MDV SQ SCH (22:00)
[2016-10-30] MEDS: INSULIN SLIDING SCALE (NOVOLOG) 1 VIAL SQ SCH ×2 (06:41→11:58)
[2016-10-30] MEDS: FUROSEMIDE 40 MG TABLET (FP) PO SCH ×2 (06:47→13:01)
[2016-10-30] MEDS ORDERED: INSULIN DETEMIR 100 UNITS/ML MDV SQ SCH (07:00)
[2016-10-30 07:54] LABS: ALBUMIN 2.2 g/dl (3.4-5.0); ANION GAP 5 (8-16); BILIRUBIN,TOTAL 0.3 mg/dL (0.2-1.0); CALCIUM 9.4 mg/dL (8.5-10.1); CO2 32 mmol/L (21-32); CREATININE 0.8 mg/dL (0.7-1.3); GLUCOSE,RANDOM 97 mg/dL (74-106); SGOT/AST 11 U/L (15-37); SGPT/ALT 35 U/L (12-78); TOT PROT 5.3 g/dl (6.4-8.2)
[2016-10-30 07:55] LABS: ALK PHOS 85 U/L (45-117)
[2016-10-30] MEDS ORDERED: PT OWN MED DRAWER 7, Y5N ONE (08:48)
[2016-10-30] MEDS: PANTOPRAZOLE 40 MG TABLET (FP) PO SCH (09:03)
[2016-10-30] MEDS: AMOX TR/POT CLAV 500MG/125MG TABLETS (FP) PO SCH ×2 (09:03→16:50)
[2016-10-30] MEDS: AMINO ACIDS/PROTEIN HYDROLYS 30 ML LIQUID.PKT PO SCH ×2 (09:03→16:50)
[2016-10-30] MEDS: BACITRACIN 15 GM TUBE TOPICAL OINTMENT TP SCH (09:06)
[2016-10-30] MEDS: DOXAZOSIN MESYLATE 2 MG TABLET (FP) PO SCH (09:06)
[2016-10-30] MEDS ORDERED: MULTIVITAMINS (DAILY MVI) TABLET (FP) PO SCH (10:00)
[2016-10-30] MEDS ORDERED: predniSONE 20 MG TABLET (UD) PO SCH ×2 (10:00)
--- NOTE | 2016-10-30 10:09 | DS ---
Physical Examination Vital Signs: Vital Signs Temperature 98.6 F 10/30/16 06:00 Pulse Rate 90 10/30/16 06:00 Respiratory Rate 20 10/30/16 06:00 Blood Pressure 132/77 10/30/16 06:00 O2 Sat by Pulse Oximetry (%) 95 10/29/16 21:00 Findings/Remarks: feeling better Constitutional: Yes: Mild Distress Eyes: Yes: WNL HENT: Yes: WNL Neck: Yes: WNL Cardiovascular: Yes: WNL Respiratory: Yes: WNL Gastrointestinal: Yes: WNL Renal/: Yes: WNL Musculoskeletal: Yes: Muscle Weakness Extremities: Yes: WNL Edema: Yes Edema: LLE: 2+, RLE: 2+ Peripheral Pulses WNL: Yes Integumentary: Yes: Pressure Ulcer Wound/Incision: Yes: Dressing Dry and Intact Neurological: Yes: Pre-Existing Deficit ...Motor Strength: LLE, RLE Psychiatric: Yes: Other Labs: CBC, BMP 10/27/16 06:00 10/30/16 07:00 Discharge Summary Reason For Visit: TACHYCARDIA,UNSTEADY GAIT & EDEMA Current Active Problems Bronchospasm (Acute) COPD (chronic obstructive pulmonary disease) case management patient (Acute) Eosinophilia (Acute) New onset type 2 diabetes mellitus (Acute) Skin tear (Acute) Tachycardia (Acute) Tremors of nervous system (Acute) UTI (urinary tract infection) (Acute) Procedures: Principal: labs Hospital Course: admitted new onset dm, hyperglycemia, uti, unsteady gait, treated iv abx and po , bgm monitored, diabetes education, endocrine consult, dc home with vns, and dm education kit Condition: Stable - Instructions Diet, Activity, Other Instructions: diabetic, renal, low salt low fat diet see dr villalobos 1 week Referrals: Chidi Villalobos MD [Primary Care Provider] - Disposition: VNS/HOME HEALTH CARE - Home Medications Comprehensive Discharge Medication List: Ambulatory Orders Doxazosin Mesylate [Cardura -] 2 mg PO BID 10/26/16 Levomefolate/B6/B12/Algal Oil [Metanx Capsule] 1 each PO DAILY 10/26/16 Pantoprazole Sodium [Protonix -] 20 mg PO DAILY 10/26/16 Silodosin [Rapaflo] 8 mg PO DAILY 10/26/16 Acetaminophen [Tylenol .Regular Strength -] 650 mg PO Q6H PRN #0 tablet Albuterol 2.5/Ipratropium 0.5 [Duoneb -] 1 amp NEB Q6H PRN #90 amp 10/30/16 Amino Acids/Protein Hydrolys [Prosource No Carb Liquid Pkt] 30 ml PO BID@0800, 1730 #60 packet 10/30/16 Amox-Tr/K Cl [Augmentin 500-125mg Tablet -] 1 tab PO BID@0800,1730 #12 tablet Bacitracin - [Bacitracin Topical Ointment -] 1 applic TP DAILY #1 tube 10/30/16 Doxazosin Mesylate [Cardura -] 2 mg PO DAILY #30 tablet 10/30/16 Furosemide [Lasix -] 40 mg PO BID@0600,1400 #60 tablet 10/30/16 Insulin (Levemir) [Levemir Vial] 30 units SQ AM #4 syringe 10/30/16 Insulin Sliding Scale [Novolog Vial Sliding Scale -] 1 vial SQ ACHS #4 syringe 10/30/16 Multivitamins [Multivit ([facility] Formulary)] 1 tab PO DAILY #30 tab 10/30/16 Prednisone [Deltasone -] 30 mg PO DAILY #90 tablet 10/30/16
[2016-10-30 10:35] VITALS: BP 98/58; PULSE 96; TEMP 98.2
[2016-10-30] MEDS ORDERED: INSULIN (NOVOLOG) ASPART 100 UNITS/ML 10ML VIAL ONE (11:53)
--- NOTE | 2016-10-30 13:29 | PN ---
Progress Note, Physician History of Present Illness: Pt seen and examined at bedside. He is awake and alert. He says he feels better and is eager to go home. - Current Medication List Current Medications: Active Medications Acetaminophen (Tylenol -) 650 mg PO Q6H PRN PRN Reason: FEVER OR PAIN Albuterol/Ipratropium (Duoneb -) 1 amp NEB Q6H PRN PRN Reason: SHORTNESS OF BREATH Amino Acids (Prosource No Carb Liquid Pkt) 30 ml PO BID@0800,1730 [facility] Last Admin: 10/30/16 09:03 Dose: 30 ml Amoxicillin/Clavulanate Potassium (Augmentin - 500mg Tablet) 1 tab PO BID@0800, 1730 [facility] Last Admin: 10/30/16 09:03 Dose: 1 tab Bacitracin (Bacitracin -) 1 applic TP DAILY [facility] Last Admin: 10/30/16 09:06 Dose: 1 applic Doxazosin Mesylate (Cardura -) 2 mg PO DAILY [facility] Last Admin: 10/30/16 09:06 Dose: Not Given Furosemide (Lasix -) 40 mg PO BID@0600,1400 [facility] Last Admin: 10/30/16 13:01 Dose: 40 mg Insulin Aspart (Novolog Vial Sliding Scale -) 1 vial SQ ACHS [facility] PRN Reason: Protocol Last Admin: 10/30/16 11:58 Dose: 4 units Insulin Detemir (Levemir Vial) 15 units SQ HS [facility] Last Admin: 10/29/16 21:30 Dose: 15 units Insulin Detemir (Levemir Vial) 30 units SQ AM [facility] Last Admin: 10/30/16 06:46 Dose: 30 units Multivitamins/Minerals/Vitamin C (Tab-A-Vit -) 1 tab PO DAILY [facility] Last Admin: 10/30/16 09:03 Dose: 1 tab Pantoprazole Sodium (Protonix -) 40 mg PO DAILY [facility] Last Admin: 10/30/16 09:03 Dose: 40 mg Prednisone (Deltasone -) 40 mg PO DAILY [facility] Last Admin: 10/30/16 09:03 Dose: 40 mg - Objective Vital Signs: Vital Signs Temperature 98.2 F 10/30/16 09:00 Pulse Rate 96 H 10/30/16 09:00 Respiratory Rate 18 10/30/16 09:00 Blood Pressure 98/58 10/30/16 09:00 O2 Sat by Pulse Oximetry (%) 98 10/30/16 09:00 Constitutional: Yes: Calm Eyes: Yes: Conjunctiva Clear HENT: Yes: Atraumatic Neck: Yes: Supple Cardiovascular: Yes: S1, S2 Respiratory: Yes: On Nasal O2 Gastrointestinal: Yes: Soft Genitourinary: Yes: WNL Edema: Yes Edema: LLE: 1+, RLE: 1+ Neurological: Yes: Oriented Psychiatric: Yes: Oriented Labs: CBC, BMP 10/27/16 06:00 10/30/16 07:00 INR, PTT INR 0.97 (0.82-1.09) 10/26/16 10:21 Problem List - Problems (1) COPD (chronic obstructive pulmonary disease) case management patient Code(s): [id number] - (2) CKD (chronic kidney disease) Code(s): N18.9 - CHRONIC KIDNEY DISEASE, UNSPECIFIED Qualifiers: Chronic kidney disease stage: unspecified stage Qualified Code(s): N18.9 - Chronic kidney disease, unspecified (3) COPD (chronic obstructive pulmonary disease) Code(s): J44.9 - CHRONIC OBSTRUCTIVE PULMONARY DISEASE, UNSPECIFIED (4) Edema Code(s): R60.9 - EDEMA, UNSPECIFIED Qualifiers: Edema type: localized Qualified Code(s): R60.0 - Localized edema (5) Fluid overload Code(s): E87.70 - FLUID OVERLOAD, UNSPECIFIED (6) UTI (urinary tract infection) Code(s): N39.0 - URINARY TRACT INFECTION, SITE NOT SPECIFIED Assessment/Plan Current Medications Generic Name Dose Route Start Last Admin Trade Name Freq PRN Reason Stop Dose Admin Acetaminophen 650 mg 10/26/16 16:11 Tylenol - PO Q6H PRN FEVER OR PAIN Albuterol/Ipratropium 1 amp 10/27/16 11:48 Duoneb - NEB Q6H PRN SHORTNESS OF BREATH Amino Acids 30 ml 10/30/16 08:00 10/30/16 09:03 Prosource No Carb Liquid Pkt PO 30 ml BID@0800,1730 [facility] Administration Amoxicillin/Clavulanate Potassium 1 tab 10/29/16 17:30 10/30/16 09:03 Augmentin - 500mg Tablet PO 1 tab BID@0800,1730 [facility] Administration Bacitracin 1 applic 08/27/17 11:30 10/30/16 09:06 Bacitracin - TP 1 applic DAILY [facility] Administration Doxazosin Mesylate 2 mg 10/27/16 10:00 10/30/16 09:06 Cardura - PO Not Given DAILY [facility] Furosemide 40 mg 10/28/16 14:40 10/30/16 13:01 Lasix - PO 40 mg BID@0600,1400 [facility] Administration Insulin Aspart 1 vial 10/26/16 22:00 10/30/16 11:58 Novolog Vial Sliding Scale - SQ 4 units ACHS [facility] Administration Protocol Insulin Detemir 15 units 10/29/16 22:00 10/29/16 21:30 Levemir Vial SQ 15 units HS [facility] Administration Insulin Detemir 30 units 10/30/16 07:00 10/30/16 06:46 Levemir Vial SQ 30 units AM [facility] Administration Multivitamins/Minerals/Vitamin C 1 tab 10/30/16 10:00 10/30/16 09:03 Tab-A-Vit - PO 1 tab DAILY [facility] Administration Pantoprazole Sodium 40 mg 10/27/16 10:00 10/30/16 09:03 Protonix - PO 40 mg DAILY [facility] Administration Prednisone 40 mg 10/30/16 10:00 10/30/16 09:03 Deltasone - PO 40 mg DAILY [facility] Administration Impression 1. UTI 2. CKD with hx of JANNA 3. COPD 4. HTN 5. BPH 6. DM 7. fluid overload 8. mediastinal lymphadenopathy Plan - cont with prednisone - will see in office in a few weeks - abx per ID - cont lasix - repeat UA once UTI is resolved - monitor hg Dr Marie
== END 2016-10-30 17:15 | disposition home health service (06) | DRG 637 ==
LOC: JER 09:24 → UNDOADMOB 14:16 → JERBED 14:16 → J4S 15:24 → JERBED 15:24 → J4S 16:07 → INTOOBSV 16:07 → OBSVTOIN 16:07
PROVIDERS: ADMIT Family Medicine; ATTEND Family Medicine
DX: E11.65 Type 2 diabetes mellitus with hyperglycemia (principal); I50.33 Acute on chronic diastolic (congestive) heart failure; N39.0 Urinary tract infection, site not specified; J84.9 Interstitial pulmonary disease, unspecified; I13.0 Hypertensive heart and chronic kidney disease with heart failure and stage 1 through stage 4 chronic kidney disease, or unspecified chronic kidney disease; R00.0 Tachycardia, unspecified; J44.9 Chronic obstructive pulmonary disease, unspecified; R26.81 Unsteadiness on feet; N40.0 Benign prostatic hyperplasia without lower urinary tract symptoms; E87.70 Fluid overload, unspecified; R59.1 Generalized enlarged lymph nodes; Z87.891 Personal history of nicotine dependence; E11.22 Type 2 diabetes mellitus with diabetic chronic kidney disease; N18.9 Chronic kidney disease, unspecified; E78.5 Hyperlipidemia, unspecified
CPT/HCPCS: 36415; 71010-TC; 80048; 80053; 81003; 81015; 82009; 82272; 83036; 84484; 85025; 85027; 85610; 86850; 86900; 86901; 87040; 87086; 87186; 93005; 93010; 97116-GP; 97161-GP; 99283-25

== ENCOUNTER 2022-09-04 12:12 | Emergency (ER) | payer OTHER, BC ==
[2022-09-04] MEDS ORDERED: LIDOCAINE 5% TOPICAL PATCH TP ONE (12:27)
[2022-09-04] MEDS ORDERED: ACETAMINOPHEN 325 MG TABLET (FP) PO ONE (12:27)
[2022-09-04 12:31] VITALS: BMI 27.1
[2022-09-04] MEDS ORDERED: ACETAMINOPHEN 325 MG TABLET (FP) ONE (12:41)
[2022-09-04] MEDS ORDERED: LIDOCAINE 5% TOPICAL PATCH ONE (12:41)
[2022-09-04 14:09] VITALS: BP 168/89; PULSE 68; RESP 16; TEMP 98.3
[2022-09-04] MEDS ORDERED: LIDOCAINE PATCH REMOVAL MC ONE (22:00)
== END 2022-09-04 14:56 | disposition home or self-care (01) ==
LOC: JER 12:12
DX: M25.551 Pain in right hip (principal); W18.30XA Fall on same level, unspecified, initial encounter
CPT/HCPCS: 73502-TC-RT-FY; 82962; 99283-25

== ENCOUNTER 2022-10-08 03:52 | Day surgery (SDC) | payer OTHER, BC ==
[2022-10-01 16:58] VITALS: BMI 26.9
[2022-10-08 06:31] VITALS: BP 140/84; PULSE 86; RESP 20; TEMP 97.5
== END 2022-10-08 07:25 | disposition home or self-care (01) ==
LOC: JASU-SURG 03:52
PROVIDERS: ATTEND Urology
DX: Z53.8 Procedure and treatment not carried out for other reasons (principal)
CPT/HCPCS: 82962

== ENCOUNTER 2022-10-22 03:41 | Day surgery (SDC) | payer OTHER, BC ==
[2022-10-18 09:00] VITALS: BMI 27.7
[2022-10-22] MEDS ORDERED: ACETAMINOPHEN 1000 MG/100 ML BAG IVPB ONE (07:19)
[2022-10-22] MEDS ORDERED: DEXTROSE 5%-0.45% SALINE 1,000 ML IV SCH (07:30)
[2022-10-22] MEDS ORDERED: MIDAZOLAM HCL 2 MG/2 ML SINGLE DOSE VIAL ONE (07:37)
[2022-10-22] MEDS ORDERED: ceFAZolin SODIUM 1 GM VIAL ONE (07:48)
[2022-10-22] MEDS ORDERED: ONDANSETRON 4 MG/2 ML VIAL ONE (07:48)
[2022-10-22] MEDS ORDERED: ceFAZolin SODIUM 1 GM VIAL IVPB ONE (07:50)
[2022-10-22 08:45] VITALS: RESP 20
[2022-10-22] MEDS ORDERED: ACETAMINOPHEN INJECTION 100 ML IVPB ONE (09:00)
[2022-10-22 14:47] VITALS: BP 133/67; PULSE 83; TEMP 98
== END 2022-10-22 14:15 | disposition home or self-care (01) ==
LOC: JASU-SURG 03:41
PROVIDERS: ATTEND Urology
PROC: 0TF4XZZ Fragmentation in Left Kidney Pelvis, External Approach (ICD-10-PCS; principal; 2022-10-22 07:30)
DX: N20.0 Calculus of kidney (principal)
CPT/HCPCS: 82962